=== PATIENT | female | born 1975 | race Caucasian/White ===

== ENCOUNTER → 2016-03-16 | Outpatient (CLI) | payer OTHER ==
--- NOTE | 2016-03-16 17:44 | XR ---
EXAMINATION TYPE: XR thoracic spine 2V DATE OF EXAM: 03/16/2016 4:53 PM COMPARISON: NONE HISTORY: Back pain TECHNIQUE: 3 views FINDINGS: Thoracic vertebra have normal spacing and alignment. Posterior elements are intact. There i s no paraspinal mass. I see no compression fracture. IMPRESSION: Negative thoracic spine exam.
== END | disposition home or self-care (01) ==
LOC: RADXRMAIN 16:32
PROVIDERS: ATTEND Pediatrics
DX: M54.6 Pain in thoracic spine (principal)
CPT/HCPCS: 72070

== ENCOUNTER → 2016-04-04 | Outpatient (CLI) | payer OTHER ==
--- NOTE | 2016-04-04 23:13 | MR ---
EXAMINATION TYPE: MR thoracic spine wo con DATE OF EXAM: 04/04/2016 6:39 PM COMPARISON: NONE HISTORY: back pain from closing garage door 3 weeks ago Standard multiplanar, multisequence MRI departmental protocol Multiplanar, multisequence images of the thoracic spine were acquired. FINDINGS: The thoracic vertebrae have normal spacing and alignment. Thoracic spinal cord has normal s ignal pattern. There is no evidence of edema. There is no spinal stenosis. There is no evidence of th oracic paraspinal mass. I see no bony destructive process. IMPRESSION: Negative MR scan of the thoracic spine. No fracture. No thoracic disc herniation or spinal stenosis.
== END | disposition home or self-care (01) ==
LOC: RADMRIMAIN 17:56
PROVIDERS: ATTEND Psychiatry & Neurology Neurology
DX: M54.6 Pain in thoracic spine (principal)
CPT/HCPCS: 72146

== ENCOUNTER 2016-04-05 16:27 | Emergency (ER) | payer OTHER ==
[2016-04-05 16:36] VITALS: PULSE 60; RESP 18; TEMP 97.8
[2016-04-05] MEDS ORDERED: METHOCARBAMOL 750 MG TAB PO PRN (17:35)
[2016-04-05] MEDS ORDERED: NAPROXEN 250 MG TAB PO PRN (17:35)
[2016-04-05] MEDS ORDERED: ALBUTEROL INHALER 60 PUFF/8 GM INHALER INHALATION PRN (17:35)
[2016-04-05] MEDS ORDERED: GABAPENTIN 300 MG CAP PO ONE (17:45)
[2016-04-05] MEDS ORDERED: METOPROLOL SUCCINATE (ER) 50 MG TAB.ER.24H PO ONE (18:00)
[2016-04-05] MEDS ORDERED: LISINOPRIL-HCTZ 10-12.5 MG 1 EACH TAB PO ONE (18:00)
[2016-04-05] MEDS ORDERED: NON-FORMULARY DRUG (Mometasone/Formoterol [Dulera 200 Mcg/5 Mcg Inhaler] 2 PUFF) INHALATION SCH (20:00)
--- NOTE | 2016-04-05 20:17 | ED ---
Psych HPI - General Chief Complaint: Psychiatric Symptoms Stated Complaint: Mental Health Time Seen by Provider: 04/05/16 17:22 Source: patient Mode of arrival: ambulatory - History of Present Illness Initial Comments: This 40-year-old white female presents with a complaint of some depression. She states that his been chronic in nature. She apparently has had some suicidal ideations in the past. This apparently was 4 months ago. The depression also seem somewhat worse over the past 2 weeks. She has family stressors as well as chronic pain stressors. She takes Celexa for her depression. She apparently was being seen by her primary care physician today and they sent her to the ER for further psychiatric evaluation. She denies any suicide attempts. She denies any other complaints or modifying factors. - Related Data Home Medications Medication Instructions Recorded Confirmed Acyclovir [Zovirax] 400 mg PO BID 02/27/14 04/05/16 Gabapentin [Neurontin] 300 mg PO TID 02/27/14 04/05/16 Hydrocodone/Acetaminophen [[place] 1 tab PO TID 02/27/14 04/05/16 7.5-325] Lacosamide [Vimpat] 50 mg PO BID 02/27/14 04/05/16 Loratadine [Claritin] 10 mg PO DAILY 02/27/14 04/05/16 Tiotropium [place] [Spiriva] 1 cap INHALATION RT-DAILY 02/27/14 04/05/16 Lisinopril-Hctz 10-12.5 mg 1 tab PO DAILY 05/08/14 04/05/16 [Zestoretic 10-12.5] Albuterol Inhaler [Ventolin Hfa 2 puff INHALATION RT-Q6H PRN 10/18/14 04/05/16 Inhaler] Metoprolol Succinate 50 mg PO DAILY 10/18/14 04/05/16 Atorvastatin [Lipitor] 20 mg PO HS 05/26/15 04/05/16 Calcium Carbonate/Vitamin D3 1 tab PO DAILY 05/26/15 04/05/16 [Os-Anurag 500-Vit D3 200 Caplet] Cholecalciferol [Vitamin D3] 1,000 unit PO DAILY 05/26/15 04/05/16 Naproxen 500 mg PO Q12H PRN 05/26/15 04/05/16 Citalopram Hydrobromide [CeleXA] 40 mg PO DAILY 04/05/16 04/05/16 Methocarbamol [Robaxin-750] 750 mg PO TID PRN 04/05/16 04/05/16 Mometasone/Formoterol [[place]ulera 200 2 puff INHALATION RT-BID 04/05/16 04/05/16 Mcg/5 Mcg Inhaler] Terbinafine [LamISIL] 250 mg PO DAILY 04/05/16 04/05/16 Allergies Allergy/AdvReac Type Severity Reaction Status Date / Time Sulfa (Sulfonamide AdvReac Itching Verified 04/05/16 16:59 Antibiotics) Review of Systems ROS Statement: Those systems with pertinent positive or pertinent negative responses have been documented in the HPI. ROS Other: All systems not noted in ROS Statement are negative. Past Medical History Past Medical History: COPD, Fibromyalgia, Hyperlipidemia, Hypertension, Neurologic Disorder, Thyroid Disorder Additional Past Medical History / Comment(s): Neuropathy History of Any Multi-Drug Resistant Organisms: MRSA Date of last positivie culture/infection: 10-18-14 MDRO Source:: Groin Past Surgical History: Back Surgery, Tubal Ligation Additional Past Surgical History / Comment(s): Lumbar fusion L5-S1 Past Anesthesia/Blood Transfusion Reactions: No Reported Reaction Past Psychological History: Anxiety, Depression Smoking Status: Current every day smoker Past Alcohol Use History: Rare Additional Past Alcohol Use History / Comment(s): Patient is a smoker one half to one pack per day and has been smoking for 23 years. She has a medical marijuana card and smokes marijuana on a daily basis for sleep. She denies any street drug use she denies any alcohol use. Patient is currently on disability. She was at home with her 2 daughters that are for 15 years of age and 4 years of age. There are no pets in the home. She recently moved to a new apartment. Past Drug Use History: Marijuana Additional Drug Use History / Comment(s): Pt has medical marijuana card - Past Family History Mother Family Medical History: Hypertension, Sleep Apnea/CPAP/BIPAP Additional Family Medical History / Comment(s): Anxiety and depression General Exam - General Exam Comments Initial Comments: GENERAL: The patient is well nourished and well hydrated. VITAL SIGNS: Heart rate, blood pressure, respiratory rate reviewed as recorded in nurse's notes. EYES: Pupils are round and reactive. Extraocular movements are intact. No conjunctival / lid redness or swelling. ENT: No external evidence of injury, swelling, or ecchymosis. Airway is patent. Throat is clear. NECK: Nontender. No swelling or evidence of injury. No subcutaneous emphysema. Trachea is midline. No thyroid mass. HEART: Regular rate and rhythm. Good peripheral pulses. LUNGS/CHEST: Breath sounds clear and equal bilaterally. No rales, rhonchi, or wheezes. No ecchymosis, subcutaneous emphysema, or tenderness. ABDOMEN: Abdomen soft without tenderness. No palpable masses or organomegaly. No peritoneal signs. No abdominal wall swelling or ecchymosis. EXTREMITIES: No extremity tenderness. Normal muscle tone and function. No thoracolumbar tenderness. NEUROLOGIC: Sensation is grossly intact. Cranial nerve exam reveals face is symmetrical, tongue is midline, speech is clear. SKIN: No abrasions or ecchymosis is noted. No induration or masses noted. PSYCHIATRIC: Alert and oriented. Appropriate behavior and judgment. She is well dressed and well groomed. There is no overt signs of anxiety psychosis or depression. Limitations: no limitations Course Vital Signs 04/05/16 16:32 Temperature 97.8 F Pulse Rate 60 Respiratory 18 Rate Blood Pressure 168/85 O2 Sat by Pulse 99 Oximetry Medical Decision Making - Medical Decision Making The patient was seen and examined. All diagnostics were reviewed. Psychiatry did see the patient in the ER and felt as though she does not need inpatient treatment at this time. They felt as though she is stable for outpatient treatment. They do set her up with outpatient close follow-up. They relate that her suicidal ideations were 4 months ago and she does not have any currently. She leaves in no apparent distress. - Lab Data Lab Results 04/05/16 Range/Units 16:37 Urine Opiates Screen Detected H (NotDetected) Ur Oxycodone Screen Not Detected (NotDetected) Urine Methadone Screen Not Detected (NotDetected) Ur Propoxyphene Screen Not Detected (NotDetected) Ur Barbiturates Screen Not Detected (NotDetected) U Tricyclic Antidepress Not Detected (NotDetected) Ur Phencyclidine Scrn Not Detected (NotDetected) Ur Amphetamines Screen Not Detected (NotDetected) U Methamphetamines Scrn Not Detected (NotDetected) U Benzodiazepines Scrn Not Detected (NotDetected) Urine Cocaine Screen Not Detected (NotDetected) U Marijuana (THC) Screen Detected H (NotDetected) Disposition Clinical Impression: Depression, Hypertension, Chronic pain Disposition: HOME SELF-CARE Condition: Good Instructions: Depression (ED), Hypertension (ED) Referrals: Harpreet Chowdhury MD [Primary Care Provider] - 1-2 days Time of Disposition: 20:14
[2016-04-05 20:24] VITALS: BP 130/71
[2016-04-05] MEDS ORDERED: ATORVASTATIN 20 MG TAB PO SCH (21:00)
[2016-04-05] MEDS ORDERED: LACOSAMIDE 50 MG TABLET PO SCH (21:00)
[2016-04-05] MEDS ORDERED: NON-FORMULARY DRUG (Acyclovir [Zovirax] 400 MG) PO SCH (21:00)
[2016-04-05] MEDS ORDERED: GABAPENTIN 300 MG CAP PO SCH ×2 (22:00)
[2016-04-05] MEDS ORDERED: HYDROcodone/APAP 7.5-325MG 1 EACH TAB PO SCH (22:00)
[2016-04-06] MEDS ORDERED: TIOTROPIUM 18 MCG/PUFF INHALER INHALATION SCH (08:00)
[2016-04-06] MEDS ORDERED: TERBINAFINE 250 MG TAB PO SCH (09:00)
[2016-04-06] MEDS ORDERED: CHOLECALCIFEROL 1,000 UNIT TAB PO SCH (09:00)
[2016-04-06] MEDS ORDERED: NON-FORMULARY DRUG (Citalopram Hydrobromide [Celexa] 40 MG) PO SCH (09:00)
[2016-04-06] MEDS ORDERED: METOPROLOL SUCCINATE (ER) 50 MG TAB.ER.24H PO SCH (09:00)
[2016-04-06] MEDS ORDERED: LISINOPRIL-HCTZ 10-12.5 MG 1 EACH TAB PO SCH (09:00)
[2016-04-06] MEDS ORDERED: LORATADINE 10 MG TAB PO SCH (09:00)
[2016-04-06] MEDS ORDERED: CALCIUM CARB-VIT D 500MG-200UN 1 EACH TAB PO SCH (12:00)
== END 2016-04-05 20:42 | disposition home or self-care (01) ==
LOC: EC 16:27
DX: F32.9 Major depressive disorder, single episode, unspecified (principal); G89.29 Other chronic pain; I10 Essential (primary) hypertension; J44.9 Chronic obstructive pulmonary disease, unspecified; M79.7 Fibromyalgia; E78.5 Hyperlipidemia, unspecified; G62.9 Polyneuropathy, unspecified; Z79.899 Other long term (current) drug therapy; Z79.891 Long term (current) use of opiate analgesic; Z79.51 Long term (current) use of inhaled steroids; Z88.2 Allergy status to sulfonamides; F17.200 Nicotine dependence, unspecified, uncomplicated
CPT/HCPCS: 80306; 82075; 99284; 99285

== ENCOUNTER → 2016-05-11 | Outpatient (CLI) | payer OTHER ==
--- NOTE | 2016-05-11 12:55 | US ---
EXAMINATION TYPE: US abdomen complete DATE OF EXAM: 05/11/2016 11:35 AM COMPARISON: Correlation MRI lumbar spine 01/06/2016 and 04/22/2011 CLINICAL HISTORY: 40-year-old female with R10.11 RUQ Pain. TECHNIQUE: Multiple sonographic images of the abdomen were obtained. FINDINGS: TECHNOLOGIST IMPRESSION: Slender patient in a lot of pain over ruq/epigastric area. Liver Length: 13.8 cm Gallbladder Wall: 0.2 cm CBD: 0.8 cm Spleen: 8.9 cm Right Kidney: 10.2 x 3.1 x 4.2 cm Left Kidney: 10.9 x 3.6 x 4.0 cm Pancreas: Ovoid hypoechoic area measuring 2.0 x 1.7 x 1.2 cm in the pancreatic head region. This are a was rescanned at the end of the exam with the patient positioned differently and could not be redem onstrated. Liver: Normal homogeneous echotexture without focal lesion. Questionable few double ducts are noted suggesting some intrahepatic biliary ductal dilatation. Gallbladder: No abnormal gallbladder distention, wall thickening, pericholecystic fluid, or shadowin g calculi. Evidence for sonographic Plunkett's sign: yes CBD: Dilated. The main pancreatic duct is normal caliber at 2 mm. Spleen: Within normal limits Right Kidney: No hydronephrosis Left Kidney: No hydronephrosis Upper IVC: Within normal limits Abd Aorta: No AAA. IMPRESSION: 1. The bile duct is dilated at 8 mm but appears to have been a similar caliber dating back to the 201 2 lumbar spine MRI. Findings are suspected to be chronic. Correlation with alkaline phosphatase and b ilirubin levels advised. 2. Questionable 2 cm ovoid hypoechoic lesion in the pancreatic head region. Pancreas CT or MRI can ex clude a pancreatic head mass. 3. Positive sonographic Plunkett sign but with normal appearance to the gallbladder. This may be due to referred pain.
== END | disposition home or self-care (01) ==
LOC: RADUSWWP 11:06
PROVIDERS: ATTEND Pediatrics
DX: K83.8 Other specified diseases of biliary tract (principal); R10.11 Right upper quadrant pain
CPT/HCPCS: 76700

== ENCOUNTER → 2016-05-12 | Outpatient (CLI) | payer OTHER ==
--- NOTE | 2016-05-12 11:45 | CT ---
EXAMINATION TYPE: CT abdomen w con DATE OF EXAM: 05/12/2016 11:28 AM COMPARISON: 10/17/2014, ultrasound dated 05/11/2016 HISTORY: RUQ pain CT DLP: 191.2 mGycm Automated exposure control for dose reduction was used. TECHNIQUE: Helical acquisition of images was performed from the lung bases through the top of iliac crest to include entire abdomen. CONTRAST: Performed without Oral Contrast and with IV Contrast, patient injected with 100 mL of Omnipaque 300. FINDINGS: LUNG BASES: No significant abnormality is appreciated. LIVER/GB: No significant abnormality is appreciated. Common bile duct appears stable from the previou s exam PANCREAS: No significant abnormality is seen. SPLEEN: No significant abnormality is seen. ADRENALS: No significant abnormality is seen. KIDNEYS: No significant abnormality is seen. BOWEL: There is thickening of the wall the gastric body. Correlate for gastritis or mild peptic ulce r disease. Visualized bowel gas pattern nonspecific with retained fecal debris.. LYMPH NODES: No pathologic adenopathy. OSSEOUS STRUCTURES: Postsurgical change lumbar spine. OTHER: Aorta of normal caliber. There is a hiatal hernia. IMPRESSION: 1. Findings are suspicious for gastric wall thickening. The stomach is incompletely distended which l imits its evaluation correlate for symptoms of gastritis or peptic ulcer disease. Consider direct vis ualization. 2. Within the right rectus muscle there is a 2.7 cm area of low attenuation. Measures 25 [place]oun[place] u nits. Could be related to intramuscular injury or hematoma. No skin thickening or inflammatory change seen to suggest abscess. Correlate clinically and with point tenderness. 3. Hiatal hernia with distal esophageal wall thickening consider direct visualization. 4. There is thickening of the diaphragmatic crura. Areas of adenopathy in the epigastric region not e xcluded.
== END ==
LOC: RADCTMAIN 10:51
PROVIDERS: ATTEND Pediatrics
DX: K31.89 Other diseases of stomach and duodenum (principal); K44.9 Diaphragmatic hernia without obstruction or gangrene
CPT/HCPCS: 74160; Q9967

== ENCOUNTER 2016-09-23 11:25 | Emergency (ER) | payer OTHER ==
[2016-09-23] MEDS ORDERED: SODIUM CHLORIDE 0.9% 1,000 ML IV STA (12:26)
--- NOTE | 2016-09-23 12:32 | ED ---
General Adult HPI - General Chief complaint: Neck Pain/Injury Stated complaint: seizure,neck pain Time Seen by Provider: 09/23/16 11:54 Source: patient, RN notes reviewed Mode of arrival: ambulatory Limitations: no limitations - History of Present Illness Initial comments: Patient is a 41-year-old female presents to the emergency room for evaluation. Patient states she has a history of seizures. Patient states he's been on Vimpat (50 mg BID) for the past 3 years. Patient states that she has not had a seizure since 2011. Patient states last night she had a seizure. Patient's daughter is present with patient. Patient's daughter states she witnessed the seizure. Patient's daughter states that patient was sitting on her chair and went limp and started making noises. Patient's daughter states that it lasted about 30 seconds and patient was confused for many hours afterwards. Patient states that she refused to go to the hospital afterwards and just wanted to sleep it off. Patient states she woke up this morning with head pressure. Patient also states having chronic neck pain for the past few months. Patient states she is following up with a specialist at the [facility] in December. Patient denies any worsening neck pain. Patient states she is having 5 out of 10 headache. Patient denies any recent changes in prescription medications. Patient denies alcohol use. Patient denies illicit drug use. Patient does state that she has been weaning herself off and [place] over the past few months. Patient states took a [place] last night shortly before her seizure for the first time in a while. Patient denies any head trauma during seizure. Patient denies any other injuries or complaints. - Related Data Home Medications Medication Instructions Recorded Confirmed Acyclovir [Zovirax] 400 mg PO BID 02/27/14 04/05/16 Gabapentin [Neurontin] 300 mg PO TID 02/27/14 04/05/16 Hydrocodone/Acetaminophen [[place] 1 tab PO TID 02/27/14 04/05/16 7.5-325] Lacosamide [Vimpat] 50 mg PO BID 02/27/14 04/05/16 Loratadine [Claritin] 10 mg PO DAILY 02/27/14 04/05/16 Tiotropium [place] [Spiriva] 1 cap INHALATION RT-DAILY 02/27/14 04/05/16 Lisinopril-Hctz 10-12.5 mg 1 tab PO DAILY 05/08/14 04/05/16 [Zestoretic 10-12.5] Albuterol Inhaler [Ventolin Hfa 2 puff INHALATION RT-Q6H PRN 10/18/14 04/05/16 Inhaler] Metoprolol Succinate 50 mg PO DAILY 10/18/14 04/05/16 Atorvastatin [Lipitor] 20 mg PO HS 05/26/15 04/05/16 Calcium Carbonate/Vitamin D3 1 tab PO DAILY 05/26/15 04/05/16 [Os-Anurag 500-Vit D3 200 Caplet] Cholecalciferol [Vitamin D3] 1,000 unit PO DAILY 05/26/15 04/05/16 Naproxen 500 mg PO Q12H PRN 05/26/15 04/05/16 Citalopram Hydrobromide [CeleXA] 40 mg PO DAILY 04/05/16 04/05/16 Methocarbamol [Robaxin-750] 750 mg PO TID PRN 04/05/16 04/05/16 Mometasone/Formoterol [Dulera 200 2 puff INHALATION RT-BID 04/05/16 04/05/16 Mcg/5 Mcg Inhaler] Terbinafine [LamISIL] 250 mg PO DAILY 04/05/16 04/05/16 Allergies Allergy/AdvReac Type Severity Reaction Status Date / Time Sulfa (Sulfonamide AdvReac Itching Verified 04/05/16 16:59 Antibiotics) Review of Systems ROS Statement: Those systems with pertinent positive or pertinent negative responses have been documented in the HPI. ROS Other: All systems not noted in ROS Statement are negative. Past Medical History Past Medical History: COPD, Fibromyalgia, Hyperlipidemia, Hypertension, Neurologic Disorder, Thyroid Disorder Additional Past Medical History / Comment(s): Neuropathy History of Any Multi-Drug Resistant Organisms: MRSA Date of last positivie culture/infection: 10-18-14 MDRO Source:: Groin Past Surgical History: Back Surgery, Tubal Ligation Additional Past Surgical History / Comment(s): Lumbar fusion L5-S1 Past Anesthesia/Blood Transfusion Reactions: No Reported Reaction Past Psychological History: Anxiety, Depression Smoking Status: Current every day smoker Past Alcohol Use History: Rare Past Drug Use History: Marijuana - Past Family History Mother Family Medical History: Hypertension, Sleep Apnea/CPAP/BIPAP Additional Family Medical History / Comment(s): Anxiety and depression General Exam - General Exam Comments Initial Comments: Sitting in exam room, no acute distress. Limitations: no limitations General appearance: alert, in no apparent distress Head exam: Present: atraumatic, normocephalic, normal inspection Eye exam: Present: normal appearance, PERRL, EOMI Pupils: Present: normal accommodation ENT exam: Present: normal exam, normal oropharynx, mucous membranes moist, TM's normal bilaterally, normal external ear exam Neck exam: Present: normal inspection, tenderness (Tenderness on palpating her cervical spine muscles), full ROM. Absent: lymphadenopathy Respiratory exam: Present: normal lung sounds bilaterally. Absent: respiratory distress Cardiovascular Exam: Present: regular rate, normal rhythm, normal heart sounds Extremities exam: Present: normal inspection Back exam: Present: normal inspection Neurological exam: Present: alert, oriented X3, CN II-XII intact Expanded Patient oriented to: Present: person, place, time Speech: Present: fluid speech Cranial nerves: EOM's Intact: Normal, Facial Sensation: Normal Sensory exam: Upper Extremity Light Touch: Normal, Lower Extremity Light Touch: Normal Motor strength exam: RUE: 5, LUE: 5, RLE: 5, LLE: 5 Psychiatric exam: Present: normal affect, normal mood Skin exam: Present: warm, dry, intact, normal color. Absent: rash Course Vital Signs 09/23/16 09/23/16 09/23/16 11:41 13:25 14:21 Temperature 98.1 F 97.8 F 97.3 F L Pulse Rate 67 62 69 Respiratory 17 16 15 Rate Blood Pressure 130/75 127/73 115/63 O2 Sat by Pulse 98 100 99 Oximetry - Reevaluation(s) Reevaluation #1: 09/23/16 12:31 Patient states she has a history of chronic neck pain. Patient denies any recent injury or trauma to her neck. Patient denies worsening neck pain. C- collar was placed in triage. I did remove the c-collar at 12:25 PM EKG Findings - EKG Comments: EKG Findings:: Normal sinus rhythm, ventricular rate 61 bpm, MI interval 138 ms , QRS duration 86 seconds, QT/QTc 432/434 ms Medical Decision Making - Medical Decision Making patient is a 41-year-old female presents emergency room for evaluation of seizure and chronic neck pain. Labs showed no acute findings. CT negative for any acute findings. Patient advised to keep appointment with specialist at [facility] for chronic neck pain. Patient advised to follow-up with neurologist for seizure. Advised patient to not drive for the next 6 months or until evaluated by neurologist. Patient can continue taking her at home medications. Patient states she understands everything that was discussed with her. Return parameters discussed. Case discussed with Dr. Grover. - Lab Data Result diagrams: 09/23/16 12:40 09/23/16 12:40 Lab Results 09/23/16 09/23/16 09/23/16 Range/Units 12:32 12:39 12:40 WBC (3.8-10.6) k/uL RBC (3.80-5.40) m/uL Hgb (11.4-16.0) gm/dL Hct (34.0-46.0) % MCV (80.0-100.0) fL MCH (25.0-35.0) pg MCHC (31.0-37.0) g/dL RDW (11.5-15.5) % Plt Count (150-450) k/uL Neutrophils % % Lymphocytes % % Monocytes % % Eosinophils % % Basophils % % Neutrophils # (1.3-7.7) k/uL Lymphocytes # (1.0-4.8) k/uL Monocytes # (0-1.0) k/uL Eosinophils # (0-0.7) k/uL Basophils # (0-0.2) k/uL Sodium 137 (137-145) mmol/L Potassium 4.2 (3.5-5.1) mmol/L Chloride 102 (98-107) mmol/L Carbon Dioxide 27 (22-30) mmol/L Anion Gap 8 mmol/L BUN 11 (7-17) mg/dL Creatinine 0.74 (0.52-1.04) mg/dL Est GFR (MDRD) Af Amer >60 (>60 ml/min/1.73 sqM) Est GFR (MDRD) Non-Af >60 (>60 ml/min/1.73 sqM) Glucose 88 (74-99) mg/dL POC Glucose (mg/dL) 98 (75-99) mg/dL POC Glu Video Games Mechanic ID Abdelrahman Severino Calcium 9.2 (8.4-10.2) mg/dL Total Bilirubin 0.5 (0.2-1.3) mg/dL AST 25 (14-36) U/L ALT 24 (9-52) U/L Alkaline Phosphatase 56 (38-126) U/L Total Protein 6.6 (6.3-8.2) g/dL Albumin 3.9 (3.5-5.0) g/dL Urine Color Light Yellow Urine Appearance Clear (Clear) Urine pH 5.5 (5.0-8.0) Ur Specific [place] 1.004 (1.001-1.035) Urine Protein Negative (Negative) Urine Glucose (UA) Negative (Negative) Urine Ketones Negative (Negative) Urine Blood Negative (Negative) Urine Nitrite Negative (Negative) Urine Bilirubin Negative (Negative) Urine Urobilinogen <2.0 (<2.0) mg/dL Ur Leukocyte Esterase Negative (Negative) Salicylates <1.0 mg/dL Urine Opiates Screen Detected H (NotDetected) Ur Oxycodone Screen Not Detected (NotDetected) Urine Methadone Screen Not Detected (NotDetected) Ur Propoxyphene Screen Not Detected (NotDetected) Acetaminophen <10.0 ug/mL Ur Barbiturates Screen Not Detected (NotDetected) U Tricyclic Antidepress Not Detected (NotDetected) Ur Phencyclidine Scrn Not Detected (NotDetected) Ur Amphetamines Screen Not Detected (NotDetected) U Methamphetamines Scrn Not Detected (NotDetected) U Benzodiazepines Scrn Not Detected (NotDetected) Urine Cocaine Screen Not Detected (NotDetected) U Marijuana (THC) Screen Not Detected (NotDetected) Serum Alcohol <10 mg/dL 09/23/16 Range/Units 12:40 WBC 6.6 (3.8-10.6) k/uL RBC 4.06 (3.80-5.40) m/uL Hgb 13.3 (11.4-16.0) gm/dL Hct 38.4 (34.0-46.0) % MCV 94.5 (80.0-100.0) fL MCH 32.6 (25.0-35.0) pg MCHC 34.5 (31.0-37.0) g/dL RDW 12.1 (11.5-15.5) % Plt Count 152 (150-450) k/uL Neutrophils % 56 % Lymphocytes % 34 % Monocytes % 7 % Eosinophils % 2 % Basophils % 1 % Neutrophils # 3.7 (1.3-7.7) k/uL Lymphocytes # 2.2 (1.0-4.8) k/uL Monocytes # 0.4 (0-1.0) k/uL Eosinophils # 0.1 (0-0.7) k/uL Basophils # 0.1 (0-0.2) k/uL Sodium (137-145) mmol/L Potassium (3.5-5.1) mmol/L Chloride (98-107) mmol/L Carbon Dioxide (22-30) mmol/L Anion Gap mmol/L BUN (7-17) mg/dL Creatinine (0.52-1.04) mg/dL Est GFR (MDRD) Af Amer (>60 ml/min/1.73 sqM) Est GFR (MDRD) Non-Af (>60 ml/min/1.73 sqM) Glucose (74-99) mg/dL POC Glucose (mg/dL) (75-99) mg/dL POC Glu Video Games Mechanic ID Calcium (8.4-10.2) mg/dL Total Bilirubin (0.2-1.3) mg/dL AST (14-36) U/L ALT (9-52) U/L Alkaline Phosphatase (38-126) U/L Total Protein (6.3-8.2) g/dL Albumin (3.5-5.0) g/dL Urine Color Urine Appearance (Clear) Urine pH (5.0-8.0) Ur Specific [place] (1.001-1.035) Urine Protein (Negative) Urine Glucose (UA) (Negative) Urine Ketones (Negative) Urine Blood (Negative) Urine Nitrite (Negative) Urine Bilirubin (Negative) Urine Urobilinogen (<2.0) mg/dL Ur Leukocyte Esterase (Negative) Salicylates mg/dL Urine Opiates Screen (NotDetected) Ur Oxycodone Screen (NotDetected) Urine Methadone Screen (NotDetected) Ur Propoxyphene Screen (NotDetected) Acetaminophen ug/mL Ur Barbiturates Screen (NotDetected) U Tricyclic Antidepress (NotDetected) Ur Phencyclidine Scrn (NotDetected) Ur Amphetamines Screen (NotDetected) U Methamphetamines Scrn (NotDetected) U Benzodiazepines Scrn (NotDetected) Urine Cocaine Screen (NotDetected) U Marijuana (THC) Screen (NotDetected) Serum Alcohol mg/dL - Radiology Data Radiology results: report reviewed, image reviewed Disposition Clinical Impression: Seizure, Chronic neck pain Disposition: HOME SELF-CARE Condition: Good Instructions: Recurrent Seizures in Adults (ED) Additional Instructions: Please follow-up with neurologist. No driving until further evaluation. Continue taking prescribed medications as directed. If any new symptom arises or symptoms worsen, return to ER as soon as possible. Referrals: Harpreet Chowdhury MD [Primary Care Provider] - 1-2 days Time of Disposition: 14:09
[2016-09-23 12:44] LABS: Glucose,Whole Blood 98 mg/dL (75-99)
[2016-09-23 13:03] LABS: Appearance,Urine Clear (Clear); Bilirubin,Urine Negative (Negative); Glucose,Urine (UA) Negative (Negative); Ketones,Urine Negative (Negative); Leukocyte Esterase,Urine Negative (Negative); Nitrite,Urine Negative (Negative); PH, Urine 5.5 (5.0-8.0); Protein,Urine Negative (Negative); Specific Gravity,Urine 1.004 (1.001-1.035); UA Billing (MACRO vs. MICRO) CHEM; Urobilinogen,Urine <2.0 mg/dL (<2.0)
[2016-09-23 13:08] LABS: Basophils # (A) 0.1 k/uL (0-0.2); Basophils % (A) 1 %; CHCM 33.9; Eosinophils # (A) 0.1 k/uL (0-0.7); Eosinophils % (A) 2 %; HCT 38.4 % (34.0-46.0); HDW 2.72; HGB 13.3 gm/dL (11.4-16.0); Luc % (Auto) 2; Lymphocytes # (A) 2.2 k/uL (1.0-4.8); Lymphocytes % (A) 34 %; MCH 32.6 pg (25.0-35.0); MCHC 34.5 g/dL (31.0-37.0); MCV 94.5 fL (80.0-100.0); Mean Platelet Volume 8.7; Monocytes # (A) 0.4 k/uL (0-1.0); Monocytes % (A) 7 %; Neutrophils # (A) 3.7 k/uL (1.3-7.7); Neutrophils % (A) 56 %; RBC 4.06 m/uL (3.80-5.40); RDW 12.1 % (11.5-15.5); WBC 6.6 k/uL (3.8-10.6); WBC (Perox) 6.58
[2016-09-23 13:16] LABS: ALT 24 U/L (9-52); AST 25 U/L (14-36); Acetaminophen <10.0 ug/mL; Alcohol <10 mg/dL; Alkaline Phosphatase 56 U/L (38-126); Anion Gap 8 mmol/L; Blood Urea Nitrogen 11 mg/dL (7-17); Calcium 9.2 mg/dL (8.4-10.2); Carbon Dioxide 27 mmol/L (22-30); Chloride 102 mmol/L (98-107); Glucose 88 mg/dL (74-99); Non-African American GFR(MDRD) >60 (>60 ml/min/1.73 sqM); Potassium 4.2 mmol/L (3.5-5.1); Salicylate <1.0 mg/dL; Sodium 137 mmol/L (137-145); Total Bilirubin 0.5 mg/dL (0.2-1.3); Total Protein 6.6 g/dL (6.3-8.2)
--- NOTE | 2016-09-23 13:43 | CT ---
EXAMINATION TYPE: CT brain cspine wo con DATE OF EXAM: 09/23/2016 COMPARISON: NONE HISTORY: Seziure, neck and head pain CT DLP: brain 1054.2 and cervical 315.3 mGycm Automated exposure control for dose reduction was used. TECHNIQUE: CT scan of the head and cervical spine are performed without contrast. FINDINGS: There is no acute intracranial hemorrhage, mass effect, or midline shift identified. The ventricles and sulci are within normal limits in size. The globes are intact and the visualized sin uses are clear. Cervical spine is visualized in its entirety from C1 through upper thoracic levels and demonstrates s atisfactory alignment without evidence of acute fracture or dislocation. Prevertebral soft tissue ap pears within normal limits. The C1-C2 articulation is unremarkable. Facet arthropathy C4-C5 on the right 5 mm subpleural nodule within the upper lobe. Apical bleb is noted. IMPRESSION: 1. There is no acute fracture or dislocation evident in the cervical spine. 2. No acute intracranial hemorrhage, mass effect, or midline shift is seen. 3. 5 mm subpleural pulmonary nodule right upper lobe.
[2016-09-23 14:22] VITALS: BP 115/63; PULSE 69; RESP 15; TEMP 97.3
== END 2016-09-23 14:21 | disposition home or self-care (01) ==
LOC: EC 11:25
DX: M54.2 Cervicalgia (principal); G89.29 Other chronic pain; R56.9 Unspecified convulsions; R51 Headache; E78.5 Hyperlipidemia, unspecified; I10 Essential (primary) hypertension; J44.9 Chronic obstructive pulmonary disease, unspecified; M79.7 Fibromyalgia; F32.9 Major depressive disorder, single episode, unspecified; F41.9 Anxiety disorder, unspecified; F17.200 Nicotine dependence, unspecified, uncomplicated; Z79.51 Long term (current) use of inhaled steroids; Z79.891 Long term (current) use of opiate analgesic; Z79.899 Other long term (current) drug therapy; Z88.2 Allergy status to sulfonamides
CPT/HCPCS: 36415; 70450; 72125; 80053; 80306; 80320; 81003; 83520; 85025; 96360; 96361; 99284

== ENCOUNTER → 2016-12-15 | Outpatient (CLI) | payer OTHER ==
[2016-12-15 12:37] VITALS: BP 158/87; PULSE 60; RESP 16; TEMP 98.1
--- NOTE | 2016-12-15 13:31 | P.CONS ---
History of Present Illness - Reason for Consult Consult date: 12/15/16 - History of Present Illness This is the initial consultation visit for this 41 years old female with a chronic history of severe neck pain and headache, started several years ago and also patient complaining of severe low back pain, with radiation to the posterior aspect of her lower extremity, the neck pain started in the cervical area and radiated towards the top of the head, she denies any motor or sensory deficits denies any change in the bowel movement or urination, she had no fever or night sweats, also patient complaining of severe low back pain , she had no motor or sensory deficit in the lower extremity, she is being treated with different kind of medication without any significant long-term benefit, and she had multiple pain intervention is procedure done at different pain clinic without any long-term benefit, Past Medical History Past Medical History: COPD, Fibromyalgia, GERD/Reflux, Hyperlipidemia, Hypertension, Neurologic Disorder, Seizure Disorder, Thyroid Disorder Additional Past Medical History / Comment(s): LAST SEIZURE 09/22/16, HAS HAD GRAND MAL, AND SEIZURES WERE SHE "STARES OFF" Neuropathy History of Any Multi-Drug Resistant Organisms: MRSA Year Discovered:: 10-18-14 MDRO Source:: Groin Past Surgical History: Back Surgery, Tubal Ligation, Uterine Ablation Additional Past Surgical History / Comment(s): Lumbar fusion L5-S1 2005. LEEP Procedure 2017 Past Anesthesia/Blood Transfusion Reactions: No Reported Reaction Past Psychological History: Anxiety, Depression Smoking Status: Current every day smoker Past Alcohol Use History: Rare Additional Past Alcohol Use History / Comment(s): Patient is a smoker one half to one pack per day and has been smoking for 23 years. She has a medical marijuana card and smokes marijuana on a daily basis for sleep. She denies any street drug use she denies any alcohol use. Patient is currently on disability. She was at home with her 2 daughters that are for 15 years of age and 4 years of age. There are no pets in the home. She recently moved to a new apartment. Past Drug Use History: Marijuana Additional Drug Use History / Comment(s): Pt has medical marijuana card - Past Family History Mother Family Medical History: Hypertension, Sleep Apnea/CPAP/BIPAP Additional Family Medical History / Comment(s): Anxiety and depression Medications and Allergies Home Medications Medication Instructions Recorded Confirmed Type Acyclovir [Zovirax] 400 mg PO BID 02/27/14 12/14/16 History Gabapentin [Neurontin] 300 mg PO BID 02/27/14 12/14/16 History Lacosamide [Vimpat] 50 mg PO BID 02/27/14 12/14/16 History Loratadine [Claritin] 10 mg PO DAILY 02/27/14 12/14/16 History Tiotropium [place] [Spiriva] 1 cap INHALATION RT-DAILY 02/27/14 12/14/16 History Albuterol Inhaler [Ventolin Hfa 2 puff INHALATION RT-Q6H PRN 10/18/14 12/14/16 History Inhaler] Metoprolol Succinate 50 mg PO DAILY 10/18/14 12/14/16 History Atorvastatin [Lipitor] 20 mg PO HS 05/26/15 12/14/16 History Calcium Carbonate/Vitamin D3 1 tab PO DAILY 05/26/15 12/14/16 History [Os-Anurag 500-Vit D3 200 Caplet] Cholecalciferol [Vitamin D3] 1,000 unit PO DAILY 05/26/15 12/14/16 History Naproxen 500 mg PO Q12H PRN 05/26/15 12/14/16 History Mometasone/Formoterol [Dulera 200 2 puff INHALATION RT-BID 04/05/16 12/14/16 History Mcg/5 Mcg Inhaler] Baclofen 10 mg PO BID 12/14/16 12/14/16 History Omeprazole [PriLOSEC] 40 mg PO DAILY 12/14/16 12/14/16 History busPIRone HCl [Buspar] 5 mg PO BID 12/14/16 12/14/16 History Zolpidem [Ambien] 5 mg PO HS PRN 12/15/16 12/15/16 History Allergies Allergy/AdvReac Type Severity Reaction Status Date / Time Sulfa (Sulfonamide Allergy "FEELS Verified 12/15/16 12:22 Antibiotics) LIKE I'M ON FIRE FROM INSIDE OUT" hydrocodone [From [place]] AdvReac STATES Verified 12/15/16 12:22 "IRRATIC MOODS" Physical Exam Vitals: Vital Signs Temp Pulse Resp BP 12/15/16 12:23 98.1 F 60 16 158/87 Social history : smoker , NO ETOH , use mariuana . Review of Systems : 1- Constitutional : no chills , no fever , no night sweats , 2- Ears : no ear discharge , no change in hearing 3-Nose, Mouth ,Throat ; no bleeding gums, no sore throat , no epistaxis , 4-Cardiovascular : Denies chest pain, , no orthopnea , no palpitation 5-Respiratory : Denies cough , no dyspnea , no hemoptysis 6-Gastrointestinal :, no change in bowel habits , no coffee- ground emesis . 7-Genitourinary : No hematuria , no discharge , no incontinence, 8-Musculoskeletal : No gait dysfunction , report low back pain , 9- Neurological : no ataxia , no tremor ,history of sezure , 10-Psychatric , no suicidal ideation no hallucination 11- Endocrine : no cold intolerence , no polyuria , no polydypsia , 12-Hematologic : no easy bleeding , no easy brusing , 13-Allergic / immunology : no angioedema , no wheezing ,no allergic rhinitis 14-Integumentary : no brttle nails , no change hair / nails , no foot/leg ulcers . Physical Examinations : 1-Constitutional : Cooperative , not in acute distress . 2-HEENT : nech ; supple , no Lymphadenopathy , no Thyromegaly , :eyes , no icterus, no photophobia . ENT : , normal oropharynx , no Thrush 3- Respiratory : Chest clear to auscultations Bilaterally , no wheezing . 4- Cardiovascular : regular rate and rhythem , S1 , S2 , no S3 , no S4. 5- Gastrointestinal: abdomen soft no tenderness , no organomegally . 6- Genitourinary : Defferred . 7-Integumentary : No cellulitis , no ulcers , normal skin turgor , no cyanotic . 8- neurologic : Cranial nerve II to XII intact , no focal neurological deffecit 9-psychatric : alert , oriented X 3 , appropriate affect , intact judgment and insight . 10-Lymphatic : no Lymphadenopathy. 11- musculoskeltal: normal gait Cervical Spine motor stregnth in the deltoid and biceps, normal right side , normal Left side motor stregnth biceps and the wrist extensors normal right side ,normal left side . motor stregnth in the triceps muscle . normal Right side , normal Left side deep tendon reflexes normal at the biceps , normal at Brachioradialis , normal at triceps. positive cervical facet loading test . Positive tenderness over the occipital nerves bilaterally Lumber spine moter stegnth lower extremities ,thigh and legs 5/5 Right side , 5/5 Left side deep tendon reflexes : normal Knee Jerk , normal ankle Jerk positive lumber facet Loading Test Range of motion of the lumbar spine Flexion 30 degrees, extension 10 degrees strait leg raising test , positive at 45 degree Fabere test positive RT and positive LT . Results Comments: MRI of the lumbar spine= post operative changes, and disc bulging at L4 5 Assessment and Plan Plan: Assessment and plan= 1-occipital neuralgia. 2-cervicogenic headache. 3-clinical finding of cervical spondylosis. 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 5-lumbar spondylosis. Patient could benefit from bilateral occipital nerve blocks, procedure risks and benefits discussed with the patient and she agreed with proceeding, if patient continues to have pain after the occipital nerve block then we should consider doing MRI of the cervical spine and possibly we should do diagnostic medial branch block cervical area, treatment plan discussed with the patient and she agreed with the preceding, regarding her medication management patient currently taking Neurontin 300 mg 2 tablet every 12 hours , I recommend to change the dose to Neurontin 400 mg every 8 hours, and this patient could benefit her for better coverage throughout the day Time with Patient: Greater than 30
== END | disposition home or self-care (01) ==
LOC: PNWHC3 12:00
PROVIDERS: ATTEND Specialist
DX: M54.81 Occipital neuralgia (principal); M47.816 Spondylosis without myelopathy or radiculopathy, lumbar region; M47.812 Spondylosis without myelopathy or radiculopathy, cervical region; M96.1 Postlaminectomy syndrome, not elsewhere classified; J44.9 Chronic obstructive pulmonary disease, unspecified; K21.9 Gastro-esophageal reflux disease without esophagitis; E78.5 Hyperlipidemia, unspecified; I10 Essential (primary) hypertension; M79.7 Fibromyalgia; E07.9 Disorder of thyroid, unspecified; G40.909 Epilepsy, unspecified, not intractable, without status epilepticus; F17.200 Nicotine dependence, unspecified, uncomplicated; Z88.2 Allergy status to sulfonamides; Z88.5 Allergy status to narcotic agent; Z79.899 Other long term (current) drug therapy
CPT/HCPCS: 99211

== ENCOUNTER → 2016-12-19 | Outpatient (CLI) | payer OTHER ==
--- NOTE | 2016-12-19 09:20 | CT ---
EXAMINATION TYPE: CT chest w con DATE OF EXAM: 12/19/2016 COMPARISON: Plain film 05/26/2015, CT abdomen 05/12/2016, CT cervical spine 09/23/2016 HISTORY: Rt Pulmonary Nodule CT DLP: 134.7 mGycm Automated exposure control for dose reduction was used. CONTRAST: CT scan of the chest is performed with IV Contrast, patient injected with 100 mL of Omnipaque 300. FINDINGS: LUNGS: The lungs are grossly clear, there is no concerning parenchymal mass or nodule identified. Min imal subpleural nodularity as seen on CT scan of the cervical spine likely postinflammatory, question able clinical significance. There is no pleural effusion or pneumothorax seen. The tracheobronchial tree is patent. Emphysematous changes are present MEDIASTINUM: There are no greater than 1 cm hilar or mediastinal lymph nodes. No pericardial effusi on is seen. AORTA: No additional significant abnormality is seen. OTHER: Cystic foci are present lateral to the spleen causing some mass effect locally and are incomp letely evaluated. These have developed in the intervale. IMPRESSION: Cystic foci lateral to the spleen as described. Emphysema, correlate for COPD. Stable ri ght upper lobe subpleural nodule as described.
== END | disposition home or self-care (01) ==
LOC: RADCTMAIN 07:58
PROVIDERS: ATTEND Family Medicine
DX: J43.9 Emphysema, unspecified (principal); R91.1 Solitary pulmonary nodule; F17.210 Nicotine dependence, cigarettes, uncomplicated
CPT/HCPCS: 71260; Q9967

== ENCOUNTER → 2017-02-27 | Outpatient (CLI) | payer OTHER ==
[2017-02-27 13:35] VITALS: BP 110/56; PULSE 68; RESP 16; TEMP 97.7
--- NOTE | 2017-02-27 13:59 | P.PN ---
Progress Note - Text Progress Note Date: 02/27/17 This is a 41-year-old female with history of fibromyalgia and widespread pain in her spine starting from the cervical down to the lumbar area with also occipital headache. Her insurance denied approval for occipital nerve block. She has been using Neurontin 600 mg twice a day baclofen and Motrin for her pain His medical marijuana also. She had side effects to Cymbalta previously. Physical exam she is alert oriented 3 in no apparent distress she has tenderness in the paravertebral musculature starting from the cervical spine down to the lumbar spine. She has signs of using warm pads on her back. The patient is going to [facility] for what seems to be an EMG test on the lower extremities for possible diagnosis of lumbar radiculopathy however the MRIs that we have in our computer system showed only mild degenerative changes on the cervical, thoracic, and lumbar spines that does not explain the intensity of her pain. She scores Her pain as 8 out of 10 today. Today I will give the patient prescription for tramadol 50 mg 1 pill daily when necessary severe uncontrolled pain. Range of screen today. Sign an opioid agreement with her also. We will see the patient 2 months from now.
== END ==
LOC: PNWHC3 13:09
PROVIDERS: ATTEND Anesthesiology
DX: M54.9 Dorsalgia, unspecified (principal); Z79.899 Other long term (current) drug therapy; Z79.891 Long term (current) use of opiate analgesic
CPT/HCPCS: G0480; G0463; 80307; 80349; 80356; 99211

== ENCOUNTER → 2017-04-20 | Outpatient (CLI) | payer OTHER | END | disposition home or self-care (01) | LOC: LABWHC1 10:39 | PROVIDERS: ATTEND Psychiatry & Neurology Neurology | DX: G40.909 Epilepsy, unspecified, not intractable, without status epilepticus (principal) | CPT/HCPCS: 36415 ==

== ENCOUNTER → 2017-04-24 | Outpatient (CLI) | payer OTHER ==
[2017-04-24 12:46] VITALS: BP 119/86; PULSE 72; RESP 18
--- NOTE | 2017-04-24 13:12 | P.PN ---
Progress Note - Text Progress Note Date: 04/24/17 This is a 41-year-old female with history of fibromyalgia. The patient has widespread bodily pain especially in the upper back area and both shoulders. She also has pain in both biceps muscles. The patient has been using tramadol once a day and medical marijuana which helps her sleep at night however she would like to try treatment without medical marijuana in the near future. She is alert oriented 3 no apparent distress She has tenderness in the paravertebral area in the thoracic and cervical regions. She also has tenderness in the trapezius muscles bilaterally. Today I'll give her prescription for 30 pills of tramadol to be filled in May. she has still to fill her previous prescription which will last her until the first week of May. We will see the patient 2 months from now.
== END ==
LOC: PNWHC3 12:22
PROVIDERS: ATTEND Anesthesiology
DX: M54.9 Dorsalgia, unspecified (principal); M25.512 Pain in left shoulder; M25.511 Pain in right shoulder; M79.1 Myalgia; Z79.891 Long term (current) use of opiate analgesic
CPT/HCPCS: 99211

== ENCOUNTER 2017-06-19 17:00 | Observation (INO) | payer OTHER ==
[2017-06-19] MEDS ORDERED: ASPIRIN 81 MG PO STA (17:56)
[2017-06-19 18:28] LABS: Basophils # (A) 0.1 k/uL (0-0.2); Basophils % (A) 1 %; Eosinophils # (A) 0.1 k/uL (0-0.7); Eosinophils % (A) 1 %; HCT 41.2 % (34.0-46.0); HGB 14.3 gm/dL (11.4-16.0); Lymphocytes # (A) 2.1 k/uL (1.0-4.8); Lymphocytes % (A) 27 %; MCH 31.6 pg (25.0-35.0); MCHC 34.6 g/dL (31.0-37.0); MCV 91.2 fL (80.0-100.0); Mean Platelet Volume 9.3; Monocytes # (A) 0.5 k/uL (0-1.0); Monocytes % (A) 6 %; Neutrophils # (A) 5.1 k/uL (1.3-7.7); Neutrophils % (A) 65 %; Platelet Count 153 k/uL (150-450); RBC 4.52 m/uL (3.80-5.40); RDW 13.7 % (11.5-15.5); WBC 7.9 k/uL (3.8-10.6)
[2017-06-19 18:36] LABS: INR 1.1 (<1.2); Partial Thromboplastin Time 23.7 sec (22.0-30.0); Prothrombin Time 10.7 sec (9.0-12.0)
[2017-06-19 18:38] LABS: ALT 21 U/L (9-52); AST 27 U/L (14-36); Albumin 4.1 g/dL (3.5-5.0); Alkaline Phosphatase 54 U/L (38-126); Anion Gap 13 mmol/L; Blood Urea Nitrogen 5 mg/dL (7-17); Calcium 9.6 mg/dL (8.4-10.2); Carbon Dioxide 28 mmol/L (22-30); Chloride 96 mmol/L (98-107); Glucose 130 mg/dL (74-99); Magnesium 1.7 mg/dL (1.6-2.3); Sodium 137 mmol/L (137-145); Total Bilirubin 0.5 mg/dL (0.2-1.3)
[2017-06-19 18:41] LABS: Potassium 2.9 mmol/L (3.5-5.1)
[2017-06-19 18:51] LABS: Creatine Kinase 103 U/L (30-135)
--- NOTE | 2017-06-19 18:53 | ED ---
Chest Pain HPI - General Source: patient, RN notes reviewed Mode of arrival: wheelchair Limitations: no limitations <Teto Marquez - Last Filed: 06/19/17 19:54> <Percy Grover - Last Filed: 06/19/17 20:10> - General Chief Complaint: Chest Pain Stated Complaint: CHEST PAIN Time Seen by Provider: 06/19/17 17:44 - History of Present Illness Initial Comments: 42-year-old female presents emergency Department chief complaint of chest pain. Patient states that just been has been off last couple days states that she has been sick with cough congestion and she has a history of COPD. Patient also states this is a history of hypertension and hyperlipidemia currently on medications. Patient denies history of diabetes or family heart disease. Patient denies any nausea vomiting diarrhea constipation. Patient continues to smoke daily. Patient states that her cough is not productive at this time. No prior stress test or echo. (Teto Marquez) - Related Data Home Medications Medication Instructions Recorded Confirmed Acyclovir [Zovirax] 400 mg PO BID 02/27/14 06/19/17 Gabapentin [Neurontin] 600 mg PO BID 02/27/14 06/19/17 Lacosamide [Vimpat] 150 mg PO BID 02/27/14 06/19/17 Tiotropium [place] [Spiriva] 1 cap INHALATION RT-DAILY 02/27/14 06/19/17 Albuterol Inhaler [Ventolin Hfa 2 puff INHALATION RT-Q6H PRN 10/18/14 06/19/17 Inhaler] Metoprolol Succinate 50 mg PO DAILY 10/18/14 06/19/17 Atorvastatin [Lipitor] 20 mg PO DAILY 05/26/15 06/19/17 Cholecalciferol [Vitamin D3] 1,000 unit PO DAILY 05/26/15 06/19/17 Naproxen 500 mg PO Q12H PRN 05/26/15 06/19/17 Mometasone/Formoterol [Dulera 200 2 puff INHALATION RT-BID 04/05/16 06/19/17 Mcg/5 Mcg Inhaler] Baclofen 10 mg PO TID 12/14/16 06/19/17 Omeprazole [PriLOSEC] 40 mg PO QAM 12/14/16 06/19/17 busPIRone HCl [Buspar] 5 mg PO TID 12/14/16 06/19/17 Hydrochlorothiazide 12.5 mg PO QAM 01/09/17 06/19/17 Allergies Allergy/AdvReac Type Severity Reaction Status Date / Time Sulfa (Sulfonamide Allergy "FEELS Verified 06/19/17 18:40 Antibiotics) LIKE I'M ON FIRE FROM INSIDE OUT" hydrocodone [From [place]] AdvReac STATES Verified 06/19/17 18:40 "IRRATIC MOODS" Review of Systems ROS Other: All systems not noted in ROS Statement are negative. <Teto Marquez - Last Filed: 06/19/17 19:54> ROS Other: All systems not noted in ROS Statement are negative. <Percy Grover - Last Filed: 06/19/17 20:10> ROS Statement: Those systems with pertinent positive or pertinent negative responses have been documented in the HPI. EKG Findings - EKG Comments: EKG Findings:: EKG performed at 17:21 normal sinus rhythm with a rate of 74. 160 QRS 86 QT/QTC 378/419. EKG repeat performed at 19:41, sinus rhythm rate 60 06/11/1943 QRS 84 QT/QTC 404/416 <Teto Marquez - Last Filed: 06/19/17 19:54> Past Medical History Past Medical History: COPD, Fibromyalgia, GERD/Reflux, Hyperlipidemia, Hypertension, Neurologic Disorder, Seizure Disorder, Thyroid Disorder Additional Past Medical History / Comment(s): LAST SEIZURE 09/22/16, HAS HAD GRAND MAL, AND SEIZURES WERE SHE "STARES OFF" Neuropathy History of Any Multi-Drug Resistant Organisms: MRSA Date of last positivie culture/infection: 10-18-14 MDRO Source:: Groin Past Surgical History: Back Surgery, Tubal Ligation, Uterine Ablation Additional Past Surgical History / Comment(s): Lumbar fusion L5-S1 2006. LEEP Procedure 2017 Past Anesthesia/Blood Transfusion Reactions: No Reported Reaction Past Psychological History: Anxiety, Depression Smoking Status: Current every day smoker Past Alcohol Use History: Rare Past Drug Use History: Marijuana - Past Family History Mother Family Medical History: Hypertension, Sleep Apnea/CPAP/BIPAP Additional Family Medical History / Comment(s): Anxiety and depression <Teto Marquez - Last Filed: 06/19/17 19:54> General Exam Limitations: no limitations General appearance: alert, in no apparent distress Head exam: Present: atraumatic, normocephalic, normal inspection Eye exam: Present: normal appearance, PERRL, EOMI. Absent: scleral icterus, conjunctival injection, periorbital swelling ENT exam: Present: normal exam, normal oropharynx, mucous membranes moist, TM's normal bilaterally Neck exam: Present: normal inspection, full ROM. Absent: tenderness, meningismus, lymphadenopathy Respiratory exam: Present: normal lung sounds bilaterally. Absent: respiratory distress, wheezes, rales, rhonchi, stridor Cardiovascular Exam: Present: regular rate, normal rhythm, normal heart sounds. Absent: systolic murmur, diastolic murmur, rubs, gallop, clicks GI/Abdominal exam: Present: soft, normal bowel sounds. Absent: distended, tenderness, guarding, rebound, rigid <Teto Marquez - Last Filed: 06/19/17 19:54> Course <Teto Marquez - Last Filed: 06/19/17 19:54> <Percy Grover - Last Filed: 06/19/17 20:10> Vital Signs 06/19/17 17:05 Temperature 97.8 F Pulse Rate 94 Respiratory 18 Rate Blood Pressure 119/70 O2 Sat by Pulse 98 Oximetry - Reevaluation(s) Reevaluation #1: 06/19/17 20:10 PA supervision: The patient will be admitted for evaluation of chest pain. Patient does have risk factors which include smoking. I do agree with the assessment and plan. I did review the EKG no evidence of acute findings at this time. (Percy Grover) Disposition <Teto Marquez - Last Filed: 06/19/17 19:54> <Percy Grover - Last Filed: 06/19/17 20:10> Clinical Impression: Chest pain, Hypokalemia Disposition: ADMITTED IP TO THIS [facility] Condition: Stable Referrals: Kirk Blackwood MD [Primary Care Provider] - 1-2 days
--- NOTE | 2017-06-19 18:54 | XR ---
EXAMINATION TYPE: XR chest 2V DATE OF EXAM: 06/19/2017 COMPARISON: 05/26/2015 HISTORY: Chest pain TECHNIQUE: Frontal and lateral views of the chest are obtained. FINDINGS: Heart and mediastinum are normal. Lungs are clear of infiltrate. There is pulmonary hyperi nflation and flattening of the diaphragm. Bony thorax is intact. IMPRESSION: There is probably COPD. No acute lung disease. No change.
[2017-06-19 19:02] LABS: Creatine Kinase MB 1.5 ng/mL (0.0-2.4); Troponin I <0.012 ng/mL (0.000-0.034)
[2017-06-19] MEDS ORDERED: HEPARIN SODIUM,PORCINE 5,000 UNIT/ML 1 ML VIAL IV ONE (19:55)
[2017-06-19] MEDS ORDERED: NITROGLYCERIN SL TABS 0.4 MG TAB SUBLINGUAL PRN (19:55)
[2017-06-19] MEDS ORDERED: KETOROLAC 30 MG/ML 1 ML VIAL IVP STA (19:56)
[2017-06-19] MEDS ORDERED: HEPARIN SOD,PORK IN 0.45% NACL 25,000 UNIT in 0.45% NACL 1 500ML.BAG IV SCH (20:00)
[2017-06-19] MEDS ORDERED: POTASSIUM CHLORIDE ER 20 MEQ TAB.ER PO STA (20:50)
[2017-06-19] MEDS ORDERED: MAGNESIUM SULFATE-D5W PMX 1 GM in DEXTROSE/WATER 1 100ML.BAG IVPB ONE (21:00)
[2017-06-19 21:16] VITALS: BMI 20.7
[2017-06-19] MEDS ORDERED: NAPROXEN 250 MG TAB PO PRN (23:29)
[2017-06-19] MEDS ORDERED: LORazepam 0.5 MG TAB PO PRN (23:32)
[2017-06-19] MEDS ORDERED: IPRATROPIUM-ALBUTEROL 3 ML NEB INHALATION PRN (23:33)
[2017-06-19] MEDS: GABAPENTIN 300 MG CAP PO SCH (23:53)
[2017-06-20 01:02] LABS: Creatine Kinase 87 U/L (30-135)
[2017-06-20 01:17] LABS: Creatine Kinase MB 1.3 ng/mL (0.0-2.4); Troponin I <0.012 ng/mL (0.000-0.034)
[2017-06-20] MEDS ORDERED: HEPARIN SODIUM,PORCINE 5,000 UNIT/ML 1 ML VIAL IV PRN (02:04)
[2017-06-20] MEDS ORDERED: HEPARIN SOD,PORK IN 0.45% NACL 25,000 UNIT in 0.45% NACL 1 500ML.BAG IV SCH (02:15)
[2017-06-20 03:32] LABS: Cholesterol 122 mg/dL (<200); HDL Cholesterol 44 mg/dL (40-60); LDL Cholesterol,Calculated 67 mg/dL (0-99); Triglycerides 56 mg/dL (<150)
[2017-06-20] MEDS ORDERED: PANTOPRAZOLE 40 MG TABLET PO SCH (07:30)
[2017-06-20 07:32] LABS: Creatine Kinase 80 U/L (30-135)
[2017-06-20 07:37] LABS: Anion Gap 9 mmol/L; Blood Urea Nitrogen 6 mg/dL (7-17); Calcium 8.4 mg/dL (8.4-10.2); Carbon Dioxide 25 mmol/L (22-30); Chloride 101 mmol/L (98-107); Glucose 86 mg/dL (74-99); Magnesium 1.9 mg/dL (1.6-2.3); Potassium 3.4 mmol/L (3.5-5.1); Sodium 135 mmol/L (137-145)
[2017-06-20 07:44] LABS: Creatine Kinase MB 1.2 ng/mL (0.0-2.4); Troponin I <0.012 ng/mL (0.000-0.034)
[2017-06-20] MEDS ORDERED: NON-FORMULARY DRUG (Tiotropium Bromide [Spiriva] 1 CAP) INHALATION SCH (08:00)
[2017-06-20] MEDS ORDERED: SYMBICORT 160-4.5 MCG INHALER INHALATION SCH (08:00)
[2017-06-20] MEDS: GABAPENTIN 300 MG CAP PO SCH (08:19)
[2017-06-20] MEDS ORDERED: busPIRone HCl 5 MG TAB PO SCH (09:00)
[2017-06-20] MEDS ORDERED: ASPIRIN 325 MG TAB PO SCH (09:00)
[2017-06-20] MEDS ORDERED: CHOLECALCIFEROL 1,000 UNIT TAB PO SCH (09:00)
[2017-06-20] MEDS ORDERED: BACLOFEN 10 MG TAB PO SCH (09:00)
[2017-06-20] MEDS ORDERED: METOPROLOL SUCCINATE (ER) 50 MG TAB.ER.24H PO SCH (09:00)
[2017-06-20] MEDS ORDERED: ATORVASTATIN 20 MG TAB PO SCH (09:00)
[2017-06-20] MEDS ORDERED: LACOSAMIDE 50 MG TABLET PO SCH (09:00)
[2017-06-20] MEDS ORDERED: ASPIRIN 81 MG PO SCH (09:00)
[2017-06-20] MEDS ORDERED: ACYCLOVIR 200 MG CAP PO SCH (09:00)
[2017-06-20] MEDS ORDERED: HYDROCHLOROTHIAZIDE 12.5 MG CAP PO SCH (09:00)
[2017-06-20] MEDS ORDERED: REGADENOSON 0.4 MG/5 ML SYRINGE IV ONE (09:26)
[2017-06-20] MEDS ORDERED: AMINOPHYLLINE 500 MG/20 ML VIAL IV PRN (09:26)
[2017-06-20] MEDS ORDERED: METOPROLOL SUCCINATE (ER) 25 MG TAB.ER.24H PO SCH (09:30)
[2017-06-20] MEDS: IPRATROPIUM-ALBUTEROL 3 ML NEB INHALATION SCH ×3 (09:35→16:35)
--- NOTE | 2017-06-20 11:09 | ECHOF ---
Referral Reason:chest pain MEASUREMENTS -------- HEIGHT: 165.1 cm WEIGHT: 56.2 kg BP: 43/50 IVSd: 0.8 cm (0.6 - 1.1) LVIDd: 3.4 cm (3.9 - 5.3) LVPWd: 0.9 cm (0.6 - 1.1) IVSs: 0.9 cm LVIDs: 2.5 cm LVPWs: 1.0 cm LA Diam: 1.8 cm (2.7 - 3.8) Ao Diam: 2.9 cm (2.0 - 3.7) AV Cusp: 1.9 cm (1.5 - 2.6) MV EXCURSION: 19.740 mm (> 18.000) MV EF SLOPE: 100 mm/s (70 - 150) EPSS: 0.3 cm MV E Fuentes: 1.00 m/s MV DecT: 191 ms MV A Fuentes: 0.67 m/s MV E/A Ratio: 1.50 RAP: 5.00 mmHg RVSP: 14.95 mmHg FINDINGS -------- Sinus rhythm. This was a technically adequate study. LV size, wall thickness and systolic function are normal, with an EF greater than 55%. The left siomara tricular size is normal. The right ventricle is normal in size. The left atrial size is normal. The right atrial size is normal. 5.0mg OF Lumason UTLIZED: 2 OR MORE WALL SEGMENTS NOT VISUALIZED. There is mild aortic valve sclerosis. There is no evidence of aortic regurgitation. Mild mitral annular calcification present. Mild mitral regurgitation is present. No regurgitation noted There is no evidence of pulmonary hypertension. The right ventricular syst olic pressure, as measured by Doppler, is 14.95mmHg. There is no pulmonic regurgitation present. The aortic root size is normal. There is no pericardial effusion. CONCLUSIONS -------- 1. LV size, wall thickness and systolic function are normal, with an EF greater than 55%. 2. The left ventricular size is normal. 3. 5.0mg OF Lumason UTLIZED: 2 OR MORE WALL SEGMENTS NOT VISUALIZED. 4. There is mild aortic valve sclerosis. 5. Mild mitral annular calcification present. 6. Mild mitral regurgitation is present. 7. No regurgitation noted 8. There is no evidence of pulmonary hypertension. 9. The right ventricular systolic pressure, as measured by Doppler, is 14.95mmHg. 10. There is no pulmonic regurgitation present. 11. The aortic root size is normal. 12. There is no pericardial effusion. RN STAFF: Kyleigh Wong RDCS
[2017-06-20 12:09] VITALS: RESP 16; TEMP 98.7
--- NOTE | 2017-06-20 12:22 | NM ---
EXAMINATION TYPE: NM stress lexiscan cardiolite DATE OF EXAM: 06/20/2017 COMPARISON: NONE HISTORY: Chest pain TECHNIQUE: After the intravenous administration of 10.02 mCi Tc 99m Sestamibi - Cardiolite resting S PECT images acquired 45 minutes post injection. The patient received 0.4mg Lexiscan, 25.5 mCi Tc 99m Sestamibi - Stress images obtained [address] injection FINDINGS: Review of stress and rest SPECT images demonstrates no distinct perfusion abnormality. Gated analysi s shows normal wall motion with an estimated left ventricular ejection fraction of 95 %. IMPRESSION: No scintigraphic evidence for reversible ischemia. Recommend echocardiographic correlation for elevat ed ejection fraction.
[2017-06-20] MEDS: POTASSIUM CHLORIDE ER 20 MEQ TAB.ER PO SCH ×2 (12:51→14:28)
--- NOTE | 2017-06-20 13:16 | P.CRDCN ---
History of Present Illness Consult date: 06/20/17 History of present illness: Mrs. Frankel is a pleasant 42-year-old female past medical history significant for COPD, fibromyalgia, gastroesophageal reflux disease, dyslipidemia, hypertension, seizure, sleep apnea and hypothyroidism. We've been asked to see the patient in consultation for complaints of chest pain. She denies history of coronary artery disease and is never seen a supply chain design manager for any reason. She states the past few days she describes as a squeezing sensation in the midsternal region. There are no specific aggravating or alleviating factors. The pain comes at rest and lasts between 1-5 minutes each time and is associated with shortness of breath, palpitations, dizziness and diaphoresis. She denies nausea or vomiting. The pain in reproducible on palpation and she states it feels sore like a bruise. She has had no further symptoms of intense pain but still feels mildly uncomfortable. Telemetry tracings have been unremarkable. Her blood pressure has been on the low side with systolic in the 80s to 90s since admission. She states she has been discussing with her primary care physician about possibly discontinuing hydrochlorothiazide and metoprolol secondary to increased fatigue, EKG reveals sinus mechanism with non-specific ST abnormalities. No acute ST or T -wave changes evident. Chest xray is indicative of COPD with no acute cardiopulmonary process. Laboratory data reviewed, potassium on admission 2.9 after placement this morning 3.4, creatinine 0.76, magnesium 1.9, cardiac enzymes negative 3, LDL 67 , HDL 44. Current cardiac medications include hydrochlorothiazide 12.5 mg daily, metoprolol succinate 50 mg daily and atorvastatin 20 mg daily. Review of Systems At the time of my exam: CONSTITUTIONAL: Denies fever. Denies chills. EYES: Denies blurred vision. Denies vision changes. Denies eye pain. EARS, NOSE, MOUTH & THROAT: Complains of headache. Denies sore throat. Denies ear pain. CARDIOVASCULAR: Denies chest pain. Denies shortness of breath. Denies orthopnea. Denies PND. Denies palpitations. RESPIRATORY: Denies cough. GASTROINTESTINAL: Denies abdominal pain. Denies diarrhea. Denies constipation. Denies nausea. Denies vomiting. MUSCULOSKELETAL: Denies myalgias. INTEGUMENTARY: Denies pruitis. Denies rash. NEUROLOGIC: Denies numbness. Denies tingling. Denies weakness. PSYCHIATRIC: Denies anxiety. Denies depression. ENDOCRINE: Denies fatigue. Denies weight change. Denies polydipsia. Denies polyurina. GENITOURINARY: Denies burning, hematuria or urgency with micturation. HEMATOLOGIC: Denies history of anemia. Denies bleeding. Past Medical History Past Medical History: COPD, Fibromyalgia, GERD/Reflux, Hyperlipidemia, Hypertension, Neurologic Disorder, Seizure Disorder, Sleep Apnea/CPAP/BIPAP, Thyroid Disorder Additional Past Medical History / Comment(s): LAST SEIZURE 09/22/16, HAS HAD GRAND MAL, AND SEIZURES WERE SHE "STARES OFF" Neuropathy History of Any Multi-Drug Resistant Organisms: MRSA Date of last positivie culture/infection: 10-18-14 MDRO Source:: Groin Past Surgical History: Back Surgery, Tubal Ligation, Uterine Ablation Additional Past Surgical History / Comment(s): Lumbar fusion L5-S1 2005. LEEP Procedure 2017 Past Anesthesia/Blood Transfusion Reactions: No Reported Reaction Smoking Status: Current every day smoker - Past Family History Father Additional Family Medical History / Comment(s): etoh Mother Family Medical History: Hypertension, Sleep Apnea/CPAP/BIPAP Additional Family Medical History / Comment(s): Anxiety and depression Medications and Allergies Home Medications Medication Instructions Recorded Confirmed Type Acyclovir [Zovirax] 400 mg PO BID 02/27/14 06/19/17 History Gabapentin [Neurontin] 600 mg PO BID 02/27/14 06/19/17 History Lacosamide [Vimpat] 100 mg PO BID 02/27/14 06/19/17 History Tiotropium [place] [Spiriva] 1 cap INHALATION RT-DAILY 02/27/14 06/19/17 History Albuterol Inhaler [Ventolin Hfa 2 puff INHALATION RT-Q6H PRN 10/18/14 06/19/17 History Inhaler] Metoprolol Succinate 50 mg PO DAILY 10/18/14 06/19/17 History Atorvastatin [Lipitor] 20 mg PO DAILY 05/26/15 06/19/17 History Cholecalciferol [Vitamin D3] 1,000 unit PO DAILY 05/26/15 06/19/17 History Naproxen 500 mg PO Q12H PRN 05/26/15 06/19/17 History Mometasone/Formoterol [Dulera 200 2 puff INHALATION RT-BID 04/05/16 06/19/17 History Mcg/5 Mcg Inhaler] Baclofen 10 mg PO TID 12/14/16 06/19/17 History Omeprazole [PriLOSEC] 40 mg PO QAM 12/14/16 06/19/17 History busPIRone HCl [Buspar] 5 mg PO TID 12/14/16 06/19/17 History Hydrochlorothiazide 12.5 mg PO QAM 01/09/17 06/19/17 History Allergies Allergy/AdvReac Type Severity Reaction Status Date / Time Sulfa (Sulfonamide Allergy "FEELS Verified 06/19/17 21:01 Antibiotics) LIKE I'M ON FIRE FROM INSIDE OUT" hydrocodone [From [place]] AdvReac STATES Verified 06/19/17 21:01 "IRRATIC MOODS" Physical Exam Vitals: Vital Signs Temp Pulse Pulse Resp BP BP Pulse Ox 06/20/17 06:39 98.2 F 82 18 93/50 96 06/20/17 04:07 82/66 06/20/17 04:00 16 06/20/17 03:57 98.4 F 72 16 97 06/20/17 00:00 16 06/19/17 23:56 97.8 F 82 16 103/51 97 06/19/17 22:00 16 06/19/17 20:51 97.9 F 73 16 123/75 99 06/19/17 20:36 98 F 72 18 134/58 98 06/19/17 17:05 97.8 F 94 18 119/70 98 Intake and Output 06/19/17 06/20/17 06/20/17 22:59 06:59 14:59 Other: Voiding Method Toilet # Voids 1 Weight 56.6 kg Blood pressure 93/50 heart rate 82 afebrile maintaining oxygen saturation on room air GENERAL: This is a 42-year-old female in no apparent distress at the time of my examination. HEENT: Head is atraumatic, normocephalic. Pupils are equal, round. Sclerae anicteric. Conjunctivae are clear. Mucous membranes of the mouth are moist. Neck is supple. There is no jugular venous distention. No carotid bruit is heard. LUNGS: Clear to auscultation no wheezes, rales or rhonchi. No chest wall tenderness is noted on palpation or with deep breathing. HEART: Regular rate and rhythm without murmurs, rubs or gallops. S1 and S2 heard. ABDOMEN: Soft, nontender. Bowel sounds are heard. No organomegaly noted. EXTREMITIES: No evidence of peripheral edema and no calf tenderness noted. VASCULAR: Radial and dorsalis pedis pulses palpated, no evidence of clubbing. NEUROLOGIC: Patient is awake, alert and oriented x3. Results 06/19/17 18:06/20/17 06:33 Cardiac Enzymes 06/19/17 06/19/17 06/20/17 Range/Units 18: 18: 00:05 AST 27 (14-36) U/L CK-MB (CK-2) 1.5 1.3 (0.0-2.4) ng/mL Troponin I <0.012 <0.012 (0.000-0.034) ng/mL 06/20/17 Range/Units 06:33 AST (14-36) U/L CK-MB (CK-2) 1.2 (0.0-2.4) ng/mL Troponin I <0.012 (0.000-0.034) ng/mL Coagulation 06/19/17 06/20/17 Range/Units 18: 02:37 PT 10.7 (9.0-12.0) sec APTT 23.7 49.6 H (22.0-30.0) sec Lipids 06/20/17 Range/Units 06:00 Triglycerides 56 (<150) mg/dL Cholesterol 122 (<200) mg/dL HDL Cholesterol 44 (40-60) mg/dL CBC 06/19/17 Range/Units 18:17 WBC 7.9 (3.8-10.6) k/uL RBC 4.52 (3.80-5.40) m/uL Hgb 14.3 (11.4-16.0) gm/dL Hct 41.2 (34.0-46.0) % Plt Count 153 (150-450) k/uL Comprehensive Metabolic Panel 06/19/17 06/20/17 Range/Units 18:17 06:33 Sodium 137 135 L (137-145) mmol/L Potassium 2.9 L* 3.4 L (3.5-5.1) mmol/L Chloride 96 L 101 (98-107) mmol/L Carbon Dioxide 28 25 (22-30) mmol/L BUN 5 L 6 L (7-17) mg/dL Creatinine 0.70 0.76 (0.52-1.04) mg/dL Glucose 130 H 86 (74-99) mg/dL Calcium 9.6 8.4 (8.4-10.2) mg/dL AST 27 (14-36) U/L ALT 21 (9-52) U/L Alkaline Phosphatase 54 (38-126) U/L Total Protein 7.0 (6.3-8.2) g/dL Albumin 4.1 (3.5-5.0) g/dL Current Medications Generic Name Dose Route Start Last Admin Trade Name Freq PRN Reason Stop Dose Admin Acyclovir 400 mg 06/20/17 09:00 Zovirax PO BID [facility] Albuterol/Ipratropium 3 ml 06/19/17 23:33 Duoneb 0.5 Mg-3 Mg/3 Ml Soln INHALATION RT-Q2H PRN Shortness Of Breath Or Wheezing Albuterol/Ipratropium 3 ml 06/20/17 08:00 Duoneb 0.5 Mg-3 Mg/3 Ml Soln INHALATION RT-QID [facility] Aspirin 325 mg 06/20/17 09:00 Aspirin PO DAILY [facility] Atorvastatin Calcium 20 mg 06/20/17 09:00 Lipitor PO DAILY [facility] Baclofen 10 mg 06/20/17 09:00 Lioresal PO TID [facility] Budesonide/Formoterol Fumarate 2 puff 06/20/17 08:00 Symbicort 160-4.5 Mcg Inhaler INHALATION RT-BID [facility] Buspirone HCl 5 mg 06/20/17 09:00 Buspar PO TID [facility] Cholecalciferol 1,000 unit 06/20/17 09:00 Vitamin D3 PO DAILY [facility] Gabapentin 600 mg 06/19/17 23:30 06/19/17 23:53 Neurontin PO Not Given BID [facility] Heparin Sodium (Porcine) 0 unit 06/20/17 02:04 Heparin IV PER PROTOCOL PRN Low PTT Protocol Hydrochlorothiazide 12.5 mg 06/20/17 09:00 Hydrodiuril PO QAM [facility] Heparin Sodium/Sodium Chloride 500 mls @ 13.58 mls/hr 06/20/17 02:15 03:29 25,000 unit/ Sodium Chloride IV 12 units/kg/hr .Q24H SARAH 13.58 mls/hr Protocol Administration 12 UNITS/KG/HR Lacosamide 100 mg 06/20/17 09:00 Vimpat PO BID SARAH Lorazepam 0.5 mg 06/19/17 23:32 06/19/17 23:51 Ativan PO 0.5 mg Q8HR PRN Administration Anxiety Metoprolol Succinate 50 mg 06/20/17 09:00 Toprol Xl PO DAILY SARAH Naproxen 500 mg 06/19/17 23:29 Naprosyn PO Q12H PRN Pain Nitroglycerin 0.4 mg 06/19/17 19:55 Nitrostat SUBLINGUAL Q5M PRN Chest Pain Pantoprazole Sodium 40 mg 06/20/17 07:30 Protonix PO AC-BRKFST SARAH Intake and Output 06/19/17 06/20/17 06/20/17 22:59 06:59 14:59 Other: Voiding Method Toilet # Voids 1 Weight 56.6 kg 06/19/17 18:17 06/20/17 06:33 Assessment and Plan Assessment: ASSESSMENT 1. Chest pain, atypical. An acute coronary event has been ruled out with negative cardiac enzymes and no EKG evidence of ischemia. 2. Dyslipidemia 3. Hypertension, currently hypotensive 4. Chronic tobacco abuse 5. COPD 6. Gastroesophageal reflux disease PLAN Although chest pain is very atypical for coronary etiology she does have to significant risk factors with hypertension, dyslipidemia and chronic tobacco abuse. Obtain 2-D echocardiogram and Doppler study to assess cardiac structure and function. Perform Lexiscan stress test assess for reversible cardiac ischemia. Discontinue hydrochlorothiazide. Decrease Toprol to 25 mg daily. If above diagnostic testing is negative she is stable from a cardiac perspective. Follow-up with Dr. Caldwell in 4 weeks. At that time we can can consider further titration of Toprol. Thank you kindly for this consultation. Nurse Practitioner note has been reviewed, I agree with a documented findings and plan of care. Patient was seen and examined.
--- NOTE | 2017-06-20 14:37 | P.CRDCN ---
History of Present Illness History of present illness: Patient interviewed and examined. Atypical chest discomfort. Cardiac enzymes normal 3. LDL 67, HDL 44 total cholesterol 122 and triglycerides 56 Underwent a Lexiscan cardio lyte stress test which did not show any evidence for ischemia 2-D echo images were suboptimal but LV function is normal Plan is to stop hydrochlorothiazide because she was quite hypokalemic and taper of beta blockers also and watch for hypertension and assess need for antihypertensive therapy Continue atorvastatin Past Medical History Past Medical History: COPD, Fibromyalgia, GERD/Reflux, Hyperlipidemia, Hypertension, Neurologic Disorder, Seizure Disorder, Sleep Apnea/CPAP/BIPAP, Thyroid Disorder Additional Past Medical History / Comment(s): LAST SEIZURE 09/22/16, HAS HAD GRAND MAL, AND SEIZURES WERE SHE "STARES OFF" Neuropathy History of Any Multi-Drug Resistant Organisms: MRSA Date of last positivie culture/infection: 10-18-14 MDRO Source:: Groin Past Surgical History: Back Surgery, Tubal Ligation, Uterine Ablation Additional Past Surgical History / Comment(s): Lumbar fusion L5-S1 2005. LEEP Procedure 2017 Past Anesthesia/Blood Transfusion Reactions: No Reported Reaction Smoking Status: Current every day smoker - Past Family History Father Additional Family Medical History / Comment(s): etoh Mother Family Medical History: Hypertension, Sleep Apnea/CPAP/BIPAP Additional Family Medical History / Comment(s): Anxiety and depression Medications and Allergies Home Medications Medication Instructions Recorded Confirmed Type Acyclovir [Zovirax] 400 mg PO BID 02/27/14 06/19/17 History Gabapentin [Neurontin] 600 mg PO BID 02/27/14 06/19/17 History Lacosamide [Vimpat] 100 mg PO BID 02/27/14 06/19/17 History Tiotropium [place] [Spiriva] 1 cap INHALATION RT-DAILY 02/27/14 06/19/17 History Albuterol Inhaler [Ventolin Hfa 2 puff INHALATION RT-Q6H PRN 10/18/14 06/19/17 History Inhaler] Atorvastatin [Lipitor] 20 mg PO DAILY 05/26/15 06/19/17 History Cholecalciferol [Vitamin D3] 1,000 unit PO DAILY 05/26/15 06/19/17 History Naproxen 500 mg PO Q12H PRN 05/26/15 06/19/17 History Mometasone/Formoterol [Dulera 200 2 puff INHALATION RT-BID 04/05/16 06/19/17 History Mcg/5 Mcg Inhaler] Baclofen 10 mg PO TID 12/14/16 06/19/17 History Omeprazole [PriLOSEC] 40 mg PO QAM 12/14/16 06/19/17 History busPIRone HCl [Buspar] 5 mg PO TID 12/14/16 06/19/17 History Aspirin 81 mg PO DAILY chew 06/20/17 Rx Metoprolol Succinate (ER) [Toprol 25 mg PO DAILY #30 tab.er.24h 06/20/17 Rx XL] Allergies Allergy/AdvReac Type Severity Reaction Status Date / Time Sulfa (Sulfonamide Allergy "FEELS Verified 06/19/17 21:01 Antibiotics) LIKE I'M ON FIRE FROM INSIDE OUT" hydrocodone [From [place]] AdvReac STATES Verified 06/19/17 21:01 "IRRATIC MOODS" Physical Exam Vitals: Vital Signs Temp Pulse Pulse Resp BP BP BP 06/20/17 14:08 89 06/20/17 13:58 88 06/20/17 12:00 98.7 F 95 16 79/50 06/20/17 09:48 89 06/20/17 09:38 87 06/20/17 06:39 98.2 F 82 18 93/50 06/20/17 04:07 82/66 06/20/17 04:00 16 06/20/17 03:57 98.4 F 72 16 06/20/17 00:00 16 06/19/17 23:56 97.8 F 82 16 103/51 06/19/17 22:00 16 06/19/17 20:51 97.9 F 73 16 123/75 06/19/17 20:36 98 F 72 18 134/58 06/19/17 17:05 97.8 F 94 18 119/70 Pulse Ox 06/20/17 14:08 06/20/17 13:58 06/20/17 12:00 96 06/20/17 09:48 06/20/17 09:38 06/20/17 06:39 96 06/20/17 04:07 06/20/17 04:00 06/20/17 03:57 97 06/20/17 00:00 06/19/17 23:56 97 04/09/18 22:00 06/19/17 20:51 99 06/19/17 20:36 98 06/19/17 17:05 98 Intake and Output 06/19/17 06/20/17 06/20/17 22:59 06:59 14:59 Intake Total 480 Balance 480 Intake: Oral 480 Other: Voiding Method Toilet Toilet # Voids 1 Weight 56.6 kg Results 06/19/17 18:17 06/20/17 06:33 Cardiac Enzymes 06/19/17 06/19/17 06/20/17 Range/Units 18:17 18: 00:05 AST 27 (14-36) U/L CK-MB (CK-2) 1.5 1.3 (0.0-2.4) ng/mL Troponin I <0.012 <0.012 (0.000-0.034) ng/mL 06/20/17 Range/Units 06:33 AST (14-36) U/L CK-MB (CK-2) 1.2 (0.0-2.4) ng/mL Troponin I <0.012 (0.000-0.034) ng/mL Coagulation 06/19/17 06/20/17 Range/Units 18: 02:37 PT 10.7 (9.0-12.0) sec APTT 23.7 49.6 H (22.0-30.0) sec Lipids 06/20/17 Range/Units 06:00 Triglycerides 56 (<150) mg/dL Cholesterol 122 (<200) mg/dL HDL Cholesterol 44 (40-60) mg/dL CBC 06/19/17 Range/Units 18:17 WBC 7.9 (3.8-10.6) k/uL RBC 4.52 (3.80-5.40) m/uL Hgb 14.3 (11.4-16.0) gm/dL Hct 41.2 (34.0-46.0) % Plt Count 153 (150-450) k/uL Comprehensive Metabolic Panel 06/19/17 06/20/17 Range/Units 18:17 06:33 Sodium 137 135 L (137-145) mmol/L Potassium 2.9 L* 3.4 L (3.5-5.1) mmol/L Chloride 96 L 101 (98-107) mmol/L Carbon Dioxide 28 25 (22-30) mmol/L BUN 5 L 6 L (7-17) mg/dL Creatinine 0.70 0.76 (0.52-1.04) mg/dL Glucose 130 H 86 (74-99) mg/dL Calcium 9.6 8.4 (8.4-10.2) mg/dL AST 27 (14-36) U/L ALT 21 (9-52) U/L Alkaline Phosphatase 54 (38-126) U/L Total Protein 7.0 (6.3-8.2) g/dL Albumin 4.1 (3.5-5.0) g/dL Current Medications Generic Name Dose Route Start Last Admin Trade Name Freq PRN Reason Stop Dose Admin Acyclovir 400 mg 06/20/17 09:00 06/20/17 12:46 Zovirax PO 400 mg BID SARAH Administration Albuterol/Ipratropium 3 ml 06/19/17 23:33 Duoneb 0.5 Mg-3 Mg/3 Ml Soln INHALATION RT-Q2H PRN Shortness Of Breath Or Wheezing Albuterol/Ipratropium 3 ml 06/20/17 08:00 06/20/17 13:56 Duoneb 0.5 Mg-3 Mg/3 Ml Soln INHALATION 3 ml RT-QID SARAH Administration Aminophylline 100 mg 06/20/17 09:26 Aminophylline IV 06/20/17 18:00 ONCE PRN Patient Response Aspirin 81 mg 06/20/17 09:00 06/20/17 12:51 Aspirin PO 81 mg DAILY SARAH Administration Atorvastatin Calcium 20 mg 06/20/17 09:00 06/20/17 12:47 Lipitor PO 20 mg DAILY SARAH Administration Baclofen 10 mg 06/20/17 09:00 06/20/17 08:19 Lioresal PO 10 mg TID SARAH Administration Budesonide/Formoterol Fumarate 2 puff 06/20/17 08:00 06/20/17 09:35 Symbicort 160-4.5 Mcg Inhaler INHALATION 2 puff RT-BID SARAH Administration Buspirone HCl 5 mg 06/20/17 09:00 06/20/17 12:47 Buspar PO 5 mg TID SARAH Administration Cholecalciferol 1,000 unit 06/20/17 09:00 06/20/17 14:29 Vitamin D3 PO 1,000 unit DAILY [facility] Administration Gabapentin 600 mg 06/19/17 23:30 06/20/17 08:19 Neurontin PO 600 mg BID SARAH Administration Lacosamide 100 mg 06/20/17 09:00 06/20/17 12:51 Vimpat PO 100 mg BID SARAH Administration Lorazepam 0.5 mg 06/19/17 23:32 06/19/17 23:51 Ativan PO 0.5 mg Q8HR PRN Administration Anxiety Metoprolol Succinate 25 mg 06/20/17 09:30 06/20/17 12:48 Toprol Xl PO Not Given DAILY [facility] Naproxen 500 mg 06/19/17 23:29 06/20/17 08:50 Naprosyn PO 500 mg Q12H PRN Administration Pain Nitroglycerin 0.4 mg 06/19/17 19:55 Nitrostat SUBLINGUAL Q5M PRN Chest Pain Pantoprazole Sodium 40 mg 06/20/17 07:30 06/20/17 12:47 Protonix PO 40 mg AC-BRKFST [facility] Administration Intake and Output 06/19/17 06/20/17 06/20/17 22:59 06:59 14:59 Intake Total 480 Balance 480 Intake: Oral 480 Other: Voiding Method Toilet Toilet # Voids 1 Weight 56.6 kg 06/19/17 18:17 06/20/17 06:33
[2017-06-20 14:39] VITALS: BP 90/52
[2017-06-20] MEDS ORDERED: AZITHROMYCIN 500 MG TAB PO SCH (16:15)
[2017-06-20 16:48] VITALS: PULSE 88
[2017-06-20] MEDS ORDERED: OSELTAMIVIR 75 MG CAP PO STA (17:25)
--- NOTE | 2017-06-21 09:20 | EST ---
EXERCISE STRESS AGE: 42 SEX: F HT: 65 WT: 124 PROTOCOL: Lexiscan STAGE: DURATION OF EXERCISE: HEART RATE REST: 95 BLOOD PRESSURE REST: 86/59 MAXIMUM HEART RATE ACHIEVED: 110 MAXIMUM BLOOD PRESSURE: 99/73 85% MPHR: 153 100% MPHR: 180 CLINICAL INFORMATION: Baseline heart rate 95 beats per minute. Baseline blood pressure 86/59 mmHg. Baseline 12-lead ECG shows sinus rhythm with upsloping ST depression inferior laterally. Patient received dobutamine infusion per protocol. Her ECG abnormalities persisted. There were no new ECG abnormalities noted. No arrhythmias noted. Blood pressure 99/73 mmHg. Nuclear portion of the stress test will be reported separately. MMODL / IJN: [id number] /
--- NOTE | 2017-06-22 20:55 | P.HPIM ---
History of Present Illness H&P Date: 06/20/17 Chief Complaint: Chest pain, cough and congestion Mrs. Frankel is a pleasant 42-year-old female past medical history significant for COPD, fibromyalgia, gastroesophageal reflux disease, dyslipidemia, hypertension, seizure, sleep apnea and hypothyroidism. Patient came to the hospital with complaints of chest pain. Left retrosternal and associated with shortness of breath palpitations and dizziness. Patient also having cough and congestion. No sputum production. Denied any nausea or vomiting. The pain in reproducible on palpation and she states it feels sore like a bruise. She has had no further symptoms of intense pain but still feels mildly uncomfortable. Her blood pressure has been on the low side with systolic in the 80s to 90s since admission. She states she has been discussing with her primary care physician about possibly discontinuing hydrochlorothiazide and metoprolol secondary to increased fatigue, EKG reveals sinus mechanism with non-specific ST abnormalities. No acute ST or T -wave changes evident. Chest xray is indicative of COPD with no acute cardiopulmonary process. Laboratory data reviewed, potassium on admission 2.9 after placement this morning 3.4, creatinine 0.76, magnesium 1.9, cardiac enzymes negative 3, LDL 67 , HDL 44. Current cardiac medications include hydrochlorothiazide 12.5 mg daily, metoprolol succinate 50 mg daily and atorvastatin 20 mg daily. Review of Systems Constitutional: Patient denies any fever or chills . No generalized weakness or weight loss. Abdomen: Patient denied nausea vomiting and diarrhea and abdominal pain. Cardiovascular: Patient does have chest discomfort. No palpitations. No leg swelling Respiratory: Cough congestion without sputum production and shortness of breath. Neurologic: Patient denied any numbness or tingling headache. Musculoskeletal: Patient denies any complaints of joint swelling or deformity. Skin: Negative Psychiatric: Negative Endocrine: No heat or cold intolerance. No recent weight gain. Genitourinary: No dysuria or hematuria. All other 14 point ROS negative except the above Past Medical History Past Medical History: COPD, Fibromyalgia, GERD/Reflux, Hyperlipidemia, Hypertension, Neurologic Disorder, Seizure Disorder, Sleep Apnea/CPAP/BIPAP, Thyroid Disorder Additional Past Medical History / Comment(s): LAST SEIZURE 09/22/16, HAS HAD GRAND MAL, AND SEIZURES WERE SHE "STARES OFF" Neuropathy History of Any Multi-Drug Resistant Organisms: MRSA Date of last positivie culture/infection: 10-18-14 MDRO Source:: Groin Past Surgical History: Back Surgery, Tubal Ligation, Uterine Ablation Additional Past Surgical History / Comment(s): Lumbar fusion L5-S1 2005. LEEP Procedure 2017 Past Anesthesia/Blood Transfusion Reactions: No Reported Reaction Smoking Status: Current every day smoker - Past Family History Father Additional Family Medical History / Comment(s): etoh Mother Family Medical History: Hypertension, Sleep Apnea/CPAP/BIPAP Additional Family Medical History / Comment(s): Anxiety and depression Medications and Allergies Home Medications Medication Instructions Recorded Confirmed Type Acyclovir [Zovirax] 400 mg PO BID 02/27/14 06/19/17 History Gabapentin [Neurontin] 600 mg PO BID 02/27/14 06/19/17 History Lacosamide [Vimpat] 100 mg PO BID 02/27/14 06/19/17 History Tiotropium [place] [Spiriva] 1 cap INHALATION RT-DAILY 02/27/14 06/19/17 History Albuterol Inhaler [Ventolin Hfa 2 puff INHALATION RT-Q6H PRN 10/18/14 06/19/17 History Inhaler] Atorvastatin [Lipitor] 20 mg PO DAILY 05/26/15 06/19/17 History Cholecalciferol [Vitamin D3] 1,000 unit PO DAILY 05/26/15 06/19/17 History Naproxen 500 mg PO Q12H PRN 05/26/15 06/19/17 History Mometasone/Formoterol [Dulera 200 2 puff INHALATION RT-BID 04/05/16 06/19/17 History Mcg/5 Mcg Inhaler] Baclofen 10 mg PO TID 12/14/16 06/19/17 History Omeprazole [PriLOSEC] 40 mg PO QAM 12/14/16 06/19/17 History busPIRone HCl [Buspar] 5 mg PO TID 12/14/16 06/19/17 History Aspirin 81 mg PO DAILY chew 06/20/17 Rx Azithromycin [Zithromax] 250 mg PO DAILY #4 tab 06/20/17 Rx Metoprolol Succinate (ER) [Toprol 25 mg PO DAILY #30 tab.er.24h 06/20/17 Rx XL] Oseltamivir [Tamiflu] 75 mg PO Q12HR 5 Days #10 cap 06/20/17 Rx Allergies Allergy/AdvReac Type Severity Reaction Status Date / Time Sulfa (Sulfonamide Allergy "FEELS Verified 06/19/17 21:01 Antibiotics) LIKE I'M ON FIRE FROM INSIDE OUT" hydrocodone [From [place]] AdvReac STATES Verified 06/19/17 21:01 "IRRATIC MOODS" Physical Exam Vitals: Vital Signs Temp Pulse Pulse Resp BP BP BP 06/20/17 14:38 90/52 06/20/17 14:08 89 06/20/17 13:58 88 06/20/17 12:00 98.7 F 95 16 79/50 06/20/17 09:48 89 06/20/17 09:38 87 06/20/17 06:39 98.2 F 82 18 93/50 06/20/17 04:07 82/66 06/20/17 04:00 16 06/20/17 03:57 98.4 F 72 16 06/20/17 00:00 16 06/19/17 23:56 97.8 F 82 16 103/51 06/19/17 22:00 16 06/19/17 20:51 97.9 F 73 16 123/75 06/19/17 20:36 98 F 72 18 134/58 06/19/17 17:05 97.8 F 94 18 119/70 Pulse Ox 06/20/17 14:38 06/20/17 14:08 06/20/17 13:58 06/20/17 12:00 96 06/20/17 09:48 06/20/17 09:38 06/20/17 06:39 96 06/20/17 04:07 06/20/17 04:00 06/20/17 03:57 97 06/20/17 00:00 06/19/17 23:56 97 06/19/17 22:00 06/19/17 20:51 99 06/19/17 20:36 98 06/19/17 17:05 98 Intake and Output 06/19/17 06/20/17 06/20/17 22:59 06:59 14:59 Intake Total 480 Balance 480 Intake: Oral 480 Other: Voiding Method Toilet Toilet # Voids 1 Weight 56.6 kg PHYSICAL EXAMINATION: Patient is lying in the bed comfortably, no acute distress, awake alert and oriented.. HEENT: Normocephalic. Neck is supple. Pupils reactive. Nostrils clear. Oral cavity is moist. Ears reveal no drainage. Neck reveals no JVD, carotid bruits, or thyromegaly. CHEST EXAMINATION: Trachea is central. Symmetrical expansion. Lung woodson clear to auscultation and percussion. CARDIAC: Normal S1, S2 with no gallops. No murmurs ABDOMEN: Soft. Bowel sounds normal. No organomegaly. No abdominal bruits. Extremities: reveal no edema. No clubbing or cyanosis Neurologically awake, alert, oriented x3 with well-coordinated movements. No focal deficits noted Skin: No rash or skin lesions. Psychiatric: Coperative. Nonsuicidal Musculoskeletal: No joint swelling or deformity. Normal range of motion. Results CBC & Chem 7: 06/19/17 18:17 06/20/17 06:33 Labs: Abnormal Lab Results - Last 24 Hours (Table) 06/19/17 06/20/17 06/20/17 Range/Units 18:17 02:37 06:33 APTT 49.6 H (22.0-30.0) sec Sodium 135 L (137-145) mmol/L Potassium 2.9 L* 3.4 L (3.5-5.1) mmol/L Chloride 96 L (98-107) mmol/L BUN 5 L 6 L (7-17) mg/dL Glucose 130 H (74-99) mg/dL Thrombosis Risk Factor Assmnt - DVT/VTE Prophylaxis DVT/VTE Prophylaxis: Pharmacologic Prophylaxis ordered - Choose All That Apply Any of the Below Risk Factors Present?: No Assessment and Plan Assessment: 1. Chest pain, atypical. An acute coronary event has been ruled out with negative cardiac enzymes and no EKG evidence of ischemia. 2, cough and congestion and sick contacts. Rule out influenza 2. Dyslipidemia 3. Hypertension, currently hypotensive 4. Chronic tobacco abuse 5. COPD 6. Gastroesophageal reflux disease Plan: Patient will be continued on telemetry monitoring. Serial EKGs and troponins have been negative. Will hold metoprolol and hydrochlorothiazide due to hypokalemia. Cardiology has seen the patient and recommended stress test. Further recommendations based on the clinical course. Time with Patient: Greater than 30
--- NOTE | 2017-06-22 20:58 | P.DS ---
Providers Date of admission: 06/19/17 20:06 Expected date of discharge: 06/20/17 Attending physician: Abram Mcdonough Consults: 06/19/17 19:55 Consult Physician Urgent Consulting Provider: [facility] Consult Reason/Comments: Chest pain Do you want consulting provider notified?: Yes Primary care physician: [facility] Course: Discharge diagnosis 1. Chest pain, atypical. An acute coronary event has been ruled out with negative cardiac enzymes and no EKG evidence of ischemia. 2, cough and congestion due to influenza. Started on Tamiflu 2. Dyslipidemia 3. Hypertension, currently hypotensive 4. Chronic tobacco abuse 5. COPD 6. Gastroesophageal reflux disease Hospital course Mrs. Frankel is a pleasant 42-year-old female past medical history significant for COPD, fibromyalgia, gastroesophageal reflux disease, dyslipidemia, hypertension, seizure, sleep apnea and hypothyroidism. Patient came to the hospital with complaints of chest pain. Left retrosternal and associated with shortness of breath palpitations and dizziness. Patient also having cough and congestion. No sputum production. Denied any nausea or vomiting. The pain in reproducible on palpation and she states it feels sore like a bruise. She has had no further symptoms of intense pain but still feels mildly uncomfortable. Her blood pressure has been on the low side with systolic in the 80s to 90s since admission. She states she has been discussing with her primary care physician about possibly discontinuing hydrochlorothiazide and metoprolol secondary to increased fatigue, EKG reveals sinus mechanism with non-specific ST abnormalities. No acute ST or T -wave changes evident. Chest xray is indicative of COPD with no acute cardiopulmonary process. Laboratory data reviewed, potassium on admission 2.9 after placement this morning 3.4, creatinine 0.76, magnesium 1.9, cardiac enzymes negative 3, LDL 67 , HDL 44. Patient as continued on telemetry monitoring. Serial EKGs and troponins have been negative. Will hold metoprolol and hydrochlorothiazide due to hypokalemia. A gorman is also hypotensive. Cardiology has seen the patient and recommended stress test. Patient underwent Lexiscan stress test which showed no inducible ischemia. Otherwise patient is tested positive for influenza. Patient was started on Tamiflu and recommended to continue with IV fluids..Blood pressure is stable. Patient was recommended stress and hospital today but patient wishes to be discharged home today. Patient was discharged in stable condition. Discharge physical examination was done and vitals reviewed Patient Condition at Discharge: Stable Plan - Discharge Summary New Discharge Prescriptions: New Aspirin 81 mg PO DAILY chew Metoprolol Succinate (ER) [Toprol XL] 25 mg PO DAILY #30 tab.er.24h Azithromycin [Zithromax] 250 mg PO DAILY #4 tab Oseltamivir [Tamiflu] 75 mg PO Q12HR 5 Days #10 cap Continue Gabapentin [Neurontin] 600 mg PO BID Tiotropium [place] [Spiriva] 1 cap INHALATION RT-DAILY Lacosamide [Vimpat] 100 mg PO BID Acyclovir [Zovirax] 400 mg PO BID Albuterol Inhaler [Ventolin Hfa Inhaler] 2 puff INHALATION RT-Q6H PRN PRN Reason: Shortness Of Breath Naproxen 500 mg PO Q12H PRN PRN Reason: Pain Cholecalciferol [Vitamin D3] 1,000 unit PO DAILY Atorvastatin [Lipitor] 20 mg PO DAILY Mometasone/Formoterol [Dulera 200 Mcg/5 Mcg Inhaler] 2 puff INHALATION RT-BID busPIRone HCl [Buspar] 5 mg PO TID Omeprazole [PriLOSEC] 40 mg PO QAM Baclofen 10 mg PO TID Discontinued Metoprolol Succinate 50 mg PO DAILY Hydrochlorothiazide 12.5 mg PO QAM Discharge Medication List Acyclovir [Zovirax] 400 mg PO BID 02/27/14 [History] Gabapentin [Neurontin] 600 mg PO BID 02/27/14 [History] Lacosamide [Vimpat] 100 mg PO BID 02/27/14 [History] Tiotropium [place] [Spiriva] 1 cap INHALATION RT-DAILY 02/27/14 [History] Albuterol Inhaler [Ventolin Hfa Inhaler] 2 puff INHALATION RT-Q6H PRN 10/18/14 [ History] Atorvastatin [Lipitor] 20 mg PO DAILY 05/26/15 [History] Cholecalciferol [Vitamin D3] 1,000 unit PO DAILY 05/26/15 [History] Naproxen 500 mg PO Q12H PRN 05/26/15 [History] Mometasone/Formoterol [Dulera 200 Mcg/5 Mcg Inhaler] 2 puff INHALATION RT-BID [History] Baclofen 10 mg PO TID 12/14/16 [History] Omeprazole [PriLOSEC] 40 mg PO QAM 12/14/16 [History] busPIRone HCl [Buspar] 5 mg PO TID 12/14/16 [History] Aspirin 81 mg PO DAILY chew 06/20/17 [Rx] Azithromycin [Zithromax] 250 mg PO DAILY #4 tab 06/20/17 [Rx] Metoprolol Succinate (ER) [Toprol XL] 25 mg PO DAILY #30 tab.er.24h 06/20/17 [Rx ] Oseltamivir [Tamiflu] 75 mg PO Q12HR 5 Days #10 cap 06/20/17 [Rx] Follow up Appointment(s)/Referral(s): Miller Mulligan MD [STAFF PHYSICIAN] - 4 Weeks Kirk Blackwood MD [Primary Care Provider] - 1-2 days Patient Instructions/Handouts: Influenza (GEN) Discharge Disposition: HOME SELF-CARE
== END 2017-06-20 17:50 | disposition home or self-care (01) ==
LOC: EC 17:00 → 3OBS 20:06
PROVIDERS: ADMIT Internal Medicine; ATTEND Internal Medicine
DX: R07.89 Other chest pain (principal); J11.1 Influenza due to unidentified influenza virus with other respiratory manifestations; E87.6 Hypokalemia; I95.9 Hypotension, unspecified; E78.5 Hyperlipidemia, unspecified; I10 Essential (primary) hypertension; J44.9 Chronic obstructive pulmonary disease, unspecified; K21.9 Gastro-esophageal reflux disease without esophagitis; M79.7 Fibromyalgia; G47.30 Sleep apnea, unspecified; E03.9 Hypothyroidism, unspecified; G40.909 Epilepsy, unspecified, not intractable, without status epilepticus; G62.9 Polyneuropathy, unspecified; F41.9 Anxiety disorder, unspecified; F32.9 Major depressive disorder, single episode, unspecified; F17.200 Nicotine dependence, unspecified, uncomplicated; Z79.51 Long term (current) use of inhaled steroids; Z79.899 Other long term (current) drug therapy; Z99.89 Dependence on other enabling machines and devices; Z98.1 Arthrodesis status; Z88.2 Allergy status to sulfonamides; Z88.5 Allergy status to narcotic agent; Z86.14 Personal history of Methicillin resistant Staphylococcus aureus infection; Z82.49 Family history of ischemic heart disease and other diseases of the circulatory system; Z83.6 Family history of other diseases of the respiratory system
CPT/HCPCS: 99285 ×2; 96365 ×2; 96375 ×2; 96376 ×2; 96366 ×2; 96368; 36415; 94640 ×2; 94760; 93005; 93017; 83880; 80061; 80053; 80048; 82550 ×2; 82553 ×2; 83735 ×2; 84484 ×2; 85025; 85610; 85730 ×2; 87502; 71046; 78452; G0378 ×2; C8929; A9500; J1644 ×3; J1885; J3475; J2785; Q9950; 93306

== ENCOUNTER 2018-04-26 14:07 | Emergency (ER) | payer OTHER ==
[2018-04-26 14:54] VITALS: RESP 18; TEMP 98.4
[2018-04-26] MEDS ORDERED: KETOROLAC 30 MG/ML 1 ML VIAL IM STA (15:57)
[2018-04-26] MEDS ORDERED: DIAZEPAM 5 MG TAB PO STA (15:57)
--- NOTE | 2018-04-26 16:52 | XR ---
EXAMINATION TYPE: XR cervical spine comp DATE OF EXAM: 04/26/2018 COMPARISON: NONE HISTORY: Neck pain TECHNIQUE: 5 views FINDINGS: Vertebra have normal spacing and alignment. Posterior elements are intact. Atlantoaxial fac et joint is normal. There are no cervical ribs. IMPRESSION: Normal cervical spine exam.
--- NOTE | 2018-04-26 16:53 | XR ---
EXAMINATION TYPE: XR thoracic spine complete DATE OF EXAM: 04/26/2018 COMPARISON: NONE HISTORY: Neck pain TECHNIQUE: 3 views FINDINGS: Vertebra have normal alignment. Posterior elements are intact. There is no paraspinal mass. There is no compression fracture. IMPRESSION: Normal thoracic spine exam.
[2018-04-26] MEDS ORDERED: LIDOCAINE 5% PATCH TOPICAL STA (17:03)
--- NOTE | 2018-04-26 17:04 | ED ---
Neck Injury/Pain HPI - General Chief Complaint: Neck Pain/Injury Stated Complaint: Neck pain Mode of arrival: ambulatory Limitations: no limitations - History of Present Illness Initial Comments: 42yo female with PMH of degenerative disc disease and chronic neck pain presenting today for chief complaint of neck pain. Patient states that she was stretching wheezing both arms over head earlier today when she noticed a sharp pain in her neck. Patient denies any fall or trauma to the back. Patient denies any fever, chills or photophobia. Patient states she has been off any muscle relaxants and pain medications for the past year. Pt states the pain increases with turning of the head, pt states neck feels tense. Pt is currently going through physical therapy for the past two weeks for chronic neck pain. Remaining review of systems negative, patient denies any numbness tingling or loss sensation of the upper extremities, muscle weakness of the upper extremities, shortness of breath, chest pain, back pain, abdominal pain, nausea or vomiting, numbness or tingling, dysuria or hematuria, constipation or diarrhea, headaches or visual changes, or any other complaints. - Related Data Home Medications Medication Instructions Recorded Confirmed RX: Acyclovir [Zovirax] 400 mg PO BID 02/27/14 06/19/17 RX: Gabapentin [Neurontin] 600 mg PO BID 02/27/14 06/19/17 RX: Lacosamide [Vimpat] 100 mg PO BID 02/27/14 06/19/17 RX: Tiotropium [place] [Spiriva] 1 cap INHALATION RT-DAILY 02/27/14 06/19/17 RX: Albuterol Inhaler [Ventolin 2 puff INHALATION RT-Q6H PRN 10/18/14 06/19/17 Hfa Inhaler] RX: Atorvastatin [Lipitor] 20 mg PO DAILY 05/26/15 06/19/17 RX: Cholecalciferol [Vitamin D3] 1,000 unit PO DAILY 05/26/15 06/19/17 RX: Naproxen 500 mg PO Q12H PRN 05/26/15 06/19/17 RX: Mometasone/Formoterol [Dulera 2 puff INHALATION RT-BID 04/05/16 06/19/17 200 Mcg/5 Mcg Inhaler] RX: Baclofen 10 mg PO TID 12/14/16 06/19/17 RX: Omeprazole [PriLOSEC] 40 mg PO QAM 12/14/16 06/19/17 RX: busPIRone HCl [Buspar] 5 mg PO TID 12/14/16 06/19/17 Previous Rx's Medication Instructions Recorded Oseltamivir [Tamiflu] 75 mg PO Q12HR 5 Days #10 cap 06/20/17 RX: Aspirin 81 mg PO DAILY chew 06/20/17 RX: Azithromycin [Zithromax] 250 mg PO DAILY #4 tab 06/20/17 RX: Metoprolol Succinate (ER) 25 mg PO DAILY #30 tab.er.24h 06/20/17 [Toprol XL] Allergies Allergy/AdvReac Type Severity Reaction Status Date / Time Sulfa (Sulfonamide Allergy "FEELS Verified 04/26/18 14:48 Antibiotics) LIKE I'M ON FIRE FROM INSIDE OUT" hydrocodone [From [place]] AdvReac STATES Verified 04/26/18 14:48 "IRRATIC MOODS" Review of Systems ROS Statement: Those systems with pertinent positive or pertinent negative responses have been documented in the HPI. ROS Other: All systems not noted in ROS Statement are negative. Past Medical History Past Medical History: COPD, Fibromyalgia, GERD/Reflux, Hyperlipidemia, Hypertension, Neurologic Disorder, Seizure Disorder, Sleep Apnea/CPAP/BIPAP, Thyroid Disorder Additional Past Medical History / Comment(s): LAST SEIZURE 09/22/16, HAS HAD GRAND MAL, AND SEIZURES WERE SHE "STARES OFF" Neuropathy History of Any Multi-Drug Resistant Organisms: MRSA Date of last positivie culture/infection: 10-18-14 MDRO Source:: Groin Past Surgical History: Back Surgery, Tubal Ligation, Uterine Ablation Additional Past Surgical History / Comment(s): Lumbar fusion L5-S1 2005. LEEP Procedure 2017 Past Anesthesia/Blood Transfusion Reactions: No Reported Reaction Past Psychological History: Anxiety, Depression Smoking Status: Current every day smoker Past Alcohol Use History: None Reported Past Drug Use History: None Reported - Past Family History Father Additional Family Medical History / Comment(s): etoh Mother Family Medical History: Hypertension, Sleep Apnea/CPAP/BIPAP Additional Family Medical History / Comment(s): Anxiety and depression General Exam - General Exam Comments Initial Comments: General: The patient is awake and alert, in no distress, and does not appear acutely ill. Eye: Pupils are equal, round and reactive to light, extra-ocular movements are intact. No nystagmus. There is normal conjunctiva bilaterally. No signs of icterus. Ears, nose, mouth and throat: There are moist mucous membranes and no oral lesions. Neck: The neck is supple, there is no tenderness or JVD. Cardiovascular: There is a regular rate and rhythm. No murmur, rub or gallop is appreciated. Respiratory: Lungs are clear to auscultation, respirations are non-labored, breath sounds are equal. No wheezes, stridor, rales, or rhonchi. Musculoskeletal: No inspection of the cervical spine, palpable muscle tension of the paravertebral muscles bilaterally, there is paravertebral muscle pain. Mild midline tenderness with palpation. Normal ROM, no tenderness of the upper extremities equal bilaterally. Strength 5/5 of the upper extremities equal bilaterally. Sensation intact of the upper extremities equal bilaterally. No badge paresthesias or anesthesia. Radial pulses equal bilaterally 2+. Medial and ulnar nerves appear intact. Neurological: A&O x 3. CN II-XII intact, There are no obvious motor or sensory deficits. Coordination appears grossly intact. Speech is normal. Skin: Skin is warm and dry and no rashes or lesions are noted. Psychiatric: Cooperative, appropriate mood & affect, normal judgment. Limitations: no limitations Course Vital Signs 04/26/18 04/26/18 14:48 18:04 Temperature 98.4 F Pulse Rate 79 70 Respiratory 18 18 Rate Blood Pressure 183/116 174/81 O2 Sat by Pulse 99 100 Oximetry Medical Decision Making - Medical Decision Making Well-appearing 42-year-old female with history of chronic neck pain presenting today for chief complaint of neck pain. History of physical exam findings concerning for muscle strain. However the midline tenderness and patient history imaging studies were obtained revealing no acute process. Patient is neurovascular intact, there is no radicular symptoms. Patient was given Valium and Toradol while in the emergency department. Patient will be discharged with ibuprofen 800, patient does not want to use muscle relaxants at this time. Patient will apply heat 20 minutes on 20 minutes off. Patient is to follow-up with her primary care provider or orthopedic surgery. Patient is agreeable plan discharge. Patient denies questions at this time. Patient appears well. Patient discharged after speaking with attending provider Dr. Cortes. Disposition Clinical Impression: Cervical strain Disposition: HOME SELF-CARE Condition: Good Instructions (If sedation given, give patient instructions): Cervical Strain ( ED) Additional Instructions: Please use medication as discussed, remove lidocaine patch in 24 hours. Please follow-up with family doctor in the next 2 days. Please return to emergency room if the symptoms increase or worsen or for any other concerns. Is patient prescribed a controlled substance at d/c from ED?: No Referrals: Kirk Blackwood MD [Primary Care Provider] - 1-2 days Time of Disposition: 17:04
[2018-04-26 18:05] VITALS: BP 174/81; PULSE 70
== END 2018-04-26 18:05 | disposition home or self-care (01) ==
LOC: EC 14:07
DX: S16.1XXA Strain of muscle, fascia and tendon at neck level, initial encounter (principal); J44.9 Chronic obstructive pulmonary disease, unspecified; E78.5 Hyperlipidemia, unspecified; I10 Essential (primary) hypertension; K21.9 Gastro-esophageal reflux disease without esophagitis; G40.909 Epilepsy, unspecified, not intractable, without status epilepticus; G89.29 Other chronic pain; G47.30 Sleep apnea, unspecified; G62.9 Polyneuropathy, unspecified; M79.7 Fibromyalgia; F32.9 Major depressive disorder, single episode, unspecified; F41.9 Anxiety disorder, unspecified; F17.200 Nicotine dependence, unspecified, uncomplicated; Z88.2 Allergy status to sulfonamides; Z88.5 Allergy status to narcotic agent; Z79.51 Long term (current) use of inhaled steroids; Z79.899 Other long term (current) drug therapy; Z86.14 Personal history of Methicillin resistant Staphylococcus aureus infection; Z99.89 Dependence on other enabling machines and devices; Z98.1 Arthrodesis status; X50.1XXA Overexertion from prolonged static or awkward postures, initial encounter; Y92.009 Unspecified place in unspecified non-institutional (private) residence as the place of occurrence of the external cause
CPT/HCPCS: 72072; 72050; 99283; 96372; J1885

== ENCOUNTER → 2018-05-03 | Outpatient (CLI) | payer OTHER ==
--- NOTE | 2018-05-04 03:14 | MR ---
EXAMINATION TYPE: MR cervical spine wo con DATE OF EXAM: 05/03/2018 COMPARISON: 10/20/2008 HISTORY: Pain, Headache, Neuropathy TECHNIQUE: Multiplanar, multisequence images of the cervical spine were acquired. Cervical vertebra have normal alignment. There is small posterior disc herniation at C5-6 where there is slight impingement on the cervical spinal cord and spinal canal. Canal is narrowed to 6.7 mm. The brainstem appears intact. Cervical spinal cord shows no edema. The other cervical discs appear intac t. I see no fracture. There is no paraspinal mass. IMPRESSION: There is a [id number] posterior C5-6 cervical disc herniation. This is a change compared to old exam. There is a mild relative spinal stenosis of 6.7 mm.
== END | disposition home or self-care (01) ==
LOC: RADMRIMAIN 19:35
PROVIDERS: ATTEND Family Medicine
DX: M48.02 Spinal stenosis, cervical region (principal); M50.222 Other cervical disc displacement at C5-C6 level
CPT/HCPCS: 72141

== ENCOUNTER → 2019-04-25 | Outpatient (CLI) | payer OTHER ==
--- NOTE | 2019-04-25 13:46 | MR ---
EXAMINATION TYPE: MR brain wo con DATE OF EXAM: 04/25/2019 COMPARISON: CT brain dated 09/23/2016 HISTORY: Numbness TECHNIQUE: Multiplanar, multisequence images of the brain and brainstem is performed without intravenous contras t. FINDINGS: Diffusion weighted images demonstrate no evidence of a recent infarct or other diffusion ab normality. There is no extra-axial fluid collection. The ventricular system and cisternal spaces ar e normal in size and appearance. The brain volume is age appropriate. There are multiple small foci of T2/FLAIR hyperintensity in the deep white matter and subcortical white matter with a few in the fr ontal periventricular white matter. There are [id number] on the right and 6 on the left in the s upratentorial white matter. The largest measures 4 x 3 mm and left parietal lobe on axial flair fat-s at image 20. Midline structures demonstrate normal morphology. The craniocervical junction appears within normal limits. The dural venous sinuses appear patent. Mild mucosal thickening in the ethmoid sinuses and sp henoid sinus. The remaining visualized sinuses are clear and the globes are intact. IMPRESSION: 1. Approximately 10 right and 6 left supratentorial white matter foci that are sub-4 mm. These could be on the basis of chronic microangiopathy or demyelinating disease. 2. Mild paranasal sinus disease of the ethmoid and sphenoid sinuses.
--- NOTE | 2019-04-25 13:59 | MR ---
EXAMINATION TYPE: MR angio neck wo/w con DATE OF EXAM: 04/25/2019 COMPARISON: MRI brain of the same date HISTORY: Numbness CONTRAST: TECHNIQUE: Multiplanar, multi-sequence imaging as well as [id number] and phase contrast imaging w as performed extracranial vasculature of the neck. The patient was given 5.5 mL intravenous Gadavist gadolinium contrast. 3-D reformatted images and maximum intensity projection reformatted images wer e submitted for evaluation. FINDINGS: RIGHT CAROTID SYSTEM: The visualized portions of the right internal carotid artery demonst rates a normal size and demonstrates no significant narrowing. The right common carotid artery and e xternal carotid artery are unremarkable. LEFT CAROTID SYSTEM: The visualized portions of the left internal carotid artery demonstrates a norm al size and demonstrates no significant narrowing. The left common carotid artery and external carot id artery are unremarkable. The origins of the great vessels and vertebral arteries appear unremarkable. The vertebral arteries are codominant. IMPRESSIONS: No significant stenosis involving the bilateral common carotid arteries, cervical portions of the int ernal carotid arteries, nor vertebral arteries in the neck.
== END | disposition home or self-care (01) ==
LOC: RADMRIMAIN 12:06
PROVIDERS: ATTEND Psychiatry & Neurology Neurology
DX: R90.89 Other abnormal findings on diagnostic imaging of central nervous system (principal); R20.2 Paresthesia of skin
CPT/HCPCS: 70549; 70551; A9585

== ENCOUNTER 2019-12-17 14:16 | Inpatient (IN) | payer OTHER ==
--- NOTE | 2019-12-17 14:33 | ED ---
SOB HPI - General Source: patient Mode of arrival: ambulatory Limitations: no limitations <Orlin Perez - Last Filed: 12/17/19 16:22> <Susanna Holm - Last Filed: 12/18/19 14:55> - General Chief Complaint: Shortness of Breath Stated Complaint: SOB Time Seen by Provider: 12/17/19 14:31 - History of Present Illness Initial Comments: Patient is a 44-year-old female with history of COPD presenting to the emergency department with a chief complaint of shortness of breath. Patient states she's been having gradual increase in dyspnea over the last 2 days. Patient states yesterday she went to her primary care physician who gave her 125 mg of Solu- Medrol and a breathing treatment. Patient states she was discharged with 10 mg of prednisone. States her symptoms continue to persist. Does report audible wheezing and dyspnea on exertion. Denies any chest pain at this time. States she has been using multiple albuterol nebulizers at home with no significant improvement in symptoms. Does report a productive cough with yellow/white sputum production. (Orlin Perez) - Related Data Home Medications Medication Instructions Recorded Confirmed Acyclovir [Zovirax] 400 mg PO DAILY 02/27/14 12/17/19 Cholecalciferol [Vitamin D3 (25 1,000 unit PO DAILY 05/26/15 12/17/19 Mcg = 1000 Iu)] Naproxen 500 mg PO Q12H PRN 05/26/15 12/17/19 Baclofen 10 mg PO TID PRN 12/14/16 12/17/19 Albuterol Sulfate [Ventolin HFA] 2 puff INHALATION RT-Q4H PRN 12/17/19 12/17/19 Azithromycin [Zithromax] See Taper PO DAILY 12/17/19 12/17/19 Cetirizine HCl [Zyrtec] 10 mg PO DAILY 12/17/19 12/17/19 Fluticasone Propion/Salmeterol 1 puff INHALATION RT-BID 12/17/19 12/17/19 [Wixela 500-50 Inhub] Fluticasone/Salmeterol [Advair 1 puff INHALATION RT-BID 12/17/19 12/17/19 500-50 Diskus] Multivit with Calcium,Iron,Min 1 tab PO DAILY 12/17/19 12/17/19 [Women's Multivitamin] Umeclidinium [place] [Incruse 2 puff INHALATION RT-DAILY 12/17/19 12/17/19 Ellipta] predniSONE See Taper PO DAILY 12/17/19 12/17/19 Previous Rx's Medication Instructions Recorded Diltiazem Cd [Cardizem Cd] 180 mg PO HS #30 cap.er.24h 03/25/19 Lisinopril-Hctz 20-12.5 mg 1 each PO DAILY #30 tab 03/25/19 [Zestoretic 20-12.5] Allergies Allergy/AdvReac Type Severity Reaction Status Date / Time Sulfa (Sulfonamide Allergy "FEELS Verified 12/17/19 16:55 Antibiotics) LIKE I'M ON FIRE FROM INSIDE OUT" hydrocodone [From [place]] AdvReac STATES Verified 12/17/19 16:55 "IRRATIC MOODS" Review of Systems ROS Other: All systems not noted in ROS Statement are negative. <Orlin Perez - Last Filed: 12/17/19 16:22> ROS Other: All systems not noted in ROS Statement are negative. <Susanna Holm - Last Filed: 12/18/19 14:55> ROS Statement: Those systems with pertinent positive or pertinent negative responses have been documented in the HPI. Past Medical History Past Medical History: COPD, Fibromyalgia, GERD/Reflux, Hyperlipidemia, Hypertension, Neurologic Disorder, Seizure Disorder, Sleep Apnea/CPAP/BIPAP, Thyroid Disorder Additional Past Medical History / Comment(s): LAST SEIZURE 09/22/16, HAS HAD GRAND MAL, AND SEIZURES WERE SHE "STARES OFF" Neuropathy History of Any Multi-Drug Resistant Organisms: MRSA Date of last positivie culture/infection: 10-18-14 MDRO Source:: Groin Past Surgical History: Back Surgery, Tubal Ligation, Uterine Ablation Additional Past Surgical History / Comment(s): Lumbar fusion L5-S1 2005. LEEP Procedure 2017 Past Anesthesia/Blood Transfusion Reactions: No Reported Reaction Past Psychological History: Anxiety, Depression Smoking Status: Current every day smoker Past Alcohol Use History: None Reported Past Drug Use History: None Reported - Past Family History Father Additional Family Medical History / Comment(s): etoh Mother Family Medical History: Hypertension, Sleep Apnea/CPAP/BIPAP Additional Family Medical History / Comment(s): Anxiety and depression <Orlin Perez - Last Filed: 12/17/19 16:22> General Exam Limitations: no limitations General appearance: alert, in no apparent distress Head exam: Present: atraumatic, normocephalic, normal inspection Eye exam: Present: normal appearance, PERRL, EOMI Pupils: Present: normal accommodation ENT exam: Present: normal exam, normal oropharynx, mucous membranes moist, TM's normal bilaterally, normal external ear exam Neck exam: Present: normal inspection, full ROM. Absent: tenderness Respiratory exam: Present: wheezes (Diffuse bilateral wheezing), accessory muscle use (Retractions). Absent: normal lung sounds bilaterally, rhonchi, stridor Cardiovascular Exam: Present: regular rate, normal rhythm, normal heart sounds GI/Abdominal exam: Present: soft. Absent: distended, tenderness, guarding Extremities exam: Present: normal inspection, full ROM, normal capillary refill. Absent: tenderness Back exam: Present: normal inspection, full ROM. Absent: tenderness, CVA tenderness (R), CVA tenderness (L) Neurological exam: Present: alert, oriented X3, normal gait Psychiatric exam: Present: normal affect, normal mood Skin exam: Present: warm, dry, intact, normal color <Orlin Perez - Last Filed: 12/17/19 16:22> Course Vital Signs 12/17/19 12/17/19 12/17/19 14:23 14:58 15:17 Temperature 97.9 F Pulse Rate 88 88 90 Respiratory 18 Rate Blood Pressure 162/81 O2 Sat by Pulse 96 Oximetry 12/17/19 12/17/19 12/17/19 15:28 16:13 16:42 Temperature 98.8 F Pulse Rate 87 92 Respiratory 20 13 Rate Blood Pressure 170/90 146/83 O2 Sat by Pulse 96 99 Oximetry Medical Decision Making - Lab Data Result diagrams: 12/17/19 15:11 12/17/19 15:11 <Orlin Perez - Last Filed: 12/17/19 16:22> - Lab Data Result diagrams: 12/17/19 15:11 12/18/19 07:03 <Susanna Holm - Last Filed: 12/18/19 14:55> - Medical Decision Making Patient is a 44-year-old female with history of COPD presenting to emergency Department chief complaint of shortness of breath. On physical examination, patient is retracting and having diffuse bilateral wheezing. She is saturating well at 98% on room air. CBC reveals a leukocytosis of 15 care which I suspect is secondary to the steroids she received yesterday. She has also taken 2 days with azithromycin. She is failing outpatient treatment. X-ray reveals no acute processes aside from hyperinflation secondary to her COPD. Patient was given DuoNeb and 125 mg of Solu-Medrol. Reevaluation patient reports some improvement in symptoms although she continues to retract and wheeze. EKG reveals sinus rhythm with right atrial enlargement. Patient will be admitted for further medical management. Case discussed with Admitting is Dr Henao Pulmonology on consult (Orlin Perez) I did not participate in this patients care. My name was added to the chart in error. Attending ER doctor was Dr. Julio. (Susanna Holm) - Lab Data Lab Results 12/17/19 12/17/19 12/17/19 Range/Units 15:11 15:11 15:11 WBC 15.1 H (3.8-10.6) k/uL RBC 4.86 (3.80-5.40) m/uL Hgb 15.6 (11.4-16.0) gm/dL Hct 48.1 H (34.0-46.0) % MCV 99.0 (80.0-100.0) fL MCH 32.1 (25.0-35.0) pg MCHC 32.5 (31.0-37.0) g/dL RDW 12.1 (11.5-15.5) % Plt Count 194 (150-450) k/uL Neutrophils % 91 % Lymphocytes % 6 % Monocytes % 2 % Eosinophils % 0 % Basophils % 0 % Neutrophils # 13.7 H (1.3-7.7) k/uL Lymphocytes # 0.9 L (1.0-4.8) k/uL Monocytes # 0.3 (0-1.0) k/uL Eosinophils # 0.0 (0-0.7) k/uL Basophils # 0.0 (0-0.2) k/uL Sodium 140 (137-145) mmol/L Potassium 4.0 (3.5-5.1) mmol/L Chloride 105 (98-107) mmol/L Carbon Dioxide 25 (22-30) mmol/L Anion Gap 10 mmol/L BUN 13 (7-17) mg/dL Creatinine 0.70 (0.52-1.04) mg/dL Est GFR (CKD-EPI)AfAm >90 (>60 ml/min/1.73 sqM) Est GFR (CKD-EPI)NonAf >90 (>60 ml/min/1.73 sqM) Glucose 139 H (74-99) mg/dL POC Glucose (mg/dL) (75-99) mg/dL POC Glu Laborer Pipelines ID Calcium 9.9 (8.4-10.2) mg/dL Magnesium 2.0 (1.6-2.3) mg/dL Total Bilirubin 0.4 (0.2-1.3) mg/dL AST 34 (14-36) U/L ALT 21 (4-34) U/L Alkaline Phosphatase 74 (38-126) U/L Troponin I <0.012 (0.000-0.034) ng/mL Total Protein 8.1 (6.3-8.2) g/dL Albumin 4.8 (3.5-5.0) g/dL 12/18/19 12/18/19 Range/Units 06:33 07:03 WBC (3.8-10.6) k/uL RBC (3.80-5.40) m/uL Hgb (11.4-16.0) gm/dL Hct (34.0-46.0) % MCV (80.0-100.0) fL MCH (25.0-35.0) pg MCHC (31.0-37.0) g/dL RDW (11.5-15.5) % Plt Count (150-450) k/uL Neutrophils % % Lymphocytes % % Monocytes % % Eosinophils % % Basophils % % Neutrophils # (1.3-7.7) k/uL Lymphocytes # (1.0-4.8) k/uL Monocytes # (0-1.0) k/uL Eosinophils # (0-0.7) k/uL Basophils # (0-0.2) k/uL Sodium 139 (137-145) mmol/L Potassium 4.2 (3.5-5.1) mmol/L Chloride 105 (98-107) mmol/L Carbon Dioxide 30 (22-30) mmol/L Anion Gap 4 mmol/L BUN 13 (7-17) mg/dL Creatinine 0.73 (0.52-1.04) mg/dL Est GFR (CKD-EPI)AfAm >90 (>60 ml/min/1.73 sqM) Est GFR (CKD-EPI)NonAf >90 (>60 ml/min/1.73 sqM) Glucose 119 H (74-99) mg/dL POC Glucose (mg/dL) 116 H (75-99) mg/dL POC Glu Laborer Pipelines ID Elkin Liriano Calcium 9.0 (8.4-10.2) mg/dL Magnesium (1.6-2.3) mg/dL Total Bilirubin (0.2-1.3) mg/dL AST (14-36) U/L ALT (4-34) U/L Alkaline Phosphatase (38-126) U/L Troponin I (0.000-0.034) ng/mL Total Protein (6.3-8.2) g/dL Albumin (3.5-5.0) g/dL - EKG Data EKG Comments: Sinus rhythm with right atrial enlargement. Ventricular rate 70, CA 136, QRS 80, QTC 430. (Orlin Perez) Disposition Is patient prescribed a controlled substance at d/c from ED?: No Time of Disposition: 16:07 <Orlin Perez - Last Filed: 12/17/19 16:22> <Susanna Holm - Last Filed: 12/18/19 14:55> Clinical Impression: COPD exacerbation, Shortness of breath Disposition: ADMITTED IP TO THIS HOSP Condition: Fair
[2019-12-17] MEDS ORDERED: IPRATROPIUM-ALBUTEROL 3 ML NEB INHALATION STA (14:39)
[2019-12-17] MEDS ORDERED: methylPREDNISolone SOD SUCCI 125 MG/2 ML VIAL IV STA (14:43)
[2019-12-17 15:41] LABS: Basophils % (A) 0 %; Eosinophils % (A) 0 %; HCT 48.1 % (34.0-46.0); HGB 15.6 gm/dL (11.4-16.0); Lymphocytes # (A) 0.9 k/uL (1.0-4.8); Lymphocytes % (A) 6 %; MCH 32.1 pg (25.0-35.0); MCHC 32.5 g/dL (31.0-37.0); Mean Platelet Volume 8.9; Monocytes # (A) 0.3 k/uL (0-1.0); Monocytes % (A) 2 %; Neutrophils # (A) 13.7 k/uL (1.3-7.7); Neutrophils % (A) 91 %; Platelet Count 194 k/uL (150-450); RBC 4.86 m/uL (3.80-5.40); RDW 12.1 % (11.5-15.5); WBC 15.1 k/uL (3.8-10.6)
[2019-12-17 15:52] LABS: ALT 21 U/L (4-34); AST 34 U/L (14-36); African American GFR (CKD) >90 (>60 ml/min/1.73 sqM); Albumin 4.8 g/dL (3.5-5.0); Alkaline Phosphatase 74 U/L (38-126); Anion Gap 10 mmol/L; Blood Urea Nitrogen 13 mg/dL (7-17); Calcium 9.9 mg/dL (8.4-10.2); Carbon Dioxide 25 mmol/L (22-30); Chloride 105 mmol/L (98-107); Glucose 139 mg/dL (74-99); Non-African American GFR(CKD) >90 (>60 ml/min/1.73 sqM); Sodium 140 mmol/L (137-145); Total Bilirubin 0.4 mg/dL (0.2-1.3); Total Protein 8.1 g/dL (6.3-8.2)
--- NOTE | 2019-12-17 15:53 | XR ---
EXAMINATION TYPE: XR chest 2V DATE OF EXAM: 12/17/2019 COMPARISON: 03/24/2019 TECHNIQUE: PA and lateral views submitted. HISTORY: Cough FINDINGS: The lungs are clear and there is no pneumothorax, pleural effusion, or focal pneumonia. Hyperinflat ion. No overt failure. Hypertrophic change of the spine. IMPRESSION: 1. No acute process. Correlate for COPD.
[2019-12-17] MEDS ORDERED: NALOXONE 0.4 MG/ML 1 ML VIAL IV PRN (16:11)
[2019-12-17] MEDS ORDERED: ONDANSETRON 4 MG/2 ML VIAL IVP PRN (16:11)
[2019-12-17] MEDS: LORazepam 2 MG/ML INJ IV PRN (16:26)
[2019-12-17] MEDS: SODIUM CHLORIDE 0.9% 1,000 ML IV SCH (16:26)
[2019-12-17] MEDS: IPRATROPIUM-ALBUTEROL 3 ML NEB INHALATION PRN (20:08)
[2019-12-17] MEDS ORDERED: CALCIUM CARBONATE 500 MG CHEWABLE PO PRN (20:54)
[2019-12-17] MEDS ORDERED: ACETAMINOPHEN TAB 325 MG TAB PO PRN (20:54)
[2019-12-17] MEDS ORDERED: MAGNESIUM HYDROXIDE 2,400 MG/10 ML CUP PO PRN (20:54)
[2019-12-17] MEDS ORDERED: LACTULOSE 20 GM/30 ML CUP PO PRN (20:54)
[2019-12-17] MEDS ORDERED: MAG HYDROX/AL HYDROX/SIMETH 30 ML CUP PO PRN (20:54)
--- NOTE | 2019-12-17 21:03 | P.HPIM ---
History of Present Illness H&P Date: 12/17/19 Chief Complaint: Short of breath, wheezing History of presenting complaint: History of presenting complaint: This is a 44-year-old patient who follows with Dr. Blackwood and nuclear technician Dr. Moore. 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 Patient was here in March of this year when she was intubated and did have a prolonged course in the hospital. She was intubated at that time. Patient has stopped smoking when she left the hospital. Was doing well e xercising. She started smoking again. Now over the course of 1 week she states initially started off with a runny nose 8 she nose and progressed to become short of breath wheezing cough. No obvious uterine chills. Nobody short of breath at rest. Admitted for the same. Review of systems: GEN.: Tired EYES: None HEENT: None NECK: None RESPIRATORY: As above CARDIOVASCULAR: None GASTROINTESTINAL: None GENITOURINARY: None MUSCULOSKELETAL: Joint pains LYMPHATICS: None HEMATOLOGICAL: None PSYCHIATRY: Anxious NEUROLOGICAL: None Past medical history to include: COPD, fibromyalgia, GERD, hyperlipidemia, hypertension, seizure disorder, obstructive sleep apnea, hypothyroid, anxiety depression Physical examination: VITAL SIGNS: 97.9, 88, 18, 160/81, 96% on room air] GENERAL: BMI 22.3, sitting on bed, short of breath. EYES: Pupils equal. Conjunctiva normal. HEENT: External appearance of nose and ears normal, oral cavity grossly normal. NECK: JVD not raised; masses not palpable. HEART: First and second heart sounds are normal; no edema. LUNGS: Respiratory rate increased, accessory muscle looking, not able to speak in full sentences, diminished breath sounds prolonged expiration. ABDOMEN: Soft, nontender, liver spleen not palpable, no masses palpable. PSYCH: [Alert and oriented x3; mood and affect anxious. NEUROLOGICAL: Cranial nerves grossly intact; no facial asymmetry, power and sensation grossly intact. LYMPHATICS: No lymph nodes palpable in the axilla and neck INVESTIGATIONS, reviewed in the clinical context: White count 15.1 hemoglobin 15.6 potassium 4 creatinine 0.7 Troponin I negative EKG tracing personally reviewed by me-poor LV progression, sinus rhythm Chest x-ray film personally reviewed by me-hyperinflated. No obvious infiltrate Assessment: -Acute severe COPD exacerbation, in a current smoker-with a prior history of intubation -Chronic nicotine dependence -chronic fibromyalgia -Hyperlipidemia -Essential hypertension -Chronic epilepsy -Hypothyroidism -Gallstone asymptomatic Plan: Patient started on nebulized bronchodilators every 4 hours, IV steroids, and his steroids, home medications resumed. Patient will need at least 2 nights over stay in the hospital. Pulmonary consulted. Smoke cessation counseling: This was done with the patient. Nicotine patch is being given. More than 3 minutes was spent for this Past Medical History Past Medical History: COPD, Fibromyalgia, GERD/Reflux, Hyperlipidemia, Hypertension, Neurologic Disorder, Seizure Disorder, Sleep Apnea/CPAP/BIPAP, Thyroid Disorder Additional Past Medical History / Comment(s): LAST SEIZURE 09/22/16, HAS HAD GRAND MAL, AND SEIZURES WERE SHE "STARES OFF" Neuropathy History of Any Multi-Drug Resistant Organisms: MRSA Date of last positivie culture/infection: 10-18-14 MDRO Source:: Groin Past Surgical History: Back Surgery, Tubal Ligation, Uterine Ablation Additional Past Surgical History / Comment(s): Lumbar fusion L5-S1 2005. LEEP Procedure 2017 Past Anesthesia/Blood Transfusion Reactions: No Reported Reaction Past Psychological History: Anxiety, Depression Smoking Status: Current every day smoker Past Alcohol Use History: None Reported Additional Past Alcohol Use History / Comment(s): Patient is a smoker one half to one pack per day and has been smoking for 23 years. She has a medical marijuana card and smokes marijuana on a daily basis for sleep. Patient is currently on disability. She was at home with her 2 daughters that are for 15 years of age and 4 years of age. She recently moved to a new apartment. Past Drug Use History: None Reported Additional Drug Use History / Comment(s): Pt has medical marijuana card - Past Family History Father Additional Family Medical History / Comment(s): etoh, alive at 66 Mother Family Medical History: Hypertension, Sleep Apnea/CPAP/BIPAP Additional Family Medical History / Comment(s): Anxiety and depression, still living at 58 Medications and Allergies Home Medications Medication Instructions Recorded Confirmed Type Acyclovir [Zovirax] 400 mg PO DAILY 02/27/14 12/17/19 History Cholecalciferol [Vitamin D3 (25 1,000 unit PO DAILY 05/26/15 12/17/19 History Mcg = 1000 Iu)] Naproxen 500 mg PO Q12H PRN 05/26/15 12/17/19 History Baclofen 10 mg PO TID PRN 12/14/16 12/17/19 History Diltiazem Cd [Cardizem Cd] 180 mg PO HS #30 cap.er.24h 03/25/19 12/17/19 Rx Lisinopril-Hctz 20-12.5 mg 1 each PO DAILY #30 tab 03/25/19 12/17/19 Rx [Zestoretic 20-12.5] Albuterol Sulfate [Ventolin HFA] 2 puff INHALATION RT-Q4H PRN 12/17/19 12/17/19 History Azithromycin [Zithromax] See Taper PO DAILY 12/17/19 12/17/19 History Cetirizine HCl [Zyrtec] 10 mg PO DAILY 12/17/19 12/17/19 History Fluticasone Propion/Salmeterol 1 puff INHALATION RT-BID 12/17/19 12/17/19 History [Wixela 500-50 Inhub] Fluticasone/Salmeterol [Advair 1 puff INHALATION RT-BID 12/17/19 12/17/19 History 500-50 Diskus] Multivit with Calcium,Iron,Min 1 tab PO DAILY 12/17/19 12/17/19 History [Women's Multivitamin] Umeclidinium [place] [Incruse 2 puff INHALATION RT-DAILY 12/17/19 12/17/19 History Ellipta] predniSONE See Taper PO DAILY 12/17/19 12/17/19 History Allergies Allergy/AdvReac Type Severity Reaction Status Date / Time Sulfa (Sulfonamide Allergy "FEELS Verified 12/17/19 16:55 Antibiotics) LIKE I'M ON FIRE FROM INSIDE OUT" hydrocodone [From [place]] AdvReac STATES Verified 12/17/19 16:55 "IRRATIC MOODS" Physical Exam Vitals: Vital Signs Temp Pulse Pulse Resp BP BP Pulse Ox 12/17/19 20:18 98 12/17/19 20:08 100 96 12/17/19 19:50 90 22 12/17/19 17:03 22 12/17/19 16:50 97.9 F 90 22 168/55 12/17/19 16:42 98.8 F 12/17/19 16:13 92 13 146/83 99 12/17/19 15:28 87 20 170/90 96 12/17/19 15:17 90 12/17/19 14:58 88 12/17/19 14:23 97.9 F 88 18 162/81 96 Intake and Output 12/17/19 12/17/19 12/17/19 06:59 14:59 22:59 Intake Total 350 Balance 350 Intake: Oral 350 Other: # Voids 1 Weight 60.781 kg 60.781 kg Results CBC & Chem 7: 12/17/19 15:11 12/17/19 15:11 Labs: Abnormal Lab Results - Last 24 Hours (Table) 12/17/19 12/17/19 Range/Units 15:11 15:11 WBC 15.1 H (3.8-10.6) k/uL Hct 48.1 H (34.0-46.0) % Neutrophils # 13.7 H (1.3-7.7) k/uL Lymphocytes # 0.9 L (1.0-4.8) k/uL Glucose 139 H (74-99) mg/dL Thrombosis Risk Factor Assmnt - Choose All That Apply Any of the Below Risk Factors Present?: Yes Each Factor Represents 1 point: Age 41-60 years Other Risk Factors: No Other congenital or acquired thrombophilia - If yes, enter type in comment: No Thrombosis Risk Factor Assessment Total Risk Factor Score: 1 Thrombosis Risk Factor Assessment Level: Low Risk
[2019-12-17] MEDS: NICOTINE 14MG/24HR PATCH TRANSDERM SCH (21:38)
[2019-12-17] MEDS: methylPREDNISolone SOD SUCCI 40 MG/ML 1 ML VIAL IV SCH (21:38)
[2019-12-17] MEDS: ENOXAPARIN 40 MG/0.4 ML SYRINGE SQ SCH (21:38)
[2019-12-17] MEDS: IPRATROPIUM-ALBUTEROL 3 ML NEB INHALATION SCH ×2 (21:46→23:26)
[2019-12-17] MEDS: BUDESONIDE 1 MG/2 ML NEBU INHALATION SCH (21:47)
[2019-12-18] MEDS: methylPREDNISolone SOD SUCCI 40 MG/ML 1 ML VIAL IV SCH ×2 (00:38→07:28)
[2019-12-18] MEDS: LORazepam 2 MG/ML INJ IV PRN ×2 (00:46→19:33)
[2019-12-18] MEDS ORDERED: LISINOPRIL-HCTZ 20-12.5 MG 1 EACH TAB PO STA (02:39)
[2019-12-18] MEDS: MELATONIN 3 MG TABLET PO PRN (02:50)
[2019-12-18] MEDS: IPRATROPIUM-ALBUTEROL 3 ML NEB INHALATION SCH ×6 (03:13→23:14)
[2019-12-18 06:34] LABS: Glucose,Whole Blood 116 mg/dL (75-99)
[2019-12-18] MEDS: SODIUM CHLORIDE 0.9% 1,000 ML IV SCH ×2 (07:25→20:19)
[2019-12-18] MEDS: INSULIN ASPART (NovoLOG) 100 UNIT/ML VIAL SQ SCH ×3 (07:25→16:49)
[2019-12-18 07:30] LABS: African American GFR (CKD) >90 (>60 ml/min/1.73 sqM); Anion Gap 4 mmol/L; Blood Urea Nitrogen 13 mg/dL (7-17); Carbon Dioxide 30 mmol/L (22-30); Chloride 105 mmol/L (98-107); Glucose 119 mg/dL (74-99); Non-African American GFR(CKD) >90 (>60 ml/min/1.73 sqM); Potassium 4.2 mmol/L (3.5-5.1); Sodium 139 mmol/L (137-145)
[2019-12-18] MEDS: BUDESONIDE 1 MG/2 ML NEBU INHALATION SCH ×2 (07:34→18:17)
[2019-12-18] MEDS: ENOXAPARIN 40 MG/0.4 ML SYRINGE SQ SCH (08:25)
[2019-12-18] MEDS: LISINOPRIL-HCTZ 20-12.5 MG 1 EACH TAB PO SCH ×2 (08:25→21:28)
[2019-12-18] MEDS: NICOTINE 14MG/24HR PATCH TRANSDERM SCH (08:26)
[2019-12-18] MEDS: IPRATROPIUM-ALBUTEROL 3 ML NEB INHALATION PRN (09:51)
[2019-12-18 11:29] LABS: Glucose,Whole Blood 129 mg/dL (75-99)
[2019-12-18] MEDS: BACLOFEN 10 MG TAB PO PRN ×2 (11:39→21:27)
--- NOTE | 2019-12-18 11:40 | P.CNPUL ---
History of Present Illness Consult date: 12/18/19 Reason for consult: COPD History of present illness: The very pleasant 43-year-old female patient with a very complicated course in the hospital. The patient is a chronic smoker in she started smoking at the age of 15 and she was smoking up to 1 pack of cigarettes a day. She was hospitalized back in February 2019 and she had a total of 2 week hospitalization during which she had acute hypoxic and hypercapnic respiratory failure due to COPD e xacerbation. She was ultimately extubated after being intubated for a total of 5 days. She was extubated successfully and from that point on she gradually started improving. She required a lot of sedation and anxiolytics and blood pressure medication to control her condition was being on a mechanical ventilator. She did not show evidence of pneumonia. A chest x-ray shows hyperinflation. Note that her comorbidities included COPD, hyperlipidemia, fibromyalgia, hypertension, seizure disorder, hypothyroidism and a 1.4 cm gallstone that was asymptomatic. She also has history of genital herpes. She also gives a vague history of sleep apnea and she was given a CPAP machine through the sleep center at [facility]. The patient also had a spirometry that showed an FEV1 of 31% of predicted consistent with severe obstructive airway limitation. The patient has been maintained on a combination of Wixela and Incruse and she has been using albuterol rescue inhaler on as- needed basis. Recently, she developed increased dyspnea cough chest and wheezing. She has been using her nebulizer more frequently up to 4-5 times a day. She started off with having some dry nose and nasal congestion associated with some increased cough and dyspnea chest tightness and wheeze. No fever. No chills. No change in taste or smell. Chest x-ray is consistent with COPD. The white cell count is at 15.1. I further all within normal limits. She is currently on room air oxygen and her pulse ox around 93%. She is afebrile. She continued to smoke around 1 pack of cigarettes a day.. The patient states that she has been checked for covid 19 through her primary care physician's office and tests were negative. Review of Systems Constitutional: Reports fatigue, Reports weakness Eyes: denies as per HPI, denies blurred vision, denies bulging eye, denies decreased vision, denies diplopia, denies discharge, denies dry eye, denies irritation, denies itching, denies pain, denies photophobia, denies loss of peripheral vision, denies loss of vision, denies tunnel vision/blind spots Ears: deny: decreased hearing, ear discharge, earache, tinnitus Ears, nose, mouth and throat: Reports as per HPI Breasts: absent: as per HPI, change in shape, gynecomastia, masses, nipple discharge, pain, skin changes, swelling Cardiovascular: Reports decreased exercise tolerance, Reports dyspnea on exertion Respiratory: Reports cough, Reports dyspnea Gastrointestinal: Reports as per HPI Genitourinary: Reports as per HPI Menstruation: Reports as per HPI Musculoskeletal: Reports as per HPI Musculoskeletal: absent: ankle pain, ankle stiffness, ankle swelling Integumentary: Reports as per HPI Neurological: Reports as per HPI Psychiatric: Reports as per HPI Endocrine: Reports as per HPI Hematologic/Lymphatic: Reports as per HPI Allergic/Immunologic: Reports as per HPI Past Medical History Past Medical History: COPD, Fibromyalgia, GERD/Reflux, Hyperlipidemia, Hypertension, Neurologic Disorder, Seizure Disorder, Sleep Apnea/CPAP/BIPAP, Thyroid Disorder Additional Past Medical History / Comment(s): COPD with an FEV1 of 31% of predicted, history of chronic hypoxic respiratory failure, history of intubation mechanical ventilation secondary to COPD exacerbation, fibromyalgia, hyper tension, hyperlipidemia, seizure disorder, hypothyroidism and history of gallstones. History of Any Multi-Drug Resistant Organisms: MRSA Date of last positivie culture/infection: 10-18-14 MDRO Source:: Groin Past Surgical History: Back Surgery, Tubal Ligation, Uterine Ablation Additional Past Surgical History / Comment(s): Lumbar fusion L5-S1 2005. LEEP Procedure 2017 Past Anesthesia/Blood Transfusion Reactions: No Reported Reaction Past Psychological History: Anxiety, Depression Smoking Status: Current every day smoker Past Alcohol Use History: None Reported Additional Past Alcohol Use History / Comment(s): Patient is a smoker one half to one pack per day and has been smoking for 23 years. She has a medical marijuana card and smokes marijuana on a daily basis for sleep. Patient is currently on disability. She was at home with her 2 daughters that are for 15 years of age and 4 years of age. She recently moved to a new apartment. Past Drug Use History: None Reported Additional Drug Use History / Comment(s): Pt has medical marijuana card - Past Family History Father Additional Family Medical History / Comment(s): etoh, alive at 66 Mother Family Medical History: Hypertension, Sleep Apnea/CPAP/BIPAP Additional Family Medical History / Comment(s): Anxiety and depression, still living at 58 Medications and Allergies Home Medications Medication Instructions Recorded Confirmed Type Acyclovir [Zovirax] 400 mg PO DAILY 02/27/14 12/17/19 History Cholecalciferol [Vitamin D3 (25 1,000 unit PO DAILY 05/26/15 12/17/19 History Mcg = 1000 Iu)] Naproxen 500 mg PO Q12H PRN 05/26/15 12/17/19 History Baclofen 10 mg PO TID PRN 12/14/16 12/17/19 History Diltiazem Cd [Cardizem Cd] 180 mg PO HS #30 cap.er.24h 03/25/19 12/17/19 Rx Lisinopril-Hctz 20-12.5 mg 1 each PO DAILY #30 tab 03/25/19 12/17/19 Rx [Zestoretic 20-12.5] Albuterol Sulfate [Ventolin HFA] 2 puff INHALATION RT-Q4H PRN 12/17/19 12/17/19 History Azithromycin [Zithromax] See Taper PO DAILY 12/17/19 12/17/19 History Cetirizine HCl [Zyrtec] 10 mg PO DAILY 12/17/19 12/17/19 History Fluticasone Propion/Salmeterol 1 puff INHALATION RT-BID 12/17/19 12/17/19 History [Wixela 500-50 Inhub] Fluticasone/Salmeterol [Advair 1 puff INHALATION RT-BID 12/17/19 12/17/19 History 500-50 Diskus] Multivit with Calcium,Iron,Min 1 tab PO DAILY 12/17/19 12/17/19 History [Women's Multivitamin] Umeclidinium [place] [Incruse 2 puff INHALATION RT-DAILY 12/17/19 12/17/19 History Ellipta] predniSONE See Taper PO DAILY 12/17/19 12/17/19 History Allergies Allergy/AdvReac Type Severity Reaction Status Date / Time Sulfa (Sulfonamide Allergy "FEELS Verified 12/17/19 16:55 Antibiotics) LIKE I'M ON FIRE FROM INSIDE OUT" hydrocodone [From [place]] AdvReac STATES Verified 12/17/19 16:55 "IRRATIC MOODS" Physical Exam Vitals: Vital Signs Temp Pulse Pulse Resp BP BP Pulse Ox 12/18/19 09:00 96.2 F L 90 22 163/74 93 L 12/18/19 07:50 92 12/18/19 07:34 89 12/18/19 03:50 98.4 F 95 15 161/87 2 L 12/18/19 03:22 92 12/18/19 03:13 88 12/18/19 02:56 16 12/18/19 02:50 97.8 F 97 16 181/88 96 12/17/19 23:34 100 12/17/19 23:26 98 12/17/19 20:54 93 L 12/17/19 20:18 98 12/17/19 20:08 100 96 12/17/19 19:50 90 22 12/17/19 19:35 98.4 F 100 16 129/89 93 L 12/17/19 17:03 22 12/17/19 16:50 97.9 F 90 22 168/55 12/17/19 16:42 98.8 F 12/17/19 16:13 92 13 146/83 99 12/17/19 15:28 87 20 170/90 96 12/17/19 15:17 90 12/17/19 14:58 88 12/17/19 14:23 97.9 F 88 18 162/81 96 Intake and Output 12/17/19 12/18/19 12/18/19 22:59 06:59 14:59 Intake Total 590 Balance 590 Intake: Oral 590 Other: # Voids 1 1 1 Weight 60.781 kg The patient appeared well nourished and normally developed. Vital signs as documented. Head exam is unremarkable. No scleral icterus or corneal arcus noted. Neck is without jugular venous distension, thyromegaly, or carotid bruits. Carotid upstrokes are brisk bilaterally. Lungs are are diminished bilate rally and the patient has prolongation of the sedation nasal breathing and diffuse expiratory wheezes throughout the lung woodson bilaterally. Cardiac exam reveals the PMI to be normally sized and situated. Rhythm is regular. First and second heart sounds normal. No murmurs, rubs or gallops. Abdominal exam reveals normal bowel sounds, no masses, no organomegaly and no aortic enlargement. Extremities are nonedematous and both femoral and pedal pulses are normal.Examination of the skin revealed no evidence of significant rashes, suspicious appearing nevi or other concerning lesions.Neurologically, the patient is awake and alert and the patient does not have any focal neurological deficit. Cranial nerves are essentially intact. Results - Laboratory Findings CBC and BMP: 12/17/19 15:11 12/18/19 07:03 Abnormal lab findings: Abnormal Labs 12/17/19 12/17/19 12/18/19 15:11 15:11 06:33 WBC 15.1 H Hct 48.1 H Neutrophils # 13.7 H Lymphocytes # 0.9 L Glucose 139 H POC Glucose (mg/dL) 116 H 12/18/19 07:03 WBC Hct Neutrophils # Lymphocytes # Glucose 119 H POC Glucose (mg/dL) - Diagnostic Findings Chest x-ray: image reviewed Assessment and Plan Plan: 1 acute exacerbation of chronic COPD. Rule out underlying tracheal bronchitis. Chest x-ray is free of any acute pulmonary infiltrates 2 severe COPD with an FEV1 of 31% of predicted baseline, this has been attributed to smoke and the patient has a normal alpha-1 antitrypsin level. 3 chronic hypoxic respiratory failure, secondary to above 4 fibromyalgia 5 smoker 6 hypertension 7 hyperlipidemia 8 history of seizure disorder 9 hypothyroidism 10 questionable history of sleep apnea Plan Smoking cessation counseling was done Continue oxygen therapy to maintain a saturation above 90% Continue DuoNeb about treatments around the clock IV Solu Medrol 60 mg every 6 hours Chest x-ray was reviewed and sleepy of an acute pulmonary infiltrates We'll continue to follow. Outpatient medication include a combination of Wixela nd Incruse in addition to albuterol updrafts on a when necessary basis.
[2019-12-18] MEDS: methylPREDNISolone SOD SUCCI 125 MG/2 ML VIAL IV SCH ×3 (11:41→23:58)
[2019-12-18] MEDS: MULTIVITAMINS, THERA 1 EACH TAB PO SCH (11:42)
[2019-12-18] MEDS: FORMOTEROL FUMARATE 20 MCG/2 ML NEBU INHALATION SCH ×2 (11:43→18:32)
[2019-12-18] MEDS: LORATADINE 10 MG TAB PO SCH (11:43)
[2019-12-18] MEDS: CHOLECALCIFEROL 1,000 UNIT TAB PO SCH (11:43)
[2019-12-18] MEDS: ACYCLOVIR 200 MG CAP PO SCH (11:48)
--- NOTE | 2019-12-18 15:42 | P.PN ---
Progress Note - Text Progress Note Date: 12/18/19 Chief Complaint: Short of breath, wheezing History of presenting complaint: This is a 44-year-old patient who follows with Dr. Blackwood and dental surgery doctor Dr. Moore. Chronic stable medical conditions include [employer], GERD, hypertension, hyperlipidemia, seizure disorder anxiety depression, asymptomatic gallstones. Patient was here in March of this year when she was intubated and did have a prolonged course in the hospital. She was intubated at that time. Collins wright has stopped smoking when she left the hospital. Was doing well exercising. She started smoking again. Now over the course of 1 week she states initially started off with a runny nose 8 she nose and progressed to become short of breath wheezing cough. No obvious uterine chills. Short of breath breath at rest. Admitted for the same. Today-short of breath at rest. Remains on bronchodilators and IV steroids. Eating some Review of systems: Was done for constitutional, cardiovascular, GI, pulmonary. relevant finding as above Active Medications Acetaminophen (Acetaminophen Tab 325 Mg Tab) 650 mg PO Q6HR PRN PRN Reason: Mild Pain or Fever > 100.5 Last Admin: 12/18/19 00:47 Dose: 650 mg Documented by: Acyclovir (Acyclovir 200 Mg Cap) 400 mg PO DAILY SARAH Last Admin: 12/18/19 11:48 Dose: Not Given Documented by: Al Hydroxide/Mg Hydroxide (Mag Hydrox/Al Hydrox/Simeth 30 Ml Cup) 15 ml PO Q6HR PRN PRN Reason: Indigestion Albuterol/Ipratropium (Ipratropium-Albuterol 3 Ml Neb) 3 ml INHALATION RT-Q4H PRN PRN Reason: Wheezing Last Admin: 12/18/19 09:51 Dose: 3 ml Documented by: Albuterol/Ipratropium (Ipratropium-Albuterol 3 Ml Neb) 3 ml INHALATION RT-Q4H SARAH Last Admin: 12/18/19 14:50 Dose: 3 ml Documented by: Baclofen (Baclofen 10 Mg Tab) 10 mg PO TID PRN PRN Reason: Pain Last Admin: 12/18/19 11:39 Dose: 10 mg Documented by: Budesonide (Budesonide 1 Mg/2 Ml Nebu) 1 mg INHALATION RT-BID SARAH Last Admin: 12/18/19 07:34 Dose: 1 mg Documented by: Calcium Carbonate/Glycine (Calcium Carbonate 500 Mg Chewable) 1,000 mg PO Q4HR PRN PRN Reason: Dyspepsia Last Admin: 12/18/19 11:40 Dose: 1,000 mg Documented by: Cholecalciferol (Cholecalciferol 1,000 Unit Tab) 1,000 unit PO DAILY [facility] Last Admin: 12/18/19 11:43 Dose: Not Given Documented by: Diltiazem HCl (Diltiazem Cd 180 Mg Cap.Er.24h) 180 mg PO HS [facility] Enoxaparin Sodium (Enoxaparin 40 Mg/0.4 Ml Syringe) 40 mg SQ DAILY [facility] Last Admin: 12/18/19 08:25 Dose: 40 mg Documented by: Formoterol Fumarate (Formoterol Fumarate 20 Mcg/2 Ml Nebu) 20 mcg INHALATION RT-BID [facility] Last Admin: 12/18/19 11:43 Dose: Not Given Documented by: Lisinopril/HCTZ (Lisinopril-Hctz 20-12.5 Mg 1 Each Tab) 1 each PO BID [facility] Last Admin: 12/18/19 08:25 Dose: 1 each Documented by: Sodium Chloride (Saline 0.9%) 1,000 mls @ 75 mls/hr IV .[id number] [facility] Last Admin: 12/18/19 07:25 Dose: Not Given Documented by: Insulin Aspart (Insulin Aspart (Novolog) 100 Unit/Ml Vial) 0 unit SQ AC-TID [facility]; Protocol Last Admin: 12/18/19 12:15 Dose: Not Given Documented by: Lactulose (Lactulose 20 Gm/30 Ml Cup) 20 gm PO DAILY PRN PRN Reason: Constipation Loratadine (Loratadine 10 Mg Tab) 10 mg PO DAILY [facility] Last Admin: 12/18/19 11:43 Dose: Not Given Documented by: Lorazepam (Lorazepam 2 Mg/Ml Inj) 0.5 mg IV Q6HR PRN PRN Reason: Anxiety Last Admin: 12/18/19 00:46 Dose: 0.5 mg Documented by: Magnesium Hydroxide (Magnesium Hydroxide 2,400 Mg/10 Ml Cup) 2,400 mg PO DAILY PRN PRN Reason: Constipation Melatonin (Melatonin 3 Mg Tablet) 3 mg PO HS PRN PRN Reason: Insomnia Last Admin: 12/18/19 02:50 Dose: 3 mg Documented by: Methylprednisolone Sodium Succinate (Methylprednisolone Sod Succi 125 Mg/2 Ml Vial) 60 mg IV Q6HR [facility] Last Admin: 12/18/19 11:41 Dose: 60 mg Documented by: Multivitamins (Multivitamins, Thera 1 Each Tab) 1 each PO DAILY [facility] Last Admin: 12/18/19 11:42 Dose: Not Given Documented by: Naloxone HCl (Naloxone 0.4 Mg/Ml 1 Ml Vial) 0.2 mg IV Q2M PRN PRN Reason: Opioid Reversal Naproxen (Naproxen 250 Mg Tab) 500 mg PO Q12H PRN PRN Reason: Pain Nicotine (Nicotine 14mg/24hr Patch) 1 patch TRANSDERM DAILY [facility] Last Admin: 12/18/19 08:26 Dose: 1 patch Documented by: Ondansetron HCl (Ondansetron 4 Mg/2 Ml Vial) 4 mg IVP Q8HR PRN PRN Reason: Nausea And Vomiting Last Admin: 12/17/19 16:26 Dose: 4 mg Documented by: Physical examination: VITAL SIGNS: 96.2, 104, 22, 163/74, 93% on nasal cannula GENERAL: Sitting up in bed, short of breath EYES: Pupils equal. Conjunctiva normal. HEENT: External appearance of nose and ears normal, oral cavity grossly normal. NECK: JVD not raised; masses not palpable. HEART: First and second heart sounds are normal; no edema. LUNGS: Respiratory rate increased, accessory muscle working, diminished breath sounds prolonged expiration. ABDOMEN: Soft, nontender, liver spleen not palpable, no masses palpable. PSYCH: Alert and oriented x3; mood and affect anxious. INVESTIGATIONS, reviewed in the clinical context: White count 15.1 hemoglobin 15.6 potassium 4 creatinine 0.7 Troponin I negative EKG tracing personally reviewed by me-poor LV progression, sinus rhythm Chest x-ray film personally reviewed by me-hyperinflated. No obvious infiltrate Assessment: -Acute severe COPD exacerbation, in a current smoker-with a prior history of intubation-slow to respond -Chronic nicotine dependence -chronic fibromyalgia -Hyperlipidemia -Essential hypertension -Chronic epilepsy -Hypothyroidism -Gallstone asymptomatic Plan: Continue nebulized bronchodilators every 4 hours, IV steroids, inhaled steroids,. Discussed with patient
[2019-12-18 16:35] LABS: Glucose,Whole Blood 137 mg/dL (75-99)
[2019-12-18] MEDS: DILTIAZEM CD 180 MG CAP.ER.24H PO SCH (20:20)
[2019-12-18] MEDS: NAPROXEN 250 MG TAB PO PRN (21:27)
[2019-12-19] MEDS: IPRATROPIUM-ALBUTEROL 3 ML NEB INHALATION SCH ×5 (02:13→20:55)
[2019-12-19] MEDS: LORazepam 2 MG/ML INJ IV PRN ×2 (02:18→10:02)
[2019-12-19] MEDS: methylPREDNISolone SOD SUCCI 125 MG/2 ML VIAL IV SCH ×3 (05:49→17:07)
[2019-12-19 05:50] LABS: Glucose,Whole Blood 129 mg/dL (75-99)
[2019-12-19] MEDS: FORMOTEROL FUMARATE 20 MCG/2 ML NEBU INHALATION SCH ×2 (07:19→20:55)
[2019-12-19] MEDS: BUDESONIDE 1 MG/2 ML NEBU INHALATION SCH ×2 (07:19→20:55)
[2019-12-19] MEDS: INSULIN ASPART (NovoLOG) 100 UNIT/ML VIAL SQ SCH ×3 (07:57→17:07)
[2019-12-19] MEDS: ENOXAPARIN 40 MG/0.4 ML SYRINGE SQ SCH (08:08)
[2019-12-19] MEDS: MULTIVITAMINS, THERA 1 EACH TAB PO SCH (08:08)
[2019-12-19] MEDS: NICOTINE 14MG/24HR PATCH TRANSDERM SCH (08:08)
[2019-12-19] MEDS: ACYCLOVIR 200 MG CAP PO SCH (08:09)
[2019-12-19] MEDS: SODIUM CHLORIDE 0.9% 1,000 ML IV SCH (08:09)
[2019-12-19] MEDS: CHOLECALCIFEROL 1,000 UNIT TAB PO SCH (08:09)
[2019-12-19] MEDS: LORATADINE 10 MG TAB PO SCH (08:09)
[2019-12-19] MEDS: LISINOPRIL-HCTZ 20-12.5 MG 1 EACH TAB PO SCH ×2 (08:09→20:44)
[2019-12-19 11:48] LABS: Glucose,Whole Blood 154 mg/dL (75-99)
--- NOTE | 2019-12-19 12:00 | P.PN ---
Subjective Progress Note Date: 12/19/19 The very pleasant 43-year-old female patient with a very complicated course in the hospital. The patient is a chronic smoker in she started smoking at the age of 15 and she was smoking up to 1 pack of cigarettes a day. She was hospitalized back in February 2019 and she had a total of 2 week hospitalization during which she had acute hypoxic and hypercapnic respiratory failure due to COPD exacerbation. She was ultimately extubated after being intubated for a total of 5 days. She was extubated successfully and from that point on she gradually started improving. She required a lot of sedation and anxiolytics and blood pressure medication to control her condition was being on a mechanical ventilator. She did not show evidence of pneumonia. A chest x-ray shows hyperinflation. Note that her comorbidities included COPD, hyperlipidemia, fibromyalgia, hypertension, seizure disorder, hypothyroidism and a 1.4 cm gallstone that was asymptomatic. She also has history of genital herpes. She also gives a vague history of sleep apnea and she was given a CPAP machine through the sleep center at [facility]. The patient also had a spirometry that showed an FEV1 of 31% of predicted consistent with severe obstructive airway limitation. The patient has been maintained on a combination of Wixela and Incruse and she has been using albuterol rescue inhaler on as- needed basis. Recently, she developed increased dyspnea cough chest and wheezing. She has been using her nebulizer more frequently up to 4-5 times a day. She started off with having some dry nose and nasal congestion associated with some increased cough and dyspnea chest tightness and wheeze. No fever. No chills. No change in taste or smell. Chest x-ray is consistent with COPD. The white cell count is at 15.1. I further all within normal limits. She is currently on room air oxygen and her pulse ox around 93%. She is afebrile. She continued to smoke around 1 pack of cigarettes a day.. The patient states that she has been checked for covid 19 through her primary care physician's office and tests were negative. \ On 12/19/2019, I'm seeing for a follow-up as the patient is being treated for an acute COPD exacerbation. She still bronchospastic and wheezy. She is still quite short of breath and she gets dyspneic with limited amount of activity. No cough or sputum production. No fever chills or night sweats. She remains on accommodation bronchodilators and systemic steroids. He is on a basal Medrol 60 mg every 6 hours. No significant hyperglycemia. No other complaints otherwise for now. She is on oxygen Objective - Vital Signs Vital signs: Vital Signs Temp 98.6 F 12/19/19 08:41 Pulse 92 12/19/19 11:28 Resp 20 12/19/19 08:41 BP 177/98 12/19/19 08:41 Pulse Ox 96 12/19/19 08:41 Intake & Output 12/18/19 12/19/19 12/19/19 18:59 06:59 18:59 Intake Total 480 Balance 480 Intake: Oral 480 Other: Voiding Method Toilet # Voids 1 1 1 - Exam The patient appeared well nourished and normally developed. Vital signs as documented. Head exam is unremarkable. No scleral icterus or corneal arcus noted. Neck is without jugular venous distension, thyromegaly, or carotid bruits. Carotid upstrokes are brisk bilaterally. Lungs are are diminished bilaterally and the patient has prolongation of the sedation nasal breathing and diffuse expiratory wheezes throughout the lung woodson bilaterally. Cardiac exam reveals the PMI to be normally sized and situated. Rhythm is regular. First and second heart sounds normal. No murmurs, rubs or gallops. Abdominal exam reveals normal bowel sounds, no masses, no organomegaly and no aortic enlargement. Extremities are nonedematous and both femoral and pedal pulses are normal. Examination of the skin revealed no evidence of significant rashes, suspicious appearing nevi or other concerning lesions.Neurologically, the patient is awake and alert and the patient does not have any focal neurological deficit. Cranial nerves are essentially intact. - Labs CBC & Chem 7: 12/17/19 15:11 12/18/19 07:03 Labs: Abnormal Lab Results - Last 24 Hours (Table) 12/18/19 12/19/19 12/19/19 Range/Units 16:33 05:48 11:46 POC Glucose (mg/dL) 137 H 129 H 154 H (75-99) mg/dL Assessment and Plan Plan: 1 acute exacerbation of chronic COPD. Rule out underlying tracheal bronchitis. Chest x-ray is free of any acute pulmonary infiltrates 2 severe COPD with an FEV1 of 31% of predicted baseline, this has been attributed to smoke and the patient has a normal alpha-1 antitrypsin level. 3 chronic hypoxic respiratory failure, secondary to above 4 fibromyalgia 5 smoker 6 hypertension 7 hyperlipidemia 8 history of seizure disorder 9 hypothyroidism 10 questionable history of sleep apnea Plan Smoking cessation counseling was done Continue oxygen therapy to maintain a saturation above 90% Continue DuoNeb about treatments around the clock IV Solu Medrol 60 mg every 6 hours Chest x-ray was reviewed and sleepy of an acute pulmonary infiltrates Limited Coumadin improvement since yesterday. The patient will need another day or 2 of inpatient bronchodilators and steroids. We'll continue to follow.
--- NOTE | 2019-12-19 14:37 | P.PN ---
Progress Note - Text Progress Note Date: 12/19/19 Chief Complaint: Short of breath, wheezing History of presenting complaint: This is a 44-year-old patient who follows with Dr. Blackwood and internal controls analyst Dr. Moore. 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 Patient was here in March of this year when she was intubated and did have a prolonged course in the hospital. She was intubated at that time. Collins wright has stopped smoking when she left the hospital. Was doing well exercising. She started smoking again. Now over the course of 1 week she states initially started off with a runny nose 8 she nose and progressed to become short of breath wheezing cough. No obvious fever chills. Short of breath breath at rest. Admitted for the same. Today-remains short of breath wheezing. Able to. Sitting up in bed. Tired. Review of systems: Was done for constitutional, cardiovascular, GI, pulmonary. relevant finding as above Active Medications Acetaminophen (Acetaminophen Tab 325 Mg Tab) 650 mg PO Q6HR PRN PRN Reason: Mild Pain or Fever > 100.5 Last Admin: 12/18/19 00:47 Dose: 650 mg Documented by: Acyclovir (Acyclovir 200 Mg Cap) 400 mg PO DAILY SARAH Last Admin: 12/19/19 08:09 Dose: 400 mg Documented by: Al Hydroxide/Mg Hydroxide (Mag Hydrox/Al Hydrox/Simeth 30 Ml Cup) 15 ml PO Q6HR PRN PRN Reason: Indigestion Albuterol/Ipratropium (Ipratropium-Albuterol 3 Ml Neb) 3 ml INHALATION RT-Q4H PRN PRN Reason: Wheezing Last Admin: 12/18/19 09:51 Dose: 3 ml Documented by: Albuterol/Ipratropium (Ipratropium-Albuterol 3 Ml Neb) 3 ml INHALATION RT-Q4H SARAH Last Admin: 12/19/19 11:17 Dose: 3 ml Documented by: Baclofen (Baclofen 10 Mg Tab) 10 mg PO TID PRN PRN Reason: Pain Last Admin: 12/18/19 21:27 Dose: 10 mg Documented by: Budesonide (Budesonide 1 Mg/2 Ml Nebu) 1 mg INHALATION RT-BID SARAH Last Admin: 12/19/19 07:19 Dose: 1 mg Documented by: Calcium Carbonate/Glycine (Calcium Carbonate 500 Mg Chewable) 1,000 mg PO Q4HR PRN PRN Reason: Dyspepsia Last Admin: 12/18/19 11:40 Dose: 1,000 mg Documented by: Cholecalciferol (Cholecalciferol 1,000 Unit Tab) 1,000 unit PO DAILY [facility] Last Admin: 12/19/19 08:09 Dose: 1,000 unit Documented by: Diltiazem HCl (Diltiazem Cd 180 Mg Cap.Er.24h) 180 mg PO HS [facility] Last Admin: 12/18/19 20:20 Dose: 180 mg Documented by: Enoxaparin Sodium (Enoxaparin 40 Mg/0.4 Ml Syringe) 40 mg SQ DAILY [facility] Last Admin: 12/19/19 08:08 Dose: 40 mg Documented by: Formoterol Fumarate (Formoterol Fumarate 20 Mcg/2 Ml Nebu) 20 mcg INHALATION RT-BID [facility] Last Admin: 12/19/19 07:19 Dose: 20 mcg Documented by: Lisinopril/HCTZ (Lisinopril-Hctz 20-12.5 Mg 1 Each Tab) 1 each PO BID [facility] Last Admin: 12/19/19 08:09 Dose: 1 each Documented by: Sodium Chloride (Saline 0.9%) 1,000 mls @ 10 mls/hr IV .Q24H [facility] Last Admin: 12/19/19 08:09 Dose: 75 mls/hr Documented by: Insulin Aspart (Insulin Aspart (Novolog) 100 Unit/Ml Vial) 0 unit SQ AC-TID [facility]; Protocol Last Admin: 12/19/19 11:54 Dose: 2 unit Documented by: Lactulose (Lactulose 20 Gm/30 Ml Cup) 20 gm PO DAILY PRN PRN Reason: Constipation Loratadine (Loratadine 10 Mg Tab) 10 mg PO DAILY [facility] Last Admin: 12/19/19 08:09 Dose: 10 mg Documented by: Lorazepam (Lorazepam 2 Mg/Ml Inj) 0.5 mg IV Q6HR PRN PRN Reason: Anxiety Last Admin: 12/19/19 10:02 Dose: 0.5 mg Documented by: Magnesium Hydroxide (Magnesium Hydroxide 2,400 Mg/10 Ml Cup) 2,400 mg PO DAILY PRN PRN Reason: Constipation Melatonin (Melatonin 3 Mg Tablet) 3 mg PO HS PRN PRN Reason: Insomnia Last Admin: 12/18/19 02:50 Dose: 3 mg Documented by: Methylprednisolone Sodium Succinate (Methylprednisolone Sod Succi 125 Mg/2 Ml Vial) 60 mg IV Q6HR SARAH Last Admin: 12/19/19 11:54 Dose: 60 mg Documented by: Multivitamins (Multivitamins, Thera 1 Each Tab) 1 each PO DAILY [facility] Last Admin: 12/19/19 08:08 Dose: 1 each Documented by: Naloxone HCl (Naloxone 0.4 Mg/Ml 1 Ml Vial) 0.2 mg IV Q2M PRN PRN Reason: Opioid Reversal Naproxen (Naproxen 250 Mg Tab) 500 mg PO Q12H PRN PRN Reason: Pain Last Admin: 12/18/19 21:27 Dose: 500 mg Documented by: Nicotine (Nicotine 14mg/24hr Patch) 1 patch TRANSDERM DAILY [facility] Last Admin: 12/19/19 08:08 Dose: 1 patch Documented by: Ondansetron HCl (Ondansetron 4 Mg/2 Ml Vial) 4 mg IVP Q8HR PRN PRN Reason: Nausea And Vomiting Last Admin: 12/17/19 16:26 Dose: 4 mg Documented by: Theophylline (Theophylline 24 Hour 200 Mg Cap.Er.24h) 200 mg PO HS [facility] Physical examination: VITAL SIGNS: 98.6, 99, 20, 177/98, 96% on 3 L GENERAL: Sitting up in bed, short of breath EYES: Pupils equal. Conjunctiva normal. HEENT: External appearance of nose and ears normal, oral cavity grossly normal. NECK: JVD not raised; masses not palpable. HEART: First and second heart sounds are normal; no edema. LUNGS: Respiratory rate increased, short of breath at rest, diminished breath sounds prolonged expiration. ABDOMEN: Soft, nontender, liver spleen not palpable, no masses palpable. PSYCH: Alert and oriented x3; mood and affect anxious. INVESTIGATIONS, reviewed in the clinical context: White count 15.1 hemoglobin 15.6 potassium 4 creatinine 0.7 Troponin I negative EKG tracing personally reviewed by me-poor LV progression, sinus rhythm Chest x-ray film personally reviewed by me-hyperinflated. No obvious infiltrate Assessment: -Acute severe COPD exacerbation, in a current smoker-with a prior history of intubation-slow to respond -Chronic nicotine dependence -chronic fibromyalgia -Hyperlipidemia -Essential hypertension -Chronic epilepsy -Hypothyroidism -Gallstone asymptomatic Plan: Continue nebulized bronchodilators every 4 hours, IV steroids increased to 60 mg every 6 by pulmonary. add Theophylline 200 mg long-acting daily. Discussed at length with the patient about lung function in smokers nonsmokers overall prognosis. Patient does understand. Expect patient to be hospital for at least 1 or 2 days more.
[2019-12-19 16:36] LABS: Glucose,Whole Blood 207 mg/dL (75-99)
[2019-12-19] MEDS: guaiFENesin 600 MG TABLET.ER PO SCH (20:43)
[2019-12-19] MEDS: THEOPHYLLINE 24 HOUR 200 MG CAP.ER.24H PO SCH (20:44)
[2019-12-19] MEDS: DILTIAZEM CD 180 MG CAP.ER.24H PO SCH (20:44)
[2019-12-19] MEDS: MELATONIN 3 MG TABLET PO PRN (20:48)
[2019-12-19] MEDS: NAPROXEN 250 MG TAB PO PRN (20:48)
[2019-12-19 20:53] LABS: Glucose,Whole Blood 112 mg/dL (75-99)
[2019-12-20] MEDS: methylPREDNISolone SOD SUCCI 125 MG/2 ML VIAL IV SCH ×5 (00:15→23:31)
[2019-12-20] MEDS: IPRATROPIUM-ALBUTEROL 3 ML NEB INHALATION SCH ×7 (01:06→23:16)
[2019-12-20] MEDS: SODIUM CHLORIDE 0.9% 1,000 ML IV SCH ×2 (04:42→23:33)
[2019-12-20] MEDS: LORazepam 2 MG/ML INJ IV PRN ×2 (06:22→21:24)
[2019-12-20 06:57] LABS: Glucose,Whole Blood 129 mg/dL (75-99)
[2019-12-20] MEDS: FORMOTEROL FUMARATE 20 MCG/2 ML NEBU INHALATION SCH ×2 (07:59→19:03)
[2019-12-20] MEDS: BUDESONIDE 1 MG/2 ML NEBU INHALATION SCH ×2 (07:59→19:03)
[2019-12-20] MEDS: INSULIN ASPART (NovoLOG) 100 UNIT/ML VIAL SQ SCH ×3 (08:03→17:05)
[2019-12-20] MEDS: ACYCLOVIR 200 MG CAP PO SCH (08:09)
[2019-12-20] MEDS: ENOXAPARIN 40 MG/0.4 ML SYRINGE SQ SCH ×2 (08:09→08:15)
[2019-12-20] MEDS: NAPROXEN 250 MG TAB PO PRN (08:09)
[2019-12-20] MEDS: BACLOFEN 10 MG TAB PO PRN (08:10)
[2019-12-20] MEDS: LORATADINE 10 MG TAB PO SCH (08:10)
[2019-12-20] MEDS: LISINOPRIL-HCTZ 20-12.5 MG 1 EACH TAB PO SCH ×2 (08:10→21:05)
[2019-12-20] MEDS: guaiFENesin 600 MG TABLET.ER PO SCH ×2 (08:10→21:05)
[2019-12-20] MEDS: CHOLECALCIFEROL 1,000 UNIT TAB PO SCH (08:11)
[2019-12-20] MEDS: MULTIVITAMINS, THERA 1 EACH TAB PO SCH (08:13)
[2019-12-20] MEDS: NICOTINE 14MG/24HR PATCH TRANSDERM SCH (08:17)
[2019-12-20 11:30] LABS: Glucose,Whole Blood 153 mg/dL (75-99)
--- NOTE | 2019-12-20 12:13 | P.PN ---
Subjective Progress Note Date: 12/20/19 The very pleasant 43-year-old female patient with a very complicated course in the hospital. The patient is a chronic smoker in she started smoking at the age of 15 and she was smoking up to 1 pack of cigarettes a day. She was hospitalized back in February 2019 and she had a total of 2 week hospitalization during which she had acute hypoxic and hypercapnic respiratory failure due to COPD exacerbation. She was ultimately extubated after being intubated for a total of 5 days. She was extubated successfully and from that point on she gradually started improving. She required a lot of sedation and anxiolytics and blood pressure medication to control her condition was being on a mechanical ventilator. She did not show evidence of pneumonia. A chest x-ray shows hyperinflation. Note that her comorbidities included COPD, hyperlipidemia, fibromyalgia, hypertension, seizure disorder, hypothyroidism and a 1.4 cm gallstone that was asymptomatic. She also has history of genital herpes. She also gives a vague history of sleep apnea and she was given a CPAP machine through the sleep center at [facility]. The patient also had a spirometry that showed an FEV1 of 31% of predicted consistent with severe obstructive airway limitation. The patient has been maintained on a combination of Wixela and Incruse and she has been using albuterol rescue inhaler on as- needed basis. Recently, she developed increased dyspnea cough chest and wheezing. She has been using her nebulizer more frequently up to 4-5 times a day. She started off with having some dry nose and nasal congestion associated with some increased cough and dyspnea chest tightness and wheeze. No fever. No chills. No change in taste or smell. Chest x-ray is consistent with COPD. The white cell count is at 15.1. I further all within normal limits. She is currently on room air oxygen and her pulse ox around 93%. She is afebrile. She continued to smoke around 1 pack of cigarettes a day.. The patient states that she has been checked for covid 19 through her primary care physician's office and tests were negative. \ On 12/19/2019, I'm seeing for a follow-up as the patient is being treated for an acute COPD exacerbation. She still bronchospastic and wheezy. She is still quite short of breath and she gets dyspneic with limited amount of activity. No cough or sputum production. No fever chills or night sweats. She remains on accommodation bronchodilators and systemic steroids. He is on a basal Medrol 60 mg every 6 hours. No significant hyperglycemia. No other complaints otherwise for now. On 12/20/2019, the patient is still unchanged. Requiring high doses of steroids and she's on Solu Medrol 60 mg IV push every 6 hours. We may short of breath bronchospastic and wheezy. No chest pain. No cough or sputum production. She is still on oxygen at 3 L per minute nasal cannula. No chest pain. She is on DuoNeb nebulized treatments around the clock. She is on a combination of Perforomist and Pulmicort nebulized treatments twice a day. No nausea. No vomiting. No diarrhea. No fluid retention. Most recent blood sugar is 153. No other significant events otherwise for now. Objective - Vital Signs Vital signs: Vital Signs Temp 98.6 F 12/20/19 07:58 Pulse 92 12/20/19 12:02 Resp 16 12/20/19 07:58 BP 149/82 12/20/19 07:58 Pulse Ox 92 L 12/20/19 07:58 Intake & Output 12/19/19 12/20/19 12/20/19 18:59 06:59 18:59 Intake Total 300 Balance 300 Intake: Other 300 Other: Voiding Method Toilet Toilet # Voids 3 2 - Exam The patient appeared well nourished and normally developed. Vital signs as documented. Head exam is unremarkable. No scleral icterus or corneal arcus noted. Neck is without jugular venous distension, thyromegaly, or carotid bruits. Carotid upstrokes are brisk bilaterally. Lungs are are diminished bilaterally and the patient has prolongation of the sedation nasal breathing and diffuse expiratory wheezes throughout the lung woodson bilaterally. Cardiac exam reveals the PMI to be normally sized and situated. Rhythm is regular. First and second heart sounds normal. No murmurs, rubs or gallops. Abdominal exam reveals normal bowel sounds, no masses, no organomegaly and no aortic enlargement. Extremities are nonedematous and both femoral and pedal pulses are normal.Examination of the skin revealed no evidence of significant rashes, suspicious appearing nevi or other concerning lesions.Neurologically, the patient is awake and alert and the patient does not have any focal neurological deficit. Cranial nerves are essentially intact. - Labs CBC & Chem 7: 12/17/19 15:11 12/18/19 07:03 Labs: Abnormal Lab Results - Last 24 Hours (Table) 12/19/19 12/19/19 12/20/19 Range/Units 16:34 20:52 06:55 POC Glucose (mg/dL) 207 H 112 H 129 H (75-99) mg/dL 12/20/19 Range/Units 11:28 POC Glucose (mg/dL) 153 H (75-99) mg/dL Assessment and Plan Plan: 1 acute exacerbation of chronic COPD. Rule out underlying tracheal bronchitis. Chest x-ray is free of any acute pulmonary infiltrates,. The patient continues to be in significant respiratory distress and a COPD remains quite active and she has numbness limited improvement over the past 24-48 hours. 2 severe COPD with an FEV1 of 31% of predicted baseline, this has been attributed to smoke and the patient has a normal alpha-1 antitrypsin level. 3 chronic hypoxic respiratory failure, secondary to above 4 fibromyalgia 5 smoker 6 hypertension 7 hyperlipidemia 8 history of seizure disorder 9 hypothyroidism 10 questionable history of sleep apnea Plan I'm suggesting to continue same treatment for another 24 hours. Continue oxygen therapy to maintain a saturation above 90% Continue DuoNeb about treatments around the clock IV Solu Medrol 60 mg every 6 hours Chest x-ray was reviewed and sleepy of an acute pulmonary infiltrates We'll continue to follow.
[2019-12-20 16:36] LABS: Glucose,Whole Blood 142 mg/dL (75-99)
--- NOTE | 2019-12-20 17:18 | P.PN ---
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 Patient was here in March of this year when she was intubated and did have a prolonged course in the hospital. She was intubated at that time. Collins wright has stopped smoking when she left the hospital. Was doing well exercising. She started smoking again. Now over the course of 1 week she states initially started off with a runny nose 8 she nose and progressed to become short of breath wheezing cough. No obvious fever chills. Short of breath breath at rest. Admitted for the same. Today-added theophylline yesterday. On remains on IV steroids. Feeling a bit better. Boyfriend is visiting. Oral intake improving. Did sit out of the chair. Review of systems: Was done for constitutional, cardiovascular, GI, pulmonary. relevant finding as above Active Medications Acetaminophen (Acetaminophen Tab 325 Mg Tab) 650 mg PO Q6HR PRN PRN Reason: Mild Pain or Fever > 100.5 Last Admin: 12/18/19 00:47 Dose: 650 mg Documented by: Acyclovir (Acyclovir 200 Mg Cap) 400 mg PO DAILY [facility] Last Admin: 12/20/19 08:09 Dose: 400 mg Documented by: Al Hydroxide/Mg Hydroxide (Mag Hydrox/Al Hydrox/Simeth 30 Ml Cup) 15 ml PO Q6HR PRN PRN Reason: Indigestion Albuterol/Ipratropium (Ipratropium-Albuterol 3 Ml Neb) 3 ml INHALATION RT-Q4H PRN PRN Reason: Wheezing Last Admin: 12/18/19 09:51 Dose: 3 ml Documented by: Albuterol/Ipratropium (Ipratropium-Albuterol 3 Ml Neb) 3 ml INHALATION RT-Q4H SARAH Last Admin: 12/20/19 15:36 Dose: 3 ml Documented by: Baclofen (Baclofen 10 Mg Tab) 10 mg PO TID PRN PRN Reason: Pain Last Admin: 12/20/19 08:10 Dose: 10 mg Documented by: Budesonide (Budesonide 1 Mg/2 Ml Nebu) 1 mg INHALATION RT-BID [facility] Last Admin: 12/20/19 07:59 Dose: 1 mg Documented by: Calcium Carbonate/Glycine (Calcium Carbonate 500 Mg Chewable) 1,000 mg PO Q4HR PRN PRN Reason: Dyspepsia Last Admin: 12/18/19 11:40 Dose: 1,000 mg Documented by: Cholecalciferol (Cholecalciferol 1,000 Unit Tab) 1,000 unit PO DAILY [facility] Last Admin: 12/20/19 08:11 Dose: 1,000 unit Documented by: Diltiazem HCl (Diltiazem Cd 180 Mg Cap.Er.24h) 180 mg PO HS [facility] Last Admin: 12/19/19 20:44 Dose: 180 mg Documented by: Enoxaparin Sodium (Enoxaparin 40 Mg/0.4 Ml Syringe) 40 mg SQ DAILY [facility] Last Admin: 12/20/19 08:15 Dose: Not Given Documented by: Formoterol Fumarate (Formoterol Fumarate 20 Mcg/2 Ml Nebu) 20 mcg INHALATION RT-BID [facility] Last Admin: 12/20/19 07:59 Dose: 20 mcg Documented by: Guaifenesin (Guaifenesin 600 Mg Tablet.Er) 1,200 mg PO Q12HR [facility] Last Admin: 12/20/19 08:10 Dose: 1,200 mg Documented by: Lisinopril/HCTZ (Lisinopril-Hctz 20-12.5 Mg 1 Each Tab) 1 each PO BID [facility] Last Admin: 12/20/19 08:10 Dose: 1 each Documented by: Sodium Chloride (Saline 0.9%) 1,000 mls @ 10 mls/hr IV .Q24H [facility] Last Admin: 12/20/19 04:42 Dose: Not Given Documented by: Insulin Aspart (Insulin Aspart (Novolog) 100 Unit/Ml Vial) 0 unit SQ AC-TID [facility]; Protocol Last Admin: 12/20/19 17:05 Dose: 2 unit Documented by: Lactulose (Lactulose 20 Gm/30 Ml Cup) 20 gm PO DAILY PRN PRN Reason: Constipation Loratadine (Loratadine 10 Mg Tab) 10 mg PO DAILY [facility] Last Admin: 12/20/19 08:10 Dose: 10 mg Documented by: Lorazepam (Lorazepam 2 Mg/Ml Inj) 0.5 mg IV Q6HR PRN PRN Reason: Anxiety Last Admin: 12/20/19 06:22 Dose: 0.5 mg Documented by: Magnesium Hydroxide (Magnesium Hydroxide 2,400 Mg/10 Ml Cup) 2,400 mg PO DAILY PRN PRN Reason: Constipation Melatonin (Melatonin 3 Mg Tablet) 3 mg PO HS PRN PRN Reason: Insomnia Last Admin: 12/19/19 20:48 Dose: 3 mg Documented by: Methylprednisolone Sodium Succinate (Methylprednisolone Sod Succi 125 Mg/2 Ml Vial) 60 mg IV Q6HR [facility] Last Admin: 12/20/19 17:04 Dose: 60 mg Documented by: Multivitamins (Multivitamins, Thera 1 Each Tab) 1 each PO DAILY [facility] Last Admin: 12/20/19 08:13 Dose: 1 each Documented by: Naloxone HCl (Naloxone 0.4 Mg/Ml 1 Ml Vial) 0.2 mg IV Q2M PRN PRN Reason: Opioid Reversal Naproxen (Naproxen 250 Mg Tab) 500 mg PO Q12H PRN PRN Reason: Pain Last Admin: 12/20/19 08:09 Dose: 500 mg Documented by: Nicotine (Nicotine 14mg/24hr Patch) 1 patch TRANSDERM DAILY [facility] Last Admin: 12/20/19 08:17 Dose: 1 patch Documented by: Ondansetron HCl (Ondansetron 4 Mg/2 Ml Vial) 4 mg IVP Q8HR PRN PRN Reason: Nausea And Vomiting Last Admin: 12/17/19 16:26 Dose: 4 mg Documented by: Theophylline (Theophylline 24 Hour 200 Mg Cap.Er.24h) 200 mg PO HS [facility] Last Admin: 12/19/19 20:44 Dose: 200 mg Documented by: Physical examination: VITAL SIGNS: 98.3, 87, 16, 1 49/82, 92% on 3 L GENERAL: Sitting up in bed, short of breath EYES: Pupils equal. Conjunctiva normal. HEENT: External appearance of nose and ears normal, oral cavity grossly normal. NECK: JVD not raised; masses not palpable. HEART: First and second heart sounds are normal; no edema. LUNGS: Respiratory rate increased, short of breath at rest, diminished breath sounds prolonged expiration. ABDOMEN: Soft, nontender, liver spleen not palpable, no masses palpable. PSYCH: Alert and oriented x3; mood and affect anxious. INVESTIGATIONS, reviewed in the clinical context: White count 15.1 hemoglobin 15.6 potassium 4 creatinine 0.7 Troponin I negative EKG tracing personally reviewed by me-poor LV progression, sinus rhythm Chest x-ray film personally reviewed by me-hyperinflated. No obvious infiltrate Assessment: -Acute severe COPD exacerbation, in a current smoker-with a prior history of intubation-slow to respond -Chronic nicotine dependence -chronic fibromyalgia -Hyperlipidemia -Essential hypertension -Chronic epilepsy -Hypothyroidism -Gallstone asymptomatic Plan: Continue nebulized bronchodilators every 4 hours, IV steroids ,Theophylline 200 mg long-acting daily. Discussed with the patient and boyfriend. Expect the patient to be hospital for at least 2 more days.
[2019-12-20] MEDS: DILTIAZEM CD 180 MG CAP.ER.24H PO SCH (21:05)
[2019-12-20] MEDS: THEOPHYLLINE 24 HOUR 200 MG CAP.ER.24H PO SCH (21:05)
[2019-12-20 21:36] LABS: Glucose,Whole Blood 156 mg/dL (75-99)
[2019-12-21] MEDS: IPRATROPIUM-ALBUTEROL 3 ML NEB INHALATION SCH ×4 (03:07→15:49)
[2019-12-21] MEDS: LORazepam 2 MG/ML INJ IV PRN (03:40)
[2019-12-21] MEDS: methylPREDNISolone SOD SUCCI 125 MG/2 ML VIAL IV SCH ×2 (05:55→12:22)
[2019-12-21 06:00] LABS: Glucose,Whole Blood 140 mg/dL (75-99)
[2019-12-21] MEDS: FORMOTEROL FUMARATE 20 MCG/2 ML NEBU INHALATION SCH (07:33)
[2019-12-21] MEDS: BUDESONIDE 1 MG/2 ML NEBU INHALATION SCH (07:33)
[2019-12-21 08:05] VITALS: BP 155/77; RESP 20; TEMP 98.4
[2019-12-21] MEDS: guaiFENesin 600 MG TABLET.ER PO SCH (08:11)
[2019-12-21] MEDS: NICOTINE 14MG/24HR PATCH TRANSDERM SCH (08:12)
[2019-12-21] MEDS: LISINOPRIL-HCTZ 20-12.5 MG 1 EACH TAB PO SCH (08:12)
[2019-12-21] MEDS: LORATADINE 10 MG TAB PO SCH (08:12)
[2019-12-21] MEDS: MULTIVITAMINS, THERA 1 EACH TAB PO SCH (08:12)
[2019-12-21] MEDS: CHOLECALCIFEROL 1,000 UNIT TAB PO SCH (08:12)
[2019-12-21] MEDS: ACYCLOVIR 200 MG CAP PO SCH (08:13)
[2019-12-21] MEDS: ENOXAPARIN 40 MG/0.4 ML SYRINGE SQ SCH (08:16)
[2019-12-21 08:17] LABS: African American GFR (CKD) >90 (>60 ml/min/1.73 sqM); Anion Gap 6 mmol/L; Blood Urea Nitrogen 20 mg/dL (7-17); Calcium 9.5 mg/dL (8.4-10.2); Carbon Dioxide 38 mmol/L (22-30); Chloride 92 mmol/L (98-107); Glucose 139 mg/dL (74-99); Magnesium 2.2 mg/dL (1.6-2.3); Non-African American GFR(CKD) >90 (>60 ml/min/1.73 sqM); Potassium 3.6 mmol/L (3.5-5.1); Sodium 136 mmol/L (137-145)
[2019-12-21] MEDS: INSULIN ASPART (NovoLOG) 100 UNIT/ML VIAL SQ SCH ×2 (08:18→12:22)
--- NOTE | 2019-12-21 11:27 | P.PN ---
Subjective Progress Note Date: 12/21/19 The very pleasant 43-year-old female patient with a very complicated course in the hospital. The patient is a chronic smoker in she started smoking at the age of 15 and she was smoking up to 1 pack of cigarettes a day. She was hospitalized back in February 2019 and she had a total of 2 week hospitalization during which she had acute hypoxic and hypercapnic respiratory failure due to COPD exacerbation. She was ultimately extubated after being intubated for a total of 5 days. She was extubated successfully and from that point on she gradually started improving. She required a lot of sedation and anxiolytics and blood pressure medication to control her condition was being on a mechanical ventilator. She did not show evidence of pneumonia. A chest x-ray shows hyperinflation. Note that her comorbidities included COPD, hyperlipidemia, fibromyalgia, hypertension, seizure disorder, hypothyroidism and a 1.4 cm gallstone that was asymptomatic. She also has history of genital herpes. She also gives a vague history of sleep apnea and she was given a CPAP machine through the sleep center at [facility]. The patient also had a spirometry that showed an FEV1 of 31% of predicted consistent with severe obstructive airway limitation. The patient has been maintained on a combination of Wixela and Incruse and she has been using albuterol rescue inhaler on as- needed basis. Recently, she developed increased dyspnea cough chest and wheezing. She has been using her nebulizer more frequently up to 4-5 times a day. She started off with having some dry nose and nasal congestion associated with some increased cough and dyspnea chest tightness and wheeze. No fever. No chills. No change in taste or smell. Chest x-ray is consistent with COPD. The white cell count is at 15.1. I further all within normal limits. She is currently on room air oxygen and her pulse ox around 93%. She is afebrile. She continued to smoke around 1 pack of cigarettes a day.. The patient states that she has been checked for covid 19 through her primary care physician's office and tests were negative. \ On 12/19/2019, I'm seeing for a follow-up as the patient is being treated for an acute COPD exacerbation. She still bronchospastic and wheezy. She is still quite short of breath and she gets dyspneic with limited amount of activity. No cough or sputum production. No fever chills or night sweats. She remains on accommodation bronchodilators and systemic steroids. He is on a basal Medrol 60 mg every 6 hours. No significant hyperglycemia. No other complaints otherwise for now. On 12/20/2019, the patient is still unchanged. Requiring high doses of steroids and she's on Solu Medrol 60 mg IV push every 6 hours. We may short of breath bronchospastic and wheezy. No chest pain. No cough or sputum production. She is still on oxygen at 3 L per minute nasal cannula. No chest pain. She is on DuoNeb nebulized treatments around the clock. She is on a combination of Perforomist and Pulmicort nebulized treatments twice a day. No nausea. No vomiting. No diarrhea. No fluid retention. Most recent blood sugar is 153. No other significant events otherwise for now. On 12/21/2019, the patient is feeling better. She is less short of breath. She is finally reported some improvement in her shortness of breath and bronchospasm wheezing. No fever or chills. She remains on IV Solu-Medrol patient on DuoNeb nebulized treatments around the clock. She is ambulating. I also had added a combination of Perforomist and Pulmicort nebulized treatments twice a day. No nausea. No vomiting. Tolerating her diet. Objective - Vital Signs Vital signs: Vital Signs Temp 98.4 F 12/21/19 08:04 Pulse 96 12/21/19 11:24 Resp 20 12/21/19 08:04 BP 155/77 12/21/19 08:04 Pulse Ox 95 12/21/19 08:04 Intake & Output 12/20/19 12/21/19 12/21/19 18:59 06:59 18:59 Intake Total 300 240 60 Balance 300 240 60 Intake: Intake, IV Titration 60 Amount Sodium Chloride 0.9% 1, 60 000 ml @ 10 mls/hr IV . Q24H [facility] Rx#:[id number] Oral 240 Other 300 Other: Voiding Method Toilet Toilet Toilet # Voids 1 1 2 - Exam The patient appeared well nourished and normally developed. Vital signs as documented. Head exam is unremarkable. No scleral icterus or corneal arcus noted. Neck is without jugular venous distension, thyromegaly, or carotid bruits. Carotid upstrokes are brisk bilaterally. Lungs are are diminished bilaterally and the patient has prolongation of the sedation nasal breathing and diffuse expiratory wheezes throughout the lung woodson bilaterally. Cardiac exam reveals the PMI to be normally sized and situated. Rhythm is regular. First and second heart sounds normal. No murmurs, rubs or gallops. Abdominal exam reveals normal bowel sounds, no masses, no organomegaly and no aortic enlargement. Extremities are nonedematous and both femoral and pedal pulses are norm al.Examination of the skin revealed no evidence of significant rashes, suspicious appearing nevi or other concerning lesions.Neurologically, the patient is awake and alert and the patient does not have any focal neurological deficit. Cranial nerves are essentially intact. - Labs CBC & Chem 7: 12/17/19 15:11 12/21/19 07:50 Labs: Abnormal Lab Results - Last 24 Hours (Table) 12/20/19 12/20/19 12/20/19 Range/Units 11:28 16:35 21:35 Sodium (137-145) mmol/L Chloride (98-107) mmol/L Carbon Dioxide (22-30) mmol/L BUN (7-17) mg/dL Glucose (74-99) mg/dL POC Glucose (mg/dL) 153 H 142 H 156 H (75-99) mg/dL 12/21/19 12/21/19 Range/Units 05:59 07:50 Sodium 136 L (137-145) mmol/L Chloride 92 L (98-107) mmol/L Carbon Dioxide 38 H (22-30) mmol/L BUN 20 H (7-17) mg/dL Glucose 139 H (74-99) mg/dL POC Glucose (mg/dL) 140 H (75-99) mg/dL Assessment and Plan Plan: 1 acute exacerbation of chronic COPD. Rule out underlying tracheal bronchitis. The patient is clinically improved. 2 severe COPD with an FEV1 of 31% of predicted baseline, this has been attributed to smoke and the patient has a normal alpha-1 antitrypsin level. 3 chronic hypoxic respiratory failure, secondary to above 4 fibromyalgia 5 smoker 6 hypertension 7 hyperlipidemia 8 history of seizure disorder 9 hypothyroidism 10 questionable history of sleep apnea Plan The patient is clinically improved. The patient can go home today on a prednisone burst taper starting with 40 mg to be tapered by 10 mg every 4 days. She will be kept on a combination of INCRUSE and Wixela and the patient will continue using oxygen. Smoking cessation counseling was done. Follow-up in the office. Clear for discharge from the pulmonary standpoint.
[2019-12-21 12:00] LABS: Glucose,Whole Blood 156 mg/dL (75-99)
--- NOTE | 2019-12-21 15:21 | P.DS ---
Providers Date of admission: 12/18/19 09:02 Attending physician: Олег Henao Consults: 12/17/19 16:11 Consult Physician Stat Consulting Provider: Darek Moore Consult Reason/Comments: COPD exacerbation, shortness of breath Do you want consulting provider notified?: Yes Primary care physician: Kirk Blackwood [facility] Course: diagnoses: -Acute severe COPD exacerbation, in a current smoker- -acute hypoxic respiratory failure -Leukocytosis, secondary to steroid effect, follow-up as an outpatient -Chronic nicotine dependence -chronic fibromyalgia -Hyperlipidemia -Essential hypertension -Chronic epilepsy -Hypothyroidism -Gallstone asymptomatic Hospital course: This is a 44-year-old patient who follows with Dr. Blackwood and scientologist Dr. Moore. 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 Patient was here in March of this year when she was intubated and did have a prolonged course in the hospital. She was intubated at that time. Patient has stopped smoking when she left the hospital. Was doing well exercising. She started smoking again. Now over the course of 1 week she states initially started off with a runny nose and became become short of breath wheezing cough. No obvious fever chills. Short of breath breath at rest. Admitted for the same.patient has been evaluated by pulmonary service, she found to have acute COPD exacerbation, she was treated with IV Solu Medrol and breathing treatment,patient showed interval improvement in her dyspnea. her dyspnea is improved significantly however she was still somewhat tachypneic prior to dischargel, also patient she still needed and oxygen. nystatin is provided for her for her oral thrush.However patient denies any other symptomsno chest pain or abdominal pain, no nausea vomiting, she is tolerating diet well and no change in her urine or bowel habits. No fever patient was cleared for discharge by pulmonary service Patient will be discharged on tapering steroids and oxygen with group social worker help in providing it to the patient Problems and management plan were discussed with the patient and he verbalized understanding and acceptance Patient was found stable and can be discharged home however he needs follow-up as an outpatient. Patient was instructed to follow up with PCPDr. Merced Bradley within one week and patient agrees. Also patient was instructed to call and make an appointment with her scientologist Dr. Moore in 7-10 days and she agrees to call and make her own appointment Gen: patient is a AAOx3, no distress CVS: S1-S2, RRR, no murmur Lungs: B/L CTA, no wheezing.. Slightly tachypneic Abdomen: soft, no distention, no tenderness, positive bowel sounds Extremity: no leg edema or induration Time spent more than 35 minutes Patient Condition at Discharge: Fair Plan - Discharge Summary Discharge Rx Participant: No New Discharge Prescriptions: New Magnesium Hydroxide [Milk of Magnesia Concentrate] 2,400 mg PO DAILY PRN #50 ml PRN Reason: Constipation guaiFENesin [Mucinex] 1,200 mg PO Q12HR PRN #10 tablet.er PRN Reason: Cough Nystatin 100,000 Unit/ml Susp [Mycostatin Oral Susp] 500,000 unit PO QID 5 Days #100 ml predniSONE 10 mg PO DIRECTED #40 tab Acetaminophen Tab [Tylenol] 650 mg PO Q6HR PRN tab PRN Reason: Mild Pain Or Fever > 100.5 Continue Acyclovir [Zovirax] 400 mg PO DAILY Cholecalciferol [Vitamin D3 (25 Mcg = 1000 Iu)] 1,000 unit PO DAILY Baclofen 10 mg PO TID PRN PRN Reason: Pain Diltiazem Cd [Cardizem CD] 180 mg PO HS #30 cap.er.24h Lisinopril-Hctz 20-12.5 mg [Zestoretic 20-12.5] 1 each PO DAILY #30 tab Albuterol Sulfate [Ventolin HFA] 2 puff INHALATION RT-Q4H PRN PRN Reason: Shortness Of Breath predniSONE See Taper PO DAILY Fluticasone Propion/Salmeterol [Wixela 500-50 Inhub] 1 puff INHALATION RT-BID Umeclidinium [place] [Incruse Ellipta] 2 puff INHALATION RT-DAILY Cetirizine HCl [Zyrtec] 10 mg PO DAILY Fluticasone/Salmeterol [Advair 500-50 Diskus] 1 puff INHALATION RT-BID Discontinued Naproxen 500 mg PO Q12H PRN PRN Reason: Pain Azithromycin [Zithromax] See Taper PO DAILY Multivit with Calcium,Iron,Min [Women's Multivitamin] 1 tab PO DAILY Discharge Medication List Acyclovir [Zovirax] 400 mg PO DAILY 02/27/14 [History] Cholecalciferol [Vitamin D3 (25 Mcg = 1000 Iu)] 1,000 unit PO DAILY 05/26/15 [History] Baclofen 10 mg PO TID PRN 12/14/16 [History] Diltiazem Cd [Cardizem CD] 180 mg PO HS #30 cap.er.24h 03/25/19 [Rx] Lisinopril-Hctz 20-12.5 mg [Zestoretic 20-12.5] 1 each PO DAILY #30 tab 03/25/19 [Rx] Albuterol Sulfate [Ventolin HFA] 2 puff INHALATION RT-Q4H PRN 12/17/19 [History] Cetirizine HCl [Zyrtec] 10 mg PO DAILY 12/17/19 [History] Fluticasone Propion/Salmeterol [Wixela 500-50 Inhub] 1 puff INHALATION RT-BID 12/17/19 [History] Fluticasone/Salmeterol [Advair 500-50 Diskus] 1 puff INHALATION RT-BID 12/17/19 [History] Umeclidinium [place] [Incruse Ellipta] 2 puff INHALATION RT-DAILY 12/17/19 [History] predniSONE See Taper PO DAILY 12/17/19 [History] Acetaminophen Tab [Tylenol] 650 mg PO Q6HR PRN tab 12/21/19 [Rx] Magnesium Hydroxide [Milk of Magnesia Concentrate] 2,400 mg PO DAILY PRN #50 ml 12/21/19 [Rx] Nystatin 100,000 Unit/ml Susp [Mycostatin Oral Susp] 500,000 unit PO QID 5 Days #100 ml 12/21/19 [Rx] guaiFENesin [Mucinex] 1,200 mg PO Q12HR PRN #10 tablet.er 12/21/19 [Rx] predniSONE 10 mg PO DIRECTED #40 tab 12/21/19 [Rx] Follow up Appointment(s)/Referral(s): Kirk Blackwood MD [Primary Care Provider] - 1-2 days [facility], [NON-STAFF] - 1-2 Days Darek Moore MD [STAFF PHYSICIAN] - 10 Days Activity/Diet/Wound Care/Special Instructions: Home Oxygen to be delivered by [facility] - [phone] Patient requires home oxygen at discharge secondary to dx: copd heart healthy diet, low carbohydrate diet Activity is limited till you see your doctor Discharge Disposition: HOME SELF-CARE
[2019-12-21 15:57] VITALS: PULSE 96
[2019-12-21] MEDS ORDERED: NYSTATIN 100,000 UNIT/ML SUSP 500,000 UNIT/5 ML CUP PO SCH (18:00)
--- NOTE | 2019-12-23 16:15 | CDI ---
Documentation Clarification Form Date: 12/23/19 From: Lachelle Torres Phone: If you have a question about this query, please contact Krystle Munguia Assistant Reading Teacher at [phone] between 8am and 5pm. Admit Date: 12/18/19 Discharge Date:12/21/19 Patient Name: Ksaey Frankel Visit Number: [id number] ATTENTION: The Clinical Documentation Specialists (CDI) and [facility] Coding Staff appreciate your assistance in clarifying documentation. Please respond to the clarification below the line at the bottom and electronically sign. The CDI & [facility] C[facility] staff will review the response and follow-up if needed. Please note: Queries are made part of the Legal Health Record. If you have any questions, please contact the author of this message via ITS. Dear Dr. Jason The diagnosis acute hypoxic respiratory failure was documented in the discharge summary, but is not noted in previous documentation. History/Risk Factors: COPD exacerbation, chronic hypoxic respiratory failure, obstructive sleep apnea, cigarette smoker Clinical Indicators: Respiratory rate increased, accessory muscle working, not able to speak in full sentences Vital signs: T. 97.9, P. 88, R. 18, BP 162/81; 12/18/19 - P. 103 - 104, R. 22, 12/19/19 - P. 100, R. 20 Pulse ox: On admission 96% on room air; 12/17/19 - 92 - 93% on O2; 12/20/19 - 77% on O2 per nasal cannula at 2 lpm 12/21/19 - 84% on room air Home Oxygen: None. Lung/Breathing Assessment: Short of breath, wheezing, diminished breath sounds, prolonged expiration Treatment: Breathing Tx: Duoneb inhalation treatments O2: per nasal cannula 2 - 4 lpm Please clarify if the acute hypoxic respiratory failure was Present/active this admission Treated and resolved this admission Ruled out Other, please specify Clinically unable to determine Present/active this admission.please refer: it was mentioned very clearly in my discharge summary diagnoses MTDD
== END 2019-12-21 18:26 | disposition home health service (06) | DRG 190 ==
LOC: EC 14:16 → 1SOBS 16:26 → OBSVTOIN 12-18 09:02
PROVIDERS: ADMIT Hospitalist; ATTEND Hospitalist
DX: J44.1 Chronic obstructive pulmonary disease with (acute) exacerbation (principal); J96.21 Acute and chronic respiratory failure with hypoxia; B37.0 Candidal stomatitis; I11.9 Hypertensive heart disease without heart failure; G40.909 Epilepsy, unspecified, not intractable, without status epilepticus; D72.829 Elevated white blood cell count, unspecified; E03.9 Hypothyroidism, unspecified; E78.5 Hyperlipidemia, unspecified; F17.210 Nicotine dependence, cigarettes, uncomplicated; K21.9 Gastro-esophageal reflux disease without esophagitis; K80.20 Calculus of gallbladder without cholecystitis without obstruction; M79.7 Fibromyalgia; T38.0X5A Adverse effect of glucocorticoids and synthetic analogues, initial encounter; G62.9 Polyneuropathy, unspecified; F41.9 Anxiety disorder, unspecified; F32.9 Major depressive disorder, single episode, unspecified; G47.33 Obstructive sleep apnea (adult) (pediatric); Z79.899 Other long term (current) drug therapy; Z88.5 Allergy status to narcotic agent; Z88.2 Allergy status to sulfonamides; Z98.51 Tubal ligation status; Z71.6 Tobacco abuse counseling; Z86.14 Personal history of Methicillin resistant Staphylococcus aureus infection; Z98.1 Arthrodesis status; Z98.890 Other specified postprocedural states; Z82.49 Family history of ischemic heart disease and other diseases of the circulatory system; Z81.8 Family history of other mental and behavioral disorders; Z84.89 Family history of other specified conditions
CPT/HCPCS: 36415; 71046; 80048; 80053; 83735; 84484; 85025; 93005; 94640; 96374; 96375; 99285

== ENCOUNTER → 2020-09-24 | Outpatient (CLI) | payer OTHER ==
[2020-09-24 12:53] VITALS: BP 138/85; PULSE 86; RESP 18; TEMP 98.5
--- NOTE | 2020-09-24 13:33 | P.PAINCN ---
History of Present Illness - Reason for Consult Consult date: 09/24/20 - History of Present Illness This is a 45 years old female with a chronic history of severe generalized back and mid back and low back pain, accident more than 15 years ago, intensity of the pain increased over time, the pain is constant, incresed with any activity, patient tried the physical therapy and chiropractics with minimal benefit, she tried different medications and Tylenol and naproxen and Ultram,and naproxen,w ith minimal benefit, she denies any motor or sensory deficit she denies any fever or night sweats, and had MRI of the cervical spine showed that she had cervical herniated disc at C5 6 Past Medical History Past Medical History: COPD, Fibromyalgia, GERD/Reflux, Hyperlipidemia, Hypertension, Seizure Disorder, Sleep Apnea/CPAP/BIPAP, Thyroid Disorder Additional Past Medical History / Comment(s): history of chronic hypoxic respiratory failure, history of intubation mechanical ventilation secondary to COPD exacerbation- COVID Feb, last seizure 2015, small hiatal hernia, no current rx for thryoid, History of Any Multi-Drug Resistant Organisms: MRSA Year Discovered:: 10-18-14 MDRO Source:: Groin Past Surgical History: Back Surgery, Tubal Ligation, Uterine Ablation Additional Past Surgical History / Comment(s): Lumbar fusion L5-S1, LEEP Past Anesthesia/Blood Transfusion Reactions: No Reported Reaction Past Psychological History: Anxiety, Depression Smoking Status: Current every day smoker Past Alcohol Use History: Occasional Additional Past Alcohol Use History / Comment(s): one half to one pack per day and has been smoking for 23 years. Past Drug Use History: Marijuana Additional Drug Use History / Comment(s): Pt has medical marijuana card - Past Family History Father Additional Family Medical History / Comment(s): etoh, alive at 66 Mother Family Medical History: No Reported History Additional Family Medical History / Comment(s): . Medications and Allergies Home Medications Medication Instructions Recorded Confirmed Type Acyclovir [Zovirax] 400 mg PO DAILY 02/27/14 09/24/20 History Cholecalciferol [Vitamin D3 (25 1,000 unit PO DAILY 05/26/15 09/24/20 History Mcg = 1000 Iu)] Baclofen 10 mg PO TID PRN 12/14/16 09/24/20 History Albuterol Sulfate [Ventolin HFA] 2 puff INHALATION RT-Q4H PRN 12/17/19 09/24/20 History Fluticasone/Salmeterol [Advair 1 puff INHALATION RT-BID 12/17/19 09/24/20 History 500-50 Diskus] Acetaminophen Tab [Tylenol] 650 mg PO Q6HR PRN tab 12/21/19 09/24/20 Rx Lisinopril-Hctz 20-12.5 mg 1 each PO DAILY 30 Days #30 tab 12/22/19 09/24/20 Rx [Zestoretic 20-12.5] Fluticasone Nasal [place] [Flonase 1 spray EA NOSTRIL DAILY 09/04/20 09/24/20 History Nasal [place]] Metoprolol Succinate [Toprol XL] 50 mg PO DAILY 09/04/20 09/24/20 History Naproxen 500 mg PO QAM 09/04/20 09/24/20 History Omeprazole [PriLOSEC] 20 mg PO AC-BRKFST 09/04/20 09/24/20 History Tiotropium [place] [Spiriva] 1 cap INHALATION DAILY 09/04/20 09/24/20 History traMADol HCL [Ultram] 50 mg PO DIRECTED PRN 09/04/20 09/24/20 History Allergies Allergy/AdvReac Type Severity Reaction Status Date / Time guaifenesin [From Mucinex] Allergy high blood Verified 09/24/20 12:37 pressure Sulfa (Sulfonamide Allergy "FEELS Verified 09/24/20 12:37 Antibiotics) LIKE I'M ON FIRE FROM INSIDE OUT" hydrocodone [From [place]] AdvReac STATES Verified 09/24/20 12:37 "IRRATIC MOODS" Physical Exam Vitals: Vital Signs Temp Pulse Resp BP 09/24/20 12:40 98.5 F 86 18 138/85 Physical Examinations : -Constitutiona : Cooperative , not in acute distress . -HEENT : nech : supple , no Lymphadenopathy , normal thyroid size . : eyes : no ptosis , no icterus, no photophobia . - neurologic : Cranial nerve II to XII intact , no focal neurological deffecit . -psychatric : alert , oriented X 3 , appropriate affect , intact judgment and insight . -Lymphatic : no Lymphadenopathy . - musculoskeltal : Cervical Spine motor stregnth in the deltoid and biceps, normal right side , normal Left side motor stregnth biceps and the wrist extensors normal right side ,normal left side . motor stregnth in the triceps muscle . normal Right side , normal Left side deep tendon reflexes normal at the biceps , normal at Brachioradialis , normal at triceps. cervical facet loading test: Negative Bilaterally Thoracic spine= generalized tenderness over the thoracic paraspinal muscles bilaterally Lumber spine moter stegnth lower extremities ,thigh and legs 5/5 Right side , 5/5 Left side deep tendon reflexes : normal Knee Jerk , normal ankle Jerk Generalized tenderness in the lumbar paraspinal muscles bilaterally Results Comments: MRI of the cervical spine= cervical disc herniation at C5 6 MRI the brain reviewed Assessment and Plan Plan: Assessment and plan=1-generalized myofascial pain syndrome thoracic lumbar area Patient could benefit from massage therapy, patient could benefit from changing the muscle relaxant, discontinue baclofen, Start patient on Zanaflex 4 mg twice a day when necessary and 60 with 2 refills She is not a candidate for interventional pain procedures. 2-cervical herniated disc at C5 6, it is not the cause of her pain in the thoracic and lumbar area Time with Patient: Greater than 30 PQRS Measure Charge Sheet Measure #130: Documentation of Current Meds in Medical Chart: Patient's medications documented in chart Measure #226: Tobacco Use: Screen & Cessation Intervention: Pt screened for tobacco use AND intervention given Measure #111: Pneumonia Vaccination: Pneumococcal vaccine NOT administered or previously given Measure #47: Advance Care Plan: Advance care planning discussed & documented, pt chose/unable to give Measure #412: Opioid Treatment Agreement: No documentation of signed opioid treatment agreement Measure #408: Opioid Therapy Follow-up Evaluation: Patient had NO f/u eval minimum every 3 months during opioid therapy Measure #317: Preventitive Care & Scrn High Bld Press & F/U: Normal blood pressure, f/u not required Measure #128: Body Mass Index (BMI) Screening & Follow-up: BMI documented within normal parameters Measure #131: Pain Assessment & Follow-up: Pain positive & plan documented, Follow-up scheduled Measure #431: Unhealthy Alcohol Use Preventative Care & Scrn: Patient not identified as an unhealthy alcohol user PQRS Narrative: Smoking Status Current every day smoker Blood Pressure 138/85 Pain Intensity [Back] 4 Scale Used Numeric (1 - 10) Hx Alcohol Use (MH) Yes: 12-14 drinks weekly, stopped 2009 Home Medications: Ambulatory Orders Acyclovir [Zovirax] 400 mg PO DAILY 02/27/14 Cholecalciferol [Vitamin D3 (25 Mcg = 1000 Iu)] 1,000 unit PO DAILY 05/26/15 Baclofen 10 mg PO TID PRN 12/14/16 Albuterol Sulfate [Ventolin HFA] 2 puff INHALATION RT-Q4H PRN 12/17/19 Fluticasone/Salmeterol [Advair 500-50 Diskus] 1 puff INHALATION RT-BID 12/17/19 Acetaminophen Tab [Tylenol] 650 mg PO Q6HR PRN tab 12/21/19 Lisinopril-Hctz 20-12.5 mg [Zestoretic 20-12.5] 1 each PO DAILY 30 Days #30 tab 12/22/19 Fluticasone Nasal [place] [Flonase Nasal [place]] 1 spray EA NOSTRIL DAILY 09/04/20 Metoprolol Succinate [Toprol XL] 50 mg PO DAILY 09/04/20 Naproxen 500 mg PO QAM 09/04/20 Omeprazole [PriLOSEC] 20 mg PO AC-BRKFST 09/04/20 Tiotropium [place] [Spiriva] 1 cap INHALATION DAILY 09/04/20 traMADol HCL [Ultram] 50 mg PO DIRECTED PRN 09/04/20
== END ==
LOC: PNWHC3 12:30
PROVIDERS: ATTEND Specialist
DX: M79.18 Myalgia, other site (principal); M50.20 Other cervical disc displacement, unspecified cervical region; K21.9 Gastro-esophageal reflux disease without esophagitis; E78.5 Hyperlipidemia, unspecified; I10 Essential (primary) hypertension; F41.9 Anxiety disorder, unspecified; F32.9 Major depressive disorder, single episode, unspecified; F17.200 Nicotine dependence, unspecified, uncomplicated; J44.1 Chronic obstructive pulmonary disease with (acute) exacerbation; Z79.51 Long term (current) use of inhaled steroids; Z79.899 Other long term (current) drug therapy; Z88.2 Allergy status to sulfonamides; Z88.6 Allergy status to analgesic agent; Z88.8 Allergy status to other drugs, medicaments and biological substances
CPT/HCPCS: 99211

== ENCOUNTER 2021-08-26 08:35 | Inpatient (IN) | payer OTHER ==
[2021-08-26] MEDS ORDERED: IPRATROPIUM-ALBUTEROL 3 ML NEB INHALATION STA (09:22)
[2021-08-26] MEDS ORDERED: SODIUM CHLORIDE 0.9% 500 ML 500 ML IV STA (09:22)
[2021-08-26] MEDS ORDERED: methylPREDNISolone SOD SUCCI 125 MG/2 ML VIAL IV STA (09:22)
--- NOTE | 2021-08-26 09:27 | ED ---
SOB HPI - General Chief Complaint: Shortness of Breath Stated Complaint: HARJEET Time Seen by Provider: 08/26/21 09:15 Source: patient, EMS, RN notes reviewed, old records reviewed Mode of arrival: EMS Limitations: no limitations - History of Present Illness Initial Comments: This is a 46-year-old female, alert and oriented 4, presents to the emergency room with shortness of breath for the past 2 months. Patient does have a history of COPD, does use oxygen intermittently at home. She did see her primary care doctor on who placed her on antibiotics but she does not remember the name of the antibiotics. She states that she is also taking st eroids. She continues to have this shortness of breath. 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 MD Complaint: shortness of breath, cough -: month(s) (2) Severity scale (1-10): 4 Consistency: constant Improves With: nothing Known History Of: COPD Associated Symptoms: cough Treatments Prior to Arrival: other (antibiotics) - Related Data Home Medications Medication Instructions Recorded Confirmed Cholecalciferol [Vitamin D3 (25 25 mcg PO DAILY 05/26/15 08/26/21 Mcg = 1000 Iu)] Baclofen 10 mg PO TID PRN 12/14/16 08/26/21 Metoprolol Succinate [Toprol XL] 50 mg PO DAILY 09/04/20 08/26/21 Naproxen 500 mg PO BID 09/04/20 08/26/21 Omeprazole [PriLOSEC] 20 mg PO AC-BRKFST 09/04/20 08/26/21 Tiotropium [place] [Spiriva] 1 cap INHALATION RT-DAILY 09/04/20 08/26/21 Albuterol Sulfate [Proair Hfa] 2 puff INHALATION RT-Q4H PRN 08/26/21 08/26/21 Cetirizine HCl [Zyrtec] 10 mg PO DAILY 08/26/21 08/26/21 Levofloxacin [Levaquin] 750 mg PO DAILY 08/26/21 08/26/21 Lisinopril-Hctz 20-12.5 mg 1 tab PO DAILY 08/26/21 08/26/21 [Zestoretic 20-12.5] predniSONE [Deltasone] See Taper PO DIRECTED 08/26/21 08/26/21 Allergies Allergy/AdvReac Type Severity Reaction Status Date / Time guaifenesin [From Mucinex] Allergy high blood Verified 08/26/21 08:47 pressure Sulfa (Sulfonamide Allergy "FEELS Verified 08/26/21 08:47 Antibiotics) LIKE I'M ON FIRE FROM INSIDE OUT" hydrocodone [From [place]] AdvReac STATES Verified 08/26/21 08:47 "IRRATIC MOODS" Review of Systems ROS Statement: Those systems with pertinent positive or pertinent negative responses have been documented in the HPI. ROS Other: All systems not noted in ROS Statement are negative. Past Medical History Past Medical History: COPD, Fibromyalgia, GERD/Reflux, Hyperlipidemia, Hypertension, Seizure Disorder, Sleep Apnea/CPAP/BIPAP, Thyroid Disorder Additional Past Medical History / Comment(s): history of chronic hypoxic respiratory failure, history of intubation mechanical ventilation secondary to COPD exacerbation- COVID Feb, last seizure 2015, small hiatal hernia, no current rx for thryoid, History of Any Multi-Drug Resistant Organisms: MRSA Date of last positivie culture/infection: 10-18-14 MDRO Source:: Groin Past Surgical History: Back Surgery, Tubal Ligation, Uterine Ablation Additional Past Surgical History / Comment(s): Lumbar fusion L5-S1, LEEP Past Anesthesia/Blood Transfusion Reactions: No Reported Reaction Past Psychological History: Anxiety, Depression Smoking Status: Former smoker Past Alcohol Use History: None Reported, Occasional Past Drug Use History: Marijuana - Past Family History Father Additional Family Medical History / Comment(s): etoh, alive at 66 Mother Family Medical History: No Reported History Additional Family Medical History / Comment(s): . General Exam Limitations: no limitations General appearance: alert, in no apparent distress Head exam: Present: atraumatic ENT exam: Present: mucous membranes moist Neck exam: Present: full ROM. Absent: tenderness, meningismus Respiratory exam: Present: wheezes, accessory muscle use, prolonged expiratory, other (dyspnea). Absent: stridor, chest wall tenderness Cardiovascular Exam: Present: normal rhythm, tachycardia GI/Abdominal exam: Present: soft. Absent: distended, tenderness Extremities exam: Present: normal capillary refill. Absent: pedal edema Back exam: Present: normal inspection. Absent: tenderness, CVA tenderness (R), CVA tenderness (L), rash noted Neurological exam: Present: alert, oriented X3 Psychiatric exam: Present: normal affect, normal mood Skin exam: Present: warm, dry, normal color. Absent: cyanosis, diaphoretic, petechiae, pallor Course Vital Signs 08/26/21 08/26/21 08/26/21 08:44 09:17 10:04 Temperature 97.7 F Pulse Rate 100 82 Respiratory 18 18 18 Rate Blood Pressure 206/107 166/83 O2 Sat by Pulse 100 97 Oximetry 08/26/21 08/26/21 08/26/21 10:34 10:43 11:55 Temperature Pulse Rate 84 94 82 Respiratory 18 Rate Blood Pressure 146/111 O2 Sat by Pulse 96 Oximetry 08/26/21 08/26/21 08/26/21 12:25 12:34 12:51 Temperature Pulse Rate 84 75 80 Respiratory 18 Rate Blood Pressure 167/88 O2 Sat by Pulse 97 Oximetry 08/26/21 14:33 Temperature Pulse Rate 85 Respiratory 16 Rate Blood Pressure 146/88 O2 Sat by Pulse 98 Oximetry Medical Decision Making - Medical Decision Making Patient complaining of worsening dyspnea over the past 2 months. She is being treated with antibiotics and steroids by her primary care doctor with no improvement. Patient has inspiratory expiratory wheezes and dyspnea with accessory muscle use after DuoNeb treatment and steroids. Chest x-ray shows emphysema. Troponin is negative. EKG sinus rhythm. Case discussed with Dr. Smith. Patient will be admitted for COPD exacerbation. - Lab Data Result diagrams: 08/26/21 09:31 08/26/21 09:31 Lab Results 08/26/21 08/26/21 08/26/21 Range/Units 09:31 09:31 09:31 WBC 12.2 H (3.8-10.6) k/uL RBC 5.02 (3.80-5.40) m/uL Hgb 16.2 H (11.4-16.0) gm/dL Hct 49.7 H (34.0-46.0) % MCV 98.9 (80.0-100.0) fL MCH 32.3 (25.0-35.0) pg MCHC 32.7 (31.0-37.0) g/dL RDW 12.5 (11.5-15.5) % Plt Count 323 (150-450) k/uL MPV 8.5 Neutrophils % 82 % Lymphocytes % 12 % Monocytes % 3 % Eosinophils % 2 % Basophils % 0 % Neutrophils # 10.0 H (1.3-7.7) k/uL Lymphocytes # 1.4 (1.0-4.8) k/uL Monocytes # 0.3 (0-1.0) k/uL Eosinophils # 0.3 (0-0.7) k/uL Basophils # 0.1 (0-0.2) k/uL PT 10.6 (9.0-12.0) sec INR 1.0 (<1.2) APTT 22.6 (22.0-30.0) sec D-Dimer 0.32 (<0.60) mg/L FEU Sodium 137 (137-145) mmol/L Potassium 4.3 (3.5-5.1) mmol/L Chloride 101 (98-107) mmol/L Carbon Dioxide 28 (22-30) mmol/L Anion Gap 8 mmol/L BUN 12 (7-17) mg/dL Creatinine 0.69 (0.52-1.04) mg/dL Est GFR (CKD-EPI)AfAm >90 (>60 ml/min/1.73 sqM) Est GFR (CKD-EPI)NonAf >90 (>60 ml/min/1.73 sqM) Glucose 90 (74-99) mg/dL Plasma Lactic Acid Jonathan (0.7-2.0) mmol/L Calcium 9.2 (8.4-10.2) mg/dL Magnesium 1.9 (1.6-2.3) mg/dL Total Bilirubin 0.6 (0.2-1.3) mg/dL AST 40 H (14-36) U/L ALT 20 (4-34) U/L Alkaline Phosphatase 78 (38-126) U/L Troponin I (0.000-0.034) ng/mL Total Protein 8.2 (6.3-8.2) g/dL Albumin 4.5 (3.5-5.0) g/dL 08/26/21 08/26/21 Range/Units 09:31 09:31 WBC (3.8-10.6) k/uL RBC (3.80-5.40) m/uL Hgb (11.4-16.0) gm/dL Hct (34.0-46.0) % MCV (80.0-100.0) fL MCH (25.0-35.0) pg MCHC (31.0-37.0) g/dL RDW (11.5-15.5) % Plt Count (150-450) k/uL MPV Neutrophils % % Lymphocytes % % Monocytes % % Eosinophils % % Basophils % % Neutrophils # (1.3-7.7) k/uL Lymphocytes # (1.0-4.8) k/uL Monocytes # (0-1.0) k/uL Eosinophils # (0-0.7) k/uL Basophils # (0-0.2) k/uL PT (9.0-12.0) sec INR (<1.2) APTT (22.0-30.0) sec D-Dimer (<0.60) mg/L FEU Sodium (137-145) mmol/L Potassium (3.5-5.1) mmol/L Chloride (98-107) mmol/L Carbon Dioxide (22-30) mmol/L Anion Gap mmol/L BUN (7-17) mg/dL Creatinine (0.52-1.04) mg/dL Est GFR (CKD-EPI)AfAm (>60 ml/min/1.73 sqM) Est GFR (CKD-EPI)NonAf (>60 ml/min/1.73 sqM) Glucose (74-99) mg/dL Plasma Lactic Acid Jonathan 1.5 (0.7-2.0) mmol/L Calcium (8.4-10.2) mg/dL Magnesium (1.6-2.3) mg/dL Total Bilirubin (0.2-1.3) mg/dL AST (14-36) U/L ALT (4-34) U/L Alkaline Phosphatase (38-126) U/L Troponin I <0.012 (0.000-0.034) ng/mL Total Protein (6.3-8.2) g/dL Albumin (3.5-5.0) g/dL - EKG Data EKG shows normal: sinus rhythm (Ventricular rate of 86, MO interval 0.133, QRS 0.84, QTC 0.391) Disposition Clinical Impression: COPD exacerbation Disposition: ADMITTED IP TO THIS [facility] Decision Date: 08/26/21 Decision Time: 11:47
[2021-08-26 09:58] LABS: Basophils # (A) 0.1 k/uL (0-0.2); Basophils % (A) 0 %; Eosinophils # (A) 0.3 k/uL (0-0.7); Eosinophils % (A) 2 %; HCT 49.7 % (34.0-46.0); HGB 16.2 gm/dL (11.4-16.0); Lymphocytes # (A) 1.4 k/uL (1.0-4.8); Lymphocytes % (A) 12 %; MCH 32.3 pg (25.0-35.0); MCHC 32.7 g/dL (31.0-37.0); MCV 98.9 fL (80.0-100.0); Mean Platelet Volume 8.5; Monocytes # (A) 0.3 k/uL (0-1.0); Monocytes % (A) 3 %; Neutrophils % (A) 82 %; Platelet Count 323 k/uL (150-450); RBC 5.02 m/uL (3.80-5.40); RDW 12.5 % (11.5-15.5); WBC 12.2 k/uL (3.8-10.6)
[2021-08-26 10:04] LABS: Partial Thromboplastin Time 22.6 sec (22.0-30.0); Prothrombin Time 10.6 sec (9.0-12.0)
[2021-08-26] MEDS: LABETALOL 5 MG/ML VIAL MDV IVP STA ×2 (10:04→11:57)
[2021-08-26 10:15] LABS: ALT 20 U/L (4-34); African American GFR (CKD) >90 (>60 ml/min/1.73 sqM); Albumin 4.5 g/dL (3.5-5.0); Anion Gap 8 mmol/L; Blood Urea Nitrogen 12 mg/dL (7-17); Calcium 9.2 mg/dL (8.4-10.2); Carbon Dioxide 28 mmol/L (22-30); Chloride 101 mmol/L (98-107); Glucose 90 mg/dL (74-99); Non-African American GFR(CKD) >90 (>60 ml/min/1.73 sqM); Sodium 137 mmol/L (137-145); Total Bilirubin 0.6 mg/dL (0.2-1.3); Total Protein 8.2 g/dL (6.3-8.2)
[2021-08-26 10:22] LABS: Potassium 4.3 mmol/L (3.5-5.1)
[2021-08-26 10:23] LABS: AST 40 U/L (14-36); Alkaline Phosphatase 78 U/L (38-126); Magnesium 1.9 mg/dL (1.6-2.3)
--- NOTE | 2021-08-26 10:52 | XR ---
EXAMINATION TYPE: XR chest 2V DATE OF EXAM: 08/26/2021 COMPARISON: Chest x-ray 12/17/2019 HISTORY: Difficulty breathing TECHNIQUE: Frontal and lateral views of the chest are obtained. FINDINGS: There is no focal air space opacity, pleural effusion, or pneumothorax seen. The cardiac silhouette size is stable. Prominent lung volumes with flattening the hemidiaphragms suggests underl leighton COPD. Aorta is dense. There are overlying leads and artifacts. Patient is rotated. The osseous s tructures are intact. IMPRESSION: No acute cardiopulmonary process. Emphysema.
[2021-08-26] MEDS ORDERED: KETOROLAC 15 MG/ML 1 ML VIAL IVP STA (12:18)
[2021-08-26] MEDS: ALBUTEROL NEBULIZED 2.5 MG/3 ML INHALATION PRN ×2 (12:24→23:32)
[2021-08-26] MEDS ORDERED: BACLOFEN 10 MG TAB PO PRN (13:07)
--- NOTE | 2021-08-26 13:09 | P.HPIM ---
History of Present Illness H&P Date: 08/26/21 History of Presenting Illness: Patient is a very pleasant 46-year-old female with a past medical history of advanced COPD home oxygen dependent on 2 L, and nicotine dependence reportedly recently quit smoking cigarettes 2 weeks ago and started vaping, hypertension, hyperlipidemia, hypothyroidism, fibromyalgia, and seizure disorder. She presented to the emergency department with the chief complaint of worsening shortness of breath. Patient reports this is been ongoing over the past 2 months and has not improved with home nebulizer treatments, cessation of smoking, and home oxygen use. Patient denies having any recent infections or exposure to known ill contacts, fevers, chills, diaphoresis, dizziness, lightheadedness, chest pain, palpitations, nausea, or experiencing any numbness/tingling/weakness in her extremities. Patient does report to intermittently using oxygen as needed and is unsure if she is supposed to be on it continuously or only as needed as she states she has not followed up with her online editor in over a year and a half. Patient underwent full evaluation in the emergency department. Labs were unremarkable with the exception of mild leukocytosis with WBC count of 12.2 and elevated hemoglobin of 16.2. D-dimer was normal findings at 0.32 and troponin also negative at less than 0.012. Chest x-ray completed positive for emphysema. EKG showing sinus rhythm at 86 bpm with no noted T-wave or ST abnormalities. Vital signs stable. Patient maintaining SpO2 of 97% on baseline 2 L O2. Review of systems: Pertinent positives and negatives as discussed in HPI, a complete review of systems was performed and all other systems are negative. Physical exam: Vital signs reviewed and stable. General: Nontoxic, no distress and appears stated age. Derm: Skin warm and dry, normal coloration for ethnicity. Head: Atraumatic, normocephalic and symmetric. Eyes: EOMs intact, no lid lag, and anicteric sclera Mouth: no lip lesions, mucus membranes moist Cardiovascular: regular rate and rhythm with normal S1S2, no murmur, positive posterior tibial pulses bilaterally, and cap refill < 2 seconds. Lungs: Respirations even, regular, and unlabored on 2L. Lungs diminished with diffuse bilateral expiratory wheezes, no rhonchi, no rales, and no accessory muscle usage. Abdominal: soft, nontender to palpation, no guarding, no appreciable org anomegaly Ext: ROM intact. No gross muscle atrophy, no edema, no contractures Neuro: Speech clear, face symmetrical and CN II-XII grossly intact with no noted focal neuro deficits Psych: Alert and oriented to person, place, time, and situation. Appropriate and pleasant affect. Assessment and Plan of Care: Acute exacerbation of COPD History of nicotine dependence currently Vaping -Consult to Pulmonology -Oxygenation to be administered and titrated as needed to maintain SPO2 equal to or greater than 92% -Telemetry monitoring. -Monitor Pulse-oximetry -Duonebs scheduled and as needed for SOB and/or wheezing -Incentive Spirometry -Steroids: Solu-Medrol -Antibiotics: Doxycycline -Symbicort Hypertension -Monitor vital signs and continue daily medication regimen with metoprolol, lisinopril/hydrochlorothiazide, The patient is admitted with an anticipated less than 2 midnight stay for evalua tion of COPD exacerbation CODE STATUS: Full code DVT prophylaxis: Lovenox Discussed with: Patient and RN Anticipated discharge date: 1-[address]: Home A total of 42 minutes was spent on the care of this complex patient more than 50% of the time was spent in counseling and care coordination. Past Medical History Past Medical History: COPD, Fibromyalgia, GERD/Reflux, Hyperlipidemia, Hypertension, Seizure Disorder, Sleep Apnea/CPAP/BIPAP, Thyroid Disorder Additional Past Medical History / Comment(s): history of chronic hypoxic respiratory failure, history of intubation mechanical ventilation secondary to COPD exacerbation- COVID Feb, last seizure 2016, small hiatal hernia, no current rx for thryoid, History of Any Multi-Drug Resistant Organisms: MRSA Date of last positivie culture/infection: 10-18-14 MDRO Source:: Groin Past Surgical History: Back Surgery, Tubal Ligation, Uterine Ablation Additional Past Surgical History / Comment(s): Lumbar fusion L5-S1, LEEP Past Anesthesia/Blood Transfusion Reactions: No Reported Reaction Past Psychological History: Anxiety, Depression Smoking Status: Former smoker Past Alcohol Use History: None Reported, Occasional Past Drug Use History: Marijuana - Past Family History Father Additional Family Medical History / Comment(s): etoh, alive at 66 Mother Family Medical History: No Reported History Additional Family Medical History / Comment(s): . Medications and Allergies Home Medications Medication Instructions Recorded Confirmed Type Cholecalciferol [Vitamin D3 (25 25 mcg PO DAILY 05/26/15 08/26/21 History Mcg = 1000 Iu)] Baclofen 10 mg PO TID PRN 12/14/16 08/26/21 History Metoprolol Succinate [Toprol XL] 50 mg PO DAILY 09/04/20 08/26/21 History Naproxen 500 mg PO BID 09/04/20 08/26/21 History Omeprazole [PriLOSEC] 20 mg PO AC-BRKFST 09/04/20 08/26/21 History Tiotropium [place] [Spiriva] 1 cap INHALATION RT-DAILY 09/04/20 08/26/21 History Albuterol Sulfate [Proair Hfa] 2 puff INHALATION RT-Q4H PRN 08/26/21 08/26/21 History Cetirizine HCl [Zyrtec] 10 mg PO DAILY 08/26/21 08/26/21 History Levofloxacin [Levaquin] 750 mg PO DAILY 08/26/21 08/26/21 History Lisinopril-Hctz 20-12.5 mg 1 tab PO DAILY 08/26/21 08/26/21 History [Zestoretic 20-12.5] predniSONE [Deltasone] See Taper PO DIRECTED 08/26/21 08/26/21 History Allergies Allergy/AdvReac Type Severity Reaction Status Date / Time guaifenesin [From Mucinex] Allergy high blood Verified 08/26/21 08:47 pressure Sulfa (Sulfonamide Allergy "FEELS Verified 08/26/21 08:47 Antibiotics) LIKE I'M ON FIRE FROM INSIDE OUT" hydrocodone [From [place]] AdvReac STATES Verified 08/26/21 08:47 "IRRATIC MOODS" Physical Exam Vitals: Vital Signs Temp Pulse Resp BP Pulse Ox 08/26/21 12:51 80 18 167/88 97 08/26/21 12:34 75 08/26/21 12:25 84 08/26/21 11:55 82 18 146/111 96 08/26/21 10:43 94 08/26/21 10:34 84 08/26/21 10:04 82 18 166/83 97 08/26/21 09:17 18 08/26/21 08:44 97.7 F 100 18 206/107 100 Intake and Output 08/25/21 08/26/21 08/26/21 22:59 06:59 14:59 Other: Weight 47.627 kg Results CBC & Chem 7: 08/26/21 09:31 08/26/21 09:31 Labs: Abnormal Lab Results - Last 24 Hours (Table) 08/26/21 08/26/21 Range/Units 09:31 09:31 WBC 12.2 H (3.8-10.6) k/uL Hgb 16.2 H (11.4-16.0) gm/dL Hct 49.7 H (34.0-46.0) % Neutrophils # 10.0 H (1.3-7.7) k/uL AST 40 H (14-36) U/L
--- NOTE | 2021-08-26 16:03 | P.CNPUL ---
History of Present Illness Consult date: 08/26/21 Requesting physician: Elkin Burgos Reason for consult: dyspnea Chief complaint: Shortness of breath History of present illness: 46-year-old female patient with past history of severe stage IV COPD, with baseline FEV1 of 29% of predicted, on home oxygen, chronic history of smoking, patient quit 2 weeks ago, she has history of hypertension, hyperlipidemia, seizure disorder, sleep apnea, previous episode of respiratory failure requiring intubation and mechanical ventilatory support for COVID 19 pneumonia in February 2020, anxiety, depression. Patient presented to the emergency department on for evaluation of shortness of breath that has been ongoing for the past 2 months. Patient follows up with Dr. Moore in the pulmonary clinic although she has not seen him since January 2020. Patient is on a combination of Advair Diskus 500 mics50 mics 2 times a day, nebulized albuterol, Spiriva HandiHaler, and a Ventolin HFA. Patient states that her difficulty breathing started 2 months ago, with a sinus infection that has been treated with outpatient steroids and antibiotics with no improvement. She denies any fever or chills. Her chest x-ray in the emergency department showed no acute cardiopulmonary process. It did show prominent lung volumes with flattening of the hemidiaphragms consistent with COPD. Lab evaluation showed a white blood cell, 12.2, hemoglobin of 16.2, coagulation profile was within normal limits, d- dimer was 0.32, electrolytes and renal profile were all within normal limits, AST was 40, ALT was 20, alk phos was 78, troponin was negative at less than 0.012. Patient is on 2 L of oxygen, pulse ox is 98%, she is quite short of breath with any conversation. Lung sounds are diminished, patient denies any hemoptysis, no chest pain. She is hemodynamically stable, in sinus mechanism with a controlled rate. We started on IV steroids, breathing treatments, and will add doxycycline for empiric antibiotic coverage. She will be admitted to medical surgical floor Review of Systems Respiratory: Reports dyspnea Past Medical History Past Medical History: COPD, Fibromyalgia, GERD/Reflux, Hyperlipidemia, Hypertension, Seizure Disorder, Sleep Apnea/CPAP/BIPAP, Thyroid Disorder Additional Past Medical History / Comment(s): history of chronic hypoxic respiratory failure, history of intubation mechanical ventilation secondary to COPD exacerbation- COVID Feb, last seizure 2015, small hiatal hernia, no current rx for thryoid, History of Any Multi-Drug Resistant Organisms: MRSA Date of last positivie culture/infection: 10-18-14 MDRO Source:: Groin Past Surgical History: Back Surgery, Tubal Ligation, Uterine Ablation Additional Past Surgical History / Comment(s): Lumbar fusion L5-S1, LEEP Past Anesthesia/Blood Transfusion Reactions: No Reported Reaction Past Psychological History: Anxiety, Depression Smoking Status: Former smoker Past Alcohol Use History: None Reported, Occasional Past Drug Use History: Marijuana - Past Family History Father Additional Family Medical History / Comment(s): etoh, alive at 66 Mother Family Medical History: No Reported History Additional Family Medical History / Comment(s): . Medications and Allergies Home Medications Medication Instructions Recorded Confirmed Type Cholecalciferol [Vitamin D3 (25 25 mcg PO DAILY 05/26/15 08/26/21 History Mcg = 1000 Iu)] Baclofen 10 mg PO TID PRN 12/14/16 08/26/21 History Metoprolol Succinate [Toprol XL] 50 mg PO DAILY 09/04/20 08/26/21 History Naproxen 500 mg PO BID 09/04/20 08/26/21 History Omeprazole [PriLOSEC] 20 mg PO AC-BRKFST 09/04/20 08/26/21 History Tiotropium [place] [Spiriva] 1 cap INHALATION RT-DAILY 09/04/20 08/26/21 History Albuterol Sulfate [Proair Hfa] 2 puff INHALATION RT-Q4H PRN 08/26/21 08/26/21 History Cetirizine HCl [Zyrtec] 10 mg PO DAILY 08/26/21 08/26/21 History Levofloxacin [Levaquin] 750 mg PO DAILY 08/26/21 08/26/21 History Lisinopril-Hctz 20-12.5 mg 1 tab PO DAILY 08/26/21 08/26/21 History [Zestoretic 20-12.5] predniSONE [Deltasone] See Taper PO DIRECTED 08/26/21 08/26/21 History Allergies Allergy/AdvReac Type Severity Reaction Status Date / Time guaifenesin [From Mucinex] Allergy high blood Verified 08/26/21 08:47 pressure Sulfa (Sulfonamide Allergy "FEELS Verified 08/26/21 08:47 Antibiotics) LIKE I'M ON FIRE FROM INSIDE OUT" hydrocodone [From [place]] AdvReac STATES Verified 08/26/21 08:47 "IRRATIC MOODS" Physical Exam Vitals: Vital Signs Temp Pulse Resp BP Pulse Ox 08/26/21 14:33 85 16 146/88 98 08/26/21 12:51 80 18 167/88 97 08/26/21 12:34 75 08/26/21 12:25 84 08/26/21 11:55 82 18 146/111 96 08/26/21 10:43 94 08/26/21 10:34 84 08/26/21 10:04 82 18 166/83 97 08/26/21 09:17 18 08/26/21 08:44 97.7 F 100 18 206/107 100 Intake and Output 08/26/21 08/26/21 08/26/21 06:59 14:59 22:59 Other: Weight 47.627 kg GENERAL EXAM: Alert, very pleasant, cachectic, 46-year-old white female, 2 L of oxygen pulse ox of 98%, dyspneic with conversation, at rest, comfortable in no apparent distress. HEAD: Normocephalic/atraumatic. EYES: Normal reaction of pupils, equal size. Conjunctiva pink, sclera white. NOSE: Clear with pink turbinates. THROAT: No erythema or exudates. NECK: No masses, no JVD, no thyroid enlargement, no adenopathy. CHEST: No chest wall deformity. Symmetrical expansion. LUNGS: Diminished air entry with no crackles, wheeze, rhonchi or dullness. CVS: Regular rate and rhythm, normal S1 and S2, no gallops, no murmurs, no rubs ABDOMEN: Soft, nontender. No hepatosplenomegaly, normal bowel sounds, no guarding or rigidity. EXTREMITIES: No clubbing, no edema, no cyanosis, 2+ pulses and upper and lower extremities. MUSCULOSKELETAL: Muscle strength and tone normal. SPINE: No scoliosis or deformity SKIN: No rashes CENTRAL NERVOUS SYSTEM: Alert and oriented -3. No focal deficits, tone is n ormal in all 4 extremities. PSYCHIATRIC: Alert and oriented -3. Appropriate affect. Intact judgment and insight. Results - Laboratory Findings CBC and BMP: 08/26/21 09:31 08/26/21 09:31 PT/INR, D-dimer PT 10.6 sec (9.0-12.0) 08/26/21 09:31 INR 1.0 (<1.2) 08/26/21 09:31 D-Dimer 0.32 mg/L FEU (<0.60) 08/26/21 09:31 Abnormal lab findings: Abnormal Labs 08/26/21 08/26/21 09:31 09:31 WBC 12.2 H Hgb 16.2 H Hct 49.7 H Neutrophils # 10.0 H AST 40 H - Diagnostic Findings Chest x-ray: report reviewed, image reviewed Assessment and Plan Plan: Assessment: #1. Acute exacerbation of chronic COPD, possibly complicated by tracheobron chitis. Chest x-ray was negative for any acute pulmonary process #2. End-stage COPD, with FEV1 of 29% of predicted, stage IV, with chronic hypoxic respiratory failure, and patient is supposed to be on supplemental oxygen, which she is not always compliant with. Patient had a negative alpha-1 antitrypsin level #3. [id number] smoking history, in remission for the last 2 weeks #4. Fibromyalgia #5. Previous history of COVID-19 pneumonia 2020 #6. Previous history of acute respiratory failure requiring intubation and mechanical ventilator support #7. Hypertension #8. Hyperlipidemia #9. Hypothyroidism #10. Sleep apnea on CPAP at home #11. History of seizure disorder #12. Marijuana use Plan: Add IV Solu-Medrol 40 mg every 6 hours Will add doxycycline for antibiotic coverage Continue breathing treatments Continue Symbicort Continue DuoNeb We'll continue to follow patient's clinical course I have personally seen and examined the patient, performed the documentation and the assessment and plan as written. Number of minutes spent on the visit: [15] Time with Patient: Greater than 30
[2021-08-26] MEDS: IPRATROPIUM-ALBUTEROL 3 ML NEB INHALATION SCH ×2 (16:11→19:37)
[2021-08-26] MEDS: KETOROLAC 15 MG/ML 1 ML VIAL IVP SCH ×2 (17:31→22:59)
[2021-08-26] MEDS: methylPREDNISolone SOD SUCCI 40 MG/ML 1 ML VIAL IV SCH ×2 (17:32→22:59)
[2021-08-26] MEDS: SYMBICORT 160-4.5 MCG INHALER INHALATION SCH (19:37)
[2021-08-26] MEDS ORDERED: LISINOPRIL-HCTZ 20-12.5 MG 1 EACH TAB PO STA (19:54)
[2021-08-26] MEDS: DOXYCYCLINE 100 MG CAP PO SCH (20:22)
[2021-08-26] MEDS ORDERED: methylPREDNISolone SOD SUCCI 40 MG/ML 1 ML VIAL IV SCH (21:00)
[2021-08-27] MEDS: ALBUTEROL NEBULIZED 2.5 MG/3 ML INHALATION PRN (03:18)
[2021-08-27] MEDS: KETOROLAC 15 MG/ML 1 ML VIAL IVP SCH ×4 (05:19→23:45)
[2021-08-27] MEDS: methylPREDNISolone SOD SUCCI 40 MG/ML 1 ML VIAL IV SCH ×4 (05:19→23:45)
[2021-08-27] MEDS: SYMBICORT 160-4.5 MCG INHALER INHALATION SCH ×2 (07:37→21:07)
[2021-08-27] MEDS: IPRATROPIUM-ALBUTEROL 3 ML NEB INHALATION SCH ×4 (07:37→21:07)
[2021-08-27] MEDS ORDERED: NON FORMULARY DRUG (Tiotropium Bromide [Spiriva] 18 MCG Cap.W.Dev) INHALATION SCH (08:00)
[2021-08-27] MEDS: PANTOPRAZOLE 40 MG TABLET PO SCH (08:04)
[2021-08-27] MEDS: CHOLECALCIFEROL 25 MCG (1000 IU) TABLET PO SCH (08:55)
[2021-08-27] MEDS: DOXYCYCLINE 100 MG CAP PO SCH ×2 (08:55→21:36)
[2021-08-27] MEDS: ALPRAZolam 0.25 MG TAB PO PRN ×2 (08:55→21:39)
[2021-08-27] MEDS: ENOXAPARIN 40 MG/0.4 ML SYRINGE SQ SCH (08:56)
[2021-08-27] MEDS: LORATADINE 10 MG TAB PO SCH (08:56)
[2021-08-27] MEDS: METOPROLOL SUCCINATE (ER) 50 MG TAB.ER.24H PO SCH (08:56)
[2021-08-27] MEDS: FLUTICASONE 50MCG/SPRAY NASAL 16GM EA NOSTRIL SCH (08:56)
[2021-08-27] MEDS ORDERED: LISINOPRIL-HCTZ 20-12.5 MG 1 EACH TAB PO SCH (09:00)
[2021-08-27] MEDS: ACYCLOVIR 200 MG CAP PO SCH (11:16)
--- NOTE | 2021-08-27 11:55 | P.PN ---
Subjective Progress Note Date: 08/27/21 Principal diagnosis: Acute exacerbation of COPD 46-year-old female patient with past history of severe stage IV COPD, with baseline FEV1 of 29% of predicted, on home oxygen, chronic history of smoking, patient quit 2 weeks ago, she has history of hypertension, hyperlipidemia, s eizure disorder, sleep apnea, previous episode of respiratory failure requiring intubation and mechanical ventilatory support for COVID 19 pneumonia in February 2020, anxiety, depression. Patient presented to the emergency department on 08/26/2021 for evaluation of shortness of breath that has been ongoing for the past 2 months. Patient follows up with Dr. Moore in the pulmonary clinic although she has not seen him since January 2020. Patient is on a combination of Advair Diskus 500 mics50 mics 2 times a day, nebulized albuterol, Spiriva HandiHaler, and a Ventolin HFA. Patient states that her difficulty breathing started 2 months ago, with a sinus infection that has been treated with outpatient steroids and antibiotics with no improvement. She denies any fever or chills. Her chest x-ray in the emergency department showed no acute cardiopulmonary process. It did show prominent lung volumes with flattening of the hemidiaphragms consistent with COPD. Lab evaluation showed a white blood cell, 12.2, hemoglobin of 16.2, coagulation profile was within normal limits, d- dimer was 0.32, electrolytes and renal profile were all within normal limits, AST was 40, ALT was 20, alk phos was 78, troponin was negative at less than 0.012. Patient is on 2 L of oxygen, pulse ox is 98%, she is quite short of breath with any conversation. Lung sounds are diminished, patient denies any he moptysis, no chest pain. She is hemodynamically stable, in sinus mechanism with a controlled rate. We started on IV steroids, breathing treatments, and will add doxycycline for empiric antibiotic coverage. She will be admitted to medical surgical floor The patient is seen today 08/27/2021 in follow-up on the regular medical floor. She is up ambulating in her room. Awake and alert in no acute distress. She is still somewhat bronchospastic and wheezy. She is on 2 L nasal cannula. She is continued on DuoNeb inhalations, Symbicort, IV Solu-Medrol. Empiric antibiotics in the form of doxycycline. Lovenox for DVT prophylaxis. Objective - Vital Signs Vital signs: Vital Signs Temp 98 F 08/27/21 07:00 Pulse 88 08/27/21 11:34 Resp 18 08/27/21 07:00 BP 169/94 08/27/21 07:00 Pulse Ox 98 08/27/21 07:00 FiO2 Intake & Output 08/26/21 08/27/21 08/27/21 18:59 06:59 18:59 Intake Total 240 210 90 Balance 240 210 90 Weight 47.627 kg Intake: Oral 240 210 90 Other: Voiding Method Toilet # Voids 2 1 # Bowel Movements 0 - Exam GENERAL EXAM: Alert, active, 46-year-old female patient, on 2 L nasal cannula, fairly comfortable in no apparent distress. HEAD: Normocephalic. EYES: Normal reaction of pupils, equal size. NOSE: Clear with pink turbinates. THROAT: No erythema or exudates. NECK: No masses, no JVD. CHEST: No chest wall deformity. LUNGS: Equal air entry with bilateral end expiratory wheeze, diminished. CVS: S1 and S2 normal with no audible murmur, regular rhythm. ABDOMEN: No hepatosplenomegaly, normal bowel sounds, no guarding or rigidity. SPINE: No scoliosis or deformity SKIN: No rashes CENTRAL NERVOUS SYSTEM: No focal deficits, tone is normal in all 4 extremities. EXTREMITIES: There is no peripheral edema. No clubbing, no cyanosis. Peripheral pulses are intact. - Labs CBC & Chem 7: 08/26/21 09:31 08/26/21 09:31 Assessment and Plan Assessment: 1 Acute exacerbation of chronic COPD, possibly complicated by trac heobronchitis. Chest x-ray was negative for any acute pulmonary process 2 End-stage COPD, with FEV1 of 29% of predicted, stage IV, with chronic hypoxic respiratory failure, and patient is supposed to be on supplemental oxygen, which she is not always compliant with. Patient had a negative alpha-1 antitrypsin level 3 78-mlxr-tral smoking history, in remission for the last 2 weeks 4 Fibromyalgia 5 Previous history of COVID-19 pneumonia 2020 6 Previous history of acute respiratory failure requiring intubation and mechanical ventilator support 7 Hypertension 8 Hyperlipidemia 9 Hypothyroidism 10 Sleep apnea on CPAP at home 11 History of seizure disorder 12 Marijuana use Plan: The patient was seen and evaluated Improved but not back to baseline Continue empiric antibiotics, IV Solu-Medrol, bronchodilators Increase her activity as tolerated Titrate her FiO2 as tolerated We will continue to follow I have personally seen and examined the patient, performed the documentation and the assessment and plan as written. Number of minutes spent on the visit: 10.
--- NOTE | 2021-08-27 13:00 | P.PN ---
Subjective Progress Note Date: 08/27/21 History of Presenting Illness: Patient is a very pleasant 46-year-old female with a past medical history of advanced COPD home oxygen dependent on 2 L, and nicotine dependence reportedly recently quit smoking cigarettes 2 weeks ago and started vaping, hypertension, hyperlipidemia, hypothyroidism, fibromyalgia, and seizure disorder. She presented to the emergency department with the chief complaint of worsening shortness of breath. Patient reports this is been ongoing over the past 2 months and has not improved with home nebulizer treatments, cessation of smoking, and home oxygen use. Patient denies having any recent infections or exposure to known ill contacts, fevers, chills, diaphoresis, dizziness, lightheadedness, chest pain, palpitations, nausea, or experiencing any n umbness/tingling/weakness in her extremities. Patient does report to intermittently using oxygen as needed and is unsure if she is supposed to be on it continuously or only as needed as she states she has not followed up with her svp operations in over a year and a half. Patient underwent full evaluation in the emergency department. Labs were unremarkable with the exception of mild leukocytosis with WBC count of 12.2 and elevated hemoglobin of 16.2. D-dimer was normal findings at 0.32 and troponin also negative at less than 0.012. Chest x-ray completed positive for emphysema. EKG showing sinus rhythm at 86 bpm with no noted T-wave or ST abnormalities. Vital signs stable. Patient maintaining SpO2 of 97% on baseline 2 L O2. Physical exam: Patient was seen and fully evaluated at bedside this morning. Patient appears to be doing well this morning. Speaking in full sentences without any noted conversational dyspnea. Patient remains on 2 L O2 via nasal cannula maintaining SpO2 between 95 and 98%. Patient reports feeling better since arrival to facility, but is not yet back to her baseline. Upon examination patient does have improved breath sounds, but continues to have diffuse soft expiratory wheezes bilaterally throughout all [place]. Patient denies having any chest pain , palpitations, nausea, dizziness, or lightheadedness. Patient's Blood pressure was elevated this morning at 169/94 and the patient reports she was feeling very anxious. Patient was given a Xanax 0.25 mg tablet reporting improvement in her previous anxiety and upon repeat blood pressure at bedside was 136/87. Vital signs reviewed and stable. General: Nontoxic, no distress and appears stated age. Derm: Skin warm and dry, normal coloration for ethnicity. Head: Atraumatic, normocephalic and symmetric. Eyes: EOMs intact, no lid lag, and anicteric sclera Mouth: no lip lesions, mucus membranes moist Cardiovascular: regular rate and rhythm with normal S1S2, no murmur, positive posterior tibial pulses bilaterally, and cap refill < 2 seconds. Lungs: Respirations even, regular, and unlabored on 2L. Lungs diminished, but improved airflow from previous exam. Soft diffuse expiratory wheezes bilaterally, no rhonchi, no rales, and no accessory muscle usage. Abdominal: soft, nontender to palpation, no guarding, no appreciable organomegaly Ext: ROM intact. No gross muscle atrophy, no edema, no contractures Neuro: Speech clear, face symmetrical and CN II-XII grossly intact with no noted focal neuro deficits Psych: Alert and oriented to person, place, time, and situation. Appropriate and pleasant affect. Assessment and Plan of Care: Acute exacerbation of COPD History of nicotine dependence currently Vaping -Pulmonology following -Oxygenation to be administered and titrated as needed to maintain SPO2 equal to or greater than 92% -Telemetry monitoring. -Monitor Pulse-oximetry -Duonebs scheduled and as needed for SOB and/or wheezing -Incentive Spirometry -Steroids: Solu-Medrol -Antibiotics: Doxycycline -Symbicort Hypertension -Monitor vital signs and continue daily medication regimen with metoprolol, lisinopril/hydrochlorothiazide, The patient is admitted with an anticipated less than 2 midnight stay for evaluation of COPD exacerbation CODE STATUS: Full code DVT prophylaxis: Lovenox Discussed with: Patient and RN Anticipated discharge date: Tomorrow morning Anticipated discharge place: Home A total of 35 minutes was spent on the care of this complex patient more than 50% of the time was spent in counseling and care coordination. Objective - Vital Signs Vital signs: Vital Signs Temp 98 F 08/27/21 07:00 Pulse 88 08/27/21 11:34 Resp 18 08/27/21 07:00 BP 169/94 08/27/21 07:00 Pulse Ox 98 08/27/21 07:00 FiO2 Intake & Output 08/26/21 08/27/21 08/27/21 18:59 06:59 18:59 Intake Total 240 210 90 Balance 240 210 90 Weight 47.627 kg Intake: Oral 240 210 90 Other: Voiding Method Toilet # Voids 2 1 # Bowel Movements 0 - Labs CBC & Chem 7: 08/26/21 09:31 08/26/21 09:31
[2021-08-27 14:07] VITALS: BMI 17.4
[2021-08-27] MEDS: LISINOPRIL-HCTZ 20-12.5 MG 1 EACH TAB PO SCH ×2 (20:36→21:36)
[2021-08-28] MEDS: methylPREDNISolone SOD SUCCI 40 MG/ML 1 ML VIAL IV SCH ×4 (05:45→23:36)
[2021-08-28] MEDS: KETOROLAC 15 MG/ML 1 ML VIAL IVP SCH ×4 (05:45→23:37)
[2021-08-28] MEDS: SYMBICORT 160-4.5 MCG INHALER INHALATION SCH ×2 (07:09→20:05)
[2021-08-28] MEDS: IPRATROPIUM-ALBUTEROL 3 ML NEB INHALATION SCH ×4 (07:09→20:05)
[2021-08-28] MEDS: ACYCLOVIR 200 MG CAP PO SCH (10:01)
[2021-08-28] MEDS: CHOLECALCIFEROL 25 MCG (1000 IU) TABLET PO SCH (10:01)
[2021-08-28] MEDS: PANTOPRAZOLE 40 MG TABLET PO SCH (10:01)
[2021-08-28] MEDS: ENOXAPARIN 40 MG/0.4 ML SYRINGE SQ SCH ×2 (10:01→10:04)
[2021-08-28] MEDS: METOPROLOL SUCCINATE (ER) 50 MG TAB.ER.24H PO SCH (10:01)
[2021-08-28] MEDS: LISINOPRIL-HCTZ 20-12.5 MG 1 EACH TAB PO SCH (10:01)
[2021-08-28] MEDS: DOXYCYCLINE 100 MG CAP PO SCH ×2 (10:01→21:16)
[2021-08-28] MEDS: FLUTICASONE 50MCG/SPRAY NASAL 16GM EA NOSTRIL SCH (10:02)
[2021-08-28] MEDS: LORATADINE 10 MG TAB PO SCH (10:02)
[2021-08-28] MEDS: ALPRAZolam 0.25 MG TAB PO PRN ×2 (10:09→18:45)
[2021-08-28] MEDS ORDERED: BENZONATATE 100 MG CAP PO PRN (10:18)
[2021-08-28 11:15] LABS: Basophils % (A) 0 %; Eosinophils % (A) 0 %; HCT 47.6 % (34.0-46.0); HGB 15.7 gm/dL (11.4-16.0); Lymphocytes # (A) 0.7 k/uL (1.0-4.8); Lymphocytes % (A) 4 %; MCH 32.4 pg (25.0-35.0); MCHC 32.9 g/dL (31.0-37.0); MCV 98.5 fL (80.0-100.0); Mean Platelet Volume 8.4; Monocytes # (A) 0.4 k/uL (0-1.0); Monocytes % (A) 2 %; Neutrophils # (A) 17.9 k/uL (1.3-7.7); Neutrophils % (A) 94 %; Platelet Count 310 k/uL (150-450); RBC 4.83 m/uL (3.80-5.40); RDW 12.3 % (11.5-15.5); WBC 19.1 k/uL (3.8-10.6)
[2021-08-28 11:26] LABS: African American GFR (CKD) >90 (>60 ml/min/1.73 sqM); Anion Gap 4 mmol/L; Blood Urea Nitrogen 27 mg/dL (7-17); Calcium 9.5 mg/dL (8.4-10.2); Carbon Dioxide 36 mmol/L (22-30); Chloride 93 mmol/L (98-107); Glucose 171 mg/dL (74-99); Non-African American GFR(CKD) >90 (>60 ml/min/1.73 sqM); Potassium 4.1 mmol/L (3.5-5.1); Sodium 133 mmol/L (137-145)
--- NOTE | 2021-08-28 11:51 | P.PN ---
Subjective Progress Note Date: 08/28/21 Principal diagnosis: Acute exacerbation of COPD 46-year-old female patient with past history of severe stage IV COPD, with baseline FEV1 of 29% of predicted, on home oxygen, chronic history of smoking, patient quit 2 weeks ago, she has history of hypertension, hyperlipidemia, s eizure disorder, sleep apnea, previous episode of respiratory failure requiring intubation and mechanical ventilatory support for COVID 19 pneumonia in February 2020, anxiety, depression. Patient presented to the emergency department on 08/26/2021 for evaluation of shortness of breath that has been ongoing for the past 2 months. Patient follows up with Dr. Moore in the pulmonary clinic although she has not seen him since January 2020. Patient is on a combination of Advair Diskus 500 mics50 mics 2 times a day, nebulized albuterol, Spiriva HandiHaler, and a Ventolin HFA. Patient states that her difficulty breathing started 2 months ago, with a sinus infection that has been treated with outpatient steroids and antibiotics with no improvement. She denies any fever or chills. Her chest x-ray in the emergency department showed no acute cardiopulmonary process. It did show prominent lung volumes with flattening of the hemidiaphragms consistent with COPD. Lab evaluation showed a white blood cell, 12.2, hemoglobin of 16.2, coagulation profile was within normal limits, d- dimer was 0.32, electrolytes and renal profile were all within normal limits, AST was 40, ALT was 20, alk phos was 78, troponin was negative at less than 0.012. Patient is on 2 L of oxygen, pulse ox is 98%, she is quite short of breath with any conversation. Lung sounds are diminished, patient denies any he moptysis, no chest pain. She is hemodynamically stable, in sinus mechanism with a controlled rate. We started on IV steroids, breathing treatments, and will add doxycycline for empiric antibiotic coverage. She will be admitted to medical surgical floor The patient is seen today 08/27/2021 in follow-up on the regular medical floor. She is up ambulating in her room. Awake and alert in no acute distress. She is still somewhat bronchospastic and wheezy. She is on 2 L nasal cannula. She is continued on DuoNeb inhalations, Symbicort, IV Solu-Medrol. Empiric antibiotics in the form of doxycycline. Lovenox for DVT prophylaxis. The patient is seen today 08/28/2021 in follow-up on the regular medical floor. Currently sitting up in bed. Awake and alert in no acute distress. Her breathi chelsea is doing about the same spelled still dyspneic with conversation. Dyspneic with exertion. She is also complaining of chest tightness and palpitations. She is maintaining O2 saturations in the mid 90s on 2 L/m per nasal cannula. Afebrile. Somewhat hypertensive. White count 19.1. Hemoglobin 15.7. Sodium 133. Potassium 4.1. BUN 27. Creatinine 0.79. Glucose 171. She is continued on Symbicort, DuoNeb inhalations, IV Solu-Medrol. Empiric antibiotics in form of doxycycline. Lovenox for DVT prophylaxis. Objective - Vital Signs Vital signs: Vital Signs Temp 97.4 F L 08/28/21 07:38 Pulse 74 08/28/21 11:30 Resp 18 08/28/21 07:38 BP 192/91 08/28/21 07:38 Pulse Ox 97 08/28/21 07:38 FiO2 Intake & Output 08/27/21 08/28/21 08/28/21 18:59 06:59 18:59 Intake Total 210 Balance 210 Weight 47.627 kg Intake: Oral 210 Other: Voiding Method Toilet # Voids 1 1 - Exam GENERAL EXAM: Alert, 46-year-old female, on 2 L nasal cannula, fairly comfortable in no apparent distress. HEAD: Normocephalic. EYES: Normal reaction of pupils, equal size. NOSE: Clear with pink turbinates. THROAT: No erythema or exudates. NECK: No masses, no JVD. CHEST: No chest wall deformity. LUNGS: Equal air entry with bilateral end expiratory wheeze, diminished. CVS: S1 and S2 normal with no audible murmur, regular rhythm. ABDOMEN: No hepatosplenomegaly, normal bowel sounds, no guarding or rigidity. SPINE: No scoliosis or deformity SKIN: No rashes CENTRAL NERVOUS SYSTEM: No focal deficits, tone is normal in all 4 extremities. EXTREMITIES: There is no peripheral edema. No clubbing, no cyanosis. Peripheral pulses are intact. - Labs CBC & Chem 7: 08/28/21 10:47 08/28/21 10:47 Labs: Abnormal Lab Results - Last 24 Hours (Table) 08/28/21 08/28/21 Range/Units 10:47 10:47 WBC 19.1 H (3.8-10.6) k/uL Hct 47.6 H (34.0-46.0) % Neutrophils # 17.9 H (1.3-7.7) k/uL Lymphocytes # 0.7 L (1.0-4.8) k/uL Sodium 133 L (137-145) mmol/L Chloride 93 L (98-107) mmol/L Carbon Dioxide 36 H (22-30) mmol/L BUN 27 H (7-17) mg/dL Glucose 171 H (74-99) mg/dL Assessment and Plan Assessment: 1 Acute exacerbation of chronic COPD, possibly complicated by tracheobronchitis. Chest x-ray was negative for any acute pulmonary process 2 End-stage COPD, with FEV1 of 29% of predicted, stage IV, with chronic hypoxic respiratory failure, and patient is supposed to be on supplemental oxygen, which she is not always compliant with. Patient had a negative alpha-1 antitrypsin level 3 [id number] smoking history, in remission for the last 2 weeks 4 Fibromyalgia 5 Previous history of COVID-19 pneumonia 2020 6 Previous history of acute respiratory failure requiring intubation and mechanical ventilator support 7 Hypertension 8 Hyperlipidemia 9 Hypothyroidism 10 Sleep apnea on CPAP at home 11 History of seizure disorder 12 Marijuana use 13 Atypical chest pain 14 Mild oral candidiasis Plan: The patient was seen and evaluated Labs and medications reviewed Continue empiric antibiotics, IV Solu-Medrol, bronchodilators Consult cardiology regarding continued chest tightness and palpitations Optimize blood pressure medication Place on telemetry Add Tessalon Perles Add Nystatin Increase her activity as tolerated Titrate her FiO2 as tolerated We will continue to follow I have personally seen and examined the patient, performed the documentation and the assessment and plan as written. Number of minutes spent on the visit: 10.
[2021-08-28] MEDS: NYSTATIN 100,000 UNIT/ML SUSP 500,000 UNIT/5 ML CUP PO SCH ×3 (12:56→21:16)
--- NOTE | 2021-08-28 13:23 | P.PN ---
Subjective Progress Note Date: 08/28/21 History of Presenting Illness: Patient is a very pleasant 46-year-old female with a past medical history of advanced COPD home oxygen dependent on 2 L, and nicotine dependence reportedly recently quit smoking cigarettes 2 weeks ago and started vaping, hypertension, hyperlipidemia, hypothyroidism, fibromyalgia, and seizure disorder. She presented to the emergency department with the chief complaint of worsening shortness of breath. Patient reports this is been ongoing over the past 2 months and has not improved with home nebulizer treatments, cessation of s moking, and home oxygen use. Patient denies having any recent infections or exposure to known ill contacts, fevers, chills, diaphoresis, dizziness, lightheadedness, chest pain, palpitations, nausea, or experiencing any numbness/tingling/weakness in her extremities. 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 Patient underwent full evaluation in the emergency department. Labs were unremarkable with the exception of mild leukocytosis with WBC count of 12.2 and elevated hemoglobin of 16.2. D-dimer was normal findings at 0.32 and troponin also negative at less than 0.012. Chest x-ray completed positive for emphysema. EKG showing sinus rhythm at 86 bpm with no noted T-wave or ST abnormalities. Vital signs stable. Patient maintaining SpO2 of 97% on baseline 2 L O2. Interval history: Patient was seen and examined at the bedside. She is awake alert oriented 3. She is to report significant shortness of breath. Physical exam: Vital signs reviewed and stable. General: Nontoxic, no distress and appears stated age. Derm: Skin warm and dry, normal coloration for ethnicity. Head: Atraumatic, normocephalic and symmetric. Eyes: EOMs intact, no lid lag, and anicteric sclera Mouth: no lip lesions, mucus membranes moist Cardiovascular: regular rate and rhythm with normal S1S2, no murmur, positive posterior tibial pulses bilaterally, and cap refill < 2 seconds. Lungs: Respirations even, regular, and unlabored on 2L. Lungs diminished, but improved airflow from previous exam. Soft diffuse expiratory wheezes bilaterally, no rhonchi, no rales, and no accessory muscle usage. Abdominal: soft, nontender to palpation, no guarding, no appreciable organomegaly Ext: ROM intact. No gross muscle atrophy, no edema, no contractures Neuro: Speech clear, face symmetrical and CN II-XII grossly intact with no noted focal neuro deficits Psych: Alert and oriented to person, place, time, and situation. Appropriate and pleasant affect. Assessment and Plan of Care: Acute exacerbation of COPD History of nicotine dependence currently Vaping -Pulmonology following -Oxygenation to be administered and titrated as needed to maintain SPO2 equal to or greater than 92% -Telemetry monitoring. -Monitor Pulse-oximetry -Duonebs scheduled and as needed for SOB and/or wheezing -Incentive Spirometry -Steroids: Solu-Medrol -Antibiotics: Doxycycline -Symbicort Hypertension -Monitor vital signs and continue daily medication regimen with metoprolol, lisinopril/hydrochlorothiazide, The patient is admitted with an anticipated less than 2 midnight stay for evaluation of COPD exacerbation CODE STATUS: Full code DVT prophylaxis: Lovenox Discussed with: Patient and RN Anticipated discharge date: Tomorrow morning Anticipated discharge place: Home A total of 35 minutes was spent on the care of this complex patient more than 50% of the time was spent in counseling and care coordination. Objective - Vital Signs Vital signs: Vital Signs Temp 97.4 F L 08/28/21 07:38 Pulse 88 08/28/21 11:49 Resp 18 08/28/21 07:38 BP 192/91 08/28/21 07:38 Pulse Ox 94 L 08/28/21 12:00 FiO2 Intake & Output 08/27/21 08/28/21 08/28/21 18:59 06:59 18:59 Intake Total 210 Balance 210 Weight 47.627 kg Intake: Oral 210 Other: Voiding Method Toilet # Voids 1 1 - Labs CBC & Chem 7: 08/28/21 10:47 08/28/21 10:47 Labs: Abnormal Lab Results - Last 24 Hours (Table) 08/28/21 08/28/21 Range/Units 10:47 10:47 WBC 19.1 H (3.8-10.6) k/uL Hct 47.6 H (34.0-46.0) % Neutrophils # 17.9 H (1.3-7.7) k/uL Lymphocytes # 0.7 L (1.0-4.8) k/uL Sodium 133 L (137-145) mmol/L Chloride 93 L (98-107) mmol/L Carbon Dioxide 36 H (22-30) mmol/L BUN 27 H (7-17) mg/dL Glucose 171 H (74-99) mg/dL
--- NOTE | 2021-08-28 14:50 | CONS ---
CONSULTATION CHIEF COMPLAINT: Uncontrolled hypertension. Kasey is a 46-year-old lady with severe COPD, hypertension and dyslipidemia who is admitted to hospital with COPD exacerbation. Cardiology was consulted because of uncontrolled hypertension and chest discomfort. Her predominant symptom is in the form of shortness of breath, and when she gets nebulizers she has a little discomfort in the chest. At the moment her blood pressure is elevated in the 190s. She does not have chest pain, leg edema, PND or orthopnea. There is no prior history of coronary artery disease or congestive heart failure. PAST MEDICAL HISTORY: Significant for COPD, hypertension. MEDICATIONS: Medications at home include , Spiriva, Prilosec, naproxen, Toprol-XL, Zestoretic, Levaquin, Zyrtec, baclofen and albuterol. ALLERGIES: SULFA, NORCO AND MUCINEX. FAMILY HISTORY: Negative for premature coronary artery disease. SOCIAL HISTORY: Negative for current smoking, EtOH abuse or drug abuse. REVIEW OF SYSTEMS: Fourteen out of 14 review of systems had been performed. Pertinents as in the history of presenting illness. PHYSICAL EXAMINATION: Comfortable at rest. Heart rate is 70 beats per minute, blood pressure is 192/90, respiratory rate is 18. Chest exam reveals diminished air entry bilaterally. Heart exam reveals first and second heart sounds. No gallop. No murmur. Abdomen is soft. Examination of extremities did not reveal any edema. Peripheral pulses are felt. LABS: Labs show that the hemoglobin is 15.7, platelet count is 310. Potassium is 4.1. Creatinine is 0.79. ASSESSMENT: 1. Atypical chest pain. 2. Uncontrolled hypertension. PLAN: I will add 10 mg of Norvasc, check an echocardiogram on her and check an EKG. MMODL / IJN: [id number] /
--- NOTE | 2021-08-28 14:52 | CA ---
Transthoracic Echo Report Name: Kasey Frankel Age: 46 Gender: F : 1975 Exam Date: 08/28/2021 14:00 Exam Location: [facility] Ht (in): 65 Wt (lb): 105 Ordering Physician: Giovanni Cannon MD ([id number]) Attending/Referring Phys: Kassandra ADAM [employer] Operator Rhina Brown RDCS Procedure CPT: Indications: Chest Pain Cardiac Hx: Technical Quality: Fair Contrast 1: Total Dose (mL): Contrast 2: Total Dose (mL): MEASUREMENTS (Male / Female) Normal Values 2D ECHO LV Diastolic Diameter PLAX 3.6 cm 4.2 - 5.9 / 3.9 - 5.3 cm LV Systolic Diameter PLAX 2.4 cm IVS Diastolic Thickness 0.9 cm 0.6 - 1.0 / 0.6 - 0.9 cm LVPW Diastolic Thickness 1.1 cm 0.6 - 1.0 / 0.6 - 0.9 cm LV Relative Wall Thickness 0.6 DOPPLER AV Peak Velocity 111.9 cm/s AV Peak Gradient 5.0 mmHg LVOT Peak Velocity 105.3 cm/s LVOT Peak Gradient 4.4 mmHg MV Area PHT 3.0 cm??? Mitral E Point Velocity 76.0 cm/s Mitral A Point Velocity 72.9 cm/s Mitral E to A Ratio 1.0 MV Deceleration Time 249.4 ms TR Peak Velocity 269.7 cm/s TR Peak Gradient 29.1 mmHg Right Ventricular Systolic Press 34.1 mmHg FINDINGS Left Ventricle Normal Left ventricular size, wall thickness, systolic function with no obvious regional wall motion abnormalities. Normal Left ventricular diastolic filling pattern. Left ventricular ejection fraction is estimated at 55-60 %. Right Ventricle Normal right ventricular size and function. Right ventricular systolic pressure within normal limits. Right Atrium Normal right atrial size. Left Atrium Normal left atrial size. No evidence for an atrial septal defect. Mitral Valve Structurally normal mitral valve. No mitral stenosis, regurgitation or prolapse. Aortic Valve Aortic valve not well visualized. No aortic valve stenosis or regurgitation. Tricuspid Valve Structurally normal tricuspid valve. Trace to mild tricuspid regurgitation. Pulmonic Valve Pulmonic valve not well visualized. Pericardium No pericardial effusion. Aorta Aortic root and proximal ascending aorta not well visualized. CONCLUSIONS Left ventricular systolic function is normal Previewed by: Dr. Giovanni Cannon MD (Electronically Signed) Final Date: 28 August 2021 14:51
[2021-08-28] MEDS: amLODIPine 10 MG TAB PO SCH (16:32)
[2021-08-28] MEDS ORDERED: hydrALAZINE HCL 25 MG TAB PO STA (21:57)
[2021-08-29] MEDS: KETOROLAC 15 MG/ML 1 ML VIAL IVP SCH ×2 (05:24→12:06)
[2021-08-29] MEDS: methylPREDNISolone SOD SUCCI 40 MG/ML 1 ML VIAL IV SCH ×3 (05:25→17:26)
[2021-08-29] MEDS: SYMBICORT 160-4.5 MCG INHALER INHALATION SCH (07:06)
[2021-08-29] MEDS: ALBUTEROL NEBULIZED 2.5 MG/3 ML INHALATION PRN (07:06)
[2021-08-29] MEDS: IPRATROPIUM-ALBUTEROL 3 ML NEB INHALATION SCH ×6 (07:07→23:36)
[2021-08-29] MEDS: FLUTICASONE 50MCG/SPRAY NASAL 16GM EA NOSTRIL SCH (07:54)
[2021-08-29] MEDS: ENOXAPARIN 40 MG/0.4 ML SYRINGE SQ SCH (07:54)
[2021-08-29] MEDS: ALPRAZolam 0.25 MG TAB PO PRN ×2 (07:54→20:30)
[2021-08-29] MEDS: ACYCLOVIR 200 MG CAP PO SCH (07:55)
[2021-08-29] MEDS: DOXYCYCLINE 100 MG CAP PO SCH ×2 (07:55→20:27)
[2021-08-29] MEDS: PANTOPRAZOLE 40 MG TABLET PO SCH (07:55)
[2021-08-29] MEDS: CHOLECALCIFEROL 25 MCG (1000 IU) TABLET PO SCH (07:55)
[2021-08-29] MEDS: LISINOPRIL-HCTZ 20-12.5 MG 1 EACH TAB PO SCH (07:56)
[2021-08-29] MEDS: amLODIPine 10 MG TAB PO SCH (07:56)
[2021-08-29] MEDS: NYSTATIN 100,000 UNIT/ML SUSP 500,000 UNIT/5 ML CUP PO SCH ×4 (07:56→20:27)
[2021-08-29] MEDS: METOPROLOL SUCCINATE (ER) 50 MG TAB.ER.24H PO SCH (08:00)
[2021-08-29] MEDS: LORATADINE 10 MG TAB PO SCH (08:00)
[2021-08-29 09:37] LABS: Basophils # (A) 0.02 X 10*3/uL (0.00-0.10); Basophils % (A) 0.1 %; Eosinophils # (A) 0 X 10*3/uL (0.04-0.35); Eosinophils % (A) 0 %; HCT 47.9 % (37.2-46.3); HGB 15.5 g/dL (12.0-15.0); Immature Grans, Automated 0.5 %; Lymphocytes # (A) 1.14 X 10*3/uL (0.90-5.00); Lymphocytes % (A) 6.2 %; MCH 31.2 pg (27.0-32.0); MCHC 32.4 g/dL (32.0-37.0); MCV 96.4 fL (80.0-97.0); Mean Platelet Volume 10.9 fL (9.5-12.2); Monocytes # (A) 0.47 X 10*3/uL (0.20-1.00); Monocytes % (A) 2.6 %; NRBC Per 100 WBC 0 /100 WBCS (0.0-0.0); Neutrophils # (A) 16.65 X 10*3/uL (1.80-7.70); Neutrophils % (A) 90.6 %; Platelet Count 272 X 10*3/uL (140-440); RBC 4.97 X 10*6/uL (4.10-5.20); RDW 11.7 % (11.5-14.5); WBC 18.38 X 10*3/uL (4.50-10.00)
--- NOTE | 2021-08-29 09:50 | P.PN ---
Subjective Progress Note Date: 08/29/21 Principal diagnosis: Acute exacerbation of COPD 46-year-old female patient with past history of severe stage IV COPD, with baseline FEV1 of 29% of predicted, on home oxygen, chronic history of smoking, patient quit 2 weeks ago, she has history of hypertension, hyperlipidemia, s eizure disorder, sleep apnea, previous episode of respiratory failure requiring intubation and mechanical ventilatory support for COVID 19 pneumonia in February 2020, anxiety, depression. Patient presented to the emergency department on 08/26/2021 for evaluation of shortness of breath that has been ongoing for the past 2 months. Patient follows up with Dr. Moore in the pulmonary clinic although she has not seen him since January 2020. Patient is on a combination of Advair Diskus 500 mics50 mics 2 times a day, nebulized albuterol, Spiriva HandiHaler, and a Ventolin HFA. Patient states that her difficulty breathing started 2 months ago, with a sinus infection that has been treated with outpatient steroids and antibiotics with no improvement. She denies any fever or chills. Her chest x-ray in the emergency department showed no acute cardiopulmonary process. It did show prominent lung volumes with flattening of the hemidiaphragms consistent with COPD. Lab evaluation showed a white blood cell, 12.2, hemoglobin of 16.2, coagulation profile was within normal limits, d- dimer was 0.32, electrolytes and renal profile were all within normal limits, AST was 40, ALT was 20, alk phos was 78, troponin was negative at less than 0.012. Patient is on 2 L of oxygen, pulse ox is 98%, she is quite short of breath with any conversation. Lung sounds are diminished, patient denies any he moptysis, no chest pain. She is hemodynamically stable, in sinus mechanism with a controlled rate. We started on IV steroids, breathing treatments, and will add doxycycline for empiric antibiotic coverage. She will be admitted to medical surgical floor The patient is seen today 08/27/2021 in follow-up on the regular medical floor. She is up ambulating in her room. Awake and alert in no acute distress. She is still somewhat bronchospastic and wheezy. She is on 2 L nasal cannula. She is continued on DuoNeb inhalations, Symbicort, IV Solu-Medrol. Empiric antibiotics in the form of doxycycline. Lovenox for DVT prophylaxis. The patient is seen today 08/28/2021 in follow-up on the regular medical floor. Currently sitting up in bed. Awake and alert in no acute distress. Her breathi chelsea is doing about the same spelled still dyspneic with conversation. Dyspneic with exertion. She is also complaining of chest tightness and palpitations. She is maintaining O2 saturations in the mid 90s on 2 L/m per nasal cannula. Afebrile. Somewhat hypertensive. White count 19.1. Hemoglobin 15.7. Sodium 133. Potassium 4.1. BUN 27. Creatinine 0.79. Glucose 171. She is continued on Symbicort, DuoNeb inhalations, IV Solu-Medrol. Empiric antibiotics in form of doxycycline. Lovenox for DVT prophylaxis. The patient is seen today 08/29/2021 in follow-up on the regular medical floor. She is awake and alert in no acute distress. Breathing better today compared to yesterday. She is maintaining O2 saturations in the 90s on 2 L/m per nasal cannula. Echocardiogram revealed preserved left ventricular systolic function. No valvular abnormalities. White count 18.3. Hemoglobin 15.5. Platelets 272. She is continued on Symbicort, DuoNeb inhalations, IV Solu-Medrol. Empiric anti biotics in the form of doxycycline. Amlodipine was added for better blood pressure control. Objective - Vital Signs Vital signs: Vital Signs Temp 98.1 F 08/29/21 07:00 Pulse 90 08/29/21 07:19 Resp 16 08/29/21 07:00 BP 152/89 08/29/21 07:00 Pulse Ox 94 L 08/29/21 07:07 FiO2 Intake & Output 08/28/21 08/29/21 08/29/21 18:59 06:59 18:59 Intake Total 240 Balance 240 Intake: Oral 240 Other: # Voids 1 1 - Exam GENERAL EXAM: Alert, 46-year-old female, on 2 L nasal cannula, comfortable in no apparent distress. HEAD: Normocephalic. EYES: Normal reaction of pupils, equal size. NOSE: Clear with pink turbinates. THROAT: No erythema or exudates. NECK: No masses, no JVD. CHEST: No chest wall deformity. LUNGS: Equal air entry with bilateral end expiratory wheeze, diminished. CVS: S1 and S2 normal with no audible murmur, regular rhythm. ABDOMEN: No hepatosplenomegaly, normal bowel sounds, no guarding or rigidity. SPINE: No scoliosis or deformity SKIN: No rashes CENTRAL NERVOUS SYSTEM: No focal deficits, tone is normal in all 4 extremities. EXTREMITIES: There is no peripheral edema. No clubbing, no cyanosis. Peripheral pulses are intact. - Labs CBC & Chem 7: 08/28/21 10:47 08/28/21 10:47 Labs: Abnormal Lab Results - Last 24 Hours (Table) 08/28/21 08/28/21 Range/Units 10:47 10:47 WBC 19.1 H (3.8-10.6) k/uL Hct 47.6 H (34.0-46.0) % Neutrophils # 17.9 H (1.3-7.7) k/uL Lymphocytes # 0.7 L (1.0-4.8) k/uL Sodium 133 L (137-145) mmol/L Chloride 93 L (98-107) mmol/L Carbon Dioxide 36 H (22-30) mmol/L BUN 27 H (7-17) mg/dL Glucose 171 H (74-99) mg/dL Assessment and Plan Assessment: 1 Acute exacerbation of chronic COPD, possibly complicated by trach eobronchitis. Chest x-ray was negative for any acute pulmonary process 2 End-stage COPD, with FEV1 of 29% of predicted, stage IV, with chronic hypoxic respiratory failure, and patient is supposed to be on supplemental oxygen, which she is not always compliant with. Patient had a negative alpha-1 antitrypsin level 3 [id number] smoking history, in remission for the last 2 weeks 4 Fibromyalgia 5 Previous history of COVID-19 pneumonia 2020 6 Previous history of acute respiratory failure requiring intubation and mechanical ventilator support 7 Hypertension 8 Hyperlipidemia 9 Hypothyroidism 10 Sleep apnea on CPAP at home 11 History of seizure disorder 12 Marijuana use 13 Atypical chest pain 14 Mild oral candidiasis Plan: The patient was seen and evaluated Labs and medications reviewed Continue empiric antibiotics, IV Solu-Medrol, bronchodilators Again educated regarding the importance of complete smoking cessation Increase her activity as tolerated Titrate her FiO2 as tolerated Probable discharge in the a.m. We will continue to follow I have personally seen and examined the patient, performed the documentation and the assessment and plan as written. Number of minutes spent on the visit: 10.
[2021-08-29 10:26] LABS: African American GFR (CKD) 110.6 (60.0-200.0); Anion Gap 6.8 mmol/L (10.00-18.00); BUN/Creat Ratio 27.24 Ratio (12.00-20.00); Blood Urea Nitrogen 20.7 mg/dL (9.0-27.0); Calcium 9.9 mg/dL (8.7-10.3); Carbon Dioxide 38.5 mmol/L (20.0-27.5); Non-African American GFR(CKD) 95.4 (60.0-200.0); Potassium 4.6 mmol/L (3.5-5.5)
--- NOTE | 2021-08-29 14:26 | PN ---
PROGRESS NOTE FOLLOW-UP NOTE: Kasey is a 46-year-old lady with history of severe COPD who is admitted to hospital with COPD exacerbation, and I have been consulted because of uncontrolled hypertension. On exam, comfortable at rest. Blood pressure is still poorly controlled. Chest exam reveals bilateral rhonchi. Heart exam reveals first and second heart sounds. No gallop. Examination of extremities did not reveal any edema. Peripheral pulses are palpable. Patient had an echocardiogram yesterday that revealed normal LV systolic function. ASSESSMENT: Uncontrolled hypertension. PLAN: I will increase the dose of Toprol to 100 mg daily, continue the Norvasc and the Zestoretic that she is currently on. MMODL / IJN: [id number] /
--- NOTE | 2021-08-29 17:13 | P.PN ---
Progress Note - Text Progress Note Date: 08/29/21 Hospital course:: Patient was admitted under observation per [facility] policy under [facility] [place] [facility]. Admitted with COPD exacerbation. Patient does vaping. August 29: 46-year-old patient who follows with Dr. Blackwood and inclusion internship Dr. Moore. Patient appears quite a bit short of breath. Some wheezing. Decrease sputum production. Starting some diet. The patient sit up in a chair. Increase DuoNeb to every 4. Change Symbicort to nebulized Perforomist and Pulmicort. Active Medications Acyclovir (Acyclovir 200 Mg Cap) 400 mg PO DAILY [facility] Last Admin: 08/29/21 07:55 Dose: 400 mg Albuterol Sulfate (Albuterol Nebulized 2.5 Mg/3 Ml) 2.5 mg INHALATION RT-Q4H PRN PRN Reason: Shortness Of Breath Last Admin: 08/29/21 07:06 Dose: 2.5 mg Albuterol/Ipratropium (Ipratropium-Albuterol 3 Ml Neb) 3 ml INHALATION RT-Q4H [facility] Last Admin: 08/29/21 16:12 Dose: 3 ml Alprazolam (Alprazolam 0.25 Mg Tab) 0.25 mg PO TID PRN PRN Reason: Anxiety Last Admin: 08/29/21 07:54 Dose: 0.25 mg Amlodipine Besylate (Amlodipine 10 Mg Tab) 10 mg PO DAILY [facility] Last Admin: 08/29/21 07:56 Dose: 10 mg Baclofen (Baclofen 10 Mg Tab) 10 mg PO TID PRN PRN Reason: Pain Last Admin: 08/27/21 03:23 Dose: 10 mg Benzonatate (Benzonatate 100 Mg Cap) 200 mg PO TID PRN PRN Reason: Cough Last Admin: 08/28/21 16:32 Dose: 200 mg Budesonide (Budesonide 1 Mg/2 Ml Nebu) 1 mg INHALATION RT-BID [facility] Cholecalciferol (Cholecalciferol 25 Mcg (1000 Iu) Tablet) 25 mcg PO DAILY [facility] Last Admin: 08/29/21 07:55 Dose: 25 mcg Doxycycline Monohydrate (Doxycycline 100 Mg Cap) 100 mg PO BID [facility]; Protocol Last Admin: 08/29/21 07:55 Dose: 100 mg Enoxaparin Sodium (Enoxaparin 40 Mg/0.4 Ml Syringe) 40 mg SQ DAILY [facility] Last Admin: 08/29/21 07:54 Dose: 40 mg Fluticasone Propionate (Fluticasone 50mcg/[place] Nasal 16gm) 1 spray EA NOSTRIL DAILY [facility] Last Admin: 08/29/21 07:54 Dose: 1 spray Formoterol Fumarate (Formoterol Fumarate 20 Mcg/2 Ml Nebu) 20 mcg INHALATION RT-BID [facility] Lisinopril/HCTZ (Lisinopril-Hctz 20-12.5 Mg 1 Each Tab) 1 each PO DAILY [facility] Last Admin: 08/29/21 07:56 Dose: 1 each Loratadine (Loratadine 10 Mg Tab) 10 mg PO DAILY [facility] Last Admin: 08/29/21 08:00 Dose: 10 mg Methylprednisolone Sodium Succinate (Methylprednisolone Sod Succi 40 Mg/Ml 1 Ml Vial) 40 mg IV Q6HR [facility] Last Admin: 08/29/21 12:07 Dose: 40 mg Metoprolol Succinate (Metoprolol Succinate (Er) 100 Mg Tab.Er.24h) 100 mg PO DAILY [facility] Nystatin (Nystatin 100,000 Unit/Ml Susp 500,000 Unit/5 Ml Cup) 500,000 unit PO QID [facility]; Protocol Last Admin: 08/29/21 12:08 Dose: 500,000 unit Pantoprazole Sodium (Pantoprazole 40 Mg Tablet) 40 mg PO AC-BRKFST [facility] Last Admin: 08/29/21 07:55 Dose: 40 mg Physical examination: VITAL SIGNS: 98.2, 92, 16, 90/59, 94% on 2 L GENERAL: Sitting up in bed, short of breath EYES: Pupils equal. Conjunctiva normal. HEENT: External appearance of nose and ears normal, oral cavity grossly normal. NECK: JVD not raised; masses not palpable. HEART: First and second heart sounds are normal; no edema. LUNGS: Respiratory rate increased, short of breath at rest, diminished breath sounds prolonged expiration. ABDOMEN: Soft, nontender, liver spleen not palpable, no masses palpable. PSYCH: Alert and oriented x3; mood and affect anxious. INVESTIGATIONS, reviewed in the clinical context: White count 18.3 hemoglobin 15.5 platelets 272 progression 4.6 creatinine 0.8 2-D echocardiogram: EF 55-60%. Chest x-ray film personally reviewed by me-hyperinflated Assessment and plan: -Acute severe COPD exacerbation, in a previous cigarette smoker-with a prior history of , currently vaping: Slow to respond Increase DuoNeb every 4. Change Symbicort to nebulized Perforomist and Pulmicort. IV Solu-Medrol. -Chronic nicotine dependence, as vaping Nicotine patch -chronic fibromyalgia Baclofen 10 mg 3 times a day when necessary -Essential hypertension Toprol-XL 50 mg a day, Zestoretic 20/12.5 one tablet daily -Chronic epilepsy -Gallstone asymptomatic Continue DuoNeb, stop Symbicort. Start nebulized Perforomist and Pulmicort. Continue IV Solu-Medrol. Discussed with patient. At the patient sit up in a chair. Incentive spirometry.
[2021-08-29] MEDS: NICOTINE 21MG/24HR PATCH TRANSDERM SCH (17:26)
[2021-08-29] MEDS: BUDESONIDE 1 MG/2 ML NEBU INHALATION SCH (19:36)
[2021-08-29] MEDS: FORMOTEROL FUMARATE 20 MCG/2 ML NEBU INHALATION SCH (19:36)
[2021-08-30] MEDS: methylPREDNISolone SOD SUCCI 40 MG/ML 1 ML VIAL IV SCH ×4 (00:40→17:28)
[2021-08-30] MEDS: IPRATROPIUM-ALBUTEROL 3 ML NEB INHALATION SCH ×6 (03:49→23:46)
[2021-08-30] MEDS: BUDESONIDE 1 MG/2 ML NEBU INHALATION SCH ×2 (07:16→19:57)
[2021-08-30] MEDS: FORMOTEROL FUMARATE 20 MCG/2 ML NEBU INHALATION SCH ×2 (07:16→19:57)
[2021-08-30] MEDS: NICOTINE 21MG/24HR PATCH TRANSDERM SCH (07:19)
[2021-08-30] MEDS: CHOLECALCIFEROL 25 MCG (1000 IU) TABLET PO SCH (07:54)
[2021-08-30] MEDS: amLODIPine 10 MG TAB PO SCH (07:54)
[2021-08-30] MEDS: PANTOPRAZOLE 40 MG TABLET PO SCH (07:54)
[2021-08-30] MEDS: ACYCLOVIR 200 MG CAP PO SCH (07:54)
[2021-08-30] MEDS: DOXYCYCLINE 100 MG CAP PO SCH ×2 (07:54→19:19)
[2021-08-30] MEDS: LORATADINE 10 MG TAB PO SCH (07:55)
[2021-08-30] MEDS: METOPROLOL SUCCINATE (ER) 100 MG TAB.ER.24H PO SCH ×3 (07:55→11:23)
[2021-08-30] MEDS: LISINOPRIL-HCTZ 20-12.5 MG 1 EACH TAB PO SCH (07:55)
[2021-08-30] MEDS: FLUTICASONE 50MCG/SPRAY NASAL 16GM EA NOSTRIL SCH (07:55)
[2021-08-30] MEDS: NYSTATIN 100,000 UNIT/ML SUSP 500,000 UNIT/5 ML CUP PO SCH ×4 (07:57→21:52)
[2021-08-30] MEDS: ENOXAPARIN 40 MG/0.4 ML SYRINGE SQ SCH (07:57)
--- NOTE | 2021-08-30 09:38 | P.PN ---
Subjective Patient is resting comfortably in bed No chest pain no distress Normal respirations Her blood pressure is better controlled She is admitted with uncontrolled hypertension and amlodipine was increased to [address] Miller On examination normal heart sounds no murmurs Normal breath sounds no rhonchi no crackles No JVD Blood pressure 128/65 mmHg afebrile 97.8F Pulse rate in the 80s Impression Uncontrolled hypertension Now on amlodipine 10 mg daily If symptomatic today doing well Blood pressure is normal Plan Stable from cardio vascular standpoint she may go home later today if her blood pressure remains well controlled Follow-up with Dr. Miller within a week I'll sign off Objective - Vital Signs Vital signs: Vital Signs Temp 97.8 F 08/30/21 07:00 Pulse 84 08/30/21 07:33 Resp 18 08/30/21 07:00 BP 128/65 08/30/21 07:00 Pulse Ox 99 08/30/21 07:00 FiO2 Intake & Output 08/29/21 08/30/21 08/30/21 18:59 06:59 18:59 Intake Total 240 Balance 240 Intake: Oral 240 Other: Voiding Method Toilet Toilet # Voids 3 2 - Labs CBC & Chem 7: 08/29/21 06:27 08/29/21 06:27 Labs: Abnormal Lab Results - Last 24 Hours (Table) 08/29/21 08/29/21 Range/Units 06:27 06:27 WBC 18.38 H (4.50-10.00) X 10*3/uL Hgb 15.5 H (12.0-15.0) g/dL Hct 47.9 H (37.2-46.3) % Immature Gran # 0.10 H (0.00-0.04) X 10*3/uL Neutrophils # 16.65 H (1.80-7.70) X 10*3/uL Eosinophils # 0 L (0.04-0.35) X 10*3/uL Chloride 91 L (96-109) mmol/L Carbon Dioxide 38.5 H (20.0-27.5) mmol/L Anion Gap 6.80 L (10.00-18.00) mmol/L BUN/Creatinine Ratio 27.24 H (12.00-20.00) Ratio Glucose 118 H (70-110) mg/dL
--- NOTE | 2021-08-30 09:45 | P.PN ---
Subjective Progress Note Date: 08/30/21 Principal diagnosis: Acute exacerbation of COPD 46-year-old female patient with past history of severe stage IV COPD, with baseline FEV1 of 29% of predicted, on home oxygen, chronic history of smoking, patient quit 2 weeks ago, she has history of hypertension, hyperlipidemia, s eizure disorder, sleep apnea, previous episode of respiratory failure requiring intubation and mechanical ventilatory support for COVID 19 pneumonia in February 2020, anxiety, depression. Patient presented to the emergency department on 08/26/2021 for evaluation of shortness of breath that has been ongoing for the past 2 months. Patient follows up with Dr. Moore in the pulmonary clinic although she has not seen him since January 2020. Patient is on a combination of Advair Diskus 500 mics50 mics 2 times a day, nebulized albuterol, Spiriva HandiHaler, and a Ventolin HFA. Patient states that her difficulty breathing started 2 months ago, with a sinus infection that has been treated with outpatient steroids and antibiotics with no improvement. She denies any fever or chills. Her chest x-ray in the emergency department showed no acute cardiopulmonary process. It did show prominent lung volumes with flattening of the hemidiaphragms consistent with COPD. Lab evaluation showed a white blood cell, 12.2, hemoglobin of 16.2, coagulation profile was within normal limits, d- dimer was 0.32, electrolytes and renal profile were all within normal limits, AST was 40, ALT was 20, alk phos was 78, troponin was negative at less than 0.012. Patient is on 2 L of oxygen, pulse ox is 98%, she is quite short of breath with any conversation. Lung sounds are diminished, patient denies any he moptysis, no chest pain. She is hemodynamically stable, in sinus mechanism with a controlled rate. We started on IV steroids, breathing treatments, and will add doxycycline for empiric antibiotic coverage. She will be admitted to medical surgical floor The patient is seen today 08/27/2021 in follow-up on the regular medical floor. She is up ambulating in her room. Awake and alert in no acute distress. She is still somewhat bronchospastic and wheezy. She is on 2 L nasal cannula. She is continued on DuoNeb inhalations, Symbicort, IV Solu-Medrol. Empiric antibiotics in the form of doxycycline. Lovenox for DVT prophylaxis. The patient is seen today 08/28/2021 in follow-up on the regular medical floor. Currently sitting up in bed. Awake and alert in no acute distress. Her breathi chelsea is doing about the same spelled still dyspneic with conversation. Dyspneic with exertion. She is also complaining of chest tightness and palpitations. She is maintaining O2 saturations in the mid 90s on 2 L/m per nasal cannula. Afebrile. Somewhat hypertensive. White count 19.1. Hemoglobin 15.7. Sodium 133. Potassium 4.1. BUN 27. Creatinine 0.79. Glucose 171. She is continued on Symbicort, DuoNeb inhalations, IV Solu-Medrol. Empiric antibiotics in form of doxycycline. Lovenox for DVT prophylaxis. The patient is seen today 08/29/2021 in follow-up on the regular medical floor. She is awake and alert in no acute distress. Breathing better today compared to yesterday. She is maintaining O2 saturations in the 90s on 2 L/m per nasal cannula. Echocardiogram revealed preserved left ventricular systolic function. No valvular abnormalities. White count 18.3. Hemoglobin 15.5. Platelets 272. She is continued on Symbicort, DuoNeb inhalations, IV Solu-Medrol. Empiric anti biotics in the form of doxycycline. Amlodipine was added for better blood pressure control. The patient is seen today 08/30/2021 in follow-up on the regular medical floor. She is currently sitting up in bed. Awake and alert in no acute distress. Feeling nearly back to her baseline. She is less shortness of breath. Less cough, less chest tightness and wheezing. Maintaining O2 saturations in the 90s on room air. She remains on IV Solu-Medrol, DuoNeb inhalations, Pulmicort and Perforomist inhalations. Empiric antibiotics in the form of doxycycline. Lovenox for DVT prophylaxis. Objective - Vital Signs Vital signs: Vital Signs Temp 97.8 F 08/30/21 07:00 Pulse 84 08/30/21 07:33 Resp 18 08/30/21 07:00 BP 128/65 08/30/21 07:00 Pulse Ox 99 08/30/21 07:00 FiO2 Intake & Output 08/29/21 08/30/21 08/30/21 18:59 06:59 18:59 Intake Total 240 Balance 240 Intake: Oral 240 Other: Voiding Method Toilet Toilet # Voids 3 2 - Exam GENERAL EXAM: Alert, 46-year-old female, on 3 L nasal cannula, comfortable in no apparent distress. HEAD: Normocephalic. EYES: Normal reaction of pupils, equal size. NOSE: Clear with pink turbinates. THROAT: No erythema or exudates. NECK: No masses, no JVD. CHEST: No chest wall deformity. LUNGS: Equal air entry with bilateral end expiratory wheeze, diminished. CVS: S1 and S2 normal with no audible murmur, regular rhythm. ABDOMEN: No hepatosplenomegaly, normal bowel sounds, no guarding or rigidity. SPINE: No scoliosis or deformity SKIN: No rashes CENTRAL NERVOUS SYSTEM: No focal deficits, tone is normal in all 4 extremities. EXTREMITIES: There is no peripheral edema. No clubbing, no cyanosis. Peripheral pulses are intact. - Labs CBC & Chem 7: 08/29/21 06:27 08/29/21 06:27 Labs: Abnormal Lab Results - Last 24 Hours (Table) 08/29/21 08/29/21 Range/Units 06:27 06:27 WBC 18.38 H (4.50-10.00) X 10*3/uL Hgb 15.5 H (12.0-15.0) g/dL Hct 47.9 H (37.2-46.3) % Immature Gran # 0.10 H (0.00-0.04) X 10*3/uL Neutrophils # 16.65 H (1.80-7.70) X 10*3/uL Eosinophils # 0 L (0.04-0.35) X 10*3/uL Chloride 91 L (96-109) mmol/L Carbon Dioxide 38.5 H (20.0-27.5) mmol/L Anion Gap 6.80 L (10.00-18.00) mmol/L BUN/Creatinine Ratio 27.24 H (12.00-20.00) Ratio Glucose 118 H (70-110) mg/dL Assessment and Plan Assessment: 1 Acute exacerbation of chronic COPD, possibly complicated by tracheobronchitis. Chest x-ray was negative for any acute pulmonary process 2 End-stage COPD, with FEV1 of 29% of predicted, stage IV, with chronic hypoxic respiratory failure, and patient is supposed to be on supplemental oxygen, which she is not always compliant with. Patient had a negative alpha-1 antitrypsin level 3 [id number] smoking history, in remission for the last 2 weeks 4 Fibromyalgia 5 Previous history of COVID-19 pneumonia 2020 6 Previous history of acute respiratory failure requiring intubation and mechanical ventilator support 7 Hypertension 8 Hyperlipidemia 9 Hypothyroidism 10 Sleep apnea on CPAP at home 11 History of seizure disorder 12 Marijuana use 13 Atypical chest pain 14 Mild oral candidiasis Plan: The patient was seen and evaluated Cleared for discharge from the pulmonary standpoint Again educated regarding the importance of complete smoking cessation Declined NicoDerm patch Evaluate for possible home oxygen Continue Symbicort, albuterol HFA, DuoNeb inhalations Complete a prednisone taper started at 40 mg daily for 4 days Follow up with Dr. Moore this week in the office I have personally seen and examined the patient, performed the documentation and the assessment and plan as written. Number of minutes spent on the visit: 10.
--- NOTE | 2021-08-30 17:10 | P.PN ---
Progress Note - Text Progress Note Date: 08/30/21 Hospital course:: Patient was admitted under observation per [facility] policy under sound physicia ns. Admitted with COPD exacerbation. Patient does vaping. August 29: 46-year-old patient who follows with Dr. Blackwood and rn clinical coordinator Dr. Moore. Patient appears quite a bit short of breath. Some wheezing. Decrease sputum production. Starting some diet. The patient sit up in a chair. Increase DuoNeb to every 4. Change Symbicort to nebulized Perforomist and Pulmicort. August 30: Some improvement in breathing. Does get short winded. Eating fair. On IV Solu-Medrol DuoNeb nebulized bronchodilator and steroid. Increase activity. Active Medications Acyclovir (Acyclovir 200 Mg Cap) 400 mg PO DAILY [facility] Last Admin: 08/30/21 07:54 Dose: 400 mg Albuterol Sulfate (Albuterol Nebulized 2.5 Mg/3 Ml) 2.5 mg INHALATION RT-Q4H PRN PRN Reason: Shortness Of Breath Last Admin: 08/29/21 07:06 Dose: 2.5 mg Albuterol/Ipratropium (Ipratropium-Albuterol 3 Ml Neb) 3 ml INHALATION RT-Q4H SARAH Last Admin: 08/30/21 15:20 Dose: 3 ml Alprazolam (Alprazolam 0.25 Mg Tab) 0.25 mg PO TID PRN PRN Reason: Anxiety Last Admin: 08/29/21 20:30 Dose: 0.25 mg Amlodipine Besylate (Amlodipine 10 Mg Tab) 10 mg PO DAILY SARAH Last Admin: 08/30/21 07:54 Dose: 10 mg Baclofen (Baclofen 10 Mg Tab) 10 mg PO TID PRN PRN Reason: Pain Last Admin: 08/27/21 03:23 Dose: 10 mg Benzonatate (Benzonatate 100 Mg Cap) 200 mg PO TID PRN PRN Reason: Cough Last Admin: 08/28/21 16:32 Dose: 200 mg Budesonide (Budesonide 1 Mg/2 Ml Nebu) 1 mg INHALATION RT-BID SARAH Last Admin: 08/30/21 07:16 Dose: 1 mg Cholecalciferol (Cholecalciferol 25 Mcg (1000 Iu) Tablet) 25 mcg PO DAILY SARAH Last Admin: 08/30/21 07:54 Dose: 25 mcg Doxycycline Monohydrate (Doxycycline 100 Mg Cap) 100 mg PO BID [facility]; Protocol Last Admin: 08/30/21 07:54 Dose: 100 mg Enoxaparin Sodium (Enoxaparin 40 Mg/0.4 Ml Syringe) 40 mg SQ DAILY [facility] Last Admin: 08/30/21 07:57 Dose: Not Given Fluticasone Propionate (Fluticasone 50mcg/[place] Nasal 16gm) 1 spray EA NOSTRIL DAILY [facility] Last Admin: 08/30/21 07:55 Dose: 1 spray Formoterol Fumarate (Formoterol Fumarate 20 Mcg/2 Ml Nebu) 20 mcg INHALATION RT-BID [facility] Last Admin: 08/30/21 07:16 Dose: 20 mcg Lisinopril/HCTZ (Lisinopril-Hctz 20-12.5 Mg 1 Each Tab) 1 each PO DAILY [facility] Last Admin: 08/30/21 07:55 Dose: 1 each Loratadine (Loratadine 10 Mg Tab) 10 mg PO DAILY [facility] Last Admin: 08/30/21 07:55 Dose: 10 mg Methylprednisolone Sodium Succinate (Methylprednisolone Sod Succi 40 Mg/Ml 1 Ml Vial) 40 mg IV Q6HR [facility] Last Admin: 08/30/21 11:25 Dose: 40 mg Metoprolol Succinate (Metoprolol Succinate (Er) 100 Mg Tab.Er.24h) 100 mg PO DAILY [facility] Last Admin: 08/30/21 11:23 Dose: 100 mg Nicotine (Nicotine 21mg/24hr Patch) 1 patch TRANSDERM DAILY [facility] Last Admin: 08/30/21 07:19 Dose: Not Given Nystatin (Nystatin 100,000 Unit/Ml Susp 500,000 Unit/5 Ml Cup) 500,000 unit PO QID [facility]; Protocol Last Admin: 08/30/21 13:18 Dose: 500,000 unit Pantoprazole Sodium (Pantoprazole 40 Mg Tablet) 40 mg PO AC-BRKFST [facility] Last Admin: 08/30/21 07:54 Dose: 40 mg Physical examination: VITAL SIGNS: 97.7, 67, 16, 10 9 x 69, 95% on 3 L GENERAL: Sitting up in bed, less short of breath EYES: Pupils equal. Conjunctiva normal. HEENT: External appearance of nose and ears normal, oral cavity grossly normal. NECK: JVD not raised; masses not palpable. HEART: First and second heart sounds are normal; no edema. LUNGS: Respiratory rate increased, , diminished breath sounds prolonged expiration. ABDOMEN: Soft, nontender, liver spleen not palpable, no masses palpable. PSYCH: Alert and oriented x3; mood and affect anxious. INVESTIGATIONS, reviewed in the clinical context: White count 18.3 hemoglobin 15.5 platelets 272 progression 4.6 creatinine 0.8 2-D echocardiogram: EF 55-60%. Chest x-ray film personally reviewed by me-hyperinflated Assessment and plan: -Acute severe COPD exacerbation, in a previous cigarette smoker-with a prior history of , currently vaping: Increase DuoNeb every 4. Change Symbicort to nebulized Perforomist and Pulmicort. IV Solu-Medrol. -Chronic nicotine dependence, as vaping Nicotine patch -chronic fibromyalgia Baclofen 10 mg 3 times a day when necessary -Essential hypertension Toprol-XL 50 mg a day, Zestoretic 20/12.5 one tablet daily -Chronic epilepsy -Gallstone asymptomatic Continue DuoNeb, , nebulized Perforomist and Pulmicort. Changed to oral prednisone in the morning. Discussed with patient. Increase activity.. Incentive spirometry reminded.
[2021-08-30] MEDS: ALPRAZolam 0.25 MG TAB PO PRN (21:52)
[2021-08-31] MEDS: IPRATROPIUM-ALBUTEROL 3 ML NEB INHALATION SCH ×3 (03:28→11:28)
[2021-08-31 07:11] VITALS: BP 137/80; RESP 18; TEMP 97.9
--- NOTE | 2021-08-31 07:24 | P.PN ---
Subjective Progress Note Date: 08/31/21 Principal diagnosis: COPD exacerbation. The patient is seen today 08/28/2021 in follow-up on the regular medical floor. Currently sitting up in bed. Awake and alert in no acute distress. Her breathing is doing about the same spelled still dyspneic with conversation. Dyspneic with exertion. She is also complaining of chest tightness and palpitations. She is maintaining O2 saturations in the mid 90s on 2 L/m per nasal cannula. Afebrile. Somewhat hypertensive. White count 19.1. Hemoglobin 15.7. Sodium 133. Potassium 4.1. BUN 27. Creatinine 0.79. Glucose 171. She is continued on Symbicort, DuoNeb inhalations, IV Solu-Medrol. Empiric antibiotics in form of doxycycline. Lovenox for DVT prophylaxis. The patient is seen today 08/29/2021 in follow-up on the regular medical floor. She is awake and alert in no acute distress. Breathing better today compared to yesterday. She is maintaining O2 saturations in the 90s on 2 L/m per nasal cannula. Echocardiogram revealed preserved left ventricular systolic function. No valvular abnormalities. White count 18.3. Hemoglobin 15.5. Platelets 272. She is continued on Symbicort, DuoNeb inhalations, IV Solu-Medrol. Empiric antibiotics in the form of doxycycline. Amlodipine was added for better blood pressure control. The patient is seen today 08/30/2021 in follow-up on the regular medical floor. She is currently sitting up in bed. Awake and alert in no acute distress. Feeling nearly back to her baseline. She is less shortness of breath. Less cough, less chest tightness and wheezing. Maintaining O2 saturations in the 90s on room air. She remains on IV Solu-Medrol, DuoNeb inhalations, Pulmicort and Perforomist inhalations. Empiric antibiotics in the form of doxycycline. Lovenox for DVT prophylaxis. Progress note dated 08/31/2021. The patient's doing well. The patient could be discharged home. I mentioned that yesterday. I'm not sure why she still in the hospital. The patient should follow with my partner post discharge. She had an uneventful night. Saturations are 100% on 3 L of nasal oxygen. No new labs today. Objective - Vital Signs Vital signs: Vital Signs Temp 97.9 F 08/31/21 07:10 Pulse 64 08/31/21 07:10 Resp 18 08/31/21 07:10 BP 137/80 08/31/21 07:10 Pulse Ox 100 08/31/21 07:10 FiO2 Intake & Output 08/30/21 08/31/21 08/31/21 18:59 06:59 18:59 Intake Total 420 Balance 420 Weight 47.627 kg Intake: Oral 420 Other: Voiding Method Toilet # Voids 1 3 - Exam No acute distress, oriented 3. No audible wheezing, use of accessory muscles, or conversational dyspnea. HEENT examination is grossly unremarkable. Neck supple. Full range of motion. No adenopathy thyromegaly or neck vein distention. Cardiovascular examination reveals regular rhythm rate. S1-S2 normal. No S3 or S4. No discernible murmur noted. Heart rate 64 bpm. Lungs reveal minimal scattered rhonchi and expiratory wheezes. Breath sounds equal bilaterally. No crackles. Breath sounds are diminished throughout. Abdomen soft bowel sounds are heard. No masses or tenderness. Extremities are intact. No cyanosis clubbing or edema. Skin is without rash or lesion. Neurologic examination is brief but nonfocal. - Labs CBC & Chem 7: 08/29/21 06:27 08/29/21 06:27 Assessment and Plan Assessment: Acute exacerbation of COPD. End-stage COPD, with an FEV1 that is 29% of predicted. History of recent tobacco cessation, after 30 years of tobacco use. History of fibromyalgia. Previous history of coronavirus associated pneumonia, 2019. Prior history of acute respiratory failure requiring intubation/mechanical ventilation. History of hypertension. History of hyperlipidemia. History of hypothyroidism. History of obstructive sleep apnea syndrome. History of seizure disorder. History of marijuana use. Atypical chest pain. Oropharyngeal candidiasis. Plan: Plan dated 08/31/2021. The patient could be discharged home. I'm not sure why she still here in the hospital. There was really no reason to keep her another night. The patient's doing well. The patient quit smoking 2 weeks ago. She'll follow with my partner in the office. Prognosis is guarded. Time with Patient: Less than 30
[2021-08-31] MEDS: ENOXAPARIN 40 MG/0.4 ML SYRINGE SQ SCH (08:07)
[2021-08-31] MEDS: NICOTINE 21MG/24HR PATCH TRANSDERM SCH (08:07)
[2021-08-31] MEDS: BUDESONIDE 1 MG/2 ML NEBU INHALATION SCH (08:14)
[2021-08-31] MEDS: FORMOTEROL FUMARATE 20 MCG/2 ML NEBU INHALATION SCH (08:14)
[2021-08-31 08:36] VITALS: PULSE 84
[2021-08-31] MEDS: PANTOPRAZOLE 40 MG TABLET PO SCH (08:47)
[2021-08-31] MEDS: FLUTICASONE 50MCG/SPRAY NASAL 16GM EA NOSTRIL SCH (08:47)
[2021-08-31] MEDS: amLODIPine 10 MG TAB PO SCH (08:47)
[2021-08-31] MEDS: ACYCLOVIR 200 MG CAP PO SCH (08:47)
[2021-08-31] MEDS: CHOLECALCIFEROL 25 MCG (1000 IU) TABLET PO SCH (08:47)
[2021-08-31] MEDS: DOXYCYCLINE 100 MG CAP PO SCH (08:47)
[2021-08-31] MEDS: NYSTATIN 100,000 UNIT/ML SUSP 500,000 UNIT/5 ML CUP PO SCH (08:48)
[2021-08-31] MEDS: LORATADINE 10 MG TAB PO SCH (08:48)
[2021-08-31] MEDS: METOPROLOL SUCCINATE (ER) 100 MG TAB.ER.24H PO SCH (08:48)
[2021-08-31] MEDS: LISINOPRIL-HCTZ 20-12.5 MG 1 EACH TAB PO SCH (08:48)
[2021-08-31] MEDS ORDERED: predniSONE 20 MG TAB PO SCH (09:00)
--- NOTE | 2021-08-31 15:53 | P.DS ---
Providers Date of admission: 08/28/21 13:47 Expected date of discharge: 08/31/21 Attending physician: Олег Henao Consults: 08/26/21 11:47 Consult Physician Routine Consulting Provider: Elieser Castillo Consult Reason/Comments: COPD exacerbation Do you want consulting provider notified?: Yes, Notify in am 08/28/21 10:20 Consult Physician Routine Consulting Provider: Giovanni Cannon Consult Reason/Comments: Chesst pain Do you want consulting provider notified?: Yes Primary care physician: Kirk Blackwood [facility] Course: Hospital course:: Patient was admitted under observation per [facility] policy under [facility]. Admitted with COPD exacerbation. Patient does vaping. August 29: 46-year-old patient who follows with Dr. Blackwood and anthropologist physical Dr. Moore. Patient appears quite a bit short of breath. Some wheezing. Decrease sputum production. Starting some diet. The patient sit up in a chair. Increase DuoNeb to every 4. Change Symbicort to nebulized Perforomist and Pulmicort. August 30: Some improvement in breathing. Does get short winded. Eating fair. On IV Solu-Medrol DuoNeb nebulized bronchodilator and steroid. Increase activity. August 31: Breathing better. Up and about. Being discharged on prednisone taper. Symbicort. Follow up with her anthropologist physical. Questions answered. Nicotine patch. Discussion and discharge planning more than 35 minutes Physical examination: VITAL SIGNS: 97.9, 64, 18, 1 37 x 80, 100% on 3 L GENERAL: More comfortable EYES: Pupils equal. Conjunctiva normal. HEENT: External appearance of nose and ears normal, oral cavity grossly normal. NECK: JVD not raised; masses not palpable. HEART: First and second heart sounds are normal; no edema. LUNGS: Respiratory rate normal, diminished breath sounds ABDOMEN: Soft, nontender, liver spleen not palpable, no masses palpable. PSYCH: Alert and oriented x3; mood and affect anxious. INVESTIGATIONS, reviewed in the clinical context: White count 18.3 hemoglobin 15.5 platelets 272 progression 4.6 creatinine 0.8 2-D echocardiogram: EF 55-60%. Chest x-ray film personally reviewed by me-hyperinflated Assessment and plan: -Acute severe COPD exacerbation, in a previous cigarette smoker-with a prior history of , currently vaping: Better Discharge on prednisone taper. Symbicort. Albuterol when necessary. -Chronic nicotine dependence, as vaping Nicotine patch -chronic fibromyalgia Baclofen 10 mg 3 times a day when necessary -Essential hypertension Toprol-XL 50 mg a day, Zestoretic 20/12.5 one tablet daily -Chronic epilepsy -Gallstone asymptomatic Disposition: Home Plan - Discharge Summary New Discharge Prescriptions: New Nicotine 21Mg/24Hr Patch [Habitrol] 1 patch TRANSDERM DAILY #14 patch Budesonide-Formot 160-4.5 Mcg [Symbicort 160-4.5 Mcg Inhaler] 2 puff INHALATION BID #10.2 gm Doxycycline [Vibramycin] 100 mg PO BID #6 cap predniSONE 10 mg PO DAILY #30 tab amLODIPine [Norvasc] 10 mg PO HS #30 tab Metoprolol Succinate (ER) [Toprol XL] 100 mg PO DAILY #30 tab Continue Cholecalciferol [Vitamin D3 (25 Mcg = 1000 Iu)] 25 mcg PO DAILY Baclofen 10 mg PO TID PRN PRN Reason: Pain Naproxen 500 mg PO BID Albuterol Sulfate [Proair Hfa] 2 puff INHALATION RT-Q4H PRN PRN Reason: Shortness Of Breath Cetirizine HCl [Zyrtec] 10 mg PO DAILY Lisinopril-Hctz 20-12.5 mg [Zestoretic 20-12.5] 1 tab PO DAILY Omeprazole [PriLOSEC] 20 mg PO AC-BRKFST Tiotropium [place] [Spiriva] 1 cap INHALATION RT-DAILY Acyclovir [Zovirax] 400 mg PO DAILY Discontinued Metoprolol Succinate [Toprol XL] 50 mg PO DAILY Levofloxacin [Levaquin] 750 mg PO DAILY predniSONE [Deltasone] See Taper PO DIRECTED Discharge Medication List Cholecalciferol [Vitamin D3 (25 Mcg = 1000 Iu)] 25 mcg PO DAILY 05/26/15 [History] Baclofen 10 mg PO TID PRN 12/14/16 [History] Naproxen 500 mg PO BID 09/04/20 [History] Omeprazole [PriLOSEC] 20 mg PO AC-BRKFST 09/04/20 [History] Tiotropium [place] [Spiriva] 1 cap INHALATION RT-DAILY 09/04/20 [History] Albuterol Sulfate [Proair Hfa] 2 puff INHALATION RT-Q4H PRN 08/26/21 [History] Cetirizine HCl [Zyrtec] 10 mg PO DAILY 08/26/21 [History] Lisinopril-Hctz 20-12.5 mg [Zestoretic 20-12.5] 1 tab PO DAILY 08/26/21 [History] Acyclovir [Zovirax] 400 mg PO DAILY 08/27/21 [History] Budesonide-Formot 160-4.5 Mcg [Symbicort 160-4.5 Mcg Inhaler] 2 puff INHALATION BID #10.2 gm 08/31/21 [Rx] Doxycycline [Vibramycin] 100 mg PO BID #6 cap 08/31/21 [Rx] Metoprolol Succinate (ER) [Toprol XL] 100 mg PO DAILY #30 tab 08/31/21 [Rx] Nicotine 21Mg/24Hr Patch [Habitrol] 1 patch TRANSDERM DAILY #14 patch 08/31/21 [Rx] amLODIPine [Norvasc] 10 mg PO HS #30 tab 08/31/21 [Rx] predniSONE 10 mg PO DAILY #30 tab 08/31/21 [Rx] Follow up Appointment(s)/Referral(s): Miller Mulligan MD [STAFF PHYSICIAN] - 1 Week (Office will call you with an appoi ntment.) Kirk Blackwood MD [Primary Care Provider] - 1-2 days [facility], [NON-STAFF] - 1-2 Days Darek Moore MD [STAFF PHYSICIAN] - 09/16/21 10:15 am Patient Instructions/Handouts: COPD (Chronic Obstructive Pulmonary Disease) (DC) Discharge Disposition: HOME SELF-CARE
== END 2021-08-31 13:05 | disposition home or self-care (01) | DRG 191 ==
LOC: EC 08:35 → 6NMEDSUR 11:48 → OBSVTOIN 08-28 13:47
PROVIDERS: ADMIT Hospitalist; ATTEND Hospitalist
DX: J43.9 Emphysema, unspecified (principal); B37.0 Candidal stomatitis; B37.89 Other sites of candidiasis; J96.11 Chronic respiratory failure with hypoxia; D72.829 Elevated white blood cell count, unspecified; E03.9 Hypothyroidism, unspecified; E78.5 Hyperlipidemia, unspecified; F17.200 Nicotine dependence, unspecified, uncomplicated; F32.A Depression, unspecified; F41.9 Anxiety disorder, unspecified; G40.909 Epilepsy, unspecified, not intractable, without status epilepticus; I10 Essential (primary) hypertension; K80.20 Calculus of gallbladder without cholecystitis without obstruction; G47.33 Obstructive sleep apnea (adult) (pediatric); M79.7 Fibromyalgia; R07.89 Other chest pain; Z79.899 Other long term (current) drug therapy; Z86.16 Personal history of COVID-19; Z87.01 Personal history of pneumonia (recurrent); Z99.81 Dependence on supplemental oxygen
CPT/HCPCS: 36415; 71046; 80048; 80053; 83605; 83735; 84484; 85025; 85379; 85610; 85730; 93005; 93306; 94640; 94760; 96361; 96374; 96375; 99285

== ENCOUNTER → 2021-10-18 | Outpatient (CLI) | payer OTHER ==
--- NOTE | 2021-10-18 22:42 | MR ---
EXAMINATION TYPE: MR brain/cspine wo DATE OF EXAM: 10/18/2021 7:48 AM COMPARISON: MR brain 04/25/2019. MRI brain C-spine 06/20/2014. CLINICAL INDICATION:Female, 46 years old with history of R20.2 Paresthesias; TECHNIQUE: Multiplanar multisequence MRI of the brain and cervical spine without the use of intraveno us contrast. FINDINGS: Scattered high T2/FLAIR signal foci are seen throughout the brain overall findings are not different from 2 years prior. The bob-white junctions, ventricular system, basal cisterns appear unremarkable. Diffusion-weighted imaging shows no evidence of restricted diffusion to suggest acute/subacute infar ct. Intracranial arterial flow voids are maintained. Midline structures show no abnormality. The susc eptibility weighted images do not reveal any evidence for micro-hemorrhage. The bone marrow signal is within normal limits. The paranasal sinuses and globes are unremarkable. Alignment: The cervical vertebral bodies have preserved heights. Alignment is within normal limits gi siomara patient positioning. Bones: Bone signal is within normal limits. Multilevel degenerative disc disease is noted and most p ronounced at the C5-C6 vertebral levels. Cord: The spinal cord is unremarkable with regards to their signal intensity and morphology. Discs: Intervertebral disc signal is maintained. C2-C3: No significant disc pathology. The spinal canal is patent. No neural foraminal stenosis. C3-C4: No significant disc pathology. The spinal canal is patent. No neural foraminal stenosis. C4-C5: No significant disc pathology. The spinal canal is patent. No neural foraminal stenosis. C5-C6: A disc osteophyte complex is present which minimally narrows the ventral subarachnoid space. No neural foraminal stenosis. C6-C7: No significant disc pathology. The spinal canal is patent. No neural foraminal stenosis. C7-T1: No significant disc pathology. The spinal canal is patent. No neural foraminal stenosis. IMPRESSION: 1. Scattered stable white matter changes which may represent demyelinating disease versus old microan giopathy. No evidence of intracranial mass or acute/subacute infarct. 2. Minimal multilevel disc degeneration with associated osteoarthritic changes most pronounced at C5- C6. Overall findings are similar to 2015.
== END | disposition home or self-care (01) ==
LOC: RADMRIMAIN 07:04
PROVIDERS: ATTEND Psychiatry & Neurology Neurology
DX: M50.323 Other cervical disc degeneration at C6-C7 level (principal)
CPT/HCPCS: 70551; 72141

== ENCOUNTER → 2022-01-03 | Outpatient (CLI) | payer OTHER ==
--- NOTE | 2022-01-04 09:35 | MM ---
Reason for Exam: Screening (asymptomatic). Last mammogram was performed 8 year(s) and 6 month(s) ago. Patient History: Menarche at age 14. First Full-Term at age 23. Postmenopausal. Paternal aunt had ovarian cancer. Risk Values: Khadijah 5 year model risk: 0.7%. NCI Lifetime model risk: 8.7%. Prior Study Comparison: 06/27/2013 Bilateral Diagnostic Mammogram, [facility]. Tissue Density: The breast tissue is heterogeneously dense. This may lower the sensitivity of mammography. Findings: Analyzed By CAD. There is no suspicious group of microcalcifications or new suspicious mass in either breast. No subcutaneous change from prior examination. Overall Assessment: Negative, BI-RAD 1 Management: Screening Mammogram of both breasts in 1 year. A clinical breast exam by your physician is recommended on an annual basis and results should be correlated with mammographic findings. Electronically signed and approved by: Aamir Anand D.O.
== END | disposition home or self-care (01) ==
LOC: RADMAMWWP 09:37
PROVIDERS: ATTEND Family Medicine
DX: Z12.31 Encounter for screening mammogram for malignant neoplasm of breast (principal); Z78.0 Asymptomatic menopausal state; Z80.41 Family history of malignant neoplasm of ovary
CPT/HCPCS: 77067

== ENCOUNTER 2023-02-27 14:45 | Emergency (ER) | payer OTHER ==
[2023-02-27 14:51] VITALS: TEMP 98.2
--- NOTE | 2023-02-27 16:17 | ED ---
General Adult HPI - General Chief complaint: Upper Respiratory Infection Stated complaint: SOB Time Seen by Provider: 02/27/23 16:04 Source: patient, RN notes reviewed Mode of arrival: ambulatory Limitations: no limitations - History of Present Illness Initial comments: 47-year-old female presents to the emergency department for chief complaint of cough, chest congestion, mild shortness of breath. Patient states his symptoms have been going on for 2 weeks. She states that she has seen her primary care physician and was started on antibiotics. She reports that after this she was switched to another antibiotic and is currently on prednisone 40 mg for 5 days. She denies recent fever, chills. She has a history of COPD and is short of breath at baseline. - Related Data Home Medications Medication Instructions Recorded Confirmed Cholecalciferol [Vitamin D3 (25 25 mcg PO DAILY 05/26/15 02/27/23 Mcg = 1000 Iu)] Baclofen 10 mg PO DAILY 12/14/16 02/27/23 Naproxen 500 mg PO DAILY 09/04/20 02/27/23 Omeprazole [PriLOSEC] 20 mg PO DAILY 09/04/20 02/27/23 Cetirizine HCl [Zyrtec] 10 mg PO DAILY 08/26/21 02/27/23 Acyclovir [Zovirax] 400 mg PO DAILY 08/27/21 02/27/23 Fluticasone Nasal [place] [Flonase 2 spray EA NOSTRIL DAILY 02/27/23 02/27/23 Nasal [place]] Fluticasone/Umeclidin/Vilanter 1 puff INHALATION RT-DAILY 02/27/23 02/27/23 [Eunice Mathis 100-62.5-25] Levofloxacin [Levaquin] 750 mg PO DAILY 02/27/23 02/27/23 Metoprolol Succinate (ER) [Toprol 50 mg PO DAILY 02/27/23 02/27/23 Xl] buPROPion SR [Wellbutrin SR] 150 mg PO DAILY 02/27/23 02/27/23 hydroCHLOROthiazide 12.5 mg PO DAILY 02/27/23 02/27/23 lisinopriL 40 mg PO DAILY 02/27/23 02/27/23 predniSONE [Deltasone] See Taper PO DIRECTED 02/27/23 02/27/23 Allergies Allergy/AdvReac Type Severity Reaction Status Date / Time guaifenesin [From Mucinex] Allergy high blood Verified 02/27/23 17:46 pressure Sulfa (Sulfonamide Allergy "FEELS Verified 02/27/23 17:46 Antibiotics) LIKE I'M ON FIRE FROM INSIDE OUT" hydrocodone [From [place]] AdvReac STATES Verified 02/27/23 17:46 "IRRATIC MOODS" Review of Systems ROS Statement: Those systems with pertinent positive or pertinent negative responses have been documented in the HPI. ROS Other: All systems not noted in ROS Statement are negative. Past Medical History Past Medical History: COPD, Fibromyalgia, GERD/Reflux, Hyperlipidemia, Hypertension, Seizure Disorder, Sleep Apnea/CPAP/BIPAP, Thyroid Disorder Additional Past Medical History / Comment(s): history of chronic hypoxic respiratory failure, history of intubation mechanical ventilation secondary to COPD exacerbation- COVID Feb, last seizure 2015, small hiatal hernia, no current rx for thryoid, History of Any Multi-Drug Resistant Organisms: MRSA Date of last positivie culture/infection: 10-18-14 MDRO Source:: Groin Past Surgical History: Back Surgery, Tubal Ligation, Uterine Ablation Additional Past Surgical History / Comment(s): Lumbar fusion L5-S1, LEEP Past Anesthesia/Blood Transfusion Reactions: No Reported Reaction Past Psychological History: Anxiety, Depression Smoking Status: Former smoker Past Alcohol Use History: Occasional Past Drug Use History: None Reported - Past Family History Father Additional Family Medical History / Comment(s): etoh, alive at 66 Mother Family Medical History: No Reported History Additional Family Medical History / Comment(s): . General Exam Limitations: no limitations General appearance: alert, in no apparent distress Head exam: Present: atraumatic, normocephalic, normal inspection Eye exam: Present: normal appearance, PERRL, EOMI. Absent: scleral icterus, conjunctival injection, periorbital swelling ENT exam: Present: normal exam, mucous membranes moist Neck exam: Present: normal inspection. Absent: tenderness, meningismus, lymphadenopathy Respiratory exam: Present: normal lung sounds bilaterally. Absent: respiratory distress, wheezes, rales, rhonchi, stridor Cardiovascular Exam: Present: regular rate, normal rhythm, normal heart sounds. Absent: systolic murmur, diastolic murmur, rubs, gallop, clicks GI/Abdominal exam: Present: soft, normal bowel sounds. Absent: distended, tenderness, guarding, rebound, rigid Extremities exam: Present: normal inspection Back exam: Present: normal inspection Neurological exam: Present: alert, oriented X3 Psychiatric exam: Present: normal affect, normal mood Skin exam: Present: warm, dry, intact, normal color. Absent: rash Course Vital Signs 02/27/23 02/27/23 02/27/23 14:48 18:13 18:48 Temperature 98.2 F Pulse Rate 76 62 Respiratory 18 20 Rate Blood Pressure 150/84 151/88 O2 Sat by Pulse 96 93 L 95 Oximetry Medical Decision Making - Medical Decision Making Was pt. sent in by a medical professional or institution (, PA, AFTER SCHOOL TUTOR, urgent care, hospital, or retirement...) When possible be specific @ -No Did you speak to anyone other than the patient for history (EMS, parent, family, police, friend...)? What history was obtained from this source @ -No Did you review nursing and triage notes (agree or disagree)? Why? @ -I reviewed and agree with nursing and triage notes Were old charts reviewed (outside hosp., previous admission, EMS record, old EKG, old radiological studies, urgent care reports/EKG's, retirement records)? Report findings @ -No old charts were reviewed Differential Diagnosis (chest pain, altered mental status, abdominal pain women, abdominal pain men, vaginal bleeding, weakness, fever, dyspnea, syncope, headac he, dizziness, GI bleed, back pain, seizure, CVA, palpatations, mental health, musculoskeletal)? @ -Differential Dyspnea: Coronary syndrome, arrhythmia, tamponade, asthma, COPD, pulmonary embolism, pneumonia, pneumothorax, pulmonary effusion, anaphylaxis, diabetic ketoacidosis, flailed chest, pulmonary contusion, diaphragmatic rupture, anemia, neuromuscular, this is not meant to be an all-inclusive list. EKG interpreted by me (3pts min.). @ -EKG at 1653 shows sinus rhythm rate 64, AR 151, QRS 27, QTQTc 4064:15 X-rays interpreted by me (1pt min.). @ -X-ray shows no acute infiltrate CT interpreted by me (1pt min.). @ -None done U/S interpreted by me (1pt. min.). @ -None done What testing was considered but not performed or refused? (CT, X-rays, U/S, labs)? Why? @ -None What meds were considered but not given or refused? Why? @ -None Did you discuss the management of the patient with other professionals (professionals i.e. , PA, AFTER SCHOOL TUTOR, lab, RT, psych nurse, social insurance specialist, parking officer, teacher, recreation officer, correctional case records supervisor)? Give summary @ -No Was smoking cessation discussed for >3mins.? @ -No Was critical care preformed (if so, how long)? @ -No Were there social determinants of health that impacted care today? How? (Homelessness, low income, unemployed, alcoholism, drug addiction, transportation, low edu. Level, literacy, decrease access to med. care, senior care, rehab)? @ -No Was there de-escalation of care discussed even if they declined (Discuss DNR or withdrawal of care, Hospice)? DNR status @ -No What co-morbidities impacted this encounter? (DM, HTN, Smoking, COPD, CAD, Cancer, CVA, ARF, Chemo, Hep., AIDS, mental health diagnosis, sleep apnea, morbid obesity)? @ -None Was patient admitted / discharged? Hospital course, mention meds given and route, prescriptions, significant lab abnormalities, going to OR and other pertinent info. @ -Discharged. Patient presented to the emergency department for chief complaint of cough without improvement over the past 2 weeks. She has been on 2 antibiotics and steroids without improvement. On examination, patient lungs clear to auscultation bilaterally. Chest x-ray obtained which shows no acute infiltrate, COPD changes. Laboratory studies obtained CBC unremarkable, CMP essentially unremarkable, BNP 149; Covid, influenza negative. RSV positive. Discussed results with patient. Patient is on prednisone 40mg 5 days. Advised patient to stop antibiotics and continue prednisone. Follow up with primary care provider recommended. Patient understands and agreeable with plan. Patient stable at time of discharge. Case discussed with Dr. Smith Undiagnosed new problem with uncertain prognosis? @ -No Drug Therapy requiring intensive monitoring for toxicity (Heparin, Nitro, Insulin, Cardizem)? @ -No Were any procedures done? @ -No Diagnosis/symptom? @ -RSV Acute, or Chronic, or Acute on Chronic? @ -Acute Uncomplicated (without systemic symptoms) or Complicated (systemic symptoms)? @ -uncomplicated Side effects of treatment? @ -No Exacerbation, Progression, or Severe Exacerbation? @ -No Poses a threat to life or bodily function? How? (Chest pain, [place], [place], pneumonia, PE, COPD, DKA, ARF, appy, cholecystitis, CVA, Diverticulitis, Homicidal, Suicidal, threat to staff... and all critical care pts) @ -No - Lab Data Result diagrams: 02/27/23 16:27 02/27/23 16:27 Lab Results 02/27/23 02/27/23 02/27/23 Range/Units 16:27 16:27 16:27 WBC 6.9 (3.8-10.6) k/uL RBC 4.22 (3.80-5.40) m/uL Hgb 13.7 (11.4-16.0) gm/dL Hct 40.6 (34.0-46.0) % MCV 96.2 (80.0-100.0) fL MCH 32.5 (25.0-35.0) pg MCHC 33.7 (31.0-37.0) g/dL RDW 13.0 (11.5-15.5) % Plt Count 203 (150-450) k/uL MPV 8.9 Neutrophils % 81 % Lymphocytes % 14 % Monocytes % 3 % Eosinophils % 0 % Basophils % 0 % Neutrophils # 5.6 (1.3-7.7) k/uL Lymphocytes # 1.0 (1.0-4.8) k/uL Monocytes # 0.2 (0-1.0) k/uL Eosinophils # 0.0 (0-0.7) k/uL Basophils # 0.0 (0-0.2) k/uL PT 10.9 (10.0-12.5) sec INR 1.0 (<1.2) APTT 22.6 (22.0-30.0) sec Sodium 139 (137-145) mmol/L Potassium 3.7 (3.5-5.1) mmol/L Chloride 103 (98-107) mmol/L Carbon Dioxide 26 (22-30) mmol/L Anion Gap 10 mmol/L BUN 15 (7-17) mg/dL Creatinine 0.89 (0.52-1.04) mg/dL Est GFR (CKD-EPI)AfAm >90 (>60 ml/min/1.73 sqM) Est GFR (CKD-EPI)NonAf 79 (>60 ml/min/1.73 sqM) Glucose 125 H (74-99) mg/dL Calcium 9.6 (8.4-10.2) mg/dL Total Bilirubin 0.4 (0.2-1.3) mg/dL AST 29 (14-36) U/L ALT 21 (4-34) U/L Alkaline Phosphatase 70 (38-126) U/L NT-Pro-B Natriuret Pep 149 pg/mL Total Protein 7.3 (6.3-8.2) g/dL Albumin 4.2 (3.5-5.0) g/dL Influenza Type A (PCR) (Not Detectd) Influenza Type B (PCR) (Not Detectd) RSV (PCR) (Not Detectd) SARS-CoV-2 (PCR) (Not Detectd) 02/27/23 Range/Units 16:27 WBC (3.8-10.6) k/uL RBC (3.80-5.40) m/uL Hgb (11.4-16.0) gm/dL Hct (34.0-46.0) % MCV (80.0-100.0) fL MCH (25.0-35.0) pg MCHC (31.0-37.0) g/dL RDW (11.5-15.5) % Plt Count (150-450) k/uL MPV Neutrophils % % Lymphocytes % % Monocytes % % Eosinophils % % Basophils % % Neutrophils # (1.3-7.7) k/uL Lymphocytes # (1.0-4.8) k/uL Monocytes # (0-1.0) k/uL Eosinophils # (0-0.7) k/uL Basophils # (0-0.2) k/uL PT (10.0-12.5) sec INR (<1.2) APTT (22.0-30.0) sec Sodium (137-145) mmol/L Potassium (3.5-5.1) mmol/L Chloride (98-107) mmol/L Carbon Dioxide (22-30) mmol/L Anion Gap mmol/L BUN (7-17) mg/dL Creatinine (0.52-1.04) mg/dL Est GFR (CKD-EPI)AfAm (>60 ml/min/1.73 sqM) Est GFR (CKD-EPI)NonAf (>60 ml/min/1.73 sqM) Glucose (74-99) mg/dL Calcium (8.4-10.2) mg/dL Total Bilirubin (0.2-1.3) mg/dL AST (14-36) U/L ALT (4-34) U/L Alkaline Phosphatase (38-126) U/L NT-Pro-B Natriuret Pep pg/mL Total Protein (6.3-8.2) g/dL Albumin (3.5-5.0) g/dL Influenza Type A (PCR) Not Detected (Not Detectd) Influenza Type B (PCR) Not Detected (Not Detectd) RSV (PCR) Detected A (Not Detectd) SARS-CoV-2 (PCR) Not Detected (Not Detectd) Disposition Clinical Impression: RSV (acute bronchiolitis due to respiratory syncytial virus) Disposition: HOME SELF-CARE Condition: Stable Instructions (If sedation given, give patient instructions): Respiratory Syncytial Virus (ED) Additional Instructions: Please follow up with your primary care provider. Return to the emergency department for new or worsening symptoms. Is patient prescribed a controlled substance at d/c from ED?: No Referrals: Kirk Blackwood MD [Primary Care Provider] - 1-2 days
[2023-02-27 17:10] LABS: Basophils % (A) 0 %; Eosinophils % (A) 0 %; HCT 40.6 % (34.0-46.0); HGB 13.7 gm/dL (11.4-16.0); Lymphocytes % (A) 14 %; MCH 32.5 pg (25.0-35.0); MCHC 33.7 g/dL (31.0-37.0); MCV 96.2 fL (80.0-100.0); Mean Platelet Volume 8.9; Monocytes # (A) 0.2 k/uL (0-1.0); Monocytes % (A) 3 %; Neutrophils # (A) 5.6 k/uL (1.3-7.7); Neutrophils % (A) 81 %; Platelet Count 203 k/uL (150-450); RBC 4.22 m/uL (3.80-5.40); WBC 6.9 k/uL (3.8-10.6)
--- NOTE | 2023-02-27 17:12 | XR ---
EXAMINATION TYPE: XR chest 2V DATE OF EXAM: 02/27/2023 COMPARISON: 08/26/2021 INDICATION: Cough dyspnea TECHNIQUE: Frontal and lateral views of the chest are obtained. FINDINGS: The heart size is normal. The pulmonary vasculature is normal. The lungs are clear. COPD IMPRESSION: 1. No acute pulmonary process. 2. COPD
[2023-02-27 17:27] LABS: ALT 21 U/L (4-34); AST 29 U/L (14-36); African American GFR (CKD) >90 (>60 ml/min/1.73 sqM); Albumin 4.2 g/dL (3.5-5.0); Alkaline Phosphatase 70 U/L (38-126); Anion Gap 10 mmol/L; Blood Urea Nitrogen 15 mg/dL (7-17); Calcium 9.6 mg/dL (8.4-10.2); Carbon Dioxide 26 mmol/L (22-30); Chloride 103 mmol/L (98-107); Glucose 125 mg/dL (74-99); Non-African American GFR(CKD) 79 (>60 ml/min/1.73 sqM); Potassium 3.7 mmol/L (3.5-5.1); Sodium 139 mmol/L (137-145); Total Bilirubin 0.4 mg/dL (0.2-1.3); Total Protein 7.3 g/dL (6.3-8.2)
[2023-02-27 17:30] LABS: Partial Thromboplastin Time 22.6 sec (22.0-30.0); Prothrombin Time 10.9 sec (10.0-12.5)
[2023-02-27 17:34] LABS: NT-Pro-B-Type Natriuretic Pept 149 pg/mL
[2023-02-27 19:08] VITALS: BP 151/88; PULSE 62; RESP 20
== END 2023-02-27 18:50 | disposition home or self-care (01) ==
LOC: EC 14:45
DX: J21.0 Acute bronchiolitis due to respiratory syncytial virus (principal); J44.9 Chronic obstructive pulmonary disease, unspecified; I10 Essential (primary) hypertension; G47.30 Sleep apnea, unspecified; E07.9 Disorder of thyroid, unspecified; K21.9 Gastro-esophageal reflux disease without esophagitis; F41.9 Anxiety disorder, unspecified; F32.A Depression, unspecified; Z79.890 Hormone replacement therapy; Z79.899 Other long term (current) drug therapy; Z87.891 Personal history of nicotine dependence; Z20.822 Contact with and (suspected) exposure to COVID-19; Z88.2 Allergy status to sulfonamides; Z88.8 Allergy status to other drugs, medicaments and biological substances
CPT/HCPCS: 36415; 71046; 80053; 83880; 85025; 85610; 85730; 87636; 93005; 99285

== ENCOUNTER → 2023-08-21 | Outpatient (CLI) | payer OTHER ==
--- NOTE | 2023-08-21 22:25 | MR ---
EXAMINATION TYPE: MR brain wo/w con DATE OF EXAM: 08/21/2023 COMPARISON: 822 HISTORY: Migraines, possible demyelinating disease , abnormal prior MRI. TECHNIQUE: Multiplanar, multisequence images of the brain and brainstem is performed without and with IV contras t, utilizing 7.5 mL intravenous Gadavist . FINDINGS: On the T1-weighted sagittal images of the midline structures including the craniovertebral junction r elationships are normal. The ventricles, basal cisterns and sulci over convexities are within normal limits and there is no ma ss effect or shift of midline structures. There are a few small stable subcortical white matter hyperintensities on T2 and FLAIR images. These are nonspecific white matter abnormalities and could represent chronic ischemic white matter changes. Demyelinating disease is considered less likely but not excluded.. Based on diffusion-weighted imagi ng there is no diffusion restriction. Following contrast administration, there is no pathological enhancement throughout the brain parenchy ma. The posterior fossa including the brainstem, fourth ventricle and cerebellopontine angles appear norm al. The intraorbital contents appear normal symmetric. The visualized paranasal sinuses and mastoid air cells are well aerated. IMPRESSION: 1. A few stable small subcortical nonspecific white matter abnormalities as described above. 2.There is no diffusion restriction or pathological enhancement following contrast administration. 3.There is no mass effect or shift of the midline structures. 4. Overall, no interval change compared to previous.
== END | disposition home or self-care (01) ==
LOC: RADMRIMAIN 21:15
PROVIDERS: ATTEND Family Medicine
DX: G93.89 Other specified disorders of brain (principal); G43.909 Migraine, unspecified, not intractable, without status migrainosus; Z87.898 Personal history of other specified conditions
CPT/HCPCS: 70553; A9585

== ENCOUNTER → 2023-11-23 | Outpatient (CLI) | payer OTHER ==
--- NOTE | 2023-11-25 07:58 | MR ---
EXAMINATION TYPE: MR cervical spine wo con DATE OF EXAM: 11/23/2023 4:39 PM CLINICAL INDICATION: Female, 48 years old with history of M54.81,M50.90;, neck pain. COMPARISON: 10/18/2021. TECHNIQUE: Multi planar, multi sequence imaging was performed utilizing: T1-weighted, T2-weighted, an d turbo inversion recovery imaging of the cervical spine. IV Contrast: cc (none if empty) FINDINGS: Alignment: The cervical vertebral bodies have preserved heights. Alignment is within normal limits gi siomara patient positioning. Bones: Bone signal is within normal limits. No abnormal bone marrow edema on inversion recovery seque nces. Cord: The spinal cord is unremarkable with regards to their signal intensity and morphology. Discs: Intervertebral disc signal is maintained. C2-C3: No significant disc pathology. The spinal canal is patent. No neural foraminal stenosis. C3-C4: No significant disc pathology. The spinal canal is patent. No neural foraminal stenosis. C4-C5: No significant disc pathology. The spinal canal is patent. No neural foraminal stenosis. C5-C6: No significant disc pathology. The spinal canal is patent. Bilateral facet and uncovertebral joint arthropathy are present with mild bilateral neural foraminal stenosis. C6-C7: No significant disc pathology. The spinal canal is patent. No neural foraminal stenosis. C7-T1: No significant disc pathology. The spinal canal is patent. No neural foraminal stenosis. Other: None. IMPRESSION: 1. No evidence for disc herniation or significant spinal canal stenosis. 2. Mild disc degeneration with associated osteoarthritic changes at C5-C6
== END | disposition home or self-care (01) ==
LOC: RADMRIMAIN 16:05
PROVIDERS: ATTEND Psychiatry & Neurology Neurology
DX: M50.90 Cervical disc disorder, unspecified, unspecified cervical region (principal); M50.322 Other cervical disc degeneration at C5-C6 level; M19.09 Primary osteoarthritis, other specified site
CPT/HCPCS: 72141

== ENCOUNTER → 2023-11-30 | Outpatient (CLI) | payer OTHER ==
[2023-11-30 11:28] VITALS: BP 165/81; PULSE 58; RESP 16; TEMP 97.1
--- NOTE | 2023-11-30 13:25 | P.PAINPG ---
PQRS Measure Charge Sheet Comment: HISTORY OF PRESENT ILLNESS: A 48 yr old female as a referral from Dr Johnson presents today w severe and chronic LANGSTON secondary to Occipital Neuralgia, Cervicogenic LANGSTON for evaluation. Pt states pain level is provoked at 10 /10 in intensity, constant, localized in the upper neck, predominantly axial, achy in character w occasional shooting pain towards the top of the head. Pain is provoked by certain head positions. Pain is alleviated by PT (cervical) x 6 wks in 2021, massage therapy monthly (head and neck) since Fall 2022 which she is currently in, heat, ice, medications (Naproxen, Baclofen, Tramadol), topical BioFreeze, repositioning and rest . PMH: OA, COPD, Fibromyalgia, GERD, Hyperlipidemia, HTN, Seizure Disorder, CAMMIE, Hypothyroidism, MDD/ Anxiety PSH: L5-S1 Fusion, LEEP, Tubal Ligation, Uterine Ablation SH: Former tobacco user, Occ ETOH use, No illicit drug use FH: Fa- ETOH abuse. Mo- No Reported History All: See list Meds: See list REVIEW OF ORGAN SYSTEMS: CONSTITUTIONAL: No fevers or chills. No recent weight loss. NEUROLOGICAL: + numbness and tingling along the distal extremities. No seizure disorders or headaches. MUSCULOSKELETAL: + pain PSYCHIATRIC: Denies current depression or suicidal thoug hts. Physical Examinations : Constitutional : Cooperative , not in acute distress . Neurologic : Cranial nerve II to XII intact. No focal neurological deficits. Psychiatric : alert & oriented x 3. Matching mood & appropriate affect. Judgment & insight intact. Musculoskeletal : Cervical Spine +BL LUIS MIGUEL TTP Motor strength in the deltoid and biceps: Normal right side. Normal Left side Motor strength biceps and the wrist extensors: Normal right side . Normal left side Motor strength in the triceps muscle: Normal right side. Normal left side Deep tendon reflexes: Normal at the biceps. Normal at Brachioradialis. Normal at triceps Vertebral body tenderness to deep palpation over Cervical facet loading test: positive bilaterally Spurling test: positive bilaterally Neck distraction test: positive bilaterally John sign: positive bilaterally Lumbar spine Motor strength lower extremities ,thigh and legs 5/5 Right side , 5/5 Left side Deep tendon reflexes : Normal Knee Jerk. Normal Ankle Jerk Vertebral body tenderness over Reza Test positive Lumbar facet Loading Test: positive Right / positive Left Range of motion of the lumbar spine Flexion 30 degrees, extension 10 degrees Straight Leg Raise test: Left/ Right positive at degrees Cydney test: positive right / positive left. Severe tenderness over the Sacroiliac joint on the Right / Left sides Gaenslen test: positive bilaterally Seated flexion test: positive kranthi aterally. Sacral spine : Severe tenderness over the Sacroiliac joint: right side / left side Range of motion: Flexion of the lumbar spine <60 degrees Range of motion: Extension of the lumbar spine <20 degrees Gaenslen's Test positive Cydney test: positive right side / left side Thigh Thrust Test Sacral Thrust Test Imaging: MRI with/ without contrast of the brain from 08/21/23 reviewed Assessment/ Plan : Occipital Neuralgia, Cervicogenic LANGSTON Recommendation of ALESSANDRA BOLANOS #1. Risks, benefits of procedure discussed and patient verbalized understanding. Admits to anti- coagulant use or medical history of diabetes. Protocol for discontinuation/ continuation of medications mackenzie procedure discussed. All questions answered. I have spent greater than 30 minutes on patient care today. Dr Tobias was available by phone for the evaluation of this patient. The time was used to rev iew the medical records including relevant urine studies and Prescription history (MAPs), review of the available imaging, evaluation and examination of the patient, coordination of care with the medical staff and if applicable referring physicians, as well as creation of the medical record PQRS Narrative: Smoking Status Current every day smoker Hx Alcohol Use (MH) Yes: 12-14 drinks weekly, stopped 2009 Home Medications: Ambulatory Orders Cholecalciferol [Vitamin D3 (25 Mcg = 1000 Iu)] 25 mcg PO DAILY 05/26/15 Baclofen 10 mg PO DAILY 12/14/16 Naproxen 500 mg PO DAILY 09/04/20 Omeprazole [PriLOSEC] 20 mg PO DAILY 09/04/20 Cetirizine HCl [Zyrtec] 10 mg PO DAILY 08/26/21 Acyclovir [Zovirax] 400 mg PO DAILY 08/27/21 Fluticasone Nasal [place] [Flonase Nasal [place]] 2 spray EA NOSTRIL DAILY 02/27/23 Fluticasone/Umeclidin/Vilanter [Trelegy Ellipta 100-62.5-25] 1 puff INHALATION RT-DAILY 02/27/23 Levofloxacin [Levaquin] 750 mg PO DAILY 02/27/23 Metoprolol Succinate (ER) [Toprol Xl] 50 mg PO DAILY 02/27/23 buPROPion SR [Wellbutrin SR] 150 mg PO DAILY 02/27/23 hydroCHLOROthiazide 12.5 mg PO DAILY 02/27/23 lisinopriL 40 mg PO DAILY 02/27/23 predniSONE [Deltasone] See Taper PO DIRECTED 02/27/23 Levothyroxine Sodium [Synthroid] 75 mg PO DAILY 11/30/23 traMADol HCL 50 mg PO Q6H 11/30/23 Controlled Substance Measures - Controlled Substance Measures Is patient prescribed a controlled substance at discharge?: No
== END ==
LOC: PNWHC3 10:32
PROVIDERS: ATTEND Specialist
DX: M54.81 Occipital neuralgia (principal); G44.86 Cervicogenic headache; M50.30 Other cervical disc degeneration, unspecified cervical region; F17.200 Nicotine dependence, unspecified, uncomplicated; Z88.8 Allergy status to other drugs, medicaments and biological substances; Z88.2 Allergy status to sulfonamides; Z88.5 Allergy status to narcotic agent
CPT/HCPCS: 99211

== ENCOUNTER 2023-12-19 09:11 | Day surgery (SDC) | payer OTHER ==
[2023-12-14 11:24] VITALS: BMI 26.2
[2023-12-19] MEDS ORDERED: LACTATED RINGERS 1,000 ML IV SCH (09:40)
[2023-12-19 09:48] VITALS: TEMP 97.9
[2023-12-19] MEDS ORDERED: ROPIVACAINE 5MG/ML 20ML VIAL ONE (10:31)
[2023-12-19] MEDS ORDERED: methylPREDNISolone ACETATE 40 MG/ML 1 ML VIAL ONE (10:31)
--- NOTE | 2023-12-19 10:36 | P.PCN ---
Date of Procedure: 12/19/23 Procedure(s) Performed: Preoperative diagnoses= 1- Greater occipital neuralgia, 2-cervicogenic headache Postoperative diagnoses= 1-greater occipital neuralgia. 2-cervicogenic headache. Procedure= Bilateral Greater occipital nerve block Anesthesia=none . Estimated blood loss=minimal. Procedure indication= the patient had a history of severe chronic neck pain ,and headache, diagnosed with occipital neuralgia exam was positive for severe tenderness over the occipital nerve bilaterally, she will be a good candidate occipital nerve block, patient failed conservative management Procedure description= the patient was seen and identified in the preoperative holding area, risks and benefits and alternative of the procedure and possible complications discussed with the patient, and he agreed with the preceding, patient signed the consent, and vital signs were monitored and were stable thr oughout the procedure, patient was placed in the sitting position or table and the neck area was prepped and draped with a sterile fashion, vital signs were closely monitored during the procedure, 25-gauge needle advanced 1 inch lateral to the occipital protuberance on the right side, at the location of the right occipital nerve , then after negative aspiration for heme and CSF and there was no paresthesia during the injection, 6 ml of Robivacaine 0.5% and 20 mg of Depo-Medrol injected after negative aspiration, the needle removed, and the entire same procedure was repeated for the left Greater occipital nerve. Patient tolerated the procedure well without any complication, The patient returned to supine position after the back was cleaned and a Band- Aid applied, the patient transported to recovery room in stable condition and he was monitored for 30 minutes before he was discharged home and then patient was reexamined before going home and patient was discharged in stable condition and patient will follow up with the pain clinic in a few weeks.
[2023-12-19 11:01] VITALS: BP 179/91; PULSE 56; RESP 18
== END 2023-12-19 11:09 | disposition home or self-care (01) ==
LOC: ORPAIN 09:11
PROVIDERS: ATTEND Specialist
DX: M54.81 Occipital neuralgia (principal); G44.86 Cervicogenic headache; Z88.5 Allergy status to narcotic agent; Z88.2 Allergy status to sulfonamides; Z88.8 Allergy status to other drugs, medicaments and biological substances
CPT/HCPCS: 64405; 81025

== ENCOUNTER → 2024-01-04 | Outpatient (CLI) | payer OTHER ==
[2024-01-04 10:31] VITALS: BP 149/84; PULSE 57; RESP 19; TEMP 98.2
--- NOTE | 2024-01-04 15:00 | P.PAINPG ---
PQRS Measure Charge Sheet Comment: HISTORY OF PRESENT ILLNESS: A 48 yr old female presents today w severe and chronic LANGSTON secondary to Occipital Neuralgia, Cervicogenic LANGSTON for evaluation s/p BL LUIS MIGUEL #1. Pt states she experienced 80 % pain relief x 2 wks s/p procedure. Pt states pain level is provoked at 4 /10 in intensity, constant, localized in the upper neck, predominantly axial, achy in character w occasional shooting pain towards the top of the head. Pain is provoked by certain head positions. Pain is alleviated by PT (cervical) x 6 wks in 2021, massage therapy monthly (head and neck) since Fall 2022 which she is currently in, heat, ice, medications , topical, repositioning and rest . Interventional procedures include BL LUIS MIGUEL x1 Medications include Tramadol, Naproxen, Baclofen, BioFreeze Gel REVIEW OF ORGAN SYSTEMS: CONSTITUTIONAL: No fevers or chills. No recent weight loss. NEUROLOGICAL: + numbness and tingling along the distal extremities. No seizure disorders or headaches. MUSCULOSKELETAL: + pain PSYCHIATRIC: Denies current depression or suicidal thoughts. Physical Examinations : Constitutional : Cooperative , not in acute distress . Neurologic : Cranial nerve II to XII intact. No focal neurological deficits. Psychiatric : alert & oriented x 3. Matching mood & appropriate affect. Judgment & insight intact. Musculoskeletal : Cervical Spine +BL LUIS MIGUEL TTP Motor strength in the deltoid and biceps: Normal right side. Normal Left side Motor strength biceps and the wrist extensors: Normal right side . Normal left side Motor strength in the triceps muscle: Normal right side. Normal left side Deep tendon reflexes: Normal at the biceps. Normal at Brachioradialis. Normal at triceps Vertebral body tenderness to deep palpation over Cervical facet loading test: positive bilaterally Spurling test: positive bilaterally Neck distraction test: positive bilaterally John sign: positive bilaterally Lumbar spine Motor strength lower extremities ,thigh and legs 5/5 Right side , 5/5 Left side Deep tendon reflexes : Normal Knee Jerk. Normal Ankle Jerk Vertebral body tenderness over Reza Test positive Lumbar facet Loading Test: positive Right / positive Left Range of motion of the lumbar spine Flexion 30 degrees, extension 10 degrees Straight Leg Raise test: Left/ Right positive at degrees Cydney test: positive right / positive left. Severe tenderness over the Sacroiliac joint on the Right / Left sides Gaenslen test: positive bilaterally Seated flexion test: positive bilaterally. Sacral spine : Severe tenderness over the Sacroiliac joint: right side / left side Range of motion: Flexion of the lumbar spine <60 degrees Range of motion: Extension of the lumbar spine <20 degrees Gaenslen's Test positive Cydney test: positive right side / left side Thigh Thrust Test Sacral Thrust Test Imaging: MRI with/ without contrast of the brain from 08/21/23 reviewed Assessment/ Plan : Occipital Neuralgia, Cervicogenic LANGSTON Will manage residual pain and may RTC on an as needed basis. All questions answered. I have spent greater than 30 minutes on patient care today. Dr Tobias was available by phone for the evaluation of this patient. The time was used to review the medical records including relevant urine studies and Prescription history (MAPs), review of the available imaging, evaluation and examination of the patient, coordination of care with the medical staff and if applicable referring physicians, as well as creation of the medical record PQRS Narrative: Smoking Status Current every day smoker Hx Alcohol Use (MH) Yes: 12-14 drinks weekly, stopped 2009 Home Medications: Ambulatory Orders Cholecalciferol [Vitamin D3 (25 Mcg = 1000 Iu)] 25 mcg PO DAILY 05/26/15 Baclofen 10 mg PO DAILY 12/14/16 Naproxen 500 mg PO DAILY 09/04/20 Omeprazole [PriLOSEC] 20 mg PO DAILY 09/04/20 Cetirizine HCl [Zyrtec] 10 mg PO DAILY 08/26/21 Acyclovir [Zovirax] 400 mg PO DAILY 08/27/21 Fluticasone Nasal [place] [Flonase Nasal [place]] 2 spray EA NOSTRIL DAILY 02/27/23 Fluticasone/Umeclidin/Vilanter [Trelegy Ellipta 100-62.5-25] 1 puff INHALATION RT-DAILY 02/27/23 Metoprolol Succinate (ER) [Toprol Xl] 50 mg PO DAILY 02/27/23 buPROPion SR [Wellbutrin SR] 150 mg PO DAILY 02/27/23 hydroCHLOROthiazide 12.5 mg PO DAILY 02/27/23 lisinopriL 40 mg PO DAILY 02/27/23 Levothyroxine Sodium [Synthroid] 75 mg PO DAILY 11/30/23 traMADol HCL 50 mg PO Q6H 11/30/23 Controlled Substance Measures - Controlled Substance Measures Is patient prescribed a controlled substance at discharge?: No
== END ==
LOC: PNWHC3 10:09
PROVIDERS: ATTEND Specialist
CPT/HCPCS: 99211

== ENCOUNTER → 2024-07-27 | Outpatient (CLI) | payer OTHER ==
--- NOTE | 2024-07-28 07:31 | MR ---
EXAMINATION TYPE: MR lumbar spine wo/w con DATE OF EXAM: 07/27/2024 2:43 PM COMPARISON: 01/06/2016 CLINICAL INDICATION: Female, 49 years old with history of M54.41 LUMBAGO WITH SCIATICA, RIGHT SIDE, IV Contrast: cc (None if empty) TECHNIQUE: Multiplanar, multisequence images of the lumbar spine were acquired without and with mL intravenous g adolinium contrast. Findings: There are postsurgical changes of interbody fusion at the L5-S1 level. The lumbar vertebral segments are normal in height and alignment. The L1-2, L2-3, L3-4 and L4-5 discs are well preserved in height and signal intensity. There is no marie mbar disc herniation. There is mild facet arthropathy at the L3-4 and L4-5 level. Secondary to facet arthropathy and thickening of ligamentum flavum, there is a mild spinal stenosis a t the L4-5 level. There is mild neural foraminal stenosis at the L4-5 and L5-S1 level on the left. Overall there is been no significant interval change. IMPRESSION: 1. Stable postsurgical changes of interbody fusion of L5-S1. 2. Stable mild spinal stenosis and left neural foraminal stenosis at the L4-5 level. 3. Stable mild neural foraminal stenosis at the L5-S1 level on the left. [facility], Workstation: PHIL 07/28/2024 7:28 AM
== END | disposition home or self-care (01) ==
LOC: RADMRIMAIN 13:37
PROVIDERS: ATTEND Psychiatry & Neurology Neurology
DX: M48.061 Spinal stenosis, lumbar region without neurogenic claudication (principal); M99.74 Connective tissue and disc stenosis of intervertebral foramina of sacral region; Z98.1 Arthrodesis status; M54.41 Lumbago with sciatica, right side
CPT/HCPCS: 72158; A9585

== ENCOUNTER 2024-09-09 11:02 | Inpatient (IN) | payer OTHER ==
--- NOTE | 2024-09-09 11:22 | ED ---
SOB HPI - General Chief Complaint: Shortness of Breath Stated Complaint: HARJEET Time Seen by Provider: 09/09/24 11:15 Source: patient, RN notes reviewed Mode of arrival: wheelchair Limitations: no limitations - History of Present Illness Initial Comments: This is a 49-year-old female who presents to the emergency department for shortness of breath, coughing, and congestion. States that this has been getting worse over the last couple of weeks. She has a history of COPD and follows with Dr. Moore. States that she does breathing treatments when she c an, but due to her work schedule is unable to do them as much as she would like to. These are helpful when she is able to do them. She is on a course of steroids and antibiotics, but states that it has not been helpful. Cough is nonproductive. Denies any fevers or chills. MD Complaint: shortness of breath, cough - Related Data Home Medications Medication Instructions Recorded Confirmed Cholecalciferol [Vitamin D3 (25 25 mcg PO DAILY 05/26/15 09/09/24 Mcg = 1000 Iu)] Baclofen 10 mg PO TID 12/14/16 09/09/24 Omeprazole [PriLOSEC] 20 mg PO DAILY 09/04/20 09/09/24 Cetirizine HCl [Zyrtec] 10 mg PO DAILY 08/26/21 09/09/24 Acyclovir [Zovirax] 400 mg PO BID 08/27/21 09/09/24 Fluticasone Nasal [place] [Flonase 1 spr EA NOSTRIL DAILY 02/27/23 09/09/24 Nasal [place]] Fluticasone/Umeclidin/Vilanter 1 puff INHALATION RT-DAILY 02/27/23 09/09/24 [[place] Ellipta 100-62.5-25] Metoprolol Succinate (ER) [Toprol 50 mg PO DAILY 02/27/23 09/09/24 Xl] buPROPion SR [Wellbutrin SR] 150 mg PO DAILY 02/27/23 09/09/24 hydroCHLOROthiazide 12.5 mg PO DAILY 02/27/23 09/09/24 lisinopriL 40 mg PO DAILY 02/27/23 09/09/24 Levothyroxine Sodium [Synthroid] 75 mg PO DAILY 11/30/23 09/09/24 traMADol HCL 50 mg PO DAILY PRN 11/30/23 09/09/24 Doxycycline Hyclate 100 mg PO Q12H 09/09/24 09/09/24 Ipratropium-Albuterol Nebulize 3 ml INHALATION RT-Q6H 09/09/24 09/09/24 [Duoneb 0.5 mg-3 mg/3 ml Soln] Sertraline [Zoloft] 50 mg PO DAILY 09/09/24 09/09/24 predniSONE [Deltasone] See Taper PO DAILY 09/09/24 09/09/24 Allergies Allergy/AdvReac Type Severity Reaction Status Date / Time Sulfa (Sulfonamide Allergy "FEELS Verified 09/09/24 15:31 Antibiotics) LIKE I'M ON FIRE FROM INSIDE OUT" guaifenesin [From Mucinex] AdvReac high blood Verified 09/09/24 15:31 pressure hydrocodone [From Ramona] AdvReac STATES Verified 09/09/24 15:31 "IRRATIC MOODS"/Seizures Review of Systems ROS Statement: Those systems with pertinent positive or pertinent negative responses have been documented in the HPI. ROS Other: All systems not noted in ROS Statement are negative. Past Medical History Past Medical History: COPD, Fibromyalgia, GERD/Reflux, Hyperlipidemia, Hypertension, Seizure Disorder, Sleep Apnea/CPAP/BIPAP, Thyroid Disorder Additional Past Medical History / Comment(s): history of chronic hypoxic respiratory failure, history of intubation mechanical ventilation secondary to COPD exacerbation- COVID Feb, last seizure 2015, small hiatal hernia, no current rx for thryoid, History of Any Multi-Drug Resistant Organisms: MRSA Date of last positivie culture/infection: 10-18-14 MDRO Source:: Groin Past Surgical History: Back Surgery, Tubal Ligation, Uterine Ablation Additional Past Surgical History / Comment(s): Lumbar fusion L5-S1, LEEP , PAIN CLINIC PROCEDURES Past Anesthesia/Blood Transfusion Reactions: No Reported Reaction Past Psychological History: Anxiety, Depression Smoking Status: Former smoker, Vaper - Past Family History Father Additional Family Medical History / Comment(s): etoh, alive at 66 Mother Family Medical History: No Reported History Additional Family Medical History / Comment(s): . General Exam Limitations: no limitations General appearance: alert, in no apparent distress Head exam: Present: atraumatic, normocephalic, normal inspection Respiratory exam: Present: wheezes, decreased breath sounds, prolonged expiratory Cardiovascular Exam: Present: regular rate, normal rhythm Neurological exam: Present: alert, oriented X3, CN II-XII intact Psychiatric exam: Present: normal affect, normal mood Skin exam: Present: warm, dry, intact, normal color. Absent: rash Course Vital Signs 09/09/24 09/09/24 09/09/24 11:10 11:16 12:40 Temperature 98.8 F Pulse Rate 96 76 Respiratory 16 20 Rate Blood Pressure 123/85 O2 Sat by Pulse 96 Oximetry 09/09/24 09/09/24 09/09/24 12:57 15:13 15:47 Temperature Pulse Rate 80 97 86 Respiratory 20 Rate Blood Pressure 118/77 O2 Sat by Pulse 98 Oximetry 09/09/24 09/09/24 15:56 18:13 Temperature Pulse Rate 84 92 Respiratory 20 Rate Blood Pressure 128/62 O2 Sat by Pulse 98 Oximetry Medical Decision Making - Medical Decision Making This is a 49 year old female who presents to the emergency department for shortness of breath. Was pt. sent in by a medical professional or institution? @ -No Did you speak to anyone other than the patient for history? @ -No Did you review nursing and triage notes? @ -Yes, and I agree, it is accurate with regards to the patient's symptoms. Were old charts reviewed? @ -No Differential Diagnosis? @ -Differential Dyspnea: Coronary syndrome, arrhythmia, tamponade, asthma, COPD, pulmonary embolism, pneumonia, pneumothorax, pulmonary effusion, anaphylaxis, diabetic ketoacidosis, flailed chest, pulmonary contusion, diaphragmatic rupture, anemia, neuromuscular, this is not meant to be an all-inclusive list. EKG interpreted by me (3pts min.)? @ -EKG interpreted by me demonstrating the following: Sinus rhythm. Ventricular rate 78 bpm, SD interval 153 ms, QRS duration 80 ms, QTc 389 ms. X-rays interpreted by me (1pt min.)? @ -Chest x-ray obtained, my interpretation identifies no localized consolidations or infiltrates. CT interpreted by me (1pt min.)? @ -Not obtained U/S interpreted by me (1pt. min.)? @ -Not obtained What testing was considered but not performed? (CT, X-rays, U/S, labs)? Why? @ -None What meds were considered but not given? Why? @ -None Did you discuss the management of the patient with other professionals? @ -Yes, Dr. Mon, who accepts the patient for admission Did you reconcile home meds? @ -No Was smoking cessation discussed for >3mins.? @ -No Was critical care preformed (if so, how long)? @ -No Were there social determinants of health that impacted care today? How? (Homelessness, low income, unemployed, alcoholism, drug addiction, transportation, low edu. Level, literacy, decrease access to med. care, senior living, rehab)? @ -No Was there de-escalation of care discussed even if they declined? (Discuss DNR or withdrawal of care, Hospice)? @ -No What co-morbidities impacted this encounter? (DM, HTN, Smoking, COPD, CAD, Cancer, CVA, Hep., AIDS, mental health diagnosis, sleep apnea, morbid obesity)? @ -COPD Was patient admitted / discharged? @ -Admitted. Lab work demonstrates leukocytosis with a white blood cell count of 17.95. Magnesium slightly low at 1.5. Troponin negative. BNP negative. COVID, influenza, and RSV testing negative. Chest x-ray reveals no acute process. 400 mg of magnesium oxide administered. Leukocytosis likely secondary to ongoing steroid use, as no active infection is currently identified. Patient's lung sounds were very restrictive with notable wheezing. She did have some improvement following the DuoNeb breathing treatment. However, given that she is already taking medication on an outpatient basis without improvement, she was admitted to medicine for COPD exacerbation. Scheduled and prn DuoNeb breathing treatments ordered. She was given 125 mg of Solu-Medrol and 60 mg every 6 hours of Solu-Medrol was also ordered. Consult placed for pulmonology. Case discussed with ED attending Dr. Julio. Undiagnosed new problem with uncertain prognosis? @ -None Drug Therapy requiring intensive monitoring for toxicity (Heparin, Nitro, Insulin, Cardizem)? @ -None Were any procedures done? @ -None Diagnosis/symptom? @ -COPD exacerbation Acute, or Chronic, or Acute on Chronic? @ -Acute on chronic Uncomplicated (without systemic symptoms) or Complicated (systemic symptoms)? @ -Uncomplicated Side effects of treatment? @ -None Exacerbation, Progression, or Severe Exacerbation] @ -Exacerbation Poses a threat to life or bodily function? @ -Yes, can lead to further respiratory compromise, which can be life- threatening. - Lab Data Result diagrams: 09/09/24 11:18 09/09/24 11:18 Lab Results 09/09/24 09/09/24 09/09/24 Range/Units 11:18 11:18 11:18 WBC 17.95 H (4.50-10.00) 10*3/uL RBC 4.24 (4.10-5.20) 10*6/uL Hgb 13.5 (12.0-15.0) g/dL Hct 39.1 (37.2-46.3) % MCV 92.2 (80.0-97.0) fL MCH 31.8 (27.0-32.0) pg MCHC 34.5 (32.0-37.0) g/dL Plt Count 266 (140-440) 10*3/uL MPV 10.4 (9.5-12.2) fL Immature Gran % (Auto) 0.5 % Neutrophils % 82.6 % Lymphocytes % 9.1 % Monocytes % 6.4 % Eosinophils % 1.1 % Basophils % 0.3 % Immature Gran # 0.09 H (0.00-0.04) 10*3/uL Neutrophils # 14.83 H (1.80-7.70) 10*3/uL Lymphocytes # 1.63 (0.90-5.00) 10*3/uL Monocytes # 1.15 H (0.20-1.00) 10*3/uL Eosinophils # 0.19 (0.04-0.35) 10*3/uL Basophils # 0.06 (0.00-0.10) 10*3/uL PT 10.7 (10.0-12.5) sec INR 1.0 (<1.2) APTT 21.8 L (22.0-30.0) sec Sodium 133 L (137-145) mmol/L Potassium 4.0 (3.5-5.1) mmol/L Chloride 96 L (98-107) mmol/L Carbon Dioxide 29 (22-30) mmol/L Anion Gap 8 mmol/L BUN 21 H (7-17) mg/dL Creatinine 0.90 (0.52-1.04) mg/dL Est GFR (CKD-EPI)AfAm 89 (>60 ml/min/1.73 sqM) Est GFR (CKD-EPI)NonAf 77 (>60 ml/min/1.73 sqM) Glucose 118 H (74-99) mg/dL Plasma Lactic Acid Jonathan (0.7-2.0) mmol/L Calcium 9.6 (8.4-10.2) mg/dL Magnesium 1.5 L (1.6-2.3) mg/dL Total Bilirubin 0.8 (0.2-1.3) mg/dL AST 31 (14-36) U/L ALT 21 (4-34) U/L Alkaline Phosphatase 72 (38-126) U/L Troponin I (0.000-0.034) ng/mL NT-Pro-B Natriuret Pep 234 pg/mL Total Protein 7.3 (6.3-8.2) g/dL Albumin 4.4 (3.5-5.0) g/dL Influenza Type A (PCR) (Not Detectd) Influenza Type B (PCR) (Not Detectd) RSV (PCR) (Not Detectd) SARS-CoV-2 (PCR) (Not Detectd) 09/09/24 09/09/24 09/09/24 Range/Units 11:18 11:18 11:18 WBC (4.50-10.00) 10*3/uL RBC (4.10-5.20) 10*6/uL Hgb (12.0-15.0) g/dL Hct (37.2-46.3) % MCV (80.0-97.0) fL MCH (27.0-32.0) pg MCHC (32.0-37.0) g/dL Plt Count (140-440) 10*3/uL MPV (9.5-12.2) fL Immature Gran % (Auto) % Neutrophils % % Lymphocytes % % Monocytes % % Eosinophils % % Basophils % % Immature Gran # (0.00-0.04) 10*3/uL Neutrophils # (1.80-7.70) 10*3/uL Lymphocytes # (0.90-5.00) 10*3/uL Monocytes # (0.20-1.00) 10*3/uL Eosinophils # (0.04-0.35) 10*3/uL Basophils # (0.00-0.10) 10*3/uL PT (10.0-12.5) sec INR (<1.2) APTT (22.0-30.0) sec Sodium (137-145) mmol/L Potassium (3.5-5.1) mmol/L Chloride (98-107) mmol/L Carbon Dioxide (22-30) mmol/L Anion Gap mmol/L BUN (7-17) mg/dL Creatinine (0.52-1.04) mg/dL Est GFR (CKD-EPI)AfAm (>60 ml/min/1.73 sqM) Est GFR (CKD-EPI)NonAf (>60 ml/min/1.73 sqM) Glucose (74-99) mg/dL Plasma Lactic Acid Jonathan 1.2 (0.7-2.0) mmol/L Calcium (8.4-10.2) mg/dL Magnesium (1.6-2.3) mg/dL Total Bilirubin (0.2-1.3) mg/dL AST (14-36) U/L ALT (4-34) U/L Alkaline Phosphatase (38-126) U/L Troponin I <0.012 (0.000-0.034) ng/mL NT-Pro-B Natriuret Pep pg/mL Total Protein (6.3-8.2) g/dL Albumin (3.5-5.0) g/dL Influenza Type A (PCR) Not Detected (Not Detectd) Influenza Type B (PCR) Not Detected (Not Detectd) RSV (PCR) Not Detected (Not Detectd) SARS-CoV-2 (PCR) Not Detected (Not Detectd) - Radiology Data Radiology results: report reviewed, image reviewed Disposition Clinical Impression: COPD exacerbation, Failure of outpatient treatment Disposition: ADMITTED IP TO THIS [facility] Referrals: Kirk Blackwood MD [Primary Care Provider] - 1-2 days
[2024-09-09] MEDS: TERBUTALINE 1 MG/ML VIAL SQ STA (11:41)
[2024-09-09] MEDS: methylPREDNISolone SOD SUCCI 125 MG/2 ML VIAL IV STA (11:41)
[2024-09-09] MEDS: SODIUM CHLORIDE 0.9% 500 ML 500 ML IV ONE (11:41)
[2024-09-09 11:46] LABS: RBC 4.24 10*6/uL (4.10-5.20); WBC 17.95 10*3/uL (4.50-10.00)
[2024-09-09 11:47] LABS: Basophils # (A) 0.06 10*3/uL (0.00-0.10); Basophils % (A) 0.3 %; Eosinophils # (A) 0.19 10*3/uL (0.04-0.35); Eosinophils % (A) 1.1 %; HCT 39.1 % (37.2-46.3); HGB 13.5 g/dL (12.0-15.0); Lymphocytes # (A) 1.63 10*3/uL (0.90-5.00); Lymphocytes % (A) 9.1 %; MCH 31.8 pg (27.0-32.0); MCHC 34.5 g/dL (32.0-37.0); MCV 92.2 fL (80.0-97.0); Monocytes # (A) 1.15 10*3/uL (0.20-1.00); Monocytes % (A) 6.4 %; Neutrophils # (A) 14.83 10*3/uL (1.80-7.70); Neutrophils % (A) 82.6 %; Platelet Count 266 10*3/uL (140-440); RDW 12.5 % (11.5-14.5)
[2024-09-09 12:00] LABS: ALT 21 U/L (4-34); AST 31 U/L (14-36); African American GFR (CKD) 89 (>60 ml/min/1.73 sqM); Albumin 4.4 g/dL (3.5-5.0); Alkaline Phosphatase 72 U/L (38-126); Anion Gap 8 mmol/L; Blood Urea Nitrogen 21 mg/dL (7-17); Calcium 9.6 mg/dL (8.4-10.2); Carbon Dioxide 29 mmol/L (22-30); Chloride 96 mmol/L (98-107); Glucose 118 mg/dL (74-99); Magnesium 1.5 mg/dL (1.6-2.3); Non-African American GFR(CKD) 77 (>60 ml/min/1.73 sqM); Potassium 4.0 mmol/L (3.5-5.1); Sodium 133 mmol/L (137-145); Total Protein 7.3 g/dL (6.3-8.2)
--- NOTE | 2024-09-09 12:01 | XR ---
EXAMINATION TYPE: XR chest 2V DATE OF EXAM: 09/09/2024 11:42 AM COMPARISON: Chest radiographs from 02/27/2023 TECHNIQUE: XR chest 2V Frontal and lateral views of the chest. CLINICAL INDICATION:Female, 49 years old with history of difficulty breathing; FINDINGS: Lungs/Pleura: There is flattening of the diaphragm with increased lucency of the lungs. No evidence o f pneumothorax, pleural effusion or focal consolidation. Pulmonary vascularity: Unremarkable. Heart/mediastinum: Cardiomediastinal silhouette is unremarkable. Musculoskeletal: No acute osseous pathology. IMPRESSION: 1. No acute cardiopulmonary disease process. 2. COPD changes. [facility], , 09/09/2024 11:59 AM
[2024-09-09 12:06] LABS: INR 1.0 (<1.2); Partial Thromboplastin Time 21.8 sec (22.0-30.0); Prothrombin Time 10.7 sec (10.0-12.5)
[2024-09-09 12:09] LABS: NT-Pro-B-Type Natriuretic Pept 234 pg/mL
[2024-09-09] MEDS: MAGNESIUM OXIDE 400 MG TAB PO STA (12:14)
[2024-09-09 12:21] LABS: RSV Not Detected (Not Detectd)
[2024-09-09] MEDS: IPRATROPIUM-ALBUTEROL 3 ML NEB INHALATION STA (12:41)
[2024-09-09] MEDS ORDERED: IPRATROPIUM-ALBUTEROL 3 ML NEB INHALATION PRN (13:34)
[2024-09-09] MEDS ORDERED: KETOROLAC 15 MG/ML 1 ML VIAL IVP PRN (13:37)
[2024-09-09] MEDS ORDERED: NALOXONE 0.4 MG/ML 1 ML VIAL IV PRN (13:37)
[2024-09-09] MEDS ORDERED: IBUPROFEN 400 MG TAB PO PRN (13:37)
[2024-09-09] MEDS ORDERED: ACETAMINOPHEN TAB 325 MG TAB PO PRN (13:37)
[2024-09-09] MEDS ORDERED: ONDANSETRON 4 MG/2 ML VIAL IVP PRN (13:37)
[2024-09-09] MEDS: IPRATROPIUM-ALBUTEROL 3 ML NEB INHALATION SCH (15:45)
[2024-09-09] MEDS: methylPREDNISolone SOD SUCCI 125 MG/2 ML VIAL IV SCH (18:06)
[2024-09-09] MEDS: ACYCLOVIR 200 MG CAP PO SCH (21:57)
[2024-09-09] MEDS: BACLOFEN 10 MG TAB PO SCH (21:57)
[2024-09-09] MEDS: HEPARIN SODIUM,PORCINE 5,000 UNIT/ML 1 ML VIAL SQ SCH (21:58)
[2024-09-09] MEDS: FORMOTEROL FUMARATE 20 MCG/2 ML NEBU INHALATION SCH (22:18)
[2024-09-09] MEDS: BUDESONIDE 1 MG/2 ML NEBU INHALATION SCH (22:18)
[2024-09-10] MEDS: traMADol 50 MG TAB PO PRN (00:28)
--- NOTE | 2024-09-10 00:39 | P.CNPUL ---
History of Present Illness Consult date: 09/10/24 Requesting physician: Aliya Jaime Reason for consult: COPD Chief complaint: Shortness of breath History of present illness: Patient is a 49-year-old female with past medical history significant for COPD. Previously, followed in the pulmonary office with Dr. Moore. Her FEV1 is around 28% of predicted. Previous, 1 pack/day smoker, quit in 2019. Previous episode of respiratory failure requiring mechanical ventilation. Currently, using Trelegy inhalers, albuterol rescue inhaler and nebulizations as needed. She does have home oxygen available however, does not use it. Additional, past medical history including hypertension, hyperlipidemia, seizure disorder, hypothyroidism, HSV. Presents to the emergency department yesterday morning complaining of increased work of breathing. This has been ongoing for the last 2 or so weeks. She has been treated on outpatient basis with a course of doxycycline and 2 rounds of antibiotics for the patient. She sees a PCP out of Dr. Aguilar's office, Yue Hines. States she started feeling better and then progressively worsened. Endorses combination of increased work of breathing, chest tightness, wheezing, increased cough. Occasional thick yellow sputum. Denies any fevers or chills. 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 Denies any nausea, vomiting, diarrhea. Chest x-ray done in the emergency department did not show any acute cardiopulmonary process. Flattening of the diaphragm with increased apical lucency. No evidence of pneumothorax. No pleural effusions. No focal consolidations. CBC remarkable for leukocytosis. This could be related to recent steroid use. Hem oglobin 13.5 g/dL. Platelets 266. CMP unremarkable, electrolytes WDL, creatinine 0.9, glucose 118. Troponin less than 0.012. NT proBNP low. Viral 4 Plex negative for influenza A/B, RSV, COVID. Patient currently being evaluated in the emergency department. She has been started on a combination of budesonide inhalations, formoterol inhalation, and loaded with IV Solu-Medrol. She is on room air. Review of Systems Constitutional: Denies chills, Denies fatigue, Denies fever, Denies poor appetite, Denies weight gain, Denies weight loss Ears, nose, mouth and throat: Reports nasal congestion, Denies headache, Denies nasal discharge, Denies post-nasal drip, Denies sinus pain, Denies sinus pressure, Denies sore throat Cardiovascular: Denies chest pain, Denies leg edema, Denies lightheadedness, Denies orthopnea, Denies palpitations, Denies paroxysmal nocturnal dyspnea, Denies syncope Respiratory: Reports as per HPI Gastrointestinal: Denies abdominal pain, Denies change in bowel habits, Denies diarrhea, Denies nausea, Denies vomiting Genitourinary: Denies dysuria Musculoskeletal: Denies limitation of motion Integumentary: Denies rash Neurological: Denies seizures, Denies syncope Psychiatric: Reports anxiety, Reports depression, Denies suicidal ideation Past Medical History Past Medical History: COPD, Fibromyalgia, GERD/Reflux, Hyperlipidemia, Hypertension, Seizure Disorder, Sleep Apnea/CPAP/BIPAP, Thyroid Disorder Additional Past Medical History / Comment(s): history of chronic hypoxic respiratory failure, history of intubation mechanical ventilation secondary to COPD exacerbation- COVID Feb, last seizure 2015, small hiatal hernia, no current rx for thryoid, History of Any Multi-Drug Resistant Organisms: MRSA Date of last positivie culture/infection: 10-18-14 MDRO Source:: Groin Past Surgical History: Back Surgery, Tubal Ligation, Uterine Ablation Additional Past Surgical History / Comment(s): Lumbar fusion L5-S1, LEEP , PAIN CLINIC PROCEDURES Past Anesthesia/Blood Transfusion Reactions: No Reported Reaction Past Psychological History: Anxiety, Depression Smoking Status: Former smoker, Vaper - Past Family History Father Additional Family Medical History / Comment(s): etoh, alive at 66 Mother Family Medical History: No Reported History Additional Family Medical History / Comment(s): . Medications and Allergies Home Medications Medication Instructions Recorded Confirmed Type Cholecalciferol [Vitamin D3 (25 25 mcg PO DAILY 05/26/15 09/09/24 History Mcg = 1000 Iu)] Baclofen 10 mg PO TID 12/14/16 09/09/24 History Omeprazole [PriLOSEC] 20 mg PO DAILY 09/04/20 09/09/24 History Cetirizine HCl [Zyrtec] 10 mg PO DAILY 08/26/21 09/09/24 History Acyclovir [Zovirax] 400 mg PO BID 08/27/21 09/09/24 History Fluticasone Nasal [place] [Flonase 1 spr EA NOSTRIL DAILY 02/27/23 09/09/24 History Nasal [place]] Fluticasone/Umeclidin/Vilanter 1 puff INHALATION RT-DAILY 02/27/23 09/09/24 History [Trelegy Ellipta 100-62.5-25] Metoprolol Succinate (ER) [Toprol 50 mg PO DAILY 02/27/23 09/09/24 History Xl] buPROPion SR [Wellbutrin SR] 150 mg PO DAILY 02/27/23 09/09/24 History hydroCHLOROthiazide 12.5 mg PO DAILY 02/27/23 09/09/24 History lisinopriL 40 mg PO DAILY 02/27/23 09/09/24 History Levothyroxine Sodium [Synthroid] 75 mg PO DAILY 11/30/23 09/09/24 History traMADol HCL 50 mg PO DAILY PRN 11/30/23 09/09/24 History Doxycycline Hyclate 100 mg PO Q12H 09/09/24 09/09/24 History Ipratropium-Albuterol Nebulize 3 ml INHALATION RT-Q6H 09/09/24 09/09/24 History [Duoneb 0.5 mg-3 mg/3 ml Soln] Sertraline [Zoloft] 50 mg PO DAILY 09/09/24 09/09/24 History predniSONE [Deltasone] See Taper PO DAILY 09/09/24 09/09/24 History Allergies Allergy/AdvReac Type Severity Reaction Status Date / Time Sulfa (Sulfonamide Allergy "FEELS Verified 09/09/24 15:31 Antibiotics) LIKE I'M ON FIRE FROM INSIDE OUT" guaifenesin [From Mucinex] AdvReac high blood Verified 09/09/24 15:31 pressure hydrocodone [From [place]] AdvReac STATES Verified 09/09/24 15:31 "IRRATIC MOODS"/Seizures Physical Exam Vitals: Vital Signs Temp Pulse Resp BP Pulse Ox 09/09/24 22:38 68 09/09/24 22:25 63 09/09/24 18:13 92 20 128/62 98 09/09/24 15:56 84 09/09/24 15:47 86 09/09/24 15:13 97 20 118/77 98 09/09/24 12:57 80 09/09/24 12:40 76 09/09/24 11:16 20 09/09/24 11:10 98.8 F 96 16 123/85 96 Intake and Output 09/09/24 09/09/24 09/10/24 14:59 22:59 06:59 Other: Weight 65.771 kg GENERAL EXAM: Alert, 49-year-old female, well-nourished, comfortable in no apparent distress. HEAD: Normocephalic and atraumatic EYES: Normal reaction of pupils, equal size. NOSE: Clear with pink turbinates. THROAT: No erythema or exudates. NECK: No masses, no JVD. CHEST: No chest wall deformity. LUNGS: Equal air entry with markedly diminished lung sounds throughout. No wheezes, rhonchi, crackles, focal dullness. On room air. No conversational dyspnea or accessory muscle use.. CVS: S1 and S2 normal with no audible murmur, regular rhythm. No extra heart sounds ABDOMEN: No hepatosplenomegaly, active bowel sounds, no guarding or rigidity. SPINE: No scoliosis or deformity SKIN: No rashes CENTRAL NERVOUS SYSTEM: No focal deficits, tone is normal in all 4 extremities. EXTREMITIES: There is no peripheral edema, clubbing, or cyanosis. Peripheral pulses are intact. Results - Laboratory Findings CBC and BMP: 09/09/24 11:18 09/09/24 11:18 PT/INR, D-dimer PT 10.7 sec (10.0-12.5) 09/09/24 11:18 INR 1.0 (<1.2) 09/09/24 11:18 Abnormal lab findings: Abnormal Labs 09/09/24 09/09/24 09/09/24 11:18 11:18 11:18 WBC 17.95 H Immature Gran # 0.09 H Neutrophils # 14.83 H Monocytes # 1.15 H APTT 21.8 L Sodium 133 L Chloride 96 L BUN 21 H Glucose 118 H Magnesium 1.5 L - Diagnostic Findings Chest x-ray: image reviewed Assessment and Plan Assessment: Acute COPD exacerbation, chest x-ray does not show any acute cardiopulmonary process. Viral 4 Plex negative for influenza A/B, RSV, COVID Acute dyspnea, secondary to above Acute leukocytosis, possibly secondary to steroid use Very severe COPD, with an FEV1 28% of predicted, normally maintained on Trelegy maintenance inhaler, and as needed albuterol rescue inhaler/nebulizations.. Previously worked up for alpha-1 antitrypsin deficiency, which was unremarkable Former tobacco smoker, with [id number] smoking history, quit in 2019 Previous history of COVID-19 pneumonia and ventilator dependent respiratory failure History of fibromyalgia Hypertension History of hyperlipidemia History of hypothyroidism History of seizures History HSV 2 Plan: Patient's medications, labs, chest x-ray reviewed Chest x-ray does not show any acute cardiopulmonary process Viral 4 Plex unremarkable for influenza A/B, RSV, COVID Continue combination of budesonide, formoterol, bronchodilators [id number], and IV Solu-Medrol Previously started empiric ceftriaxone Will continue to follow, additional recommendations forthcoming. I have personally seen and examined the patient, performed the documentation and the assessment and plan as written. Number of minutes spent on the visit:20 Time with Patient: Greater than 30
--- NOTE | 2024-09-10 02:18 | HP ---
HISTORY AND PHYSICAL CHIEF COMPLAINT: Shortness of breath. HISTORY OF PRESENT ILLNESS: This 49-year-old woman with a past medical history of multiple problems including COPD, is complaining of shortness of breath for the last several days. The patient has significant difficulties, cough, and some chest pain. Also, the patient came to [facility] and the chest x-ray on admission showed no acute abnormality. Patient admitted for further evaluation and treatment. There is no history of any fever, rigors, or chills. PAST MEDICAL HISTORY: Reviewed, includes COPD, fibromyalgia. Rest of the history and rest of the chart is also reviewed. HOME MEDICATIONS: Reviewed, includes Ultram dose and rest of medications reviewed. ALLERGIES: Sulfa. FAMILY HISTORY: No history of strokes in the family. SOCIAL HISTORY: History of vaping. REVIEW OF SYSTEMS: A 14-point review of systems negative except as mentioned earlier. PHYSICAL EXAMINATION: VITAL SIGNS: Pulse is 86, blood pressure 123/84, respirations 16. HEENT: Conjunctivae normal. NECK: No jugular venous distention. CARDIOVASCULAR: S1 and S2. RESPIRATIONS: Breath sounds diminished at the bases. Bilateral scattered rhonchi and expiratory wheezing. Breathing efforts are markedly increased. ABDOMEN: Soft and nontender. LEGS: No edema. No swelling. NERVOUS SYSTEM: No focal deficits. LABORATORY DATA: Reviewed. ASSESSMENT: 1. Chronic obstructive pulmonary disease acute exacerbation with acute tracheobronchitis with failure of outpatient treatment. 2. Elevated WBC. 3. Fibromyalgia. 4. Hypertension. 5. hyperlipidemia. 6. Seizure disorder. RECOMMENDATIONS AND DISCUSSION: This 49-year-old woman presented with multiple complex medical issues. We will monitor the patient closely. Recommend intensive bronchodilator treatment, empiric antibiotics. Otherwise, I would also recommend resume the home medications, steroids. Guarded prognosis because of multiple complex medical issues and further recommendations to follow. See orders for details. MMODL / IJN: [id number] / MTDD
[2024-09-10 05:52] LABS: Basophils # (A) 0.03 10*3/uL (0.00-0.10); Basophils % (A) 0.2 %; Eosinophils # (A) 0.00 10*3/uL (0.04-0.35); Eosinophils % (A) 0.0 %; HCT 39.4 % (37.2-46.3); HGB 13.5 g/dL (12.0-15.0); Lymphocytes # (A) 0.93 10*3/uL (0.90-5.00); Lymphocytes % (A) 6.3 %; MCH 31.8 pg (27.0-32.0); MCHC 34.3 g/dL (32.0-37.0); MCV 92.9 fL (80.0-97.0); Monocytes # (A) 0.15 10*3/uL (0.20-1.00); Monocytes % (A) 1.0 %; Neutrophils # (A) 13.49 10*3/uL (1.80-7.70); Neutrophils % (A) 91.9 %; Platelet Count 263 10*3/uL (140-440); RBC 4.24 10*6/uL (4.10-5.20); RDW 12.4 % (11.5-14.5); WBC 14.69 10*3/uL (4.50-10.00)
[2024-09-10 06:17] LABS: African American GFR (CKD) >90 (>60 ml/min/1.73 sqM); Anion Gap 11 mmol/L; Blood Urea Nitrogen 19 mg/dL (7-17); Calcium 10.3 mg/dL (8.4-10.2); Carbon Dioxide 28 mmol/L (22-30); Chloride 97 mmol/L (98-107); Glucose 133 mg/dL (74-99); Non-African American GFR(CKD) 88 (>60 ml/min/1.73 sqM); Potassium 4.3 mmol/L (3.5-5.1); Sodium 136 mmol/L (137-145)
[2024-09-10] MEDS: LEVOTHYROXINE 75 MCG TAB PO SCH (06:41)
[2024-09-10] MEDS: PANTOPRAZOLE 40 MG TABLET PO SCH (06:41)
[2024-09-10] MEDS ORDERED: NON FORMULARY DRUG (Omeprazole 20 MG Capsule.Dr) PO SCH (09:00)
[2024-09-10] MEDS: CHOLECALCIFEROL 25 MCG (1000 IU) TABLET PO SCH (09:04)
[2024-09-10] MEDS: LORATADINE 10 MG TAB PO SCH (09:04)
[2024-09-10] MEDS: METOPROLOL SUCCINATE (ER) 50 MG TAB.ER.24H PO SCH (09:04)
[2024-09-10] MEDS: SERTRALINE 50 MG TAB PO SCH (09:04)
[2024-09-10] MEDS: buPROPion SR 150 MG TABLET.ER PO SCH (09:48)
[2024-09-10] MEDS: FLUTICASONE NASAL 50MCG/SPRAY 16GM BTL EA NOSTRIL SCH (09:48)
[2024-09-11 03:31] VITALS: RESP 16
--- NOTE | 2024-09-11 06:53 | PN ---
PROGRESS NOTE DATE OF SERVICE: 09/10/2024 SUBJECTIVE: This 49-year-old woman, who was admitted with COPD acute exacerbation, is being closely monitored. No chest pain. No palpitation. OBJECTIVE: VITAL SIGNS: Pulse 72, blood pressure 100/87, and respirations 15. CHEST: Bilateral scattered rhonchi and crackles. ABDOMEN: Soft. LABORATORY DATA: WBC 14.69. ASSESSMENT: 1. Chronic obstructive pulmonary disease acute exacerbation, acute purulent tracheobronchitis with failure of outpatient treatment. 2. Elevated WBC. 3. Fibromyalgia. 4. Hypertension. 5. Hyperlipidemia. 6. Seizure disorder. RECOMMENDATION: Continue current management. Continue symptomatic treatment. Continue the bronchodilators. Continue empiric antibiotics. Follow the cultures. Otherwise, recommend to repeat labs in the morning. Closely follow with the Pulmonary. Steroids. Monitor blood sugars closely. Further recommendations to follow. MMODL / IJN: [id number] /
[2024-09-11 07:36] VITALS: TEMP 98.1
[2024-09-11 07:38] LABS: Basophils # (A) 0.06 10*3/uL (0.00-0.10); Basophils % (A) 0.2 %; Eosinophils # (A) 0.00 10*3/uL (0.04-0.35); Eosinophils % (A) 0.0 %; HCT 35.9 % (37.2-46.3); HGB 12.3 g/dL (12.0-15.0); Lymphocytes # (A) 1.01 10*3/uL (0.90-5.00); Lymphocytes % (A) 3.5 %; MCH 31.7 pg (27.0-32.0); MCHC 34.3 g/dL (32.0-37.0); MCV 92.5 fL (80.0-97.0); Monocytes # (A) 0.82 10*3/uL (0.20-1.00); Monocytes % (A) 2.8 %; Neutrophils # (A) 27.07 10*3/uL (1.80-7.70); Neutrophils % (A) 92.8 %; Platelet Count 280 10*3/uL (140-440); RBC 3.88 10*6/uL (4.10-5.20); RDW 12.5 % (11.5-14.5); WBC 29.15 10*3/uL (4.50-10.00)
[2024-09-11 07:58] LABS: African American GFR (CKD) >90 (>60 ml/min/1.73 sqM); Anion Gap 9 mmol/L; Blood Urea Nitrogen 17 mg/dL (7-17); Calcium 9.9 mg/dL (8.4-10.2); Carbon Dioxide 24 mmol/L (22-30); Chloride 103 mmol/L (98-107); Glucose 149 mg/dL (74-99); Non-African American GFR(CKD) >90 (>60 ml/min/1.73 sqM); Potassium 4.1 mmol/L (3.5-5.1); Sodium 136 mmol/L (137-145)
[2024-09-11] MEDS: predniSONE 20 MG TAB PO SCH (09:49)
[2024-09-11 11:02] LABS: RBC Morphology Normal
--- NOTE | 2024-09-11 13:30 | P.PN ---
Subjective Progress Note Date: 09/11/24 Principal diagnosis: Acute exacerbation of COPD Patient is a 49-year-old female with past medical history significant for COPD. Previously, followed in the pulmonary office with Dr. Moore. Her FEV1 is around 28% of predicted. Previous, 1 pack/day smoker, quit in 2019. Previous episode of respiratory failure requiring mechanical ventilation. Currently, using Trelegy inhalers, albuterol rescue inhaler and nebulizations as needed. She does have home oxygen available however, does not use it. Additional, past medical history including hypertension, hyperlipidemia, seizure disorder, hypothyroidism, HSV. Presents to the emergency department yesterday morning complaining of increased work of breathing. This has been ongoing for the last 2 or so weeks. She has been treated on outpatient basis with a course of doxycycline and 2 rounds of antibiotics for the patient. She sees a PCP out of Dr. Aguilar's office, Yue Hines. States she started feeling better and then progressively worsened. Endorses combination of increased work of breathing, chest tightness, wheezing, increased cough. Occasional thick yellow sputum. Denies any fevers or chills. 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 Denies any nausea, vomiting, diarrhea. Chest x-ray done in the emergency department did not show any acute cardiopulmonary process. Flattening of the diaphragm with increased apical lucency. No evidence of pneumothorax. No pleural effusions. No focal consolidations. CBC remarkable for leukocytosis. This could be related to recent steroid use. Hemoglobin 13.5 g/dL. Platelets 266. CMP unremarkable, electrolytes WDL, creatinine 0.9, glucose 118. Troponin less than 0.012. NT proBNP low. Viral 4 Plex negative for influenza A/B, RSV, COVID. Patient currently being evaluated in the emergency department. She has been started on a combination of budesonide inhalations, formoterol inhalation, and loaded with IV Solu-Medrol. She is on room air. Patient was seen today on 09/11/2024, I saw her yesterday on consultation for COPD exacerbation, patient was placed on maximal bronchodilator therapy, steroids, and she was also placed on antibiotics for her leukocytosis. [place] her leukocytosis was most likely related to steroids. Patient is doing much better today, breathing a lot easier, less cough less wheezing less shortness of breath, hence I will clear the patient for discharge home today. WBC count today still elevated at 29.15 hemoglobin is 12.3 electrolytes are normal renal profile is normal Objective - Vital Signs Vital signs: Vital Signs Temp 98.1 F 09/11/24 07:27 Pulse 91 09/11/24 13:16 Resp 16 09/11/24 07:27 BP 145/79 09/11/24 07:27 Pulse Ox 99 09/11/24 10:06 FiO2 Intake & Output 09/10/24 09/11/24 09/11/24 18:59 06:59 18:59 Intake Total 500 500 Balance 500 500 Intake: Oral 500 500 Other: Voiding Method Toilet Toilet # Voids 1 2 - Exam GENERAL EXAM: Reveals 49-year-old female in no distress, on room air HEAD: Normocephalic and atraumatic EYES: Normal reaction of pupils, equal size. NOSE: Clear with pink turbinates. THROAT: No erythema or exudates. NECK: No masses, no JVD. CHEST: No chest wall deformity. LUNGS: Diminished breath sound bilaterally no crackles rhonchi or wheezes CVS: S1 and S2 normal with no audible murmur, regular rhythm. No extra heart sounds ABDOMEN: No hepatosplenomegaly, active bowel sounds, no guarding or rigidity. SKIN: No rashes CENTRAL NERVOUS SYSTEM: Alert oriented x 3 no focal deficit EXTREMITIES: No clubbing edema or cyanosis. - Labs CBC & Chem 7: 09/11/24 06:53 09/11/24 06:53 Labs: Abnormal Lab Results - Last 24 Hours (Table) 09/11/24 09/11/24 Range/Units 06:53 06:53 WBC 29.15 H (4.50-10.00) 10*3/uL RBC 3.88 L (4.10-5.20) 10*6/uL Hct 35.9 L (37.2-46.3) % Immature Gran # 0.19 H (0.00-0.04) 10*3/uL Neutrophils # 27.07 H (1.80-7.70) 10*3/uL Eosinophils # 0.00 L (0.04-0.35) 10*3/uL Sodium 136 L (137-145) mmol/L Glucose 149 H (74-99) mg/dL Microbiology - Last 24 Hours (Table) 09/10/24 08:17 Gram Stain - Preliminary Sputum Sputum Culture - Preliminary Assessment and Plan Assessment: Impression: Acute exacerbation of COPD Acute tracheobronchitis History of severe underlying COPD FEV1 of 28% Former smoker History of multiple comorbidities including history of seizures, hypothyroidism hyperlipidemia hypertension fibromyalgia Recommendation: Will clear the patient for discharge home today Patient to resume her bronchodilators as she normally takes at home including albuterol [place] and DuoNeb Patient to go home on a tapering dose of prednisone starting at 40 mg tapered over 2 weeks Transition to oral antibiotics/Ceftin for 7 more days Patient to follow-up with Dr. Mcgraw postdischarge in 1 week Again clear for discharge Time with Patient: Greater than 30
[2024-09-11 13:43] VITALS: BP 115/76; PULSE 64
--- NOTE | 2024-09-13 07:46 | P.DS ---
Providers Date of admission: 09/09/24 13:20 Expected date of discharge: 09/11/24 Attending physician: Haroldo Mon MD Consults: 09/09/24 13:34 Consult Physician Routine Consulting Provider: Elieser Castillo Consult Reason/Comments: COPD exacerbation Do you want consulting provider notified?: Yes Primary care physician: Kirk Blackwood [facility] Course: Final diagnosis Chronic obstructive pulmonary disease, acute exacerbation with acute tracheobronchitis with failure of outpatient treatment Elevated WBC, possibly reactive with steroid effect Fibromyalgia Hypertension Hyperlipidemia History of seizure disorder History of sleep apnea Former smoker, now vapes GI prophylaxis DVT prophylaxis Full code Discharge disposition Patient is being discharged in a stable condition with guarded prognosis to home. Patient will follow-up with Dr. Blackwood in the outpatient setting upon discharge. Patient is to continue with breathing treatments and a prednisone taper and outpatient follow-up with pulmonary as scheduled. Total time taken is greater than 35 minutes. Hospital course This is a 49-year-old female who was recently admitted with increasing shortness of breath with cough with COPD exacerbation being closely monitored with pulmonary following. Patient is maintained on IV steroids along with breathing treatments showing some clinical improvement reports to feeling improved and would like to go home. Pulmonary has cleared the patient recommending outpatient follow-up. Please refer to pulmonary notes for further HPI. Currently no reports of chest pain, shortness of breath, or palpitations. Patient is afebrile. No reports of nausea or vomiting and patient is tolerating diet. Patient will be discharged home today. Guarded prognosis Physical exam: Gen: This is a 49-year-old female who is awake, alert and oriented x 3, well- developed, thin built HEENT: Head is atraumatic, normocephalic. Pupils equal, round. Sclerae is anicteric. NECK: Supple. No JVD. No lymphadenopathy. No thyromegaly. LUNGS: Diminished breath sounds bilaterally with some expiratory wheezes and coarse rhonchi. No intercostal retractions. HEART: S1, S2 are muffled ABDOMEN: Soft. Bowel sounds are present. No masses. No tenderness. EXTREMITIES: No pedal edema. No calf tenderness. NEUROLOGICAL: Patient is awake, alert and oriented x3. Cranial nerves 2 through 12 are grossly intact. Please refer to medication reconciliation sheet for a list of medications. The impression and plan of care has been dictated by Ann Acosta, Nurse Practitioner as directed. Dr. Elder MD I have performed a history and examination and MDM of this patient, discussed the same with the dictator, and agree with the dictator's assessment and plan as written ,documented as a scribe. Based on total visit time, I have performed more than 50% of the visit. Plan - Discharge Summary Discharge Rx Participant: Yes New Discharge Prescriptions: New Ipratropium-Albuterol Nebulize [Duoneb 0.5 mg-3 mg/3 ml Soln] 3 ml INHALATION RT-Q2H PRN each PRN Reason: Shortness Of Breath Or Wheezing Acetaminophen Tab [Tylenol] 650 mg PO Q6HR PRN tab PRN Reason: Mild Pain Or Fever > 100.5 cefuroxime axetiL [Ceftin] 500 mg PO BID 5 Days #10 tab predniSONE See Taper PO DIRECTED #30 tab Ibuprofen [Motrin] 400 mg PO Q6HR PRN tab PRN Reason: Moderate Pain or Fever > 100.5 Azithromycin [Zithromax] 500 mg PO DAILY 5 Days #5 tab Continue Cholecalciferol [Vitamin D3 (25 Mcg = 1000 Iu)] 25 mcg PO DAILY Baclofen 10 mg PO TID Cetirizine HCl [Zyrtec] 10 mg PO DAILY Metoprolol Succinate (ER) [Toprol XL] 50 mg PO DAILY lisinopriL 40 mg PO DAILY buPROPion SR [Wellbutrin SR] 150 mg PO DAILY Fluticasone/Umeclidin/Vilanter [Trelegy Ellipta 100-62.5-25] 1 puff INHALATION RT-DAILY Levothyroxine Sodium [Synthroid] 75 mg PO DAILY Sertraline [Zoloft] 50 mg PO DAILY Omeprazole [PriLOSEC] 20 mg PO DAILY Acyclovir [Zovirax] 400 mg PO BID Fluticasone Nasal [place] [Flonase Nasal [place]] 1 spr EA NOSTRIL DAILY hydroCHLOROthiazide 12.5 mg PO DAILY traMADol HCL 50 mg PO DAILY PRN PRN Reason: Pain Ipratropium-Albuterol Nebulize [Duoneb 0.5 mg-3 mg/3 ml Soln] 3 ml INHALATION RT-Q6H Doxycycline Hyclate 100 mg PO Q12H Discontinued predniSONE [Deltasone] See Taper PO DAILY Discharge Medication List Cholecalciferol [Vitamin D3 (25 Mcg = 1000 Iu)] 25 mcg PO DAILY 05/26/15 [History] Baclofen 10 mg PO TID 12/14/16 [History] Omeprazole [PriLOSEC] 20 mg PO DAILY 09/04/20 [History] Cetirizine HCl [Zyrtec] 10 mg PO DAILY 08/26/21 [History] Acyclovir [Zovirax] 400 mg PO BID 08/27/21 [History] Fluticasone Nasal [place] [Flonase Nasal [place]] 1 spr EA NOSTRIL DAILY 02/27/23 [History] Fluticasone/Umeclidin/Vilanter [Trelegy Ellipta 100-62.5-25] 1 puff INHALATION RT-DAILY 02/27/23 [History] Metoprolol Succinate (ER) [Toprol XL] 50 mg PO DAILY 02/27/23 [History] buPROPion SR [Wellbutrin SR] 150 mg PO DAILY 02/27/23 [History] hydroCHLOROthiazide 12.5 mg PO DAILY 02/27/23 [History] lisinopriL 40 mg PO DAILY 02/27/23 [History] Levothyroxine Sodium [Synthroid] 75 mg PO DAILY 11/30/23 [History] traMADol HCL 50 mg PO DAILY PRN 11/30/23 [History] Doxycycline Hyclate 100 mg PO Q12H 09/09/24 [History] Ipratropium-Albuterol Nebulize [Duoneb 0.5 mg-3 mg/3 ml Soln] 3 ml INHALATION RT-Q6H 09/09/24 [History] Sertraline [Zoloft] 50 mg PO DAILY 09/09/24 [History] Acetaminophen Tab [Tylenol] 650 mg PO Q6HR PRN tab 09/11/24 [Rx] Azithromycin [Zithromax] 500 mg PO DAILY 5 Days #5 tab 09/11/24 [Rx] Ibuprofen [Motrin] 400 mg PO Q6HR PRN tab 09/11/24 [Rx] Ipratropium-Albuterol Nebulize [Duoneb 0.5 mg-3 mg/3 ml Soln] 3 ml INHALATION RT-Q2H PRN each 09/11/24 [Rx] cefuroxime axetiL [Ceftin] 500 mg PO BID 5 Days #10 tab 09/11/24 [Rx] predniSONE See Taper PO DIRECTED #30 tab 09/11/24 [Rx] Follow up Appointment(s)/Referral(s): Kirk Blackwood MD [Primary Care Provider] - 1-2 days Elieser Castillo MD [STAFF PHYSICIAN] - 1 Week Activity/Diet/Wound Care/Special Instructions: Activity limited until follow-up Follow-up with primary care provider on discharge Follow-up with pulmonary outpatient Continue prednisone taper until finished Continue with breathing treatments Continue antibiotics to finish the course Discharge/Stand Alone Forms: Work/School Release, Work/Release Restrictions Form, Work/School Release / Restrict Discharge Disposition: HOME SELF-CARE
== END 2024-09-11 15:30 | disposition home or self-care (01) | DRG 140 ==
LOC: EC 11:02 → 1SOBS 13:19 → OBSVTOIN 13:20 → 1SOBS 22:34 → 3SCARD 09-10 00:50 → 1SOBS 09-10 00:52
PROVIDERS: ADMIT Internal Medicine; ATTEND Internal Medicine
DX: J44.1 Chronic obstructive pulmonary disease with (acute) exacerbation (principal); J96.11 Chronic respiratory failure with hypoxia; J44.0 Chronic obstructive pulmonary disease with (acute) lower respiratory infection; I10 Essential (primary) hypertension; E03.9 Hypothyroidism, unspecified; F32.A Depression, unspecified; F41.9 Anxiety disorder, unspecified; J20.9 Acute bronchitis, unspecified; E78.5 Hyperlipidemia, unspecified; M79.7 Fibromyalgia; T38.0X5A Adverse effect of glucocorticoids and synthetic analogues, initial encounter; D72.829 Elevated white blood cell count, unspecified; F17.290 Nicotine dependence, other tobacco product, uncomplicated; K21.9 Gastro-esophageal reflux disease without esophagitis; Z79.51 Long term (current) use of inhaled steroids; Z79.890 Hormone replacement therapy; Z79.899 Other long term (current) drug therapy; Z86.14 Personal history of Methicillin resistant Staphylococcus aureus infection; Z86.16 Personal history of COVID-19; Z87.01 Personal history of pneumonia (recurrent); Z88.2 Allergy status to sulfonamides; Z88.5 Allergy status to narcotic agent
CPT/HCPCS: 36415; 71046; 80048; 80053; 83605; 83735; 83880; 84484; 85025; 85610; 85730; 87070; 87205; 87636; 93005; 94640; 94760; 96361; 96365; 96372; 96375; 96376; 99285